=== PATIENT | female | born 1970 | race Two or more races ===

== ENCOUNTER 2019-11-20 12:52 | Outpatient (REF) | payer OTHER, SELFPAY ==
[2019-11-20 14:16] LABS: MANUAL DIFF FLAG NO
[2019-11-20 14:19] LABS: Basophils Percent Auto 0.8 % (0-2); Eosinophils Absolute Auto 0.3 X10*3/uL (0.0-0.4); Eosinophils Percent Auto 5.8 % (0-4); Hematocrit 35.8 % (37-47); Hemoglobin 10.8 g/dl (12.0-16.0); Imm Gran Abs Auto 0.01 X10*3/uL (0.00-0.03); Imm Gran Pct Auto 0.2 % (0.0-0.4); Lymphocytes Absolute Auto 2.1 X10*3/uL (1.2-4.9); Lymphocytes Percent Auto 41.4 % (20-40); Mean Corpuscular HGB Conc 30.2 g/dl (31.0-35.0); Mean Corpuscular Hemoglobin 27.1 pg (27.0-33.0); Mean Corpuscular Volume 89.9 fL (80-98); Mean Platelet Volume 10.9 fL (9.4-12.3); Monocytes Absolute Auto 0.4 X10*3/uL (0.1-1.2); Monocytes Percent Auto 8.3 % (2-11); Neutrophils Absolute Auto 2.3 X10*3/uL (2.0-8.3); Neutrophils Percent Auto 43.5 % (45-73); Platelet Count 311 X10*3/uL (160-400); Red Blood Count 3.98 X10*6/uL (4.20-5.50); White Blood Count 5.2 X10*3/uL (4.8-10.8)
== END 2019-11-20 12:53 | disposition home or self-care (01) ==
LOC: HO.LAB 12:52
PROVIDERS: PCP Internal Medicine; Visit Provider Internal Medicine
DX: D64.9 Anemia, unspecified (principal)
CPT/HCPCS: 36415; 85025

== ENCOUNTER 2020-02-12 06:48 | Outpatient (REF) | payer OTHER, SELFPAY ==
[2020-02-12 07:19] LABS: MANUAL DIFF FLAG NO
[2020-02-12 07:22] LABS: Basophils Percent Auto 0.4 % (0-2); Eosinophils Absolute Auto 0.4 X10*3/uL (0.0-0.4); Eosinophils Percent Auto 5.1 % (0-4); Hematocrit 36.1 % (37-47); Imm Gran Abs Auto 0.01 X10*3/uL (0.00-0.03); Imm Gran Pct Auto 0.1 % (0.0-0.4); Lymphocytes Absolute Auto 2.5 X10*3/uL (1.2-4.9); Lymphocytes Percent Auto 31.1 % (20-40); Mean Corpuscular HGB Conc 30.5 g/dl (31.0-35.0); Mean Corpuscular Hemoglobin 27.6 pg (27.0-33.0); Mean Corpuscular Volume 90.5 fL (80-98); Mean Platelet Volume 10.5 fL (9.4-12.3); Monocytes Absolute Auto 0.7 X10*3/uL (0.1-1.2); Monocytes Percent Auto 8.3 % (2-11); Neutrophils Absolute Auto 4.4 X10*3/uL (2.0-8.3); Platelet Count 282 X10*3/uL (160-400); Red Blood Count 3.99 X10*6/uL (4.20-5.50); Red Cell Distribution Width 13.6 % (11.0-16.0)
[2020-02-12 07:57] LABS: Alanine Aminotransferase 23 U/L (0-31); Albumin Level 4.2 g/dL (3.5-5.0); Alkaline Phosphatase 76 U/L (39-117); Anion Gap 11 (12-20); Aspartate Amino Transferase 22 U/L (5-31); Bilirubin Total 0.4 mg/dL (0.0-1.0); Blood Urea Nitrogen 15 mg/dL (9-16); Calcium 9.8 mg/dL (8.4-10.2); Carbon Dioxide 26 mmol/L (22-29); Chloride 110 mmol/L (96-108); Cholesterol 127 mg/dL; Estimated Glomerular Filt Rate > 60; Glucose Random 97 mg/dL (60-115); HDL Cholesterol 38 mg/dL; LDL Cholesterol Calculated 62 mg/dl; Potassium 4.5 mmol/l (3.3-5.1); Sodium 142 mmol/L (135-145); Total Protein 6.7 g/dL (6.5-8.0); Triglycerides 136 mg/dL
[2020-02-12 08:19] LABS: Ferritin 10 ng/mL (10-250)
== END 2020-02-12 06:49 | disposition home or self-care (01) ==
LOC: HO.LAB 06:48
PROVIDERS: PCP Internal Medicine; Visit Provider Internal Medicine
DX: E78.2 Mixed hyperlipidemia (principal)
CPT/HCPCS: 36415; 80053; 80061; 82728; 85025

== ENCOUNTER 2020-02-21 14:15 | Outpatient (REF) | payer OTHER, SELFPAY ==
--- NOTE | 2020-02-21 | US_ITS ---
EXAMINATION: ULTRASOUND OF THE PELVIS CLINICAL INFORMATION: Dysfunctional uterine bleeding.. COMPARISON: None. TECHNIQUE: Transabdominal and transvaginal pelvic ultrasound. Doppler evaluation including arterial as well as venous spectral Doppler waveforms and color Doppler were performed. FINDINGS: The uterus is normal in size and appearance, measuring 9.6 x 5.3 x 6.4 cm longitudinally, anteroposteriorly and transversely. The endometrial stripe is heterogeneous, echogenic and measures 1.2 cm. Small amount of fluid is noted within the endometrial cavity. No focal myometrial mass is seen. The ovaries bilaterally are visualized and appear normal, with the right ovary measuring 4.2 x 2.1 x 2.1 cm, volume 9.7 mL and the left ovary measuring 3.3 x 2.5 x 2.4 cm., volume of 10.4 mL. Specific note is made of a 1.9 x 1.8 x 1.6 cm likely hemorrhagic follicle within the right ovary and 1.9 x 1.4 x 1.8 cm also likely hemorrhagic follicle within the left ovary. No adnexal mass or free fluid collection seen. A transvaginal study was performed in addition to the transabdominal study which did not yield an adequate examination of the uterus and ovaries due to superimposed distended gas-filled loops of bowel. US/US pelvic complete IMPRESSION: 1. The endometrial stripe is heterogeneous, echogenic and measures 1.2 cm. Small amount of fluid is noted within the endometrial cavity. 2. Morphologically normal-appearing ovaries with likely hemorrhagic follicle measuring approximately 2 cm, one on each side, as described above.
== END 2020-02-21 14:16 | disposition home or self-care (01) ==
LOC: HO.US 14:15
PROVIDERS: PCP Internal Medicine; Visit Provider Internal Medicine
DX: N92.1 Excessive and frequent menstruation with irregular cycle (principal); Z01.419 Encounter for gynecological examination (general) (routine) without abnormal findings
CPT/HCPCS: 76830; 76856

== ENCOUNTER 2020-03-04 18:31 | Emergency (ER) | payer OTHER, SELFPAY ==
[2020-03-04 18:42] VITALS: BP 169/55; PULSE 94; RESP 20; TEMP 36.8; O2SAT 100; BMI 29.5
--- NOTE | 2020-03-04 18:44 | ED_ITS ---
HPI - Abdominal Pain General Chief Complaint: Abdominal Pain <SILVER Gaffney - Last Filed: 03/05/20 17:18> Stated Complaint: lower abdominal pain <SILVER Gaffney - Last Filed: 03/05/20 17:18> Time Seen by Provider: 03/04/20 18:43 <SILVER Gaffney - Last Filed: 03/05/20 17:18> Related Data Home Medications: Home Medications Medication Instructions Recorded Confirmed lisinopril 10 mg tablet 10 mg PO DAILY 03/05/20 03/05/20 metoprolol tartrate 50 mg tablet 50 mg PO BID 03/05/20 03/05/20 rosuvastatin 20 mg tablet 20 mg PO BEDTIME 03/05/20 03/05/20 <SILVER Gaffney - Last Filed: 03/05/20 17:18> Allergies/Adverse Reactions: Allergies Allergy/AdvReac Type Severity Reaction Status Date / Time pork derived (porcine) Allergy Severe RASH Verified 03/05/20 09:35 [PORK DERIVED (PORCINE)] <SILVER Gaffney - Last Filed: 03/05/20 17:18> Physical Exam Vital Signs: Vital Signs: Last Vital Signs Temp 98.2 F 03/04/20 18:42 Pulse 78 03/04/20 20:02 Resp 18 03/04/20 20:02 BP 152/76 H 03/04/20 20:02 Pulse Ox 100 03/04/20 20:02 Body Mass Index 29.5 <SILVER Gaffney - Last Filed: 03/05/20 17:18> Vital Signs: Last Vital Signs Temp 98.2 F 03/04/20 18:42 Pulse 78 03/04/20 20:02 Resp 18 03/04/20 20:02 BP 152/76 H 03/04/20 20:02 Pulse Ox 100 03/04/20 20:02 Body Mass Index 29.5 <Glen Miller MD - Last Filed: 03/12/20 08:45> Course Course Course Narrative: This is a 50 yold female who presents to the ED with RLQ pain that began suddenly 45 minutes ago. Patient denies any trauma. patient will have basic labs drawn. History, physical exam, ROS, decision making, and disposition will be done by ED. PRovider. <SILVER Gaffney - Last Filed: 03/05/20 17:18> patient left prior to complete evaluation <Glen Miller MD - Last Filed: 03/12/20 08:45> MDM - Abdominal Pain Lab Data Result diagrams: : 03/04/20 20:11 03/04/20 20:11 <SILVER Gaffney - Last Filed: 03/05/20 17:18> Labs: Lab Results 03/04/20 03/04/20 03/04/20 Range/Units 18:53 20:11 20:11 WBC 7.0 (4.8-10.8) X10*3/uL RBC 3.82 L (4.20-5.50) X10*6/uL Hgb 10.7 L (12.0-16.0) g/dl Hct 34.3 L (37-47) % MCV 89.8 (80-98) fL MCH 28.0 (27.0-33.0) pg MCHC 31.2 (31.0-35.0) g/dl RDW 13.3 (11.0-16.0) % Plt Count 312 (160-400) X10*3/uL MPV 10.1 (9.4-12.3) fL Immature Gran % (Auto) 0.1 (0.0-0.4) % Neut % (Auto) 67.2 (45-73) % Lymph % (Auto) 22.5 (20-40) % [place] % (Auto) 7.1 (2-11) % Eos % (Auto) 2.7 (0-4) % Baso % (Auto) 0.4 (0-2) % Lymph # (Auto) 1.6 (1.2-4.9) X10*3/uL [place] # (Auto) 0.5 (0.1-1.2) X10*3/uL Eos # (Auto) 0.2 (0.0-0.4) X10*3/uL Baso # (Auto) 0.0 (0.0-0.2) X10*3/uL Abs Immat Gran (auto) 0.01 (0.00-0.03) X10*3/uL Absolute Neuts (auto) 4.7 (2.0-8.3) X10*3/uL Absolute Nucleated RBC 0.000 (0.0-0.012) X10*3/uL Nucleated RBC % (auto) 0.0 (0.0-0.2) /100WBC PT 11.5 (10.8-13.0) SEC INR 1.0 (0.9-1.1) APTT 31.8 (24.1-38.0) SEC Sodium (135-145) mmol/L Potassium (3.3-5.1) mmol/l Chloride (96-108) mmol/L Carbon Dioxide (22-29) mmol/L Anion Gap (12-20) BUN (9-16) mg/dL Creatinine (0.5-1.4) mg/dL Estim Creat Clear Calc Estimated GFR Random Glucose (60-115) mg/dL Calcium (8.4-10.2) mg/dL Total Bilirubin (0.0-1.0) mg/dL Direct Bilirubin (0.0-0.5) mg/dL AST (5-31) U/L ALT (0-31) U/L Alkaline Phosphatase (39-117) U/L Total Protein (6.5-8.0) g/dL Albumin (3.5-5.0) g/dL Lipase (8-78) U/L Beta HCG, Quant mIU/mL Urine Color YELLOW Urine Appearance HAZY Urine pH 5.5 (5.0-8.0) Ur Specific [place] >= 1.030 H (1.005-1.025) Urine Protein 1+ H (NEG-TRACE) MG/DL Urine Glucose (UA) NEG (NEG) MG/DL Urine Ketones NEG (NEG) MG/DL Urine Blood 3+ H (NEG) Urine Nitrite NEG (NEG) Ur Leukocyte Esterase NEG (NEG) Urine RBC 30-49 H (0) /HPF Urine WBC 0 (0-4) /HPF Ur Squamous Epith Cells 1+ /LPF Urine Bacteria 2+ /LPF Urine Yeast 1+ /HPF Urine Test NEGATIVE (NEGATIVE) 03/04/20 Range/Units 20:11 WBC (4.8-10.8) X10*3/uL RBC (4.20-5.50) X10*6/uL Hgb (12.0-16.0) g/dl Hct (37-47) % MCV (80-98) fL MCH (27.0-33.0) pg MCHC (31.0-35.0) g/dl RDW (11.0-16.0) % Plt Count (160-400) X10*3/uL MPV (9.4-12.3) fL Immature Gran % (Auto) (0.0-0.4) % Neut % (Auto) (45-73) % Lymph % (Auto) (20-40) % [place] % (Auto) (2-11) % Eos % (Auto) (0-4) % Baso % (Auto) (0-2) % Lymph # (Auto) (1.2-4.9) X10*3/uL [place] # (Auto) (0.1-1.2) X10*3/uL Eos # (Auto) (0.0-0.4) X10*3/uL Baso # (Auto) (0.0-0.2) X10*3/uL Abs Immat Gran (auto) (0.00-0.03) X10*3/uL Absolute Neuts (auto) (2.0-8.3) X10*3/uL Absolute Nucleated RBC (0.0-0.012) X10*3/uL Nucleated RBC % (auto) (0.0-0.2) /100WBC PT (10.8-13.0) SEC INR (0.9-1.1) APTT (24.1-38.0) SEC Sodium 139 (135-145) mmol/L Potassium 4.5 (3.3-5.1) mmol/l Chloride 105 (96-108) mmol/L Carbon Dioxide 28 (22-29) mmol/L Anion Gap 11 L (12-20) BUN 16 (9-16) mg/dL Creatinine 0.92 (0.5-1.4) mg/dL Estim Creat Clear Calc 72.3 Estimated GFR > 60 Random Glucose 132 H D (60-115) mg/dL Calcium 10.0 (8.4-10.2) mg/dL Total Bilirubin 0.2 (0.0-1.0) mg/dL Direct Bilirubin < 0.2 (0.0-0.5) mg/dL AST 29 (5-31) U/L ALT 30 (0-31) U/L Alkaline Phosphatase 89 (39-117) U/L Total Protein 7.3 (6.5-8.0) g/dL Albumin 4.5 (3.5-5.0) g/dL Lipase 48 (8-78) U/L Beta HCG, Quant < 2 mIU/mL Urine Color Urine Appearance Urine pH (5.0-8.0) Ur Specific [place] (1.005-1.025) Urine Protein (NEG-TRACE) MG/DL Urine Glucose (UA) (NEG) MG/DL Urine Ketones (NEG) MG/DL Urine Blood (NEG) Urine Nitrite (NEG) Ur Leukocyte Esterase (NEG) Urine RBC (0) /HPF Urine WBC (0-4) /HPF Ur Squamous Epith Cells /LPF Urine Bacteria /LPF Urine Yeast /HPF Urine Test (NEGATIVE) <SILVER Gaffney - Last Filed: 03/05/20 17:18> Lab Results 03/04/20 03/04/20 03/04/20 Range/Units 18:53 20:11 20:11 WBC 7.0 (4.8-10.8) X10*3/uL RBC 3.82 L (4.20-5.50) X10*6/uL Hgb 10.7 L (12.0-16.0) g/dl Hct 34.3 L (37-47) % MCV 89.8 (80-98) fL MCH 28.0 (27.0-33.0) pg MCHC 31.2 (31.0-35.0) g/dl RDW 13.3 (11.0-16.0) % Plt Count 312 (160-400) X10*3/uL MPV 10.1 (9.4-12.3) fL Immature Gran % (Auto) 0.1 (0.0-0.4) % Neut % (Auto) 67.2 (45-73) % Lymph % (Auto) 22.5 (20-40) % [place] % (Auto) 7.1 (2-11) % Eos % (Auto) 2.7 (0-4) % Baso % (Auto) 0.4 (0-2) % Lymph # (Auto) 1.6 (1.2-4.9) X10*3/uL [place] # (Auto) 0.5 (0.1-1.2) X10*3/uL Eos # (Auto) 0.2 (0.0-0.4) X10*3/uL Baso # (Auto) 0.0 (0.0-0.2) X10*3/uL Abs Immat Gran (auto) 0.01 (0.00-0.03) X10*3/uL Absolute Neuts (auto) 4.7 (2.0-8.3) X10*3/uL Absolute Nucleated RBC 0.000 (0.0-0.012) X10*3/uL Nucleated RBC % (auto) 0.0 (0.0-0.2) /100WBC PT 11.5 (10.8-13.0) SEC INR 1.0 (0.9-1.1) APTT 31.8 (24.1-38.0) SEC Sodium (135-145) mmol/L Potassium (3.3-5.1) mmol/l Chloride (96-108) mmol/L Carbon Dioxide (22-29) mmol/L Anion Gap (12-20) BUN (9-16) mg/dL Creatinine (0.5-1.4) mg/dL Estim Creat Clear Calc Estimated GFR Random Glucose (60-115) mg/dL Calcium (8.4-10.2) mg/dL Total Bilirubin (0.0-1.0) mg/dL Direct Bilirubin (0.0-0.5) mg/dL AST (5-31) U/L ALT (0-31) U/L Alkaline Phosphatase (39-117) U/L Total Protein (6.5-8.0) g/dL Albumin (3.5-5.0) g/dL Lipase (8-78) U/L Beta HCG, Quant mIU/mL Urine Color YELLOW Urine Appearance HAZY Urine pH 5.5 (5.0-8.0) Ur Specific [place] >= 1.030 H (1.005-1.025) Urine Protein 1+ H (NEG-TRACE) MG/DL Urine Glucose (UA) NEG (NEG) MG/DL Urine Ketones NEG (NEG) MG/DL Urine Blood 3+ H (NEG) Urine Nitrite NEG (NEG) Ur Leukocyte Esterase NEG (NEG) Urine RBC 30-49 H (0) /HPF Urine WBC 0 (0-4) /HPF Ur Squamous Epith Cells 1+ /LPF Urine Bacteria 2+ /LPF Urine Yeast 1+ /HPF Urine Test NEGATIVE (NEGATIVE) 03/04/20 Range/Units 20:11 WBC (4.8-10.8) X10*3/uL RBC (4.20-5.50) X10*6/uL Hgb (12.0-16.0) g/dl Hct (37-47) % MCV (80-98) fL MCH (27.0-33.0) pg MCHC (31.0-35.0) g/dl RDW (11.0-16.0) % Plt Count (160-400) X10*3/uL MPV (9.4-12.3) fL Immature Gran % (Auto) (0.0-0.4) % Neut % (Auto) (45-73) % Lymph % (Auto) (20-40) % [place] % (Auto) (2-11) % Eos % (Auto) (0-4) % Baso % (Auto) (0-2) % Lymph # (Auto) (1.2-4.9) X10*3/uL [place] # (Auto) (0.1-1.2) X10*3/uL Eos # (Auto) (0.0-0.4) X10*3/uL Baso # (Auto) (0.0-0.2) X10*3/uL Abs Immat Gran (auto) (0.00-0.03) X10*3/uL Absolute Neuts (auto) (2.0-8.3) X10*3/uL Absolute Nucleated RBC (0.0-0.012) X10*3/uL Nucleated RBC % (auto) (0.0-0.2) /100WBC PT (10.8-13.0) SEC INR (0.9-1.1) APTT (24.1-38.0) SEC Sodium 139 (135-145) mmol/L Potassium 4.5 (3.3-5.1) mmol/l Chloride 105 (96-108) mmol/L Carbon Dioxide 28 (22-29) mmol/L Anion Gap 11 L (12-20) BUN 16 (9-16) mg/dL Creatinine 0.92 (0.5-1.4) mg/dL Estim Creat Clear Calc 72.3 Estimated GFR > 60 Random Glucose 132 H D (60-115) mg/dL Calcium 10.0 (8.4-10.2) mg/dL Total Bilirubin 0.2 (0.0-1.0) mg/dL Direct Bilirubin < 0.2 (0.0-0.5) mg/dL AST 29 (5-31) U/L ALT 30 (0-31) U/L Alkaline Phosphatase 89 (39-117) U/L Total Protein 7.3 (6.5-8.0) g/dL Albumin 4.5 (3.5-5.0) g/dL Lipase 48 (8-78) U/L Beta HCG, Quant < 2 mIU/mL Urine Color Urine Appearance Urine pH (5.0-8.0) Ur Specific [place] (1.005-1.025) Urine Protein (NEG-TRACE) MG/DL Urine Glucose (UA) (NEG) MG/DL Urine Ketones (NEG) MG/DL Urine Blood (NEG) Urine Nitrite (NEG) Ur Leukocyte Esterase (NEG) Urine RBC (0) /HPF Urine WBC (0-4) /HPF Ur Squamous Epith Cells /LPF Urine Bacteria /LPF Urine Yeast /HPF Urine Test (NEGATIVE) <Glen Miller MD - Last Filed: 03/12/20 08:45> Discharge Plan Discharge Patient Disposition: Elopement <SILVER Gaffney - Last Filed: 03/05/20 17:18> Prescriptions: No Action lisinopril 10 mg tablet 10 mg PO DAILY RF: 0 metoprolol tartrate 50 mg tablet 50 mg PO BID RF: 0 rosuvastatin 20 mg tablet 20 mg PO BEDTIME RF: 0 <SILVER Gaffney - Last Filed: 03/05/20 17:18> Interventions: LWBS Worksheet Last Done: 03/05/20 01:32 <SILVER Gaffney - Last Filed: 03/05/20 17:18> Discharge Date/Time: 03/05/20 01:34 <SILVER Gaffney - Last Filed: 03/05/20 17:18> [facility] Past Medical History Medical History: Medical History Anemia Hypercholesterolemia Hypertension Migraine headache <SILVER Gaffney - Last Filed: 03/05/20 17:18> Surgical History: Surgical History H/O breast biopsy Tubal ligation status <SILVER Gaffney - Last Filed: 03/05/20 17:18> Family History Family History: Family History Sister Breast CA <SILVER Gaffney - Last Filed: 03/05/20 17:18> Social History Social History: Social History Smoking Status: Never smoker <SILVER Gaffney - Last Filed: 03/05/20 17:18>
[2020-03-04 19:00] LABS: Glucose Urine UA NEG (NEG); Leukocyte Esterase Urine NEG (NEG); Nitrite Urine NEG (NEG); PH 5.5 (5.0-8.0); Specific Gravity - Urine >= 1.030 (1.005-1.025); Urine Blood 3+ (NEG); Urine Ketones NEG (NEG); Urine Protein 1+ MG/DL (NEG-TRACE)
[2020-03-04 19:01] LABS: Appearance Urine HAZY; Color Urine YELLOW
[2020-03-04 19:03] LABS: UPreg QC Valid YES; Urine Pregnancy NEGATIVE (NEGATIVE)
[2020-03-04 19:13] LABS: Bacteria Urine 2+ /LPF; RBC Urine 30-49 /HPF (0); Squamous Epithelial Cell Urine 1+ /LPF; WBC Urine 0 /HPF (0-4)
[2020-03-04 20:02] VITALS: BP 152/76; PULSE 78; RESP 18; O2SAT 100
[2020-03-04 20:16] LABS: MANUAL DIFF FLAG NO
[2020-03-04 20:18] LABS: Basophils Percent Auto 0.4 % (0-2); Eosinophils Absolute Auto 0.2 X10*3/uL (0.0-0.4); Eosinophils Percent Auto 2.7 % (0-4); Hematocrit 34.3 % (37-47); Hemoglobin 10.7 g/dl (12.0-16.0); Imm Gran Abs Auto 0.01 X10*3/uL (0.00-0.03); Imm Gran Pct Auto 0.1 % (0.0-0.4); Lymphocytes Absolute Auto 1.6 X10*3/uL (1.2-4.9); Lymphocytes Percent Auto 22.5 % (20-40); Mean Corpuscular HGB Conc 31.2 g/dl (31.0-35.0); Mean Corpuscular Volume 89.8 fL (80-98); Mean Platelet Volume 10.1 fL (9.4-12.3); Monocytes Absolute Auto 0.5 X10*3/uL (0.1-1.2); Monocytes Percent Auto 7.1 % (2-11); Neutrophils Absolute Auto 4.7 X10*3/uL (2.0-8.3); Neutrophils Percent Auto 67.2 % (45-73); Platelet Count 312 X10*3/uL (160-400); Red Blood Count 3.82 X10*6/uL (4.20-5.50); Red Cell Distribution Width 13.3 % (11.0-16.0)
[2020-03-04 20:24] LABS: Prothrombin Time 11.5 SEC (10.8-13.0)
[2020-03-04 20:26] LABS: Partial Thromboplastin Time 31.8 SEC (24.1-38.0)
[2020-03-04 20:42] LABS: Alanine Aminotransferase 30 U/L (0-31); Albumin Level 4.5 g/dL (3.5-5.0); Alkaline Phosphatase 89 U/L (39-117); Anion Gap 11 (12-20); Aspartate Amino Transferase 29 U/L (5-31); Bilirubin Direct < 0.2 mg/dL (0.0-0.5); Bilirubin Total 0.2 mg/dL (0.0-1.0); Blood Urea Nitrogen 16 mg/dL (9-16); Carbon Dioxide 28 mmol/L (22-29); Chloride 105 mmol/L (96-108); Creatinine Clr Calc Pharmacy 72.3; Estimated Glomerular Filt Rate > 60; Glucose Random 132 mg/dL (60-115); Lipase 48 U/L (8-78); Potassium 4.5 mmol/l (3.3-5.1); Sodium 139 mmol/L (135-145); Total Protein 7.3 g/dL (6.5-8.0)
[2020-03-04 20:47] LABS: HCG Quantitative < 2 mIU/mL
== END 2020-03-05 01:34 | disposition left against medical advice (07) ==
PROVIDERS: Physician Assistant; Emergency Provider Student in an Organized Health Care Education/Training Program
DX: R10.30 Lower abdominal pain, unspecified (principal); Z79.899 Other long term (current) drug therapy
CPT/HCPCS: 36415; 80053; 80076; 81001; 81003; 81025; 82248; 83690; 84702; 85025; 85610; 85730; 99283

== ENCOUNTER 2020-03-05 11:05 | Outpatient (REF) | payer OTHER, SELFPAY ==
[2020-03-07 01:12] LABS: C. trachomatis RNA TMA NOT DETECTED (NOT DETECTED); N. gonorrhoeae RNA TMA NOT DETECTED (NOT DETECTED)
[2020-03-12 13:58] LABS: HPV mRNA E6/E7 Not Detected (Not Detected)
== END 2020-03-05 11:06 | disposition home or self-care (01) ==
LOC: HO.LAB 11:05
PROVIDERS: Visit Provider Obstetrics & Gynecology
DX: Z01.419 Encounter for gynecological examination (general) (routine) without abnormal findings (principal); N92.1 Excessive and frequent menstruation with irregular cycle
CPT/HCPCS: 36415; 87491; 87591; 87624; 87625; 88141; 88142

== ENCOUNTER 2020-03-06 11:06 | Outpatient (REF) | payer OTHER, SELFPAY | END 2020-03-06 11:07 | disposition home or self-care (01) | LOC: HO.LAB 11:06 | PROVIDERS: Visit Provider Obstetrics & Gynecology | DX: Z13.89 Encounter for screening for other disorder (principal) ==

== ENCOUNTER 2020-03-19 09:20 | Outpatient (REF) | payer OTHER, SELFPAY | END 2020-03-19 09:21 | disposition home or self-care (01) | LOC: HO.LAB 09:20 | PROVIDERS: PCP Internal Medicine; Visit Provider Obstetrics & Gynecology | DX: N92.1 Excessive and frequent menstruation with irregular cycle (principal) | CPT/HCPCS: 58100; 88305 ==

== ENCOUNTER 2020-04-02 12:16 | Outpatient (REF) | payer OTHER, SELFPAY ==
[2020-04-02 14:25] LABS: Hematocrit 34.8 % (37-47); Mean Corpuscular HGB Conc 31.6 g/dl (31.0-35.0); Mean Corpuscular Hemoglobin 28.2 pg (27.0-33.0); Mean Corpuscular Volume 89.2 fL (80-98); Platelet Count 305 X10*3/uL (160-400); White Blood Count 6.9 X10*3/uL (4.8-10.8)
[2020-04-02 15:02] LABS: HCG Quantitative < 2 mIU/mL; Thyroid Stimulating Hormone 1.25 uIU/mL (0.32-4.0)
[2020-04-03 06:32] LABS: Follicle Stimulating Hormone 5.4 mIU/mL; Lutenizing Hormone 6.3 mIU/mL
[2020-04-03 21:12] LABS: C. trachomatis RNA TMA NOT DETECTED (NOT DETECTED); N. gonorrhoeae RNA TMA NOT DETECTED (NOT DETECTED)
== END 2020-04-02 12:17 | disposition home or self-care (01) ==
LOC: HO.LAB 12:16
PROVIDERS: PCP Internal Medicine; Visit Provider Obstetrics & Gynecology
DX: N83.201 Unspecified ovarian cyst, right side (principal); N83.202 Unspecified ovarian cyst, left side; N92.1 Excessive and frequent menstruation with irregular cycle
CPT/HCPCS: 36415; 83001; 83002; 84443; 84702; 85027; 87491; 87591

== ENCOUNTER 2020-06-30 10:39 | Outpatient (REF) | payer OTHER, SELFPAY ==
--- NOTE | ~2020-06-30 | US_ITS ---
EXAMINATION: US PELVIS COMPLETE CLINICAL INFORMATION: Right ovarian cyst. COMPARISON: None TECHNIQUE: Transabdominal and transvaginal imaging of the pelvis is performed. FINDINGS: The uterus is anteverted and anteflexed measuring 11.0 cm in length, 4.5 cm in AP and 6.5 cm in transverse dimension. Heterogenous endometrium with cystic areas. Thickness measures 0.82 cm. There are small nabothian cysts in the cervix with minimal fluid in the cervical canal. The right ovary measures 3.3 x 2.4 x 2.1 cm and volume 8.9 mL. There is an anechoic cyst measuring 1.7 x 1.2 x 1.4 cm. The left ovary measures 3.9 x 2.5 x 3.5 cm and volume 17.7 mL. There are several anechoic cysts measuring 2.1 x 1.7 x 1.8 cm and 2.1 x 1.5 x 2.1 cm. There is no free fluid in the cul-de-sac. US/US transvaginal IMPRESSION: Unremarkable uterus. Several nabothian cysts with small amount of fluid in the cervical canal. Complex cyst right ovary. Two simple cysts left ovary.
--- NOTE | ~2020-06-30 | US_ITS ---
EXAMINATION: US PELVIS COMPLETE CLINICAL INFORMATION: Right ovarian cyst. COMPARISON: None TECHNIQUE: Transabdominal and transvaginal imaging of the pelvis is performed. FINDINGS: The uterus is anteverted and anteflexed measuring 11.0 cm in length, 4.5 cm in AP and 6.5 cm in transverse dimension. Heterogenous endometrium with cystic areas. Thickness measures 0.82 cm. There are small nabothian cysts in the cervix with minimal fluid in the cervical canal. The right ovary measures 3.3 x 2.4 x 2.1 cm and volume 8.9 mL. There is an anechoic cyst measuring 1.7 x 1.2 x 1.4 cm. The left ovary measures 3.9 x 2.5 x 3.5 cm and volume 17.7 mL. There are several anechoic cysts measuring 2.1 x 1.7 x 1.8 cm and 2.1 x 1.5 x 2.1 cm. There is no free fluid in the cul-de-sac. US/US pelvic complete IMPRESSION: Unremarkable uterus. Several nabothian cysts with small amount of fluid in the cervical canal. Complex cyst right ovary. Two simple cysts left ovary.
== END 2020-06-30 10:40 | disposition home or self-care (01) ==
LOC: HO.US 10:39
PROVIDERS: Visit Provider Obstetrics & Gynecology
DX: N83.201 Unspecified ovarian cyst, right side (principal); N83.202 Unspecified ovarian cyst, left side
CPT/HCPCS: 76830; 76856

== ENCOUNTER 2020-07-07 14:17 | Outpatient (REF) | payer OTHER, SELFPAY ==
--- NOTE | ~2020-07-07 | MM_ITS ---
EXAMINATION: MM SCREENING DIGITAL BREAST TOMOSYNTHESIS, BILATERAL CLINICAL INFORMATION: Screening. Asymptomatic. The lifetime risk of breast cancer based on the Tyrer-Cuzick Model is 14.1%. COMPARISON: Mammography: April 22, 2021 November 25, 2011 TECHNIQUE: Digital breast tomosynthesis is performed in both the craniocaudal and mediolateral oblique views along with computer-aided detection (CAD). Synthesized 2D images are generated from the tomosynthesis. FINDINGS: The breasts are heterogeneously dense, which may obscure small masses (ACR BI-RADS breast composition Category c). There are no significant masses, abnormal calcifications, or other abnormalities. MM/MM tomosynthesis screening BI IMPRESSION: There are no significant changes from prior study. ASSESSMENT: BI-RADS 1: Negative RECOMMENDATION: Routine annual mammography screening. This patient's information was entered into a reminder system with a target due date for their next mammogram.
== END 2020-07-07 14:18 | disposition home or self-care (01) ==
LOC: HO.MAMMO 14:17
PROVIDERS: PCP Internal Medicine; Visit Provider Obstetrics & Gynecology
DX: Z12.31 Encounter for screening mammogram for malignant neoplasm of breast (principal)
CPT/HCPCS: 77063; 77067

== ENCOUNTER → 2020-07-09 16:30 | Outpatient (BNVA) | payer OTHER, SELFPAY | PROVIDERS: PCP Internal Medicine; Visit Provider Obstetrics & Gynecology ==

== ENCOUNTER 2020-07-18 07:29 | Outpatient (REF) | payer OTHER, SELFPAY ==
[2020-07-18 11:31] LABS: CT PCR NOT DETECTED (Not Detect.); NG PCR NOT DETECTED (Not Detect.)
[2020-07-19 07:02] LABS: CA-125 13 U/mL (<35)
== END 2020-07-18 07:30 | disposition home or self-care (01) ==
LOC: HO.LAB 07:29
PROVIDERS: PCP Internal Medicine; Visit Provider Obstetrics & Gynecology
DX: Z11.3 Encounter for screening for infections with a predominantly sexual mode of transmission (principal); N92.1 Excessive and frequent menstruation with irregular cycle; N83.299 Other ovarian cyst, unspecified side
CPT/HCPCS: 86304; 87491; 87591

== ENCOUNTER 2020-08-11 17:47 | Outpatient (REF) | payer OTHER, SELFPAY ==
--- NOTE | ~2020-08-11 | MR_ITS ---
EXAMINATION: MR BREAST WITHOUT AND WITH CONTRAST, BILATERAL CLINICAL INFORMATION: High-risk screening, family history of breast cancer. COMPARISON: Bilateral breast MRI 10/30/2019, bilateral mammogram 07/07/2020 TECHNIQUE: Imaging was performed with a dedicated breast coil. Prior to the administration of contrast, bilateral axial T1 and bilateral axial T2 weighted sequences were obtained. After the uneventful administration of?7.5 mL of Gadavist, dynamic contrast-enhanced VIBRANT series through the breasts in the axial plane were performed. Subtracted images were performed and reviewed. A delayed sagittal sequence through both breasts was acquired. Additionally, CAD post-processing, including maximum intensity projections, 3-D reconstructions and kinetic analysis, were performed an independent workstation and reviewed by the interpreting radiologist is a portion of this exam. FINDINGS: The patient's fibroglandular tissue demonstrates mild background enhancement. LEFT BREAST: No suspicious masslike or non-masslike enhancement. No abnormal skin thickening or nipple retraction. No abnormal architectural distortion. Review of the T2 weighted images demonstrates no fibrocystic changes or dilated ducts. Review of kinetic images reveals no additional findings. There are numerous punctate scattered enhancing foci which are stable in appearance, size and distribution as compared to previous MRIs (2019, 2018 and 2017). There is an area of susceptibility artifact in the 12:00 position, 6 cm from the nipple. RIGHT BREAST: No suspicious masslike or non-masslike enhancement. No abnormal skin thickening or nipple retraction. No abnormal architectural distortion. Review of the T2 weighted images demonstrates no fibrocystic changes or dilated ducts. Review of kinetic images reveals no additional findings. There is no suspicious internal mammary chain or axillary adenopathy. Limited views of the chest and abdomen are unremarkable. MR/MR breast BI wo/w con IMPRESSION: No MR specific evidence of malignancy. ASSESSMENT: LEFT BREAST: BI-RADS 2, benign RIGHT BREAST: BI-RADS 1-Negative RECOMMENDATIONS: Bilateral mammogram in June 2021 and repeat MRI as clinically indicated.
== END 2020-08-11 17:48 | disposition home or self-care (01) ==
LOC: HO.MRI 17:47
PROVIDERS: PCP Nurse Practitioner Family; Visit Provider Obstetrics & Gynecology
DX: Z01.419 Encounter for gynecological examination (general) (routine) without abnormal findings (principal); Z80.3 Family history of malignant neoplasm of breast
CPT/HCPCS: 77049; A9585

== ENCOUNTER → 2020-09-23 14:04 | Outpatient (BNVA) | payer OTHER, SELFPAY | PROVIDERS: PCP Nurse Practitioner Family; Visit Provider Internal Medicine Cardiovascular Disease | DX: I20.1 Angina pectoris with documented spasm (principal); R07.89 Other chest pain | CPT/HCPCS: 93005 ==

== ENCOUNTER 2020-09-29 09:40 | Outpatient (REF) | payer OTHER, SELFPAY ==
--- NOTE | ~2020-09-29 | US_ITS ---
EXAMINATION: US PELVIS AND TRANSVAGINAL CLINICAL INFORMATION: Ovarian cyst. LMP 09/11/2020. COMPARISON: Most recent pelvic ultrasound dated 06/30/2020. TECHNIQUE: Ultrasound of the pelvis is performed using both transabdominal and transvaginal transducers along with Doppler. Transvaginal imaging is performed due to inadequate visualization transabdominally. FINDINGS: Uterus: The uterus is anteverted and measures 10.5 x 5.1 x 6.8 cm. Nabothian cysts within the cervix. The double wall endometrial thickness is 1.4 mm. Possible arcuate appearance of the endometrium. The uterus is smooth in contour and has slightly heterogeneous myometrial echogenicity. No visible fibroid. Adnexa: Both ovaries are visualized. There is normal color flow to the adnexa. There is no ovarian torsion. There is no pelvic ascites or fluid collection. Thick-walled cyst within the right ovary measuring 2.1 x 2 x 1.6 cm, likely representing a corpus luteum. This is in the region of the previously seen slightly complex right ovarian cyst. Previously seen left ovarian cysts versus follicles are no longer identified. Right ovary measures 3.8 x 2.4 x 2.7 cm, for a volume of 12.9 mL. Left ovary measures 3.3 x 2.3 x 2.6 cm, for a volume of 10.3 mL. US/US pelvic and transvaginal IMPRESSION: 1. Probable right ovarian corpus luteum in the region of the seen slightly complex cyst. Resolution of previously seen left ovarian dominant follicles versus cysts. 2. Slightly heterogeneous myometrial parenchyma without discrete lesion. Possible arcuate appearance of the endometrium. No endometrial thickening.
[2020-09-29 10:12] LABS: MANUAL DIFF FLAG NO
[2020-09-29 10:16] LABS: Basophils Percent Auto 0.6 % (0-2); Eosinophils Absolute Auto 0.2 X10*3/uL (0.0-0.4); Eosinophils Percent Auto 4.6 % (0-4); Hematocrit 35.2 % (37-47); Hemoglobin 11.1 g/dl (12.0-16.0); Imm Gran Abs Auto 0.01 X10*3/uL (0.00-0.03); Imm Gran Pct Auto 0.2 % (0.0-0.4); Lymphocytes Absolute Auto 1.8 X10*3/uL (1.2-4.9); Lymphocytes Percent Auto 37.7 % (20-40); Mean Corpuscular HGB Conc 31.5 g/dl (31.0-35.0); Mean Corpuscular Hemoglobin 27.7 pg (27.0-33.0); Mean Corpuscular Volume 87.8 fL (80-98); Monocytes Absolute Auto 0.5 X10*3/uL (0.1-1.2); Monocytes Percent Auto 9.8 % (2-11); Neutrophils Absolute Auto 2.3 X10*3/uL (2.0-8.3); Neutrophils Percent Auto 47.1 % (45-73); Platelet Count 252 X10*3/uL (160-400); Red Blood Count 4.01 X10*6/uL (4.20-5.50); Red Cell Distribution Width 13.9 % (11.0-16.0); White Blood Count 4.8 X10*3/uL (4.8-10.8)
[2020-09-29 10:43] LABS: Alanine Aminotransferase 52 U/L (0-31); Albumin Level 4.3 g/dL (3.5-5.0); Alkaline Phosphatase 81 U/L (39-117); Anion Gap 12 (12-20); Aspartate Amino Transferase 47 U/L (5-31); Bilirubin Total 0.5 mg/dL (0.0-1.0); Blood Urea Nitrogen 14 mg/dL (9-16); Calcium 10.3 mg/dL (8.4-10.2); Carbon Dioxide 23 mmol/L (22-29); Chloride 110 mmol/L (96-108); Cholesterol 141 mg/dL; Estimated Glomerular Filt Rate > 60; Glucose Random 97 mg/dL (60-115); HDL Cholesterol 41 mg/dL; LDL Cholesterol Calculated 69 mg/dl; Potassium 4.8 mmol/L (3.3-5.1); Sodium 140 mmol/L (135-145); Total Protein 7.1 g/dL (6.5-8.0); Triglycerides 155 mg/dL
== END 2020-09-29 09:41 | disposition home or self-care (01) ==
LOC: HO.US 09:40
PROVIDERS: Absent Provider Internal Medicine; PCP Internal Medicine; Visit Provider Obstetrics & Gynecology
DX: N83.299 Other ovarian cyst, unspecified side (principal); E78.00 Pure hypercholesterolemia, unspecified; I10 Essential (primary) hypertension; N95.1 Menopausal and female climacteric states
CPT/HCPCS: 36415; 76830; 76856; 80053; 80061; 85025

== ENCOUNTER → 2020-10-08 07:59 | Outpatient (REF) | payer OTHER, SELFPAY ==
--- NOTE | 2020-10-08 08:02 | CA_ITS ---
Acquisition Time: 2020-10-08 08:05:04 Total Exercise Time: 00:08:59 Test Indications: CP Medications: SEE CHART Protocol: JANETH Max HR: 146 BPM 86% of Pred: 168 BPM Max BP: 162/052 mmHG Max Work Load: 10.1 METS Exercise stress test with exercise 8 min 59 sec of Janeth protocol, with 2/10 anterior chest pressure at baseline which became a brief sharp pain in chest early in exercise, then stayed at a 2/10 through remainder of exercise and improved to 1/10 in recovery, without arrythmia, with normotensvie response to exercise, with EKG changes meeting criteria for ischemia inferiorly and V4-V6 with slow gradual improvement in recovery back to baseline. Test reviewed with Dr Marley. Will order a stress echo for further evaluation. Referred By: Gunner Marley Overread By: JESUS ZALDIVAR
== END ==
LOC: HO.CARD 07:59
PROVIDERS: Visit Provider Internal Medicine Cardiovascular Disease
DX: R07.89 Other chest pain (principal); N83.299 Other ovarian cyst, unspecified side
CPT/HCPCS: 93017

== ENCOUNTER → 2020-10-21 10:58 | Outpatient (REF) | payer OTHER, SELFPAY ==
--- NOTE | 2020-10-21 11:06 | CA_ITS ---
Acquisition Time: 2020-10-21 11:15:48 Total Exercise Time: 00:04:41 Test Indications: cp Medications: see chart Protocol: JANETH Max HR: 142 BPM 84% of Pred: 168 BPM Max BP: 160/100 mmHG Max Work Load: 6.6 METS Exercise stress test with exercise 4 min 41 sec of Janeth protocol breifly achieving 84% MPHR, pulse 142, with 1-2/ 10 left chest pressure at baseline which increased to 3/10 with exercise, with dizziness and request to stop, without arrythmia, with normotensive response to exercise, with upsloping ST depressions inferiorly at peak exercise. In recovery EKG show more horizontal ST depression inferiorly and downsloping ST abnormality V4 V6 with gradual improvement back to baseline. Her chest discomfort completed resolved in recovery and her dizziness nearly resolved. She describes having issues with calcium in her ears which makes her dizzy and with syncope at times. Echo images obtained by tech at rest and immediately post exercise. Definity contrast used. Test reviewed with Dr Jaramillo. Referred By: Peri Lyles Overread By: PERI LYLES
== END ==
LOC: HO.CARD 10:58
PROVIDERS: PCP Internal Medicine; Visit Provider Internal Medicine Cardiovascular Disease
DX: I20.1 Angina pectoris with documented spasm (principal); E78.00 Pure hypercholesterolemia, unspecified; R94.39 Abnormal result of other cardiovascular function study
CPT/HCPCS: 93350; Q9957

== ENCOUNTER 2020-10-29 09:48 | Outpatient (REF) | payer OTHER, SELFPAY ==
[2020-10-29 14:53] LABS: Hematocrit 35.4 % (37-47); Mean Corpuscular HGB Conc 31.1 g/dl (31.0-35.0); Mean Corpuscular Hemoglobin 27.4 pg (27.0-33.0); Mean Corpuscular Volume 88.3 fL (80-98); Mean Platelet Volume 11.4 fL (9.4-12.3); Platelet Count 237 X10*3/uL (160-400); Red Blood Count 4.01 X10*6/uL (4.20-5.50); Red Cell Distribution Width 13.7 % (11.0-16.0); White Blood Count 4.7 X10*3/uL (4.8-10.8)
[2020-10-29 15:11] LABS: Anion Gap 10 (12-20); Blood Urea Nitrogen 12 mg/dL (9-16); Calcium 10.4 mg/dL (8.4-10.2); Carbon Dioxide 26 mmol/L (22-29); Chloride 108 mmol/L (96-108); Estimated Glomerular Filt Rate > 60; Glucose Random 85 mg/dL (60-115); Potassium 4.7 mmol/L (3.3-5.1); Sodium 139 mmol/L (135-145)
[2020-10-29 15:13] LABS: Prothrombin Time 10.9 SEC (9.9-13.0)
== END 2020-10-29 09:49 | disposition home or self-care (01) ==
LOC: HO.LAB 09:48
PROVIDERS: PCP Internal Medicine; Visit Provider Internal Medicine Cardiovascular Disease
DX: I10 Essential (primary) hypertension (principal); R94.39 Abnormal result of other cardiovascular function study; I20.8 Other forms of angina pectoris
CPT/HCPCS: 36415; 80048; 85027; 85610

== ENCOUNTER → 2020-11-19 14:32 | Outpatient (BNVA) | payer OTHER, SELFPAY | PROVIDERS: PCP Internal Medicine; Visit Provider Nurse Practitioner Family ==

== ENCOUNTER → 2021-03-10 14:30 | Outpatient (BNVA) | payer OTHER, SELFPAY | PROVIDERS: PCP Internal Medicine; Visit Provider Nurse Practitioner Family ==

== ENCOUNTER 2021-04-29 07:42 | Outpatient (REF) | payer OTHER, SELFPAY ==
[2021-04-29 07:55] LABS: MANUAL DIFF FLAG NO
[2021-04-29 08:19] LABS: Basophils Percent Auto 0.5 % (0-2); Eosinophils Absolute Auto 0.2 X10*3/uL (0.0-0.4); Eosinophils Percent Auto 3.5 % (0-4); Hematocrit 34.9 % (37.0-47.0); Hemoglobin 10.4 g/dl (12.0-16.0); Imm Gran Abs Auto 0.01 X10*3/uL (0.00-0.03); Imm Gran Pct Auto 0.2 % (0.0-0.4); Lymphocytes Absolute Auto 1.8 X10*3/uL (1.2-4.9); Lymphocytes Percent Auto 27.6 % (20-40); Mean Corpuscular HGB Conc 29.8 g/dl (31.0-35.0); Mean Corpuscular Hemoglobin 26.2 pg (27.0-33.0); Mean Corpuscular Volume 87.9 fL (80.0-98.0); Monocytes Absolute Auto 0.7 X10*3/uL (0.1-1.2); Monocytes Percent Auto 10.5 % (2-11); Neutrophils Absolute Auto 3.9 x10*3/uL (2.0-8.3); Neutrophils Percent Auto 57.7 % (45-73); Platelet Count 252 X10*3/uL (160-400); Red Blood Count 3.97 X10*6/uL (4.20-5.50); Red Cell Distribution Width 14.2 % (11.0-16.0); White Blood Count 6.7 X10*3/uL (4.8-10.8)
[2021-04-29 09:33] LABS: Alanine Aminotransferase 23 U/L (0-31); Albumin Level 4.3 g/dL (3.5-5.0); Alkaline Phosphatase 74 U/L (39-117); Anion Gap 13 (12-20); Aspartate Amino Transferase 25 U/L (5-31); Bilirubin Total 0.5 mg/dL (0.0-1.0); Blood Urea Nitrogen 15 mg/dL (9-16); Calcium 10.3 mg/dL (8.4-10.2); Carbon Dioxide 22 mmol/L (22-29); Chloride 109 mmol/L (96-108); Estimated Glomerular Filt Rate > 60; Glucose Random 88 mg/dL (60-115); Potassium 4.6 mmol/L (3.3-5.1); Sodium 139 mmol/L (135-145); Total Protein 7.2 g/dL (6.5-8.0)
[2021-04-29 11:14] LABS: Syphilis Screen Nonreactive (Nonreactive)
[2021-04-29 11:18] LABS: ~HepC Num1 0.05 S/CO (0.00-0.79); ~Hepatitis C Antibody Nonreactive (Nonreactive)
[2021-04-29 12:13] LABS: HBsAGNum1 0.13 S/CO (0.00-0.99); HIV AB/AG Nonreactive (Nonreactive); HIV Num 1 0.05 S/CO (0.00-0.99); Hepatitis B Surface Antigen Negative (Negative)
[2021-04-29 15:58] LABS: CT PCR NOT DETECTED (Not Detect.); NG PCR NOT DETECTED (Not Detect.)
[2021-04-30 15:43] LABS: BV Int Neg Control Negative (Negative); BV Int Pos Control Positive (Positive)
== END 2021-04-29 07:43 | disposition home or self-care (01) ==
LOC: HO.LAB 07:42
PROVIDERS: Obstetrics & Gynecology; PCP Internal Medicine; Visit Provider Internal Medicine
DX: Z00.00 Encounter for general adult medical examination without abnormal findings (principal); Z12.4 Encounter for screening for malignant neoplasm of cervix; Z11.4 Encounter for screening for human immunodeficiency virus [HIV]; N76.0 Acute vaginitis; N83.299 Other ovarian cyst, unspecified side; E78.00 Pure hypercholesterolemia, unspecified; I10 Essential (primary) hypertension; Z86.010 Personal history of colon polyps; Z80.3 Family history of malignant neoplasm of breast; Z87.891 Personal history of nicotine dependence
CPT/HCPCS: 36415; 80053; 85025; 86780; 86803; 87340; 87389; 87480; 87491; 87510; 87591; 87660

== ENCOUNTER 2021-05-17 12:03 | Emergency (ER) | payer OTHER, SELFPAY ==
--- NOTE | 2021-05-17 | ECG_ITS ---
Test Reason : chest pain Blood Pressure : / mmHG Vent. Rate : 079 BPM Atrial Rate : 079 BPM P-R Int : 138 ms QRS Dur : 084 ms QT Int : 372 ms P-R-T Axes : 064 030 050 degrees QTc Int : 426 ms Normal sinus rhythm Normal ECG When compared with ECG of 18-JUN-2009 12:45, No significant change was found Referred By: Generic ED Physician Electronically Signed By:PEARL AVERY MD
--- NOTE | ~2021-05-17 | CT_ITS ---
EXAMINATION: CT ANGIOGRAM OF THE CHEST WITH AND WITHOUT CONTRAST (CT PULMONARY ANGIOGRAM FOR PE) CLINICAL INFORMATION: Reason for Exam elevated dimer, SOB, CP COMPARISON: None TECHNIQUE: Prior to contrast administration, noncontrast localization images were obtained. Subsequently, multidetector volumetric imaging was performed from the thoracic inlet to below the diaphragms following the administration of 80 mL Omnipaque 350 intravenous contrast. No contrast reaction reported Sagittal, coronal, and MIP oblique sagittal reformatted images were obtained on the CT workstation, uploaded to PACS, and reviewed. This CT examination was performed using dose optimization techniques as appropriate, variously including the following: *Automated exposure control *Adjustment of mA and/or kV according to patient size (this includes techniques or standardized protocols for targeted exams where dose is matched to indication/reason for exam; i.e. extremities or head) *Use of iterative reconstruction technique Total exam dose-length product 242 mGy-cm FINDINGS: QUALITY OF STUDY/CONTRAST BOLUS: Suboptimal. Due to poor bolus timing as well as motion degradation PULMONARY ARTERIES: No central pulmonary emboli THORACIC AORTA: No aneurysm or dissection. LUNG: No focal consolidation, nodules or masses. Limited due to motion degradation. PLEURA: No pleural effusion or pneumothorax. MEDIASTINUM: Normal heart size. No pericardial effusion. No hilar or mediastinal lymphadenopathy. No evidence of septal bowing or right heart strain. CHEST WALL/AXILLA: No axillary or internal mammary lymphadenopathy. OSSEOUS STRUCTURES: No acute or suspicious osseous abnormality. UPPER ABDOMEN: Unremarkable. No reflux of contrast into the hepatic veins to suggest elevated right heart pressures. CT/CT angio chest PE protocol IMPRESSION: Very limited exam. No central pulmonary embolism. VTE: negative
--- NOTE | ~2021-05-17 | CT_ITS ---
EXAMINATION: CT HEAD WITHOUT CONTRAST CLINICAL INFORMATION: Headache COMPARISON: None TECHNIQUE: Contiguous axial imaging was performed from the skull base to vertex without intravenous administration of contrast. This CT examination was performed using dose optimization techniques as appropriate, variously including the following: *Automated exposure control *Adjustment of mA and/or kV according to patient size (this includes techniques or standardized protocols for targeted exams where dose is matched to indication/reason for exam; i.e. extremities or head) *Use of iterative reconstruction technique DLP: 679 mGy-cm FINDINGS: There is no evidence of acute intracranial hemorrhage or territorial infarction. No abnormal mass effect or midline shift is seen. [place] to white matter differentiation is well preserved. No extra-axial fluid collections are identified. The ventricles are normal in size. There is no abnormal attenuation within the brain parenchyma. The osseous structures and soft tissues are normal. The mastoid air cells and visualized portions of the paranasal sinuses are well aerated. CT/CT head/brain wo con IMPRESSION: No acute intracranial pathology.
--- NOTE | ~2021-05-17 | XR_ITS ---
EXAMINATION: XR CHEST CLINICAL INFORMATION: Chest wall pain COMPARISON: None TECHNIQUE: Frontal view of the chest was obtained. FINDINGS: No significant abnormality is noted involving the heart, lungs, mediastinum, bony thorax or soft tissues. Calcific tendinitis changes right shoulder noted. XR/XR chest 1V IMPRESSION: As above.
[2021-05-17 12:05] VITALS: BP 168/88; PULSE 122; RESP 20; TEMP 36.2; O2SAT 100; BMI 28.3
--- NOTE | 2021-05-17 17:57 | ED.GENADULT ---
HPI - General Adult General Chief complaint: Dyspnea Stated complaint: Chest pain/SOB Time Seen by Provider: 05/17/21 17:37 Source: patient Mode of arrival: ambulatory Limitations: no limitations History of Present Illness HPI narrative: This is a 51-year-old female past medical history significant for coronary vasospasms, migraine headache, hypertension, hypercholesterolemia presenting to the emergency department with multiple complaints. Patient tells me that she has been experiencing shortness of breath, chest pain is severe headache since yesterday. Patient tells me that her chest pain is substernal in nature, described as a painful tightness, severe and nonradiating. She also reports shortness of breath that is worse with exertion. She tells me that she has experienced chest pain before however she has not experienced shortness of breath like she is experiencing currently. She also reports an occipital headache with blurred vision not like her typical headache. She tells me that the headache is severe, constant in nature this been going on since yesterday. Patient reports that yesterday she was drinking Tequila, and wine as well as plain drinking gains. She also reports smoking marijuana using a vape. Patient tells me that she is trying to cut down on smoking her vape however she smoked a lot yesterday. She denies fevers, chills, nausea, vomiting, abdominal pain, vision changes, disequilibrium, Numbness, tingling, weakness. Onset (ago): day(s) (2) Location: head and chest Radiation: non-radiation Severity: severe Quality: other ( Tightness) Pain Consistency: constant Relieving factors: none Exacerbating factors: none Associated symptoms: denies other symptoms Treatments prior to arrival: none Related Data Home Medications Medication Instructions Recorded Confirmed lisinopril 10 mg tablet 10 mg PO DAILY 03/05/20 03/10/21 metoprolol tartrate 50 mg tablet 50 mg PO BID 03/05/20 03/10/21 rosuvastatin 20 mg tablet 20 mg PO BEDTIME 03/05/20 03/10/21 naproxen 250 mg tablet 250 mg PO BID PRN 04/02/20 03/10/21 meclizine 12.5 mg tablet 12.5 mg PO TID PRN 09/23/20 03/10/21 Previous Rx's Medication Instructions Recorded aspirin 81 mg tablet,delayed 81 mg PO DAILY 90 Days #90 tab 10/23/20 release (Adult Aspirin Regimen) amlodipine 2.5 mg tablet 2.5 mg PO DAILY 90 Days #90 tab 03/10/21 metronidazole 500 mg tablet 500 mg PO BID 7 Days #14 tab 04/29/21 terconazole 0.8 % vaginal cream 1 appful VAGINAL BEDTIME 3 Days 04/29/21 #20 g cyclobenzaprine 10 mg tablet 10 mg PO BEDTIME PRN #7 tab 05/17/21 Allergies Allergy/AdvReac Type Severity Reaction Status Date / Time pork derived (porcine) Allergy Severe RASH Verified 05/17/21 12:09 [PORK DERIVED (PORCINE)] Review of Systems Review of Systems: Constitutional : No Weight loss, No Fever, No Chills, No Fatigue, No Malaise ENT/Mouth : No sore throat, No Rhinorrhea Eyes: No Eye Pain, No Swelling, No Redness Cardiovascular : No Chest Pain, No SOB, No Dyspnea on Exertion, No Orthopnea, No Edema, No Palpitations Respiratory : No Cough, No Sputum, No Wheezing Gastrointestinal : No Nausea, No Vomiting, No Diarrhea, No Constipation, No abdominal Pain, No Hematochezia, No Melena Genitourinary : No Dysuria, No Urinary Frequency, No Hematuria, Musculoskeletal : No joint pain, No Myalgias, No Joint Swelling Skin : No Skin Lesions, No rash Neuro : No Weakness, No Numbness, No Dizziness, No Headache Psych : No Anxiety/Panic, No Depression All other systems reviewed and are negative Yes all other systems are reviewed and are negative [facility] Past Medical History Attestation statement: The following information was validated with the patient. Source: old records reviewed and nursing notes reviewed Medical History Anemia Hypercholesterolemia Hypertension Migraine headache Surgical History H/O breast biopsy Status post cardiac catheterization Tubal ligation status Family History Family History Sister Breast CA Social History Social History Alcohol intake: current Alcohol intake frequency: a few times a month Patient Tobacco Use Status: Former Tobacco user Quit Date: 1990 Years Smoked: 3 +/- Advance Directives: No Patient : No Physical Exam ED Vital Signs: Vital Signs - 24 hr 05/17/21 12:05 05/17/21 18:45 05/17/21 21:23 Temperature 97.2 F 98.2 F 97.8 F Pulse Rate 122 H 68 99 Respiratory Rate 20 18 16 Blood Pressure 168/88 H 138/72 154/86 H Pulse Oximetry 100 100 100 BMI result Body Mass Index 28.3 VSS Appearance: Alert.? Oriented X3.? No acute distress.? Head: Normocephalic, atraumatic, no step-offs or deformities Eyes: Pupils equal, round and reactive to light.? Extraocular movements intact. ENT: Pharynx normal.? Neck: Normal inspection.? Neck supple.? CVS: Normal heart rate and rhythm.? Pulses normal.? Respiratory: No respiratory distress.? Breath sounds normal.? Abdomen: Soft and nontender.? Skin: Skin warm and dry.? Normal skin color.? Normal skin turgor.? Extremities: No lower extremity edema.? No calf ttp. negative Fabricio bilaterally. 5/5 strength to bilateral upper and lower extremities Back: No midline tenderness, no C-spine tenderness, full range of motion, no CVA tenderness bilaterally Neuro: Oriented X 3.? No motor deficit.? No sensory deficit. CN 2-12 intact . Normal [id number], iwxb-ex-[id number]. Normal tandem gait. Course Reevaluation(s) Reevaluation #1: CBC appears to be at patient's baseline she does have a leukopenia which was also noted on 10/29/2020. A normocytic anemia is noted. Chemistry with no acute electrolyte abnormalities. Transaminases elevated however they have been elevated in the past. Troponin initially 10.4 repeat troponin 10.0 EKG nonischemic unlikely that this is ACS. BNP 10 unlikely CHF. D-dimer was initially elevated at 1559 a CTA of the chest was done which showed no acute pulmonary embolism. Patient had a negative Fabricio bilaterally unlikely DVT. Chest x-ray was normal. head CT with no acute intracranial pathologies. Patient at this time reports that chest pain has subsided. And she also reports that her headache is improving however not completely gone. She tells me it feels like her typical headache at this point. At this time patient will be discharged home with Cardiology and PCP follow-up. Advised her to return with new or worsening symptoms outline is on her discharge comfortable discharge home. Time: 23:35 Medical Decision Making MDM Narrative Medical decision making narrative: 1800 51 yo f pmhx hld, htn, coronary vasospasm presents to the ed w/ complaints of severe chest pain, sob, and gonzalez w/ dizziness X2 days PE benign Plan- labs, trop, ekg, chest cta, ua Will rule out PE,ACS, PNA,CHF Medical Records Medical records reviewed: Yes I reviewed the patient's medical records. Lab Data Lab results reviewed: Yes I reviewed the patient's lab results. Result diagrams: 05/17/21 18:12 05/17/21 18:12 Labs: Lab Results 05/17/21 05/17/21 05/17/21 Range/Units 18:12 18:12 18:12 WBC 4.5 L (4.8-10.8) X10*3/uL RBC 3.99 L (4.20-5.50) X10*6/uL Hgb 10.3 L (12.0-16.0) g/dl Hct 33.7 L (37.0-47.0) % MCV 84.5 (80.0-98.0) fL MCH 25.8 L (27.0-33.0) pg MCHC 30.6 L (31.0-35.0) g/dl RDW 14.9 (11.0-16.0) % Plt Count 239 (160-400) X10*3/uL MPV 10.8 (9.4-12.3) fL Immature Gran % (Auto) 0.2 (0.0-0.4) % Neut % (Auto) 63.1 (45-73) % Lymph % (Auto) 21.5 (20-40) % [place] % (Auto) 14.3 H (2-11) % Eos % (Auto) 0.2 (0-4) % Baso % (Auto) 0.7 (0-2) % Lymph # (Auto) 1.0 L (1.2-4.9) X10*3/uL [place] # (Auto) 0.6 (0.1-1.2) X10*3/uL Eos # (Auto) 0.0 (0.0-0.4) X10*3/uL Baso # (Auto) 0.0 (0.0-0.2) X10*3/uL Abs Immat Gran (auto) 0.01 (0.00-0.03) X10*3/uL Absolute Neuts (auto) 2.8 (2.0-8.3) x10*3/uL Absolute Nucleated RBC 0.000 (0.0-0.012) X10*3/uL Nucleated RBC % (auto) 0.0 (0.0-0.2) /100WBC D-Dimer High Sensitivty 1559 NG/ML Sodium 140 (135-145) mmol/L Potassium 4.2 (3.3-5.1) mmol/L Chloride 108 (96-108) mmol/L Carbon Dioxide 24 (22-29) mmol/L Anion Gap 12 (12-20) BUN 10 (9-16) mg/dL Creatinine 0.82 (0.5-1.4) mg/dL Estim Creat Clear Calc 78.6 Estimated GFR > 60 Random Glucose 91 (60-115) mg/dL Calcium 10.5 H (8.4-10.2) mg/dL Magnesium 2.2 (1.6-2.6) mg/dL Total Bilirubin 0.6 (0.0-1.0) mg/dL AST 43 H D (5-31) U/L ALT 40 H (0-31) U/L Alkaline Phosphatase 70 (39-117) U/L Troponin I High Sens (<3.5-17.0) ng/L B-Natriuretic Peptide (<100) pg/mL Total Protein 7.5 (6.5-8.0) g/dL Albumin 4.4 (3.5-5.0) g/dL 05/17/21 05/17/21 Range/Units 18:12 21:37 WBC (4.8-10.8) X10*3/uL RBC (4.20-5.50) X10*6/uL Hgb (12.0-16.0) g/dl Hct (37.0-47.0) % MCV (80.0-98.0) fL MCH (27.0-33.0) pg MCHC (31.0-35.0) g/dl RDW (11.0-16.0) % Plt Count (160-400) X10*3/uL MPV (9.4-12.3) fL Immature Gran % (Auto) (0.0-0.4) % Neut % (Auto) (45-73) % Lymph % (Auto) (20-40) % [place] % (Auto) (2-11) % Eos % (Auto) (0-4) % Baso % (Auto) (0-2) % Lymph # (Auto) (1.2-4.9) X10*3/uL [place] # (Auto) (0.1-1.2) X10*3/uL Eos # (Auto) (0.0-0.4) X10*3/uL Baso # (Auto) (0.0-0.2) X10*3/uL Abs Immat Gran (auto) (0.00-0.03) X10*3/uL Absolute Neuts (auto) (2.0-8.3) x10*3/uL Absolute Nucleated RBC (0.0-0.012) X10*3/uL Nucleated RBC % (auto) (0.0-0.2) /100WBC D-Dimer High Sensitivty NG/ML Sodium (135-145) mmol/L Potassium (3.3-5.1) mmol/L Chloride (96-108) mmol/L Carbon Dioxide (22-29) mmol/L Anion Gap (12-20) BUN (9-16) mg/dL Creatinine (0.5-1.4) mg/dL Estim Creat Clear Calc Estimated GFR Random Glucose (60-115) mg/dL Calcium (8.4-10.2) mg/dL Magnesium (1.6-2.6) mg/dL Total Bilirubin (0.0-1.0) mg/dL AST (5-31) U/L ALT (0-31) U/L Alkaline Phosphatase (39-117) U/L Troponin I High Sens 10.4 10.0 (<3.5-17.0) ng/L B-Natriuretic Peptide 10 (<100) pg/mL Total Protein (6.5-8.0) g/dL Albumin (3.5-5.0) g/dL ECG Data Attestation: I personally reviewed and interpreted this ECG as follows: Prior ECG tracings: available for review Interpretation: Ventricular rate of 79 LA normal, QRS normal, QT / QTC normal. EKG shows normal sinus rhythm no ST elevations or inversions concerning for ischemia. Compared to previous EKG June 2009 there is no significant changes. Critical Care Time Critical Care Time Critical Care Time: No Discharge Plan Discharge Clinical Impression: Chest pain not due to acute coronary syndrome, Shortness of breath, Headache Patient Disposition: Home, Self-Care Instructions: Acute Headache (ED), Chest Wall Pain (ED), Shortness of Breath (ED) Additional Instructions: Take your medications as prescribed. If you were prescribed antibiotics today, it is important that you take your medication to their entirety, do not skip any doses, do not finish them early. Follow-up with your primary care provider this week. Return to the emergency department with new or worsening symptoms. Such as fevers, chills, chest pain, shortness of breath, nausea, vomiting, dizziness, headache, vision changes, lethargy In case of emergency call 911 Your chest x-ray, head CT and CT angiogram showed no acute findings. No signs of pulmonary embolism. Her labs were reassuring. Chest pain could be musculoskeletal. Please follow-up with Cardiology in your PCP. You can alternate ibuprofen every 6 hours, Tylenol every 4 as needed for pain. Return with new or worsening symptoms a muscle relaxer was sent to her pharmacy, please use this with caution as this can make you drowsy. Please do not operate while on this medication or operate any machinery. If this is musculoskeletal pain this medication will likely work. Prescriptions: New cyclobenzaprine 10 mg tablet 10 mg PO BEDTIME PRN (Reason: muscle spasm) Qty: 7 0RF No Action aspirin [Adult Aspirin Regimen] 81 mg tablet,delayed release (DR/EC) 81 mg PO DAILY 90 Days Qty: 90 0RF metronidazole 500 mg tablet 500 mg PO BID 7 Days Qty: 14 0RF terconazole 0.8 % cream 1 appful vaginal BEDTIME 3 Days Qty: 20 0RF lisinopril 10 mg tablet 10 mg PO DAILY 0RF metoprolol tartrate 50 mg tablet 50 mg PO BID 0RF rosuvastatin 20 mg tablet 20 mg PO BEDTIME 0RF naproxen 250 mg tablet 250 mg PO BID PRN0RF meclizine 12.5 mg tablet 12.5 mg PO TID PRN0RF amlodipine 2.5 mg tablet 2.5 mg PO DAILY 90 Days Qty: 90 3RF Referrals: Gem Gillespie MD [Primary Care Provider] - 2 days Stand Alone Forms: Work/School Release
[2021-05-17] MEDS: Ketorolac Tromethamine 15 MG/ML VIAL 30 MG IVPUSH (18:16)
[2021-05-17 18:21] LABS: MANUAL DIFF FLAG NO
[2021-05-17 18:22] LABS: Basophils Percent Auto 0.7 % (0-2); Eosinophils Percent Auto 0.2 % (0-4); Hematocrit 33.7 % (37.0-47.0); Hemoglobin 10.3 g/dl (12.0-16.0); Imm Gran Abs Auto 0.01 X10*3/uL (0.00-0.03); Imm Gran Pct Auto 0.2 % (0.0-0.4); Lymphocytes Percent Auto 21.5 % (20-40); Mean Corpuscular HGB Conc 30.6 g/dl (31.0-35.0); Mean Corpuscular Hemoglobin 25.8 pg (27.0-33.0); Mean Corpuscular Volume 84.5 fL (80.0-98.0); Mean Platelet Volume 10.8 fL (9.4-12.3); Monocytes Absolute Auto 0.6 X10*3/uL (0.1-1.2); Monocytes Percent Auto 14.3 % (2-11); Neutrophils Absolute Auto 2.8 x10*3/uL (2.0-8.3); Neutrophils Percent Auto 63.1 % (45-73); Platelet Count 239 X10*3/uL (160-400); Red Blood Count 3.99 X10*6/uL (4.20-5.50); Red Cell Distribution Width 14.9 % (11.0-16.0); White Blood Count 4.5 X10*3/uL (4.8-10.8)
[2021-05-17 18:30] LABS: D Dimer High Sensitivity 1559 NG/ML
[2021-05-17 18:40] LABS: Alanine Aminotransferase 40 U/L (0-31); Albumin Level 4.4 g/dL (3.5-5.0); Alkaline Phosphatase 70 U/L (39-117); Anion Gap 12 (12-20); Aspartate Amino Transferase 43 U/L (5-31); Bilirubin Total 0.6 mg/dL (0.0-1.0); Blood Urea Nitrogen 10 mg/dL (9-16); Calcium 10.5 mg/dL (8.4-10.2); Carbon Dioxide 24 mmol/L (22-29); Chloride 108 mmol/L (96-108); Creatinine Clr Calc Pharmacy 78.6; Estimated Glomerular Filt Rate > 60; Glucose Random 91 mg/dL (60-115); Magnesium 2.2 mg/dL (1.6-2.6); Potassium 4.2 mmol/L (3.3-5.1); Sodium 140 mmol/L (135-145); Total Protein 7.5 g/dL (6.5-8.0)
[2021-05-17 18:45] VITALS: BP 138/72; PULSE 68; RESP 18; TEMP 36.8; O2SAT 100
[2021-05-17 18:46] LABS: Troponin-I High Sensitivity 10.4 ng/L (<3.5-17.0)
[2021-05-17] MEDS: iohexoL 350 MG/ML 100 ML INFUS..BTL IV (19:21)
[2021-05-17 19:44] LABS: B Type Natriuretic Peptide 10 pg/mL (<100)
[2021-05-17] MEDS: Morphine Sulfate 4 MG/ML CARTRIDGE IVPUSH (21:21)
[2021-05-17 21:23] VITALS: BP 154/86; PULSE 99; RESP 16; TEMP 36.6; O2SAT 100
== END 2021-05-17 23:55 | disposition home or self-care (01) ==
PROVIDERS: Physician Assistant; Emergency Provider Emergency Medicine Emergency Medical Services; PCP Internal Medicine
DX: R06.02 Shortness of breath (principal); R07.9 Chest pain, unspecified; R51.9 Headache, unspecified; Z87.891 Personal history of nicotine dependence
CPT/HCPCS: 36415; 70450; 71045; 71275; 80053; 83735; 83880; 84484; 85025; 85379; 93005; 96374; 96375; 99284; J1885; J2270; Q9967

== ENCOUNTER 2021-05-20 15:30 | Outpatient (REF) | payer OTHER, SELFPAY ==
--- NOTE | ~2021-05-20 | US_ITS ---
EXAMINATION: US PELVIS CLINICAL INFORMATION: Follow-up ovarian cyst COMPARISON: Previous pelvic ultrasound most recent September 2020 TECHNIQUE: Ultrasound of the pelvis is performed using both transabdominal and transvaginal transducers along with Doppler. Transvaginal imaging is performed due to inadequate visualization transabdominally. FINDINGS: The uterus is anteverted and measures 9.4 x 6.7 x 6.6 cm in dimension. Uterine echotexture is slightly heterogeneous. No focal uterine lesion is seen. Endometrial thickness measures 1.2 cm. There are nabothian cysts in the cervix. The right ovary is normal-appearing and measures 2.6 x 1.5 x 2.4 cm. The previously identified 2.1 x 2 x 1.6 cm complex right ovarian cyst is no longer seen. The left ovary measures 3.2 x 2.5 x 2.3 cm. There is a new 2.5 x 1.6 x 2.4 cm simple left ovarian cyst. There is no fluid in the pelvis. US/US pelvic and transvaginal IMPRESSION: Resolved complex right ovarian cyst from September 2020 exam.
== END 2021-05-20 15:31 | disposition home or self-care (01) ==
LOC: HO.US 15:30
PROVIDERS: Visit Provider Obstetrics & Gynecology
DX: N76.0 Acute vaginitis (principal); N83.299 Other ovarian cyst, unspecified side
CPT/HCPCS: 76830; 76856

== ENCOUNTER 2021-05-24 11:35 | Inpatient (IN) | payer OTHER, SELFPAY ==
[2021-05-24] VITALS (11 sets, daily range): BP systolic 96–163; BP diastolic 48–81; PULSE 92–124; RESP 18–32; TEMP 37.1–37.8; O2SAT 98–100; BMI 28.3
--- NOTE | ~2021-05-24 | CT_ITS ---
EXAMINATION: CT abdomen pelvis w con CLINICAL INFORMATION: Reason for Exam RLQ ABD pain COMPARISON: No prior CT available for comparison. TECHNIQUE: Multidetector volumetric imaging was performed from the superior aspect of the liver through the pubic symphysis 85 mL Omnipaque 350 injected Sagittal and coronal reformatted images were obtained on the technologist's workstation. This CT examination was performed using dose optimization techniques as appropriate, variously including the following: *Automated exposure control *Adjustment of mA and/or kV according to patient size (this includes techniques or standardized protocols for targeted exams where dose is matched to indication/reason for exam; i.e. extremities or head) *Use of iterative reconstruction technique DLP: 513 mGy-cm FINDINGS: LOWER THORAX: Included lung bases are clear. HEPATOBILIARY: No focal hepatic lesions. No biliary ductal dilatation. GALLBLADDER: Gallbladder unremarkable. SPLEEN: Spleen is normal in size. PANCREAS: No focal mass or ductal dilatation. STOMACH AND GASTROINTESTINAL TRACT: Stomach is grossly unremarkable. There is no bowel distention or thickening. No CT evidence of appendicitis. ADRENALS: No adrenal nodules. KIDNEYS/URETERS: Large simple cyst protruding from the anterior cortex of the left kidney measure up to 6.9 cm, this is a simple Bosniak class I cyst no solid complement, there are no kidney stones or hydronephrosis. URINARY BLADDER: Partially decompressed. PELVIC VISCERA: No free air or fluid. Uterus and ovaries are bulky normal for patient's young age, there is a probably a cyst in the left ovary 3 cm in this patient age group likely dominant follicle. PERITONEUM: There is mild fat stranding surrounding the retroperitoneal structures along the right side anterior to the IVC which extends from the pelvis right adnexa, anterior to the IVC to the level of the pancreas, nonspecific etiology, differential diagnoses would include inflammatory process such as retroperitoneal fibrosis, endometriosis, unusual pattern of pancreatitis among others. Refer image 49 series of 3. LYMPH NODES: No lymphadenopathy. VASCULAR:Abdominal aorta normal in size, no aneurysm found. BONES, ABDOMINAL WALL AND SOFT TISSUES: Age-appropriate changes of the spine and skeletal system, no destructive osteolytic or osteosclerotic bone lesion found CT/CT abdomen pelvis w con IMPRESSION: *No CT evidence of appendicitis, normal appendix identified. 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 Please correlate clinically. Rios image. There is no localized fluid collection abscess. *There is a cystic structure in the left ovary likely a dominant follicle 3 cm.
[2021-05-24 12:46] LABS: MANUAL DIFF FLAG NO
[2021-05-24] MEDS: 0.9 % Sodium Chloride 1,000 ML 999 ML IV (12:46)
[2021-05-24 12:48] LABS: Appearance Urine HAZY; Color Urine STRAW; Glucose Urine UA NEG (NEG); Leukocyte Esterase Urine 3+ (NEG); Nitrite Urine NEG (NEG); Specific Gravity - Urine <= 1.005 (1.005-1.025); UACC Culture Trigger YES; Urine Blood 1+ (NEG); Urine Ketones NEG (NEG); Urine Protein NEG (NEG-TRACE)
[2021-05-24 12:49] LABS: Basophils Percent Auto 0.1 % (0-2); Hematocrit 35.6 % (37.0-47.0); Hemoglobin 11.1 g/dl (12.0-16.0); Imm Gran Abs Auto 0.17 X10*3/uL (0.00-0.03); Imm Gran Pct Auto 1.1 % (0.0-0.4); Lymphocytes Absolute Auto 0.7 X10*3/uL (1.2-4.9); Lymphocytes Percent Auto 4.5 % (20-40); Mean Corpuscular HGB Conc 31.2 g/dl (31.0-35.0); Mean Corpuscular Hemoglobin 25.8 pg (27.0-33.0); Mean Corpuscular Volume 82.6 fL (80.0-98.0); Mean Platelet Volume 10.5 fL (9.4-12.3); Monocytes Absolute Auto 1.1 X10*3/uL (0.1-1.2); Monocytes Percent Auto 7.2 % (2-11); Neutrophils Absolute Auto 13.1 x10*3/uL (2.0-8.3); Neutrophils Percent Auto 87.1 % (45-73); Platelet Count 267 X10*3/uL (160-400); Red Blood Count 4.31 X10*6/uL (4.20-5.50); Red Cell Distribution Width 14.6 % (11.0-16.0)
[2021-05-24] MEDS: Ketorolac Tromethamine 30 MG/ML VIAL IVPUSH (12:51)
[2021-05-24 13:03] LABS: Alanine Aminotransferase 45 U/L (0-31); Albumin Level 4.5 g/dL (3.5-5.0); Alkaline Phosphatase 82 U/L (39-117); Anion Gap 15 (12-20); Aspartate Amino Transferase 34 U/L (5-31); Blood Urea Nitrogen 10 mg/dL (9-16); Calcium 10.7 mg/dL (8.4-10.2); Carbon Dioxide 20 mmol/L (22-29); Chloride 106 mmol/L (96-108); Creatinine Clr Calc Pharmacy 75.8; Estimated Glomerular Filt Rate > 60; Glucose Random 94 mg/dL (60-115); Lipase 28 U/L (8-78); Magnesium 1.7 mg/dL (1.6-2.6); Potassium 3.8 mmol/L (3.3-5.1); Sodium 137 mmol/L (135-145); Total Protein 7.6 g/dL (6.5-8.0)
--- NOTE | 2021-05-24 13:03 | ED_ITS ---
HPI - Abdominal Pain General Chief Complaint: Abdominal Pain Stated Complaint: Lower abd cramping/Back pain Time Seen by Provider: 05/24/21 12:01 Source: patient Mode of arrival: ambulatory Limitations: no limitations History of Present Illness HPI narrative: Patient complains of right lower quadrant abdominal pain with sudden onset at 0200 this morning awaking her from her sleep. She reports that it feels similar to her ovarian cyst pain she has experienced in the past. She took Tylenol and had some relief for 2 hours but it has since returned. Pain radiates to the suprapubic region and towards the right lateral abdomen. It is described as cramping and aching. In addition she has increased urinary urgency but feels he is voiding minimally. She was recently seen by her OBGYN provider and was treated for a yeast infection, symptoms had completely resolved. Related Data Home Medications Medication Instructions Recorded Confirmed lisinopril 10 mg tablet 10 mg PO DAILY 03/05/20 05/24/21 rosuvastatin 20 mg tablet 20 mg PO BEDTIME 03/05/20 05/24/21 naproxen 250 mg tablet 250 mg PO BID PRN 04/02/20 03/10/21 meclizine 12.5 mg tablet 12.5 mg PO TID PRN 09/23/20 03/10/21 ferrous sulfate 325 mg (65 mg 1 tab PO DAILY 05/24/21 05/24/21 iron) tablet (FeroSul) metoprolol succinate 50 mg 1 tab PO DAILY 05/24/21 05/24/21 tablet,extended release 24 hr Previous Rx's Medication Instructions Recorded aspirin 81 mg tablet,delayed 81 mg PO DAILY 90 Days #90 tab 10/23/20 release (Adult Aspirin Regimen) amlodipine 2.5 mg tablet 2.5 mg PO DAILY 90 Days #90 tab 03/10/21 cyclobenzaprine 10 mg tablet 10 mg PO BEDTIME PRN #7 tab 05/17/21 Allergies Allergy/AdvReac Type Severity Reaction Status Date / Time pork derived (porcine) Allergy Severe RASH Verified 05/17/21 12:09 [PORK DERIVED (PORCINE)] Review of Systems Review of Systems Constitutional : No Weight loss, No Fever, No Chills ENT/Mouth :? No sore throat, No Rhinorrhea Eyes: No Swelling, No Redness Cardiovascular : No Chest Pain, No SOB, No Edema Respiratory : No Cough, No Sputum, No Wheezing Gastrointestinal : No Nausea, no Vomiting, no Diarrhea, positive abdominal pain, No Hematochezia, No Melena Genitourinary : No Dysuria, No Urinary Frequency, No Hematuria, positive U rgency. No vaginal discharge. No vaginal bleeding. Musculoskeletal : No joint pain, No Myalgias, No Joint Swelling Skin : No Skin Lesions, No rash Neuro : No Weakness, No Numbness, No Dizziness, No Headache Psych : No Anxiety/Panic, No Depression Heme/Lymph: No Bruising, No Lymphadenopathy Endocrine : No Polyuria, No Polydipsia Yes all other systems are reviewed and are negative PENDING SALE TO [facility] Past Medical History Attestation statement: The following information was validated with the patient. Source: old records reviewed Medical History Anemia Hypercholesterolemia Hypertension Migraine headache Ovarian cyst Surgical History H/O breast biopsy Status post cardiac catheterization Tubal ligation status Family History Family History Sister Breast CA Social History Social History Alcohol intake: current Alcohol intake frequency: a few times a month Patient Tobacco Use Status: Former Tobacco user Quit Date: 1989 Smoked: 3 +/- Use of substances other than those prescribed or required for medical reasons: No Advance Directives: No Advance Directives Information Provided: No Patient : No Physical Exam ED Vital Signs: Vital Signs - 24 hr 05/24/21 11:51 05/24/21 12:10 05/24/21 14:04 Temperature 99.9 F 99.8 F Pulse Rate 124 H 119 H 105 H Respiratory Rate 19 21 H 32 H Blood Pressure 104/69 163/69 H 132/72 Pulse Oximetry 98 100 100 05/24/21 14:21 05/24/21 16:02 05/24/21 17:07 Temperature 98.8 F Pulse Rate 93 109 H Respiratory Rate 18 24 H Blood Pressure 124/61 123/74 Pulse Oximetry 100 99 05/24/21 17:11 05/24/21 18:29 Temperature 100.0 F Pulse Rate 106 H Respiratory Rate 24 H 30 H Blood Pressure 109/81 Pulse Oximetry 100 BMI result Body Mass Index 28.3 Vital signs have been reviewed and appeared to be correct. Blood pressure normal.? Tachycardia with heart rate 115-125 Respiration rate normal. Temperature normal.? Oxygen saturation normal. Appearance: Alert.?Oriented to person, place and time. No acute distress.?Normal affect. Appears uncomfortable Eyes: Pupils equal, round and reactive to light.? ENT: Pharynx normal.?? Neck: Normal inspection.? Neck supple.?? CVS: Heart sounds normal. Normal heart rate and rhythm.? Pulses normal.?? Respiratory: No respiratory distress.? Lung sounds clear to auscultation bilaterally?? Abdomen: Soft with diffuse abdominal tenderness, exquisite tenderness of RLQ. Normoactive bowel sounds. No pulsatile mass.??No CVAT. Genitourinary: Declined pelvic examination due to ABD pain Skin: Skin warm and dry.? Normal skin color.? Normal skin turgor.?? Extremities: No lower extremity edema.? Neuro: Moves all extremities spontaneously. Sensation intact bilaterally. CN II- XII intact. No focal neuro deficits. Ambulates with normal steady gait. Course Course Course Narrative: Patient is a 51-year-old female with a past medical history of ovarian cysts, vulvovaginitis, coronary vasospasm, migraine headache, hypercholesterolemia, hypertension. She presents emergency department today for evaluation of right lower quadrant pain that she is concerned it is related to an ovarian cyst. Trung maldonado was recently evaluated by her OBGYN Dr. Murray on 04/29/2021, was treated for bacterial vaginosis and vaginal candidiasis, GC and chlamydia were negative. Had pelvic ultrasound 4 days ago on 05/20/2021 which revealed resolved complex right ovarian cyst previously seen in 2020, with no new ovarian cysts on the right, there is a simple left ovarian cyst. She is diffusely tender throughout her abdomen but more so over right lower quadrant, no rebound tenderness, negative psoas sign, negative obturator's sign. Declined pelvic examination due to level of pain. Will obtain CBC, CMP, urinalysis, and CT abdomen. Medicate with IV fluids and Toradol. History and physical exam not consistent with GI perforation, GI bleed, AAA, aortic dissection, ectopic , DKA. Not consistent with strangulated hernia, bowel obstruction, pulmonary embolism, mesenteric ischemia, myocardial infarction. Disposition pending results. Reevaluation(s) Reevaluation #1: Patient continues to be tachycardic, heart rate 105, tachypnea with respiratory rate 26. Reporting palpitations at this time and shortness of breath. Denies feeling anxious. Will add on troponin, and obtain EKG. Patient was evaluated in the emergency department 1 week ago for chest pain, palpitations, and shortness of breath, workup was unremarkable, normal troponin, normal BNP, elevated D-dimer but CTA of chest negative for pulmonary embolism, normal chest x-ray, was advised to follow up with Cardiology outpatient. Chest pain thought to be musculoskeletal in nature, and was advised to trial Tylenol and ibuprofen. Today CBC reveals leukocytosis WBC of 15.0 with left shift, mild normocytic anemia hemoglobin 11.1 and hematocrit 35.6. Transaminases are elevated consistent with prior labs obtained, bilirubin is normal, lipase is normal. Urinalysis with 3+ leuk esterase, 10-14 WBC, negative nitrate, 4+, epithelial cells and 2+ bacteria, possibly urogenital contamination, at this time concern for bacterial infection, given she meets SIRS criteria, currently no sign of end-organ dysfunction, suspect bacterial infection of the urinary tract infecti on will add on blood cultures and lactic acid in addition to ceftriaxone 1g IV, awaiting CT ABD at this time. Time: 13:19 Reevaluation #2: Lactic acid 2.1, has received 1L NS IVF. CT of the abdomen without evidence for appendicitis, normal appendix identified, retroperitoneal fat stranding anterior to the IVC extending from the pelvis right adnexa up to the level of the pancreas, uncertain etiology. Will reach out to general surgery mass communications professor Dr. Oneill for further consultation. Pain continues to be 9/10, had some relief from Toradol. Will medicate with morphine. Time: 15:21 Reevaluation #3: Spoke with general surgery mass communications professor Dr. Oneill, recommends hospital admissions for IV antibiotics and pain management. Spoke with medicine service Dr. Marmolejo, requesting DIRECTOR [employer] consult first. Spoke with Dr. Murray, patient is now agreeable to having pelvic exam performed as she is very concerned about her pain. Dr. Murray will be coming in to perform exam. She does additionally report at this time that her pain is radiating up the right side of her abdomen and ?electric shocks?. She further reports that she has been feeling pelvic discomfort since her pelvic ultrasound 05/20/21. Time: 16:45 Additional Reevaluation(s): 1829: Lactic acid has improved to 1.2. PAtient continues to have severe pain /, unrelieved by previous dose of morphine, will administer 2nd dose of morphine 2 mg IV. Tachycardia at 01:06, tachypnea of 30, with low-grade fever at 100.0, will order Tylenol [address] Murray evaluated patient; recommend treatment for PID to cover for the possibility of pelvic inflammatory disease with ceftriaxone 1 g Q 24, doxycycline 100 mg IV q.12, metronidazole 500 mg IV q.12, urine culture (which is pending), GC and Chlamydia, BV panel with Tric homonas (collected during pelvic exam), hepatitis-B surface antigen, hepatitis-C surface antibody, HIV, RPR, and after/if the patient's pain/clinical situation improves for at least 48 hours, the patient can be discharged on p.o. antibiotics doxycycline 100 mg p.o. b.i.d. and Flagyl 500 mg p.o. b.i.d. for a total of 14 days. In addition to pain management. However, I spoke discussed with Dr. Murray and based on concern for abnormal CT findings, sirs criteria concerning for sepsis, he feels the patient would better be admitted to medicine service for further evaluation of infectious urinary process and/or other non gynecological causes for pain. 1854: Again spoke with medicine service Dr. Marmolejo for admission, patient accepted, patient is agreeable with plan at this time. MDM - Abdominal Pain Medical Records Attestation: I reviewed the patient's medical records. Lab Data Attestation: I reviewed the patient's lab results. Result diagrams: 05/24/21 12:42 05/24/21 12:42 Labs: Lab Results 05/24/21 05/24/21 05/24/21 Range/Units 12:42 12:42 12:42 WBC 15.0 H (4.8-10.8) X10*3/uL RBC 4.31 (4.20-5.50) X10*6/uL Hgb 11.1 L (12.0-16.0) g/dl Hct 35.6 L (37.0-47.0) % MCV 82.6 (80.0-98.0) fL MCH 25.8 L (27.0-33.0) pg MCHC 31.2 (31.0-35.0) g/dl RDW 14.6 (11.0-16.0) % Plt Count 267 (160-400) X10*3/uL MPV 10.5 (9.4-12.3) fL Immature Gran % (Auto) 1.1 H (0.0-0.4) % Neut % (Auto) 87.1 H (45-73) % Lymph % (Auto) 4.5 L (20-40) % [place] % (Auto) 7.2 (2-11) % Eos % (Auto) 0.0 (0-4) % Baso % (Auto) 0.1 (0-2) % Lymph # (Auto) 0.7 L (1.2-4.9) X10*3/uL [place] # (Auto) 1.1 (0.1-1.2) X10*3/uL Eos # (Auto) 0.0 (0.0-0.4) X10*3/uL Baso # (Auto) 0.0 (0.0-0.2) X10*3/uL Abs Immat Gran (auto) 0.17 H (0.00-0.03) X10*3/uL Absolute Neuts (auto) 13.1 H (2.0-8.3) x10*3/uL Absolute Nucleated RBC 0.000 (0.0-0.012) X10*3/uL Nucleated RBC % (auto) 0.0 (0.0-0.2) /100WBC Sodium 137 (135-145) mmol/L Potassium 3.8 (3.3-5.1) mmol/L Chloride 106 (96-108) mmol/L Carbon Dioxide 20 L (22-29) mmol/L Anion Gap 15 (12-20) BUN 10 (9-16) mg/dL Creatinine 0.85 (0.5-1.4) mg/dL Estim Creat Clear Calc 75.8 Estimated GFR > 60 Random Glucose 94 (60-115) mg/dL Lactic Acid (0.5-2.0) mmol/L Lactic Acid F/U @ 2Hr (0.5-2.0) mmol/L Calcium 10.7 H (8.4-10.2) mg/dL Magnesium 1.7 (1.6-2.6) mg/dL Total Bilirubin 1.0 (0.0-1.0) mg/dL AST 34 H (5-31) U/L ALT 45 H (0-31) U/L Alkaline Phosphatase 82 (39-117) U/L Troponin I High Sens (<3.5-17.0) ng/L Total Protein 7.6 (6.5-8.0) g/dL Albumin 4.5 (3.5-5.0) g/dL Lipase 28 (8-78) U/L Beta HCG, Quant < 2 mIU/mL Urine Color STRAW Urine Appearance HAZY Urine pH 8.0 (5.0-8.0) Ur Specific [place] <= 1.005 (1.005-1.025) Urine Protein NEG (NEG-TRACE) MG/DL Urine Glucose (UA) NEG (NEG) MG/DL Urine Ketones NEG (NEG) MG/DL Urine Blood 1+ H (NEG) Urine Nitrite NEG (NEG) Ur Leukocyte Esterase 3+ H (NEG) Urine RBC 1-4 (0) /HPF Urine WBC 10-14 H (0-4) /HPF Ur Squamous Epith Cells 4+ /LPF Urine Bacteria 2+ /LPF 05/24/21 05/24/21 05/24/21 Range/Units 12:42 13:40 17:57 WBC (4.8-10.8) X10*3/uL RBC (4.20-5.50) X10*6/uL Hgb (12.0-16.0) g/dl Hct (37.0-47.0) % MCV (80.0-98.0) fL MCH (27.0-33.0) pg MCHC (31.0-35.0) g/dl RDW (11.0-16.0) % Plt Count (160-400) X10*3/uL MPV (9.4-12.3) fL Immature Gran % (Auto) (0.0-0.4) % Neut % (Auto) (45-73) % Lymph % (Auto) (20-40) % [place] % (Auto) (2-11) % Eos % (Auto) (0-4) % Baso % (Auto) (0-2) % Lymph # (Auto) (1.2-4.9) X10*3/uL [place] # (Auto) (0.1-1.2) X10*3/uL Eos # (Auto) (0.0-0.4) X10*3/uL Baso # (Auto) (0.0-0.2) X10*3/uL Abs Immat Gran (auto) (0.00-0.03) X10*3/uL Absolute Neuts (auto) (2.0-8.3) x10*3/uL Absolute Nucleated RBC (0.0-0.012) X10*3/uL Nucleated RBC % (auto) (0.0-0.2) /100WBC Sodium (135-145) mmol/L Potassium (3.3-5.1) mmol/L Chloride (96-108) mmol/L Carbon Dioxide (22-29) mmol/L Anion Gap (12-20) BUN (9-16) mg/dL Creatinine (0.5-1.4) mg/dL Estim Creat Clear Calc Estimated GFR Random Glucose (60-115) mg/dL Lactic Acid 2.1 H* (0.5-2.0) mmol/L Lactic Acid F/U @ 2Hr 1.2 (0.5-2.0) mmol/L Calcium (8.4-10.2) mg/dL Magnesium (1.6-2.6) mg/dL Total Bilirubin (0.0-1.0) mg/dL AST (5-31) U/L ALT (0-31) U/L Alkaline Phosphatase (39-117) U/L Troponin I High Sens 7.0 (<3.5-17.0) ng/L Total Protein (6.5-8.0) g/dL Albumin (3.5-5.0) g/dL Lipase (8-78) U/L Beta HCG, Quant mIU/mL Urine Color Urine Appearance Urine pH (5.0-8.0) Ur Specific [place] (1.005-1.025) Urine Protein (NEG-TRACE) MG/DL Urine Glucose (UA) (NEG) MG/DL Urine Ketones (NEG) MG/DL Urine Blood (NEG) Urine Nitrite (NEG) Ur Leukocyte Esterase (NEG) Urine RBC (0) /HPF Urine WBC (0-4) /HPF Ur Squamous Epith Cells /LPF Urine Bacteria /LPF Imaging Data CT scan - abdomen: Radiologist's impression: CT/CT abdomen pelvis w con IMPRESSION: *No CT evidence of appendicitis, normal appendix identified. ? 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 Please correlate clinically. Rios image. There is no localized fluid collection abscess. ? *There is a cystic structure in the left ovary likely a dominant follicle 3 cm. ECG Data Attestation: I personally reviewed and interpreted this ECG as follows: ECG interpretation date: 05/24/21 ECG interpretation time: 14:00 Interpretation: Rate: 109 Rhythm:? Sinus tachycardia with PVC Rotan:? Normal Normal P waves.? Normal SHEA.?? Normal QRS complex.?? ST T wave :??No ST elevation, no ST depression, no T-wave inversion qTC: 455 The study has been interpreted contemporaneously by me. Discharge Plan Discharge Clinical Impression: Abdominal pain Prescriptions: No Action aspirin [Adult Aspirin Regimen] 81 mg tablet,delayed release (DR/EC) 81 mg PO DAILY 90 Days Qty: 90 0RF cyclobenzaprine 10 mg tablet 10 mg PO BEDTIME PRN (Reason: muscle spasm) Qty: 7 0RF metoprolol succinate 50 mg tablet extended release 24 hr 1 tab PO DAILY 0RF ferrous sulfate [FeroSul] 325 mg (65 mg iron) tablet 1 tab PO DAILY 0RF lisinopril 10 mg tablet 10 mg PO DAILY 0RF rosuvastatin 20 mg tablet 20 mg PO BEDTIME 0RF naproxen 250 mg tablet 250 mg PO BID PRN (Reason: Pain (Scale Score 1-3)) 0RF meclizine 12.5 mg tablet 12.5 mg PO TID PRN (Reason: Dizziness) 0RF amlodipine 2.5 mg tablet 2.5 mg PO DAILY 90 Days Qty: 90 3RF
[2021-05-24 13:16] LABS: Bacteria Urine 2+ /LPF; Squamous Epithelial Cell Urine 4+ /LPF
--- NOTE | 2021-05-24 13:20 | ECG_ITS ---
Test Reason : ABD PAIN Blood Pressure : / mmHG Vent. Rate : 109 BPM Atrial Rate : 109 BPM P-R Int : 146 ms QRS Dur : 082 ms QT Int : 338 ms P-R-T Axes : 051 034 040 degrees QTc Int : 455 ms Sinus tachycardia with occasional Premature ventricular complexes Otherwise normal ECG When compared with ECG of 17-MAY-2021 12:22, Premature ventricular complexes are now Present Referred By: Hanane Byers Electronically Signed By:Obey Rivera
[2021-05-24] MEDS: cefTRIAXone sodium 1 GM in 0.9 % Sodium Chloride 50 ML IV (14:02)
[2021-05-24 14:07] LABS: Lactic Acid 2.1 mmol/L (0.5-2.0)
[2021-05-24] MEDS: iohexoL 350 MG/ML 100 ML INFUS..BTL IV (14:24)
[2021-05-24 15:47] LABS: Reflex Lactate? Lactic Acid Added
[2021-05-24] MEDS: Morphine Sulfate 2 MG/ML CARTRIDGE IVPUSH ×2 (17:11→18:44)
[2021-05-24 17:48] LABS: HCG Quantitative < 2 mIU/mL
--- NOTE | 2021-05-24 18:09 | P.CONOB_ITS ---
DIRECTOR OF LOGISTICS - CN: HPI Data of Consult Consult date: 05/24/21 Primary Care Provider: Gem Gillespie MD Consult Narrative Narrative: I was consulted on Yaneth Sheets who is a 51 year old female who presented emergency room with right lower quadrant pain of few days and exacerbated over the last few hours hours prior to presentation. The patient started having right pelvic pain few days ago and started exacerbating over the last few days, it is associated with dysuria and urinary frequency, 100.3 temperature at home according to patient, vaginal discharge, no nausea or vomiting no vaginal bleeding, no other associated symptoms. The patient had a history of right complex ovarian cyst, a follow-up ultrasound done on 05/20/21 showed resolution of the right complex cyst. The patient was recently treated for bacterial vaginosis associated with candidal vulvovaginitis , GC and chlamydia and STD screen were negative on 04/29/21. The following workup was done emergency room : White count 15 K, H and H 11.1/35.6, chemistry negative, LDH 2.1, hCG less than 2, urine positive leukocyte esterase , +1 microscopic blood, in 10-[address] scan showed the following: *No CT evidence of appendicitis, normal appendix identified. 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 Please correlate clinically. Rios image. There is no localized fluid collection abscess. *There is a cystic structure in the left ovary likely a dominant follicle 3 cm. cc:: CC: [employer] - Review of Systems Review of Systems ROS Unobtainable: All systems reviewed & are unremarkable except as noted in HPI and below Cardiovascular: Denies Palpatations, Loss of consciousness or Chest pain Respiratory: Denies Cough, Wheezing or Shortness of breath Musculoskeletal: Denies Low back pain Gastrointestinal: Denies Heartburn, Constipation, Diarrhea, Nausea or Vomiting Genitourinary: Denies Pain with urination, Burning with urination or Urinary frequency Neurological: Denies Migranes Psychological: Denies Depression OB [facility] Past Medical History Medical History Anemia Hypercholesterolemia Hypertension Migraine headache Ovarian cyst Family History Family History Sister Breast CA Surgical History Surgical History H/O breast biopsy Status post cardiac catheterization Tubal ligation status Social History Social History Alcohol intake: current Alcohol intake frequency: a few times a month Patient Tobacco Use Status: Former Tobacco user Quit Date: 1989 Smoked: 3 +/- Use of substances other than those prescribed or required for medical reasons: No Advance Directives: No Advance Directives Information Provided: No Patient : No Meds Allergies Allergy/AdvReac Type Severity Reaction Status Date / Time pork derived (porcine) Allergy Severe RASH Verified 05/17/21 12:09 [PORK DERIVED (PORCINE)] Home Medications Medication Instructions Recorded Confirmed Last Taken Type lisinopril 10 mg tablet 10 mg PO DAILY 03/05/20 03/10/21 Unknown History metoprolol tartrate 50 mg tablet 50 mg PO BID 03/05/20 03/10/21 Unknown History rosuvastatin 20 mg tablet 20 mg PO BEDTIME 03/05/20 03/10/21 Unknown History naproxen 250 mg tablet 250 mg PO BID PRN 04/02/20 03/10/21 Unknown History meclizine 12.5 mg tablet 12.5 mg PO TID PRN 09/23/20 03/10/21 Unknown History DIRECTOR OF LOGISTICS Physical Exam Vitals Vital signs: Temp Pulse Resp BP Pulse Ox 98.8 F 109 H 24 H 123/74 99 05/24/21 14:21 05/24/21 17:07 05/24/21 17:11 05/24/21 17:07 05/24/21 17:07 BMI result Body Mass Index 28.3 Constitutional General Appearance: Healthy appearing, Well-nourished and Well-developed Psychiatric Mood and Affect: active and alert, normal mood and normal affect Skin Appearance: No rashes and No lesions Lungs Respiratory Effort: No intercostal retractions Auscultation: Clear to auscultation Cardiovascular Auscultation: RRR Abdomen Auscultation/Inspection/Palpation: Normal bowel sounds, Non-distended, Tenderness (Right lower quadrant more than the left) and Rebound tenderness Female Genitalia (Pelvic) Cervix: Cervical motion tenderness Uterus: Tender Adnexa/Parametria: Adnexal Tenderness: Bilateral and Parametrial Tenderness: Bilateral DIRECTOR [employer]IST[employer] - Results Labs CBC & Chem 7: 05/24/21 12:42 05/24/21 12:42 Labs: Short CBC 05/24/21 Range/Units 12:42 WBC 15.0 H (4.8-10.8) X10*3/uL Hgb 11.1 L (12.0-16.0) g/dl Hct 35.6 L (37.0-47.0) % Plt Count 267 (160-400) X10*3/uL BMP 05/24/21 12:42 Sodium 137 Potassium 3.8 Chloride 106 Carbon Dioxide 20 L BUN 10 Creatinine 0.85 Calcium 10.7 H Liver Function 05/24/21 Range/Units 12:42 Total Bilirubin 1.0 (0.0-1.0) mg/dL AST 34 H (5-31) U/L ALT 45 H (0-31) U/L Alkaline Phosphatase 82 (39-117) U/L Albumin 4.5 (3.5-5.0) g/dL Urine 05/24/21 Range/Units 12:42 Urine Color STRAW Urine Appearance HAZY Urine pH 8.0 (5.0-8.0) Ur Specific [place] <= 1.005 (1.005-1.025) Urine Protein NEG (NEG-TRACE) MG/DL Urine Glucose (UA) NEG (NEG) MG/DL Imaging CT scan - pelvis: Radiologist's impression: ITS Impressions Abdomen/Pelvis CT 05/24/21 14:23 IMPRESSION: *No CT evidence of appendicitis, normal appendix identified. 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 Please correlate clinically. Rios image. There is no localized fluid collection abscess. *There is a cystic structure in the left ovary likely a dominant follicle 3 cm. Assessment and Plan (1) Pelvic pain: Status: Acute Plan Since there is evidence of leukocytosis, elevated LDH, tachycardia and high respiratory rate, this is all pointing towers an infectious process ( hCG is less than 2, CT scan did not show any evidence of structural abnormality on the right adnexa except for left simple 3 cm cyst which is a benign finding), therefore the differential diagnosis includes but not limited to, infectious urinary process and/or pelvic inflammatory disease, other non gynecological causes for pelvic pain cannot be ruled out. I recommend treatment for PID to cover for the possibility of pelvic inflammatory disease with ceftriaxone 1 g Q 24, doxycycline 100 mg IV q.12, metronidazole 500 mg IV q.12, urine culture, GC and Chlamydia, BV panel with Trichomonas (collected during pelvic exam merrick esponding orders placed), hepatitis-B surface antigen, hepatitis-C surface antibody, HIV, RPR, and after/if the patient's pain/clinical situation improves for at least 48 hours, the patient can be discharged on p.o. antibiotics doxycycline 100 mg p.o. b.i.d. and Flagyl 500 mg p.o. b.i.d. for a total of 14 days. In addition to pain management. Since there is evidence of leukocytosis with elevated LDH , tachycardia and elevated respiratory rate, I will to the hospitalist service to manage the pos sible sepsis, and other possible differential diagnosis of the presenting symptoms. Discussed plan of care with LIZZIE Kendrick and Dr. Marmolejo hospitalist who will be admitting the patient to the hospitalist service. I spent 25 minutes evaluated the patient, reviewing the chart and documenting in the medical record
[2021-05-24 18:10] LABS: ~Lactic Acid-LAB USE ONLY 1.2 mmol/L (0.5-2.0)
[2021-05-24] MEDS: Acetaminophen 325 MG TABLET 650 MG PO (18:44)
[2021-05-24] MEDS: metroNIDAZOLE/NS 500 MG/100 ML PIGGYBACK 100 MG IV (18:59)
[2021-05-24] MEDS: Doxycycline Hyclate 100 MG in 0.9 % Sodium Chloride 250 ML 166.67 MG IV (20:01)
--- NOTE | 2021-05-24 20:01 | PHA.MEDREC ---
Pharmacy Consult ? Medication Reconciliation Pharmacy has completed the medication reconciliation. Spoke with patient in ED who knew all medications. She recently filled metoprlol ER 50 mg daily but is finishing up her metoprolol tartrate 50 mg bid and wont be starting the new dose/directions until next week. The dose conversion did not make sense but patient states she is sure that she takes 50 mg bid.
[2021-05-24 20:02] LABS: COVID-19 Test Negative (Negative); IDNOW Serial# 16C4AD1C
[2021-05-24] MEDS: Enoxaparin Sodium 40 MG/0.4 ML SYRINGE SUBCUT (20:33)
[2021-05-24] MEDS: Morphine Sulfate 4 MG/ML CARTRIDGE IVPUSH (22:09)
--- NOTE | 2021-05-24 22:30 | PM.IMHP ---
History of Present Illness Date of Service: 05/24/21 Chief Complaint: abd pain this is a 51-year-old female with past medical history of hypertension, hyperlipidemia, migraine headaches, ovary insists, who presents to the hospital with complaints of acute onset abdominal pain. Patient reports that she had a transvaginal ultrasound on Tuesday for her history of ovarian cysts, the time she felt some pain but ignored it, she then started developing urinary symptoms including urgency frequency and dysuria a day following that, patient reports that her symptoms were persistent but she did not have any further abdominal pain up until yesterday night when she suddenly woke up at 02:00 with severe right-sided lower abdominal pain radiating to the left abdomen, patient reports clear discharge from the vagina, reports no fever but has had chills. She reports no nausea or vomiting, no diarrhea walter she has no headache, no change in vision, no shortness of breath,. And no lower extremity edema. On arrival patient's vitals were significant for temp of 99.9 degrees, heart rate of 124, otherwise stable Labs are significant for WBC count of 15, lactic acid of 2.1, UA that is positive for leukocyte Estrace and WBC Abdominal pelvic CT shows no CT evidence of appendicitis, retroperitoneal fat stranding anterior to the IVC which extends from the pelvis right adnexa all the way up to the level pancreas, uncertain etiology. Lipase negative. patient was evaluated by farm management professor, differential diagnosis include b.i.d., patient started on IV antibiotics and will be admitted for further management Review of Systems Review of Systems: Yes all other systems are reviewed and are negative [facility] Medical History Anemia Hypercholesterolemia Hypertension Migraine headache Ovarian cyst Family History Sister Breast CA Surgical History H/O breast biopsy Status post cardiac catheterization Tubal ligation status Social History Alcohol intake: current Alcohol intake frequency: a few times a month Patient Tobacco Use Status: Former Tobacco user Quit Date: 1989 Smoked: 3 +/- Use of substances other than those prescribed or required for medical reasons: No Advance Directives: No Advance Directives Information Provided: No Patient : No Meds Allergies Allergy/AdvReac Type Severity Reaction Status Date / Time pork derived (porcine) Allergy Severe RASH Verified 05/17/21 12:09 [PORK DERIVED (PORCINE)] Active Medications: Current Medications Acetaminophen (Acetaminophen 325 Mg Tablet) 650 mg PO Q6H PRN PRN Reason: Pain, Mild (Pain Scale 1-3) Docusate Sodium (Docusate Sodium 100 Mg Capsule) 100 mg PO DAILY PRN PRN Reason: Constipation Enoxaparin Sodium (Enoxaparin Sodium 40 Mg/0.4 Ml Syringe) 40 mg SUBCUT Q24H [facility] Last Admin: 05/24/21 20:33 Dose: 40 mg Documented by: Ceftriaxone Sodium 1 gm/ (Sodium Chloride) 50 mls @ 100 mls/hr IV Q24H BRAULIO Doxycycline Hyclate 100 mg/ (Sodium Chloride) 250 mls @ 166.67 mls/hr IV Q12H [facility] Last Admin: 05/24/21 20:27 Dose: Not Given Documented by: Metronidazole (Flagyl) 500 mg in 100 mls @ 100 mls/hr IV Q8H B[facility] Morphine Sulfate (Morphine Sulfate 4 Mg/Ml Cartridge) 4 mg IVPUSH Q4H PRN; Protocol PRN Reason: Pain, Severe (Pain Scale 7-10) Last Admin: 05/24/21 22:09 Dose: 4 mg Documented by: Ondansetron HCl (Ondansetron Hcl 4 Mg/2 Ml Vial) 4 mg IVPUSH Q8H PRN PRN Reason: Nausea and Vomiting Pharmacy Consult (Consult Rx Perform Med Rec) 1 each MISCELLANE ONCE PRN PRN Reason: Consult order Sodium Chloride (0.9 % Sodium Chloride Flush 3 Ml Syringe) 3 ml IVFLUSH QSHIFT [facility] Home Medications Medication Instructions Recorded Confirmed Last Taken Type lisinopril 10 mg tablet 10 mg PO DAILY 03/05/20 05/24/21 05/24/21 History rosuvastatin 20 mg tablet 20 mg PO BEDTIME 03/05/20 05/24/21 Unknown History naproxen 250 mg tablet 250 mg PO BID PRN 04/02/20 05/24/21 Unknown History amlodipine 2.5 mg tablet 2.5 mg PO BEDTIME 05/24/21 05/24/21 05/23/21 History aspirin 81 mg tablet,delayed 81 mg PO DAILY PRN 05/24/21 05/24/21 Unknown History release (Adult Aspirin Regimen) ferrous sulfate 325 mg (65 mg 1 tab PO DAILY 05/24/21 05/24/21 Unknown History iron) tablet (FeroSul) metoprolol tartrate 50 mg tablet 1 tab PO BID 05/24/21 05/24/21 05/24/21 History multivitamin 1 tab PO DAILY 05/24/21 05/24/21 Unknown History multivitamin with minerals 1 tab PO DAILY 05/24/21 05/24/21 Unknown History (Hair,Skin and Nails) Physical Exam Vital Signs and Narrative: Vital Signs: Last Vital Signs Temp 98.8 F 05/24/21 22:07 Pulse 96 05/24/21 22:12 Resp 24 H 05/24/21 22:12 BP 104/62 05/24/21 22:12 Pulse Ox 98 05/24/21 22:12 BMI result Body Mass Index 28.3 Const: General: cooperative and no acute distress Orientation/consciousness: patient oriented x3 Eyes: General: appearance normal, both eyes and all related structures Pupils: Equal, round and reactive pupils present Resp: Effort & Inspection: normal respiratory effort Auscultation: clear to auscultation bilaterally Cardio: Rate: regular rate Rhythm: regular rhythm GI: Other: severe tenderness in the right lower quadrant Palpation (GI): Soft to palpation Auscultation: normal bowel sounds Skin: General skin exam: no rashes or lesions noted Neuro: General: patient oriented x3 Cranial nerves: Yes Equal, round and reactive pupils present Cognition (Neuro): normal cognition Extrem: General: Yes normal to inspection and Yes no pedal edema Results Labs CBC and Chem 7: 05/24/21 12:42 05/24/21 12:42 Labs: Laboratory Results - last 24 hr 05/24/21 05/24/21 05/24/21 12:42 12:42 12:42 MCV 82.6 MCH 25.8 L MCHC 31.2 RDW 14.6 Plt Count 267 MPV 10.5 Immature Gran % (Auto) 1.1 H Neut % (Auto) 87.1 H Lymph % (Auto) 4.5 L [place] % (Auto) 7.2 Eos % (Auto) 0.0 Baso % (Auto) 0.1 Lymph # (Auto) 0.7 L [place] # (Auto) 1.1 Eos # (Auto) 0.0 Baso # (Auto) 0.0 Abs Immat Gran (auto) 0.17 H Absolute Neuts (auto) 13.1 H Absolute Nucleated RBC 0.000 Nucleated RBC % (auto) 0.0 Anion Gap 15 Estim Creat Clear Calc 75.8 Estimated GFR > 60 Random Glucose 94 Lactic Acid Lactic Acid F/U @ 2Hr Calcium 10.7 H Magnesium 1.7 Total Bilirubin 1.0 AST 34 H ALT 45 H Alkaline Phosphatase 82 Troponin I High Sens Total Protein 7.6 Albumin 4.5 Lipase 28 Beta HCG, Quant < 2 Urine Color STRAW Urine Appearance HAZY Urine pH 8.0 Ur Specific [place] <= 1.005 Urine Protein NEG Urine Glucose (UA) NEG Urine Ketones NEG Urine Blood 1+ H Urine Nitrite NEG Ur Leukocyte Esterase 3+ H Urine RBC 1-4 Urine WBC 10-14 H Ur Squamous Epith Cells 4+ Urine Bacteria 2+ COVID-19 (RENA) COVID-19 Ziliko 05/24/21 05/24/21 05/24/21 12:42 13:40 17:57 MCV MCH MCHC RDW Plt Count MPV Immature Gran % (Auto) Neut % (Auto) Lymph % (Auto) [place] % (Auto) Eos % (Auto) Baso % (Auto) Lymph # (Auto) [place] # (Auto) Eos # (Auto) Baso # (Auto) Abs Immat Gran (auto) Absolute Neuts (auto) Absolute Nucleated RBC Nucleated RBC % (auto) Anion Gap Estim Creat Clear Calc Estimated GFR Random Glucose Lactic Acid 2.1 H* Lactic Acid F/U @ 2Hr 1.2 Calcium Magnesium Total Bilirubin AST ALT Alkaline Phosphatase Troponin I High Sens 7.0 Total Protein Albumin Lipase Beta HCG, Quant Urine Color Urine Appearance Urine pH Ur Specific [place] Urine Protein Urine Glucose (UA) Urine Ketones Urine Blood Urine Nitrite Ur Leukocyte Esterase Urine RBC Urine WBC Ur Squamous Epith Cells Urine Bacteria COVID-19 (RENA) COVID-19 Ziliko 05/24/21 19:42 MCV MCH MCHC RDW Plt Count MPV Immature Gran % (Auto) Neut % (Auto) Lymph % (Auto) [place] % (Auto) Eos % (Auto) Baso % (Auto) Lymph # (Auto) [place] # (Auto) Eos # (Auto) Baso # (Auto) Abs Immat Gran (auto) Absolute Neuts (auto) Absolute Nucleated RBC Nucleated RBC % (auto) Anion Gap Estim Creat Clear Calc Estimated GFR Random Glucose Lactic Acid Lactic Acid F/U @ 2Hr Calcium Magnesium Total Bilirubin AST ALT Alkaline Phosphatase Troponin I High Sens Total Protein Albumin Lipase Beta HCG, Quant Urine Color Urine Appearance Urine pH Ur Specific [place] Urine Protein Urine Glucose (UA) Urine Ketones Urine Blood Urine Nitrite Ur Leukocyte Esterase Urine RBC Urine WBC Ur Squamous Epith Cells Urine Bacteria COVID-19 (RENA) Negative COVID-19 Clin Com See Note Imaging Radiologist's Impressions: Impressions Abdomen/Pelvis CT 05/24/21 14:23 IMPRESSION: *No CT evidence of appendicitis, normal appendix identified. 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 Please correlate clinically. Rios image. There is no localized fluid collection abscess. *There is a cystic structure in the left ovary likely a dominant follicle 3 cm. Assessment and Plan (1) Abdominal pain: Status: Acute (2) Sepsis: Status: Acute Plan 51-year-old female with history of ovarian cyst who presents to the hospital with complaints of severe abdominal pain found to have abnormal abdominal CT findings patient will be admitted for further management # sepsis - likely source intra-abdominal versus genitourinary - patient treated with IV antibiotics - follow cultures # abdominal pain - unclear definite etiology at this time - PID versus other intra-abdominal abnormality - see CT findings as above - at this time will treat with ceftriaxone, doxycycline, and metronidazole - follow blood cultures - general surgery as well as farm management professor are following patiet # lactic acidosis - secondary to above - IV fluid # hypertension - blood pressure is soft - will hold antihypertensives DVT prophylaxis: Lovenox given sepsis patient will require a 2 night hospital inpatient admission for further management and evaluation Quality Stroke Does the patient have a stroke diagnosis?: No VTE Prior VTE?: No VTE Risk Level:: Medical - moderate - high VTE Device Contraindication: Treatment Not Indicated VTE Drug Contraindication: N/A - Med Ordered
[2021-05-25] VITALS (9 sets, daily range): BP systolic 100–138; BP diastolic 52–78; PULSE 64–81; RESP 15–20; TEMP 36.1–37; O2SAT 94–100
[2021-05-25] MEDS: metroNIDAZOLE/NS 500 MG/100 ML PIGGYBACK 100 MG IV ×2 (00:31→09:20)
[2021-05-25] MEDS: Acetaminophen 325 MG TABLET 650 MG PO ×3 (00:31→13:14)
[2021-05-25 05:13] LABS: CT PCR NOT DETECTED (Not Detect.); NG PCR NOT DETECTED (Not Detect.)
[2021-05-25] MEDS: ondansetron HCL 4 MG/2 ML VIAL IVPUSH ×2 (06:07→13:14)
[2021-05-25 07:25] LABS: MANUAL DIFF FLAG NO
[2021-05-25 07:26] LABS: Basophils Percent Auto 0.2 % (0-2); Eosinophils Absolute Auto 0.1 X10*3/uL (0.0-0.4); Eosinophils Percent Auto 0.4 % (0-4); Hematocrit 29.6 % (37.0-47.0); Hemoglobin 9.1 g/dl (12.0-16.0); Imm Gran Abs Auto 0.08 X10*3/uL (0.00-0.03); Imm Gran Pct Auto 0.5 % (0.0-0.4); Lymphocytes Absolute Auto 1.8 X10*3/uL (1.2-4.9); Lymphocytes Percent Auto 11.3 % (20-40); Mean Corpuscular HGB Conc 30.7 g/dl (31.0-35.0); Mean Corpuscular Hemoglobin 26.1 pg (27.0-33.0); Mean Corpuscular Volume 85.1 fL (80.0-98.0); Mean Platelet Volume 10.3 fL (9.4-12.3); Monocytes Absolute Auto 1.4 X10*3/uL (0.1-1.2); Monocytes Percent Auto 8.9 % (2-11); Neutrophils Absolute Auto 12.6 x10*3/uL (2.0-8.3); Neutrophils Percent Auto 78.7 % (45-73); Platelet Count 247 X10*3/uL (160-400); Red Blood Count 3.48 X10*6/uL (4.20-5.50); Red Cell Distribution Width 15.6 % (11.0-16.0); White Blood Count 16.1 X10*3/uL (4.8-10.8)
[2021-05-25] MEDS: Ferrous Sulfate 324 MG TABLET.DR PO (07:45)
[2021-05-25] MEDS: Multivitamin TABLET 1 TAB PO (07:45)
[2021-05-25] MEDS: Metoprolol Tartrate 50 MG TABLET PO ×2 (07:45→21:02)
[2021-05-25] MEDS: Doxycycline Hyclate 100 MG in 0.9 % Sodium Chloride 250 ML 166.67 MG IV ×2 (07:46→20:53)
[2021-05-25 07:55] LABS: Anion Gap 9 (12-20); Blood Urea Nitrogen 11 mg/dL (9-16); Calcium 9.9 mg/dL (8.4-10.2); Carbon Dioxide 22 mmol/L (22-29); Chloride 111 mmol/L (96-108); Creatinine Clr Calc Pharmacy 78.5; Estimated Glomerular Filt Rate > 60; Glucose Random 96 mg/dL (60-115); Potassium 4.4 mmol/L (3.3-5.1); Sodium 138 mmol/L (135-145)
--- NOTE | 2021-05-25 08:27 | P.PNIM_ITS ---
Subjective Subjective Date of Service: 05/26/21 Interval History: abd pain Review of Systems still has significant abdominal pain says, nausea denies any vomiting or chills or cough , no fevers Physical Exam Vital Signs: Vital Signs: Last Vital Signs Temp 97.6 F 05/25/21 07:46 Pulse 78 05/25/21 07:46 Resp 16 05/25/21 07:46 BP 113/78 05/25/21 07:46 Pulse Ox 100 05/25/21 07:46 BMI result Body Mass Index 28.3 Appearance: Alert.? Oriented X3.? not in distress.? Eyes: Pupils equal, round and reactive to light.? Sclera nonicteric.? ENT: Pharynx normal.? Moist mucous membranes. cvs: rrr, [id number] , no murmur res: clear to auscultation ,no rhonchii or wheezing abd: no rebound or guarding , lower pelvic b/l pain, bs present. ext pulses present , no cyanosis . neuro: axo3 , nonfocal. Objective Data Active Medications Acetaminophen (Acetaminophen 325 Mg Tablet) 650 mg PO Q6H PRN PRN Reason: Pain, Mild (Pain Scale 1-3) Last Admin: 05/25/21 06:31 Dose: 650 mg Documented by: TEODORO Aspirin (Aspirin Enteric Coated 81 Mg Tablet.) 81 mg PO DAILY PRN PRN Reason: Chest Pain Atorvastatin Calcium (Atorvastatin Calcium 80 Mg Tablet) 80 mg PO BEDTIME [facility]IO Cyclobenzaprine HCl (Cyclobenzaprine Hcl 10 Mg Tablet) 10 mg PO BEDTIME PRN PRN Reason: muscle spasm Docusate Sodium (Docusate Sodium 100 Mg Capsule) 100 mg PO DAILY PRN PRN Reason: Constipation Enoxaparin Sodium (Enoxaparin Sodium 40 Mg/0.4 Ml Syringe) 40 mg SUBCUT Q24H [facility] Last Admin: 05/24/21 20:33 Dose: 40 mg Documented by: ASIMOPEKetan Ferrous Sulfate (Ferrous Sulfate 324 Mg Tablet.) 324 mg PO DAILY [facility] Last Admin: 05/25/21 07:45 Dose: 324 mg Documented by: GIDEON Ceftriaxone Sodium 1 gm/ (Sodium Chloride) 50 mls @ 100 mls/hr IV Q24H [facility] Doxycycline Hyclate 100 mg/ (Sodium Chloride) 250 mls @ 166.67 mls/hr IV Q12H [facility] Last Admin: 05/25/21 07:46 Dose: 166.67 mls/hr Documented by: GIDEON Metronidazole (Flagyl) 500 mg in 100 mls @ 100 mls/hr IV Q8H [facility] Last Infusion: 05/25/21 01:56 Dose: 100 mls/hr Documented by: IGGY Metoprolol Tartrate (Metoprolol Tartrate 50 Mg Tablet) 50 mg PO BID [facility]; Protocol Last Admin: 05/25/21 07:45 Dose: 50 mg Documented by: GIDEON Morphine Sulfate (Morphine Sulfate 4 Mg/Ml Cartridge) 4 mg IVPUSH Q4H PRN; Protocol PRN Reason: Pain, Severe (Pain Scale 7-10) Last Admin: 05/24/21 22:09 Dose: 4 mg Documented by: BRITT Multivitamins/Vitamin C (Multivitamin Tablet) 1 tab PO DAILY [facility] Last Admin: 05/25/21 07:45 Dose: 1 tab Documented by: GIDEON Naproxen (Naproxen 250 Mg Tablet) 250 mg PO BID PRN PRN Reason: Pain (Scale Score 1-3) Ondansetron HCl (Ondansetron Hcl 4 Mg/2 Ml Vial) 4 mg IVPUSH Q8H PRN PRN Reason: Nausea and Vomiting Last Admin: 05/25/21 06:07 Dose: 4 mg Documented by: TEODORO Pharmacy Consult (Consult Rx Perform Med Rec) 1 each MISCELLANE ONCE PRN PRN Reason: Consult order Sodium Chloride (0.9 % Sodium Chloride Flush 3 Ml Syringe) 3 ml IVFLUSH QSHIFT [facility] Last Admin: 05/25/21 07:26 Dose: Not Given Documented by: GIDEON Non-Admin Reason: Previously Administered Labs CBC & Chem 7: 05/25/21 07:10 05/25/21 07:10 Labs: Laboratory Results - last 24 hr 05/24/21 05/24/21 05/24/21 12:42 12:42 12:42 MCV 82.6 MCH 25.8 L MCHC 31.2 RDW 14.6 Plt Count 267 MPV 10.5 Immature Gran % (Auto) 1.1 H Neut % (Auto) 87.1 H Lymph % (Auto) 4.5 L [place] % (Auto) 7.2 Eos % (Auto) 0.0 Baso % (Auto) 0.1 Lymph # (Auto) 0.7 L [place] # (Auto) 1.1 Eos # (Auto) 0.0 Baso # (Auto) 0.0 Abs Immat Gran (auto) 0.17 H Absolute Neuts (auto) 13.1 H Absolute Nucleated RBC 0.000 Nucleated RBC % (auto) 0.0 Anion Gap 15 Estim Creat Clear Calc 75.8 Estimated GFR > 60 Random Glucose 94 Lactic Acid Lactic Acid F/U @ 2Hr Calcium 10.7 H Magnesium 1.7 Total Bilirubin 1.0 AST 34 H ALT 45 H Alkaline Phosphatase 82 Troponin I High Sens Total Protein 7.6 Albumin 4.5 Lipase 28 Beta HCG, Quant < 2 Urine Color STRAW Urine Appearance HAZY Urine pH 8.0 Ur Specific [place] <= 1.005 Urine Protein NEG Urine Glucose (UA) NEG Urine Ketones NEG Urine Blood 1+ H Urine Nitrite NEG Ur Leukocyte Esterase 3+ H Urine RBC 1-4 Urine WBC 10-14 H Ur Squamous Epith Cells 4+ Urine Bacteria 2+ Chlam trachomat DNA PCR COVID-19 (RENA) COVID-19 Clin Com N.gonorrhoeae DNA (PCR) 05/24/21 05/24/21 05/24/21 12:42 13:40 17:57 MCV MCH MCHC RDW Plt Count MPV Immature Gran % (Auto) Neut % (Auto) Lymph % (Auto) [place] % (Auto) Eos % (Auto) Baso % (Auto) Lymph # (Auto) [place] # (Auto) Eos # (Auto) Baso # (Auto) Abs Immat Gran (auto) Absolute Neuts (auto) Absolute Nucleated RBC Nucleated RBC % (auto) Anion Gap Estim Creat Clear Calc Estimated GFR Random Glucose Lactic Acid 2.1 H* Lactic Acid F/U @ 2Hr 1.2 Calcium Magnesium Total Bilirubin AST ALT Alkaline Phosphatase Troponin I High Sens 7.0 Total Protein Albumin Lipase Beta HCG, Quant Urine Color Urine Appearance Urine pH Ur Specific [place] Urine Protein Urine Glucose (UA) Urine Ketones Urine Blood Urine Nitrite Ur Leukocyte Esterase Urine RBC Urine WBC Ur Squamous Epith Cells Urine Bacteria Chlam trachomat DNA PCR COVID-19 (RENA) COVID-19 Clin Com N.gonorrhoeae DNA (PCR) 05/24/21 05/24/21 05/25/21 18:31 19:42 07:10 MCV 85.1 MCH 26.1 L MCHC 30.7 L RDW 15.6 Plt Count 247 MPV 10.3 Immature Gran % (Auto) 0.5 H Neut % (Auto) 78.7 H Lymph % (Auto) 11.3 L [place] % (Auto) 8.9 Eos % (Auto) 0.4 Baso % (Auto) 0.2 Lymph # (Auto) 1.8 [place] # (Auto) 1.4 H Eos # (Auto) 0.1 Baso # (Auto) 0.0 Abs Immat Gran (auto) 0.08 H Absolute Neuts (auto) 12.6 H Absolute Nucleated RBC 0.000 Nucleated RBC % (auto) 0.0 Anion Gap Estim Creat Clear Calc Estimated GFR Random Glucose Lactic Acid Lactic Acid F/U @ 2Hr Calcium Magnesium Total Bilirubin AST ALT Alkaline Phosphatase Troponin I High Sens Total Protein Albumin Lipase Beta HCG, Quant Urine Color Urine Appearance Urine pH Ur Specific [place] Urine Protein Urine Glucose (UA) Urine Ketones Urine Blood Urine Nitrite Ur Leukocyte Esterase Urine RBC Urine WBC Ur Squamous Epith Cells Urine Bacteria Chlam trachomat DNA PCR NOT DETECTED COVID-19 (RENA) Negative COVID-19 Clin Com See Note N.gonorrhoeae DNA (PCR) NOT DETECTED 05/25/21 07:10 MCV MCH MCHC RDW Plt Count MPV Immature Gran % (Auto) Neut % (Auto) Lymph % (Auto) [place] % (Auto) Eos % (Auto) Baso % (Auto) Lymph # (Auto) [place] # (Auto) Eos # (Auto) Baso # (Auto) Abs Immat Gran (auto) Absolute Neuts (auto) Absolute Nucleated RBC Nucleated RBC % (auto) Anion Gap 9 L Estim Creat Clear Calc 78.5 Estimated GFR > 60 Random Glucose 96 Lactic Acid Lactic Acid F/U @ 2Hr Calcium 9.9 D Magnesium Total Bilirubin AST ALT Alkaline Phosphatase Troponin I High Sens Total Protein Albumin Lipase Beta HCG, Quant Urine Color Urine Appearance Urine pH Ur Specific [place] Urine Protein Urine Glucose (UA) Urine Ketones Urine Blood Urine Nitrite Ur Leukocyte Esterase Urine RBC Urine WBC Ur Squamous Epith Cells Urine Bacteria Chlam trachomat DNA PCR COVID-19 (RENA) COVID-19 Clin Com N.gonorrhoeae DNA (PCR) Microbiology Microbiology Results: Microbiology 05/24/21 18:31 Trichomonas Preparation - Final Vaginal Assessment and Plan (1) Sepsis: Status: Acute (2) Abdominal pain: Status: Acute Plan 51-year-old female with history of ovarian cyst who presents to the hospital w ith complaints of severe abdominal pain found to have abnormal abdominal CT findings patient will be admitted for further management 1. sepsis-? thought to be likely source intra-abdominal versus genitourinary leucocytosis trending up , no fevers field control inspector: recomeded to start IV antibiotics for possible PID. urine culture strep gruopb, blood culture pending 2.abdominal pain -? unclear definite etiology at this time -? PID versus other intra-abdominal abnormality -? see CT findings as above -? at this time will treat with ceftriaxone, doxycycline, and metronidazole -? follow blood cultures -? general surgery as well as mechanical service representative are following patiet 3. lactic acidosis -? secondary to above -? IV fluid, lactic acidsois resolved. 4.? hypertension -? blood pressure is soft -? will hold antihypertensives ?DVT prophylaxis: Lovenox Quality Stroke Does the patient have a stroke diagnosis?: No VTE Prior VTE?: No VTE Risk Level:: Medical - moderate - high VTE Device Contraindication: Treatment Not Indicated VTE Drug Contraindication: N/A - Med Ordered
[2021-05-25] MEDS: NaPROXEN 250 MG TABLET PO (09:26)
--- NOTE | 2021-05-25 10:09 | P.HPGS_ITS ---
History of Present Illness History of Present Illness Date of Service: 05/25/21 Chief complaint: Sepsis Narrative: Yaneth Sheets is a 51 year old female who was admitted by the ER yesterday because of lower abdominal pain. She describes is mostly on the pelvic area. She had an ultrasound showing what appeared to be a complex cyst in the adnexa. She describes some clear vaginal discharge. She denies any dysuria She denies any GI complaints although says she had vomited yesterday and this morning because of her pain as well as a headache. Review of Systems Constitutional: Constitutional: Denies chills and Denies fever(s) Cardiovascular: Cardiovascular: Denies chest pain, Denies dyspnea and Denies dyspnea on exertion Respiratory: Respiratory: Denies cough, Denies dyspnea and Denies dyspnea on exertion Gastrointestinal: Gastrointestinal: Denies hematochezia and Denies change in bowel habits Genitourinary: Genitourinary: Denies hematuria Musculoskeletal: Musculoskeletal: Denies back pain and Denies limited range of motion Neurologic: Denies focal weakness and Denies convulsions Psychiatric: Psychiatric: Denies depression and Denies mood swings [facility] Past Medical History Medical History Anemia Hypercholesterolemia Hypertension Migraine headache Ovarian cyst Family History Family History Sister Breast CA Surgical History Surgical History H/O breast biopsy Status post cardiac catheterization Tubal ligation status Social History Social History Alcohol intake: current Alcohol intake frequency: a few times a month Patient Tobacco Use Status: Former Tobacco user Quit Date: 1989 Smoked: 3 +/- Use of substances other than those prescribed or required for medical reasons: No Advance Directives: No Advance Directives Information Provided: No Patient : No Meds Allergies Allergy/AdvReac Type Severity Reaction Status Date / Time pork derived (porcine) Allergy Severe RASH Verified 05/17/21 12:09 [PORK DERIVED (PORCINE)] Active Medications: Current Medications Acetaminophen (Acetaminophen 325 Mg Tablet) 650 mg PO Q6H PRN PRN Reason: Pain, Mild (Pain Scale 1-3) Last Admin: 05/25/21 06:31 Dose: 650 mg Documented by: Aspirin (Aspirin Enteric Coated 81 Mg Tablet.) 81 mg PO DAILY PRN PRN Reason: Chest Pain Atorvastatin Calcium (Atorvastatin Calcium 80 Mg Tablet) 80 mg PO BEDTIME COUNTS INCLUDE 234 BEDS AT THE [facility] Cyclobenzaprine HCl (Cyclobenzaprine Hcl 10 Mg Tablet) 10 mg PO BEDTIME PRN PRN Reason: muscle spasm Docusate Sodium (Docusate Sodium 100 Mg Capsule) 100 mg PO DAILY PRN PRN Reason: Constipation Enoxaparin Sodium (Enoxaparin Sodium 40 Mg/0.4 Ml Syringe) 40 mg SUBCUT Q24H COUNTS INCLUDE 234 BEDS AT THE [facility] Last Admin: 05/24/21 20:33 Dose: 40 mg Documented by: Ferrous Sulfate (Ferrous Sulfate 324 Mg Tablet.) 324 mg PO DAILY COUNTS INCLUDE 234 BEDS AT THE [facility] Last Admin: 05/25/21 07:45 Dose: 324 mg Documented by: Ceftriaxone Sodium 1 gm/ (Sodium Chloride) 50 mls @ 100 mls/hr IV Q24H COUNTS INCLUDE 234 BEDS AT THE [facility] Doxycycline Hyclate 100 mg/ (Sodium Chloride) 250 mls @ 166.67 mls/hr IV Q12H COUNTS INCLUDE 234 BEDS AT THE [facility] Last Infusion: 05/25/21 09:20 Dose: Infused Documented by: Metronidazole (Flagyl) 500 mg in 100 mls @ 100 mls/hr IV Q8H COUNTS INCLUDE 234 BEDS AT THE [facility] Last Admin: 05/25/21 09:20 Dose: 100 mls/hr Documented by: Metoprolol Tartrate (Metoprolol Tartrate 50 Mg Tablet) 50 mg PO BID COUNTS INCLUDE 234 BEDS AT THE [facility]; Protocol Last Admin: 05/25/21 07:45 Dose: 50 mg Documented by: Morphine Sulfate (Morphine Sulfate 4 Mg/Ml Cartridge) 4 mg IVPUSH Q4H PRN; Protocol PRN Reason: Pain, Severe (Pain Scale 7-10) Last Admin: 05/24/21 22:09 Dose: 4 mg Documented by: Multivitamins/Vitamin C (Multivitamin Tablet) 1 tab PO DAILY COUNTS INCLUDE 234 BEDS AT THE [facility] Last Admin: 05/25/21 07:45 Dose: 1 tab Documented by: Naproxen (Naproxen 250 Mg Tablet) 250 mg PO BID PRN PRN Reason: Pain (Scale Score 1-3) Last Admin: 05/25/21 09:26 Dose: 250 mg Documented by: Ondansetron HCl (Ondansetron Hcl 4 Mg/2 Ml Vial) 4 mg IVPUSH Q8H PRN PRN Reason: Nausea and Vomiting Last Admin: 05/25/21 06:07 Dose: 4 mg Documented by: Pharmacy Consult (Consult Rx Perform Med Rec) 1 each MISCELLANE ONCE PRN PRN Reason: Consult order Sodium Chloride (0.9 % Sodium Chloride Flush 3 Ml Syringe) 3 ml IVFLUSH QSHIFT COUNTS INCLUDE 234 BEDS AT THE [facility] Last Admin: 05/25/21 07:26 Dose: Not Given Documented by: Home Medications Medication Instructions Recorded Confirmed Last Taken Type lisinopril 10 mg tablet 10 mg PO DAILY 03/05/20 05/24/21 05/24/21 History rosuvastatin 20 mg tablet 20 mg PO BEDTIME 03/05/20 05/24/21 Unknown History naproxen 250 mg tablet 250 mg PO BID PRN 04/02/20 05/24/21 Unknown History amlodipine 2.5 mg tablet 2.5 mg PO BEDTIME 05/24/21 05/24/21 05/23/21 History aspirin 81 mg tablet,delayed 81 mg PO DAILY PRN 05/24/21 05/24/21 Unknown History release (Adult Aspirin Regimen) ferrous sulfate 325 mg (65 mg 1 tab PO DAILY 05/24/21 05/24/21 Unknown History iron) tablet (FeroSul) metoprolol tartrate 50 mg tablet 1 tab PO BID 05/24/21 05/24/21 05/24/21 History multivitamin 1 tab PO DAILY 05/24/21 05/24/21 Unknown History multivitamin with minerals 1 tab PO DAILY 05/24/21 05/24/21 Unknown History (Hair,Skin and Nails) Physical Exam Vital Signs: Vital Signs: Last Vital Signs Temp 97.6 F 05/25/21 07:46 Pulse 78 05/25/21 07:46 Resp 16 05/25/21 07:46 BP 113/78 05/25/21 07:46 Pulse Ox 100 05/25/21 07:46 BMI result Body Mass Index 28.3 Const: General: comfortable and no acute distress Orientation/consciousness: patient oriented x3 Neck: Neck: Yes no lymphadenopathy Resp: Auscultation: clear to auscultation bilaterally Cardio: Rhythm: regular rhythm GI: Other: Mildly tender on the suprapubic area, no guarding rebound Palpation (GI): Soft to palpation, nontender and no guarding Neuro: General: patient oriented x3 Results Results Labs: Short CBC 05/24/21 05/25/21 Range/Units 12:42 07:10 WBC 15.0 H 16.1 H (4.8-10.8) X10*3/uL Hgb 11.1 L 9.1 L (12.0-16.0) g/dl Hct 35.6 L 29.6 L (37.0-47.0) % Plt Count 267 247 (160-400) X10*3/uL BMP 05/24/21 05/25/21 12:42 07:10 Sodium 137 138 Potassium 3.8 4.4 Chloride 106 111 H Carbon Dioxide 20 L 22 BUN 10 11 Creatinine 0.85 0.82 Calcium 10.7 H 9.9 D Liver Function 05/24/21 Range/Units 12:42 Total Bilirubin 1.0 (0.0-1.0) mg/dL AST 34 H (5-31) U/L ALT 45 H (0-31) U/L Alkaline Phosphatase 82 (39-117) U/L Albumin 4.5 (3.5-5.0) g/dL Urine 05/24/21 Range/Units 12:42 Urine Color STRAW Urine Appearance HAZY Urine pH 8.0 (5.0-8.0) Ur Specific [place] <= 1.005 (1.005-1.025) Urine Protein NEG (NEG-TRACE) MG/DL Urine Glucose (UA) NEG (NEG) MG/DL Additional studies: Laboratory Results WBC 16.1 X10*3/uL (4.8-10.8) H 05/25/21 07:10 RBC 3.48 X10*6/uL (4.20-5.50) L 05/25/21 07:10 Hgb 9.1 g/dl (12.0-16.0) L 05/25/21 07:10 Hct 29.6 % (37.0-47.0) L 05/25/21 07:10 MCV 85.1 fL (80.0-98.0) 05/25/21 07:10 MCH 26.1 pg (27.0-33.0) L 05/25/21 07:10 MCHC 30.7 g/dl (31.0-35.0) L 05/25/21 07:10 RDW 15.6 % (11.0-16.0) 05/25/21 07:10 Plt Count 247 X10*3/uL (160-400) 05/25/21 07:10 MPV 10.3 fL (9.4-12.3) 05/25/21 07:10 Immature Gran % (Auto) 0.5 % (0.0-0.4) H 05/25/21 07:10 Neut % (Auto) 78.7 % (45-73) H 05/25/21 07:10 Lymph % (Auto) 11.3 % (20-40) L 05/25/21 07:10 [place] % (Auto) 8.9 % (2-11) 05/25/21 07:10 Eos % (Auto) 0.4 % (0-4) 05/25/21 07:10 Baso % (Auto) 0.2 % (0-2) 05/25/21 07:10 Lymph # (Auto) 1.8 X10*3/uL (1.2-4.9) 05/25/21 07:10 [place] # (Auto) 1.4 X10*3/uL (0.1-1.2) H 05/25/21 07:10 Eos # (Auto) 0.1 X10*3/uL (0.0-0.4) 05/25/21 07:10 Baso # (Auto) 0.0 X10*3/uL (0.0-0.2) 05/25/21 07:10 Abs Immat Gran (auto) 0.08 X10*3/uL (0.00-0.03) H 05/25/21 07:10 Absolute Neuts (auto) 12.6 x10*3/uL (2.0-8.3) H 05/25/21 07:10 Absolute Nucleated RBC 0.000 X10*3/uL (0.0-0.012) 05/25/21 07:10 Nucleated RBC % (auto) 0.0 /100WBC (0.0-0.2) 05/25/21 07:10 Sodium 138 mmol/L (135-145) 05/25/21 07:10 Potassium 4.4 mmol/L (3.3-5.1) 05/25/21 07:10 Chloride 111 mmol/L (96-108) H 05/25/21 07:10 Carbon Dioxide 22 mmol/L (22-29) 05/25/21 07:10 Anion Gap 9 (12-20) L 05/25/21 07:10 BUN 11 mg/dL (9-16) 05/25/21 07:10 Creatinine 0.82 mg/dL (0.5-1.4) 05/25/21 07:10 Estim Creat Clear Calc 78.5 05/25/21 07:10 Estimated GFR > 60 05/25/21 07:10 Random Glucose 96 mg/dL (60-115) 05/25/21 07:10 Lactic Acid 2.1 mmol/L (0.5-2.0) H* 05/24/21 13:40 Lactic Acid F/U @ 2Hr 1.2 mmol/L (0.5-2.0) 05/24/21 17:57 Calcium 9.9 mg/dL (8.4-10.2) D 05/25/21 07:10 Magnesium 1.7 mg/dL (1.6-2.6) 05/24/21 12:42 Total Bilirubin 1.0 mg/dL (0.0-1.0) 05/24/21 12:42 AST 34 U/L (5-31) H 05/24/21 12:42 ALT 45 U/L (0-31) H 05/24/21 12:42 Alkaline Phosphatase 82 U/L (39-117) 05/24/21 12:42 Troponin I High Sens 7.0 ng/L (<3.5-17.0) 05/24/21 12:42 Total Protein 7.6 g/dL (6.5-8.0) 05/24/21 12:42 Albumin 4.5 g/dL (3.5-5.0) 05/24/21 12:42 Lipase 28 U/L (8-78) 05/24/21 12:42 Beta HCG, Quant < 2 mIU/mL 05/24/21 12:42 Urine Color STRAW 05/24/21 12:42 Urine Appearance HAZY 05/24/21 12:42 Urine pH 8.0 (5.0-8.0) 05/24/21 12:42 Ur Specific Pharr <= 1.005 (1.005-1.025) 05/24/21 12:42 Urine Protein NEG MG/DL (NEG-TRACE) 05/24/21 12:42 Urine Glucose (UA) NEG MG/DL (NEG) 05/24/21 12:42 Urine Ketones NEG MG/DL (NEG) 05/24/21 12:42 Urine Blood 1+ (NEG) H 05/24/21 12:42 Urine Nitrite NEG (NEG) 05/24/21 12:42 Ur Leukocyte Esterase 3+ (NEG) H 05/24/21 12:42 Urine RBC 1-4 /HPF (0) 05/24/21 12:42 Urine WBC 10-14 /HPF (0-4) H 05/24/21 12:42 Ur Squamous Epith Cells 4+ /LPF 05/24/21 12:42 Urine Bacteria 2+ /LPF 05/24/21 12:42 Chlam trachomat DNA PCR NOT DETECTED (Not Detect.) 05/24/21 18:31 COVID-19 (RENA) Negative (Negative) 05/24/21 19:42 COVID-19 Clin Com See Note 05/24/21 19:42 N.gonorrhoeae DNA (PCR) NOT DETECTED (Not Detect.) 05/24/21 18:31 Impressions Abdomen/Pelvis CT 05/24/21 14:23 IMPRESSION: *No CT evidence of appendicitis, normal appendix identified. 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 Please correlate clinically. Rios image. There is no localized fluid collection abscess. *There is a cystic structure in the left ovary likely a dominant follicle 3 cm. Assessment and Plan (1) Pelvic pain: Status: Acute Plan I have reviewed her CAT scan and ultrasound. Her CAT scan shows fat stranding from the right adnexa extending to the area anterior to the IVC up to just below the pancreas. Her ultrasound shows resolved complex cyst on the right side. She does feel much better this morning with regards to her pain and tenderness. I am uncertain as to the etiology but her imaging studies suggest more of a gynecologic process Her abdominal exam is currently benign. She still has some leukocytosis so this has to be followed I will follow along while she is in the hospital. We will plan to do serial abdominal exams as well. Quality Stroke Does the patient have a stroke diagnosis?: No VTE Prior VTE?: No VTE Risk Level:: Medical - moderate - high VTE Device Contraindication: Treatment Not Indicated VTE Drug Contraindication: N/A - Med Ordered
[2021-05-25 12:02] LABS: BV Int Neg Control Negative (Negative); BV Int Pos Control Positive (Positive)
[2021-05-25] MEDS: cefTRIAXone sodium 1 GM in 0.9 % Sodium Chloride 50 ML IV (13:14)
--- NOTE | 2021-05-25 14:28 | MHC.CM.PN ---
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
--- NOTE | 2021-05-25 16:03 | PM.CNGS ---
History of Present Illness Consult details Consult date: 05/25/21 Narrative: Yaneth Sheets is a 51 year old female who was admitted by the ER yesterday because of lower abdominal pain.? She describes is mostly on the pelvic area.? She had an ultrasound showing what appeared to be a complex cyst in the adnexa.? She describes some clear vaginal discharge.? She denies any dysuria She denies any GI complaints although says she had vomited yesterday and this morning because of her pain as well as a headache. Review of Systems Constitutional: Constitutional: Denies chills and Denies fever(s) Cardiovascular: Cardiovascular: Denies chest pain, Denies dyspnea and Denies dyspnea on exertion Respiratory: Respiratory: Denies cough, Denies dyspnea and Denies dyspnea on exertion Gastrointestinal: Gastrointestinal: Denies hematochezia and Denies change in bowel habits Genitourinary: Genitourinary: Denies hematuria Musculoskeletal: Musculoskeletal: Denies back pain and Denies limited range of motion Neurologic: Denies focal weakness and Denies convulsions Psychiatric: Psychiatric: Denies depression and Denies mood swings [facility] Past Medical History Medical History Anemia Hypercholesterolemia Hypertension Migraine headache Ovarian cyst Family History Family History Sister Breast CA Surgical History Surgical History H/O breast biopsy Status post cardiac catheterization Tubal ligation status Social History Social History Household Members: Spouse and Children Household Members Other:: 4 Housing: House Do you presently have visiting nurse or other home services: No Alcohol intake: current Alcohol intake frequency: a few times a month Patient Tobacco Use Status: Former Tobacco user Quit Date: 1989 Years Smoked: 3 +/- Substance Use Type: Caffiene service: No Current occupational status: employed Meds Allergies Allergy/AdvReac Type Severity Reaction Status Date / Time pork derived (porcine) Allergy Severe RASH Verified 05/17/21 12:09 [PORK DERIVED (PORCINE)] Active Medications: Current Medications Acetaminophen (Acetaminophen 325 Mg Tablet) 650 mg PO Q6H PRN PRN Reason: Pain, Mild (Pain Scale 1-3) Last Admin: 05/25/21 13:14 Dose: 650 mg Documented by: Aspirin (Aspirin Enteric Coated 81 Mg Tablet.) 81 mg PO DAILY PRN PRN Reason: Chest Pain Atorvastatin Calcium (Atorvastatin Calcium 80 Mg Tablet) 80 mg PO BEDTIME [facility] Cyclobenzaprine HCl (Cyclobenzaprine Hcl 10 Mg Tablet) 10 mg PO BEDTIME PRN PRN Reason: muscle spasm Docusate Sodium (Docusate Sodium 100 Mg Capsule) 100 mg PO DAILY PRN PRN Reason: Constipation Enoxaparin Sodium (Enoxaparin Sodium 40 Mg/0.4 Ml Syringe) 40 mg SUBCUT Q24H [facility] Last Admin: 05/24/21 20:33 Dose: 40 mg Documented by: Ferrous Sulfate (Ferrous Sulfate 324 Mg Tablet.) 324 mg PO DAILY [facility] Last Admin: 05/25/21 07:45 Dose: 324 mg Documented by: Ceftriaxone Sodium 1 gm/ (Sodium Chloride) 50 mls @ 100 mls/hr IV Q24H [facility] Last Infusion: 05/25/21 13:52 Dose: Infused Documented by: Doxycycline Hyclate 100 mg/ (Sodium Chloride) 250 mls @ 166.67 mls/hr IV Q12H [facility] Last Infusion: 05/25/21 09:20 Dose: Infused Documented by: Metoprolol Tartrate (Metoprolol Tartrate 50 Mg Tablet) 50 mg PO BID [facility]; Protocol Last Admin: 05/25/21 07:45 Dose: 50 mg Documented by: Metronidazole (Metronidazole 500 Mg Tablet) 500 mg PO Q8H [facility] Morphine Sulfate (Morphine Sulfate 4 Mg/Ml Cartridge) 4 mg IVPUSH Q4H PRN; Protocol PRN Reason: Pain, Severe (Pain Scale 7-10) Last Admin: 05/24/21 22:09 Dose: 4 mg Documented by: Multivitamins/Vitamin C (Multivitamin Tablet) 1 tab PO DAILY [facility] Last Admin: 05/25/21 07:45 Dose: 1 tab Documented by: Naproxen (Naproxen 250 Mg Tablet) 250 mg PO BID PRN PRN Reason: Pain (Scale Score 1-3) Last Admin: 05/25/21 09:26 Dose: 250 mg Documented by: Ondansetron HCl (Ondansetron Hcl 4 Mg/2 Ml Vial) 4 mg IVPUSH Q8H PRN PRN Reason: Nausea and Vomiting Last Admin: 05/25/21 13:14 Dose: 4 mg Documented by: Pharmacy Consult (Consult Rx Perform Med Rec) 1 each MISCELLANE ONCE PRN PRN Reason: Consult order Sodium Chloride (0.9 % Sodium Chloride Flush 3 Ml Syringe) 3 ml IVFLUSH QSHIFT [facility] Last Admin: 05/25/21 07:26 Dose: Not Given Documented by: Home Medications Medication Instructions Recorded Confirmed Last Taken Type lisinopril 10 mg tablet 10 mg PO DAILY 03/05/20 05/24/21 05/24/21 History rosuvastatin 20 mg tablet 20 mg PO BEDTIME 03/05/20 05/24/21 Unknown History naproxen 250 mg tablet 250 mg PO BID PRN 04/02/20 05/24/21 Unknown History amlodipine 2.5 mg tablet 2.5 mg PO BEDTIME 05/24/21 05/24/21 05/23/21 History aspirin 81 mg tablet,delayed 81 mg PO DAILY PRN 05/24/21 05/24/21 Unknown History release (Adult Aspirin Regimen) ferrous sulfate 325 mg (65 mg 1 tab PO DAILY 05/24/21 05/24/21 Unknown History iron) tablet (FeroSul) metoprolol tartrate 50 mg tablet 1 tab PO BID 05/24/21 05/24/21 05/24/21 History multivitamin 1 tab PO DAILY 05/24/21 05/24/21 Unknown History multivitamin with minerals 1 tab PO DAILY 05/24/21 05/24/21 Unknown History (Hair,Skin and Nails) Physical Exam Vital Signs: Vital Signs: Last Vital Signs Temp 97.8 F 05/25/21 12:50 Pulse 66 05/25/21 12:50 Resp 15 05/25/21 12:50 BP 117/62 05/25/21 12:50 Pulse Ox 99 05/25/21 12:50 BMI result Body Mass Index 28.3 Const: General: comfortable and no acute distress Orientation/consciousness: patient oriented x3 Neck: Neck: Yes no lymphadenopathy Resp: Auscultation: clear to auscultation bilaterally Cardio: Rhythm: regular rhythm GI: Other: Mild tenderness on the lower abdominal area, mostly suprapubic, no rebound or guarding Palpation (GI): Soft to palpation, nontender and no guarding Neuro: General: patient oriented x3 Results Labs Result diagrams: 05/27/21 04:55 04/13/22 04:55 Labs: Abnormal lab results 05/25/21 05/25/21 Range/Units 07:10 07:10 WBC 16.1 H (4.8-10.8) X10*3/uL RBC 3.48 L (4.20-5.50) X10*6/uL Hgb 9.1 L (12.0-16.0) g/dl Hct 29.6 L (37.0-47.0) % MCH 26.1 L (27.0-33.0) pg MCHC 30.7 L (31.0-35.0) g/dl Immature Gran % (Auto) 0.5 H (0.0-0.4) % Neut % (Auto) 78.7 H (45-73) % Lymph % (Auto) 11.3 L (20-40) % [place] # (Auto) 1.4 H (0.1-1.2) X10*3/uL Abs Immat Gran (auto) 0.08 H (0.00-0.03) X10*3/uL Absolute Neuts (auto) 12.6 H (2.0-8.3) x10*3/uL Chloride 111 H (96-108) mmol/L Anion Gap 9 L (12-20) Short CBC 05/25/21 Range/Units 07:10 WBC 16.1 H (4.8-10.8) X10*3/uL Hgb 9.1 L (12.0-16.0) g/dl Hct 29.6 L (37.0-47.0) % Plt Count 247 (160-400) X10*3/uL BMP 05/25/21 07:10 Sodium 138 Potassium 4.4 Chloride 111 H Carbon Dioxide 22 BUN 11 Creatinine 0.82 Calcium 9.9 D Urine 05/24/21 Range/Units 12:42 Urine Color STRAW Urine Appearance HAZY Urine pH 8.0 (5.0-8.0) Ur Specific [place] <= 1.005 (1.005-1.025) Urine Protein NEG (NEG-TRACE) MG/DL Urine Glucose (UA) NEG (NEG) MG/DL All other labs normal. Imaging Additional studies: Laboratory Results WBC 16.1 X10*3/uL (4.8-10.8) H 05/25/21 07:10 RBC 3.48 X10*6/uL (4.20-5.50) L 05/25/21 07:10 Hgb 9.1 g/dl (12.0-16.0) L 05/25/21 07:10 Hct 29.6 % (37.0-47.0) L 05/25/21 07:10 MCV 85.1 fL (80.0-98.0) 05/25/21 07:10 MCH 26.1 pg (27.0-33.0) L 05/25/21 07:10 MCHC 30.7 g/dl (31.0-35.0) L 05/25/21 07:10 RDW 15.6 % (11.0-16.0) 05/25/21 07:10 Plt Count 247 X10*3/uL (160-400) 05/25/21 07:10 MPV 10.3 fL (9.4-12.3) 05/25/21 07:10 Immature Gran % (Auto) 0.5 % (0.0-0.4) H 05/25/21 07:10 Neut % (Auto) 78.7 % (45-73) H 05/25/21 07:10 Lymph % (Auto) 11.3 % (20-40) L 05/25/21 07:10 [place] % (Auto) 8.9 % (2-11) 05/25/21 07:10 Eos % (Auto) 0.4 % (0-4) 05/25/21 07:10 Baso % (Auto) 0.2 % (0-2) 05/25/21 07:10 Lymph # (Auto) 1.8 X10*3/uL (1.2-4.9) 05/25/21 07:10 [place] # (Auto) 1.4 X10*3/uL (0.1-1.2) H 05/25/21 07:10 Eos # (Auto) 0.1 X10*3/uL (0.0-0.4) 05/25/21 07:10 Baso # (Auto) 0.0 X10*3/uL (0.0-0.2) 05/25/21 07:10 Abs Immat Gran (auto) 0.08 X10*3/uL (0.00-0.03) H 05/25/21 07:10 Absolute Neuts (auto) 12.6 x10*3/uL (2.0-8.3) H 05/25/21 07:10 Absolute Nucleated RBC 0.000 X10*3/uL (0.0-0.012) 05/25/21 07:10 Nucleated RBC % (auto) 0.0 /100WBC (0.0-0.2) 05/25/21 07:10 Sodium 138 mmol/L (135-145) 05/25/21 07:10 Potassium 4.4 mmol/L (3.3-5.1) 05/25/21 07:10 Chloride 111 mmol/L (96-108) H 05/25/21 07:10 Carbon Dioxide 22 mmol/L (22-29) 05/25/21 07:10 Anion Gap 9 (12-20) L 05/25/21 07:10 BUN 11 mg/dL (9-16) 05/25/21 07:10 Creatinine 0.82 mg/dL (0.5-1.4) 05/25/21 07:10 Estim Creat Clear Calc 78.5 05/25/21 07:10 Estimated GFR > 60 05/25/21 07:10 Random Glucose 96 mg/dL (60-115) 05/25/21 07:10 Lactic Acid 2.1 mmol/L (0.5-2.0) H* 05/24/21 13:40 Lactic Acid F/U @ 2Hr 1.2 mmol/L (0.5-2.0) 05/24/21 17:57 Calcium 9.9 mg/dL (8.4-10.2) D 05/25/21 07:10 Magnesium 1.7 mg/dL (1.6-2.6) 05/24/21 12:42 Total Bilirubin 1.0 mg/dL (0.0-1.0) 05/24/21 12:42 AST 34 U/L (5-31) H 05/24/21 12:42 ALT 45 U/L (0-31) H 05/24/21 12:42 Alkaline Phosphatase 82 U/L (39-117) 05/24/21 12:42 Troponin I High Sens 7.0 ng/L (<3.5-17.0) 05/24/21 12:42 Total Protein 7.6 g/dL (6.5-8.0) 05/24/21 12:42 Albumin 4.5 g/dL (3.5-5.0) 05/24/21 12:42 Lipase 28 U/L (8-78) 05/24/21 12:42 Beta HCG, Quant < 2 mIU/mL 05/24/21 12:42 Urine Color STRAW 05/24/21 12:42 Urine Appearance HAZY 05/24/21 12:42 Urine pH 8.0 (5.0-8.0) 05/24/21 12:42 Ur Specific Robert Lee <= 1.005 (1.005-1.025) 05/24/21 12:42 Urine Protein NEG MG/DL (NEG-TRACE) 05/24/21 12:42 Urine Glucose (UA) NEG MG/DL (NEG) 05/24/21 12:42 Urine Ketones NEG MG/DL (NEG) 05/24/21 12:42 Urine Blood 1+ (NEG) H 05/24/21 12:42 Urine Nitrite NEG (NEG) 05/24/21 12:42 Ur Leukocyte Esterase 3+ (NEG) H 05/24/21 12:42 Urine RBC 1-4 /HPF (0) 05/24/21 12:42 Urine WBC 10-14 /HPF (0-4) H 05/24/21 12:42 Ur Squamous Epith Cells 4+ /LPF 05/24/21 12:42 Urine Bacteria 2+ /LPF 05/24/21 12:42 Lorenza species DNA Negative (Negative) 05/24/21 18:31 Chlam trachomat DNA PCR NOT DETECTED (Not Detect.) 05/24/21 18:31 COVID-19 (RENA) Negative (Negative) 05/24/21 19:42 COVID-19 Clin Com See Note 05/24/21 19:42 Gardnerella DNA Probe Negative (Negative) 05/24/21 18:31 N.gonorrhoeae DNA (PCR) NOT DETECTED (Not Detect.) 05/24/21 18:31 Trichomonas DNA Probe Negative (Negative) 05/24/21 18:31 Impressions Abdomen/Pelvis CT 05/24/21 14:23 IMPRESSION: *No CT evidence of appendicitis, normal appendix identified. 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 Please correlate clinically. Rios image. There is no localized fluid collection abscess. *There is a cystic structure in the left ovary likely a dominant follicle 3 cm. Assessment and Plan (1) Pelvic pain: Status: Acute Plan I have reviewed her CAT scan and ultrasound.? Her CAT scan shows fat stranding from the right adnexa extending to the area anterior to the IVC up to just below the pancreas.? Her ultrasound shows resolved complex cyst on the right side. She does feel much better this morning with regards to her pain and tenderness.? I am uncertain as to the etiology but her imaging studies suggest more of a gynecologic process Her abdominal exam is currently benign.? She still has some leukocytosis so this has to be followed I will follow along while she is in the hospital.? We will plan to do serial abdominal exams as well. Procedures Date of Service Date of Service: 05/25/21
[2021-05-25] MEDS: metroNIDAZOLE 500 MG TABLET PO (17:16)
[2021-05-25] MEDS: 0.9 % Sodium Chloride Flush 3 ML SYRINGE IVFLUSH ×2 (17:19→21:11)
[2021-05-25] MEDS: Atorvastatin Calcium 80 MG TABLET PO (21:02)
[2021-05-25] MEDS: Enoxaparin Sodium 40 MG/0.4 ML SYRINGE SUBCUT (21:02)
[2021-05-26] MEDS: metroNIDAZOLE 500 MG TABLET PO ×4 (01:06→23:54)
[2021-05-26 04:00] VITALS: BP 100/54; PULSE 66; RESP 18; TEMP 36.3; O2SAT 97
[2021-05-26] MEDS: Acetaminophen 325 MG TABLET 650 MG PO ×2 (04:39→16:10)
[2021-05-26 07:47] VITALS: BP 107/59; PULSE 62; RESP 18; TEMP 36.1; O2SAT 100
[2021-05-26] MEDS: Multivitamin TABLET 1 TAB PO (08:28)
[2021-05-26] MEDS: Doxycycline Hyclate 100 MG in 0.9 % Sodium Chloride 250 ML 166.67 MG IV ×2 (08:28→20:07)
[2021-05-26] MEDS: Metoprolol Tartrate 50 MG TABLET PO ×2 (08:29→20:07)
[2021-05-26] MEDS: Ferrous Sulfate 324 MG TABLET.DR PO (08:29)
[2021-05-26] MEDS: 0.9 % Sodium Chloride Flush 3 ML SYRINGE IVFLUSH ×3 (08:30→23:49)
[2021-05-26] MEDS: Docusate Sodium 100 MG CAPSULE PO (08:36)
[2021-05-26 10:57] VITALS: BP 120/65; PULSE 60; RESP 18; TEMP 36.2; O2SAT 100
--- NOTE | 2021-05-26 11:30 | P.PNIM_ITS ---
Subjective Subjective Date of Service: 05/26/21 Interval History: possible PId Review of Systems Still has significant abdominal pain, but slowly improving denies any chest pain or shortness of breath or fever or chills or cough or phlegm. Physical Exam Vital Signs: Vital Signs: Last Vital Signs Temp 97.2 F 05/26/21 10:57 Pulse 60 05/26/21 10:57 Resp 18 05/26/21 10:57 BP 120/65 05/26/21 10:57 Pulse Ox 100 05/26/21 10:57 BMI result Body Mass Index 28.3 Appearance: Alert.? Oriented X3.? not in distress.? Eyes: Pupils equal, round and reactive to light.? Sclera nonicteric.? ENT: Pharynx normal.? Moist mucous membranes. cvs: rrr, [id number] , no murmur res: clear to auscultation ,no rhonchii or wheezing abd: no rebound or guarding , lower pelvic b/l pain, bs present. ext pulses present , no cyanosis . neuro: axo3 , nonfocal. Objective Data Active Medications Acetaminophen (Acetaminophen 325 Mg Tablet) 650 mg PO Q6H PRN PRN Reason: Pain, Mild (Pain Scale 1-3) Last Admin: 05/26/21 04:39 Dose: 650 mg Documented by: IGGY Comments: pt states tylenol is enough for her headache Aspirin (Aspirin Enteric Coated 81 Mg Tablet.) 81 mg PO DAILY PRN PRN Reason: Chest Pain Atorvastatin Calcium (Atorvastatin Calcium 80 Mg Tablet) 80 mg PO BEDTIME [facility] Last Admin: 05/25/21 21:02 Dose: 80 mg Documented by: IGGY Cyclobenzaprine HCl (Cyclobenzaprine Hcl 10 Mg Tablet) 10 mg PO BEDTIME PRN PRN Reason: muscle spasm Docusate Sodium (Docusate Sodium 100 Mg Capsule) 100 mg PO DAILY PRN PRN Reason: Constipation Last Admin: 05/26/21 08:36 Dose: 100 mg Documented by: GORGE Enoxaparin Sodium (Enoxaparin Sodium 40 Mg/0.4 Ml Syringe) 40 mg SUBCUT Q24H [facility] Last Admin: 05/25/21 21:02 Dose: 40 mg Documented by: IGGY Ferrous Sulfate (Ferrous Sulfate 324 Mg Tablet.) 324 mg PO DAILY [facility] Last Admin: 05/26/21 08:29 Dose: 324 mg Documented by: GORGE Ceftriaxone Sodium 1 gm/ (Sodium Chloride) 50 mls @ 100 mls/hr IV Q24H [facility] Last Infusion: 05/25/21 13:52 Dose: 0 mls/hr Documented by: GIDEON Doxycycline Hyclate 100 mg/ (Sodium Chloride) 250 mls @ 166.67 mls/hr IV Q12H [facility] Last Infusion: 05/26/21 10:21 Dose: 0 mls/hr Documented by: GORGE Metoprolol Tartrate (Metoprolol Tartrate 50 Mg Tablet) 50 mg PO BID [facility]; Protocol Last Admin: 05/26/21 08:29 Dose: 50 mg Documented by: GORGE Metronidazole (Metronidazole 500 Mg Tablet) 500 mg PO Q8H [facility] Last Admin: 05/26/21 08:29 Dose: 500 mg Documented by: GORGE Morphine Sulfate (Morphine Sulfate 4 Mg/Ml Cartridge) 4 mg IVPUSH Q4H PRN; Protocol PRN Reason: Pain, Severe (Pain Scale 7-10) Last Admin: 05/24/21 22:09 Dose: 4 mg Documented by: BRITT Multivitamins/Vitamin C (Multivitamin Tablet) 1 tab PO DAILY [facility] Last Admin: 05/26/21 08:28 Dose: 1 tab Documented by: GORGE Naproxen (Naproxen 250 Mg Tablet) 250 mg PO BID PRN PRN Reason: Pain (Scale Score 1-3) Last Admin: 05/25/21 09:26 Dose: 250 mg Documented by: GIDEON Ondansetron HCl (Ondansetron Hcl 4 Mg/2 Ml Vial) 4 mg IVPUSH Q8H PRN PRN Reason: Nausea and Vomiting Last Admin: 05/25/21 13:14 Dose: 4 mg Documented by: GIDEON Pharmacy Consult (Consult Rx Perform Med Rec) 1 each MISCELLANE ONCE PRN PRN Reason: Consult order Sodium Chloride (0.9 % Sodium Chloride Flush 3 Ml Syringe) 3 ml IVFLUSH QSHIFT [facility] Last Admin: 05/26/21 08:30 Dose: 3 ml Documented by: GORGE Labs CBC & Chem 7: 05/25/21 07:10 05/25/21 07:10 Labs: Laboratory Results - last 24 hr 05/24/21 18:31 Lorenza species DNA Negative Gardnerella DNA Probe Negative Trichomonas DNA Probe Negative Microbiology Microbiology Results: Microbiology 05/24/21 13:52 Blood Culture - Preliminary Blood - Venous No growth after 24 hours. 05/24/21 13:40 Blood Culture - Preliminary Blood - Venous No growth after 24 hours. 05/24/21 Unknown Urine Culture - Final Urine clean catch - Urine pablo top Strep agalactiae (Grp B) Assessment and Plan (1) Sepsis: Status: Acute (2) Abdominal pain: Status: Acute Plan 51-year-old female with history of ovarian cyst who presents to the hospital with complaints of severe abdominal pain found to have abnormal abdominal CT findings patient will be admitted for further management 1. sepsis-? 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 urine culture strep gruopb, blood culture pending 2.abdominal pain -? unclear definite etiology at this time -? PID versus other intra-abdominal abnormality -? see CT findings as above -? at this time will treat with ceftriaxone, doxycycline, and metronidazole -? follow blood cultures -? 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 lactic acidosis: lactic acidsois resolved with hydration. 4.? hypertension -? blood pressure is soft -? will hold antihypertensives ?DVT prophylaxis: Lovenox inpatient need: PID , abd pain , blood culture-until 48hr neg Quality Stroke Does the patient have a stroke diagnosis?: No VTE Prior VTE?: No VTE Risk Level:: Medical - moderate - high VTE Device Contraindication: Treatment Not Indicated VTE Drug Contraindication: N/A - Med Ordered
--- NOTE | 2021-05-26 12:38 | P.PNGS_ITS ---
Subjective Subjective Date of Service: 05/26/21 Interval history: feels much better pain nearly resolved tolerating diet has chronic constipation Physical Exam Vital Signs: Vital Signs: Last Vital Signs Temp 97.2 F 05/26/21 10:57 Pulse 60 05/26/21 10:57 Resp 18 05/26/21 10:57 BP 120/65 05/26/21 10:57 Pulse Ox 100 05/26/21 10:57 BMI result Body Mass Index 28.3 Const: General: comfortable and no acute distress Resp: Effort & Inspection: normal respiratory effort GI: Palpation (GI): Soft to palpation, not firm and nontender Objective Data Active Medications Acetaminophen (Acetaminophen 325 Mg Tablet) 650 mg PO Q6H PRN PRN Reason: Pain, Mild (Pain Scale 1-3) Last Admin: 05/26/21 04:39 Dose: 650 mg Documented by: IGGY Comments: pt states tylenol is enough for her headache Aspirin (Aspirin Enteric Coated 81 Mg Tablet.) 81 mg PO DAILY PRN PRN Reason: Chest Pain Atorvastatin Calcium (Atorvastatin Calcium 80 Mg Tablet) 80 mg PO BEDTIME [facility] Last Admin: 05/25/21 21:02 Dose: 80 mg Documented by: IGGY Cyclobenzaprine HCl (Cyclobenzaprine Hcl 10 Mg Tablet) 10 mg PO BEDTIME PRN PRN Reason: muscle spasm Docusate Sodium (Docusate Sodium 100 Mg Capsule) 100 mg PO DAILY PRN PRN Reason: Constipation Last Admin: 05/26/21 08:36 Dose: 100 mg Documented by: GORGE Enoxaparin Sodium (Enoxaparin Sodium 40 Mg/0.4 Ml Syringe) 40 mg SUBCUT Q24H [facility] Last Admin: 05/25/21 21:02 Dose: 40 mg Documented by: IGGY Ferrous Sulfate (Ferrous Sulfate 324 Mg Tablet.) 324 mg PO DAILY [facility] Last Admin: 05/26/21 08:29 Dose: 324 mg Documented by: GORGE Ceftriaxone Sodium 1 gm/ (Sodium Chloride) 50 mls @ 100 mls/hr IV Q24H [facility] Last Infusion: 05/25/21 13:52 Dose: 0 mls/hr Documented by: GIDEON Doxycycline Hyclate 100 mg/ (Sodium Chloride) 250 mls @ 166.67 mls/hr IV Q12H [facility] Last Infusion: 05/26/21 10:21 Dose: 0 mls/hr Documented by: GORGE Metoprolol Tartrate (Metoprolol Tartrate 50 Mg Tablet) 50 mg PO BID [facility]; Protocol Last Admin: 05/26/21 08:29 Dose: 50 mg Documented by: GORGE Metronidazole (Metronidazole 500 Mg Tablet) 500 mg PO Q8H [facility] Last Admin: 05/26/21 08:29 Dose: 500 mg Documented by: GORGE Morphine Sulfate (Morphine Sulfate 4 Mg/Ml Cartridge) 4 mg IVPUSH Q4H PRN; Protocol PRN Reason: Pain, Severe (Pain Scale 7-10) Last Admin: 05/24/21 22:09 Dose: 4 mg Documented by: BRITT Multivitamins/Vitamin C (Multivitamin Tablet) 1 tab PO DAILY [facility] Last Admin: 05/26/21 08:28 Dose: 1 tab Documented by: GORGE Naproxen (Naproxen 250 Mg Tablet) 250 mg PO BID PRN PRN Reason: Pain (Scale Score 1-3) Last Admin: 05/25/21 09:26 Dose: 250 mg Documented by: GIDEON Ondansetron HCl (Ondansetron Hcl 4 Mg/2 Ml Vial) 4 mg IVPUSH Q8H PRN PRN Reason: Nausea and Vomiting Last Admin: 05/25/21 13:14 Dose: 4 mg Documented by: GIDEON Pharmacy Consult (Consult Rx Perform Med Rec) 1 each MISCELLANE ONCE PRN PRN Reason: Consult order Sodium Chloride (0.9 % Sodium Chloride Flush 3 Ml Syringe) 3 ml IVFLUSH QSHIFT [facility] Last Admin: 05/26/21 08:30 Dose: 3 ml Documented by: GORGE Labs CBC & Chem 7: 05/25/21 07:10 05/25/21 07:10 Microbiology Microbiology Results: Microbiology 05/24/21 13:52 Blood Culture - Preliminary Blood - Venous No growth after 24 hours. 05/24/21 13:40 Blood Culture - Preliminary Blood - Venous No growth after 24 hours. 05/24/21 Unknown Urine Culture - Final Urine clean catch - Urine pablo top Strep agalactiae (Grp B) Procedures Date of Service Date of Service: 05/26/21 Progress Note: A&P Assessment and plan (1) Pelvic pain: Status: Acute Assessment and Plan: likely from adnexal etiology looks well exam benign diet as tolerated ffup with Gyne Fall Risk Details Current Medications: Current Medications Acetaminophen (Acetaminophen 325 Mg Tablet) 650 mg PO Q6H PRN PRN Reason: Pain, Mild (Pain Scale 1-3) Last Admin: 05/26/21 04:39 Dose: 650 mg Documented by: Aspirin (Aspirin Enteric Coated 81 Mg Tablet.) 81 mg PO DAILY PRN PRN Reason: Chest Pain Atorvastatin Calcium (Atorvastatin Calcium 80 Mg Tablet) 80 mg PO BEDTIME [facility] Last Admin: 05/25/21 21:02 Dose: 80 mg Documented by: Cyclobenzaprine HCl (Cyclobenzaprine Hcl 10 Mg Tablet) 10 mg PO BEDTIME PRN PRN Reason: muscle spasm Docusate Sodium (Docusate Sodium 100 Mg Capsule) 100 mg PO DAILY PRN PRN Reason: Constipation Last Admin: 05/26/21 08:36 Dose: 100 mg Documented by: Enoxaparin Sodium (Enoxaparin Sodium 40 Mg/0.4 Ml Syringe) 40 mg SUBCUT Q24H [facility] Last Admin: 05/25/21 21:02 Dose: 40 mg Documented by: Ferrous Sulfate (Ferrous Sulfate 324 Mg Tablet.) 324 mg PO DAILY [facility] Last Admin: 05/26/21 08:29 Dose: 324 mg Documented by: Ceftriaxone Sodium 1 gm/ (Sodium Chloride) 50 mls @ 100 mls/hr IV Q24H [facility] Last Infusion: 05/25/21 13:52 Dose: Infused Documented by: Doxycycline Hyclate 100 mg/ (Sodium Chloride) 250 mls @ 166.67 mls/hr IV Q12H [facility] Last Infusion: 05/26/21 10:21 Dose: Infused Documented by: Metoprolol Tartrate (Metoprolol Tartrate 50 Mg Tablet) 50 mg PO BID [facility]; Protocol Last Admin: 05/26/21 08:29 Dose: 50 mg Documented by: Metronidazole (Metronidazole 500 Mg Tablet) 500 mg PO Q8H [facility] Last Admin: 05/26/21 08:29 Dose: 500 mg Documented by: Morphine Sulfate (Morphine Sulfate 4 Mg/Ml Cartridge) 4 mg IVPUSH Q4H PRN; Prot ocol PRN Reason: Pain, Severe (Pain Scale 7-10) Last Admin: 05/24/21 22:09 Dose: 4 mg Documented by: Multivitamins/Vitamin C (Multivitamin Tablet) 1 tab PO DAILY [facility] Last Admin: 05/26/21 08:28 Dose: 1 tab Documented by: Naproxen (Naproxen 250 Mg Tablet) 250 mg PO BID PRN PRN Reason: Pain (Scale Score 1-3) Last Admin: 05/25/21 09:26 Dose: 250 mg Documented by: Ondansetron HCl (Ondansetron Hcl 4 Mg/2 Ml Vial) 4 mg IVPUSH Q8H PRN PRN Reason: Nausea and Vomiting Last Admin: 05/25/21 13:14 Dose: 4 mg Documented by: Pharmacy Consult (Consult Rx Perform Med Rec) 1 each MISCELLANE ONCE PRN PRN Reason: Consult order Sodium Chloride (0.9 % Sodium Chloride Flush 3 Ml Syringe) [facility] Last Admin: 05/26/21 08:30 Dose: 3 ml Documented by: Time Spent With Patient Time: Total time spent is greater than 50% in coordination of care (as documented) at patient's floor/unit and/or counseling patient: Quality Stroke Does the patient have a stroke diagnosis?: No VTE Prior VTE?: No VTE Risk Level:: Medical - moderate - high VTE Device Contraindication: Treatment Not Indicated VTE Drug Contraindication: N/A - Med Ordered
[2021-05-26] MEDS: cefTRIAXone sodium 1 GM in 0.9 % Sodium Chloride 50 ML IV (15:37)
[2021-05-26 16:00] VITALS: BP 142/69; PULSE 70; RESP 15; O2SAT 100
[2021-05-26 19:20] VITALS: BP 141/67; PULSE 65; RESP 18; TEMP 37; O2SAT 100
[2021-05-26] MEDS: Enoxaparin Sodium 40 MG/0.4 ML SYRINGE SUBCUT (20:06)
[2021-05-26] MEDS: Atorvastatin Calcium 80 MG TABLET PO (20:07)
[2021-05-26 23:01] VITALS: BP 126/50; PULSE 55; RESP 18; TEMP 36.8; O2SAT 99
[2021-05-27 04:00] VITALS: BP 124/65; PULSE 69; RESP 18; TEMP 37.2; O2SAT 100
[2021-05-27 05:28] LABS: Hematocrit 29.1 % (37.0-47.0); Hemoglobin 8.8 g/dl (12.0-16.0); Mean Corpuscular HGB Conc 30.2 g/dl (31.0-35.0); Mean Corpuscular Hemoglobin 25.6 pg (27.0-33.0); Mean Corpuscular Volume 84.6 fL (80.0-98.0); Mean Platelet Volume 10.6 fL (9.4-12.3); Platelet Count 253 X10*3/uL (160-400); Red Blood Count 3.44 X10*6/uL (4.20-5.50); Red Cell Distribution Width 15.7 % (11.0-16.0); White Blood Count 6.1 X10*3/uL (4.8-10.8)
[2021-05-27 05:44] LABS: Anion Gap 12 (12-20); Blood Urea Nitrogen 13 mg/dL (9-16); Calcium 10.2 mg/dL (8.4-10.2); Carbon Dioxide 18 mmol/L (22-29); Chloride 112 mmol/L (96-108); Estimated Glomerular Filt Rate > 60; Glucose Random 93 mg/dL (60-115); Potassium 4.2 mmol/L (3.3-5.1); Sodium 138 mmol/L (135-145)
[2021-05-27 06:59] VITALS: BP 132/63; PULSE 56; RESP 18; TEMP 36.2; O2SAT 100
[2021-05-27] MEDS: 0.9 % Sodium Chloride Flush 3 ML SYRINGE IVFLUSH (07:43)
[2021-05-27] MEDS: Doxycycline Hyclate 100 MG in 0.9 % Sodium Chloride 250 ML 166.67 MG IV (07:43)
[2021-05-27] MEDS: metroNIDAZOLE 500 MG TABLET PO (07:44)
[2021-05-27] MEDS: Multivitamin TABLET 1 TAB PO (07:44)
[2021-05-27] MEDS: Ferrous Sulfate 324 MG TABLET.DR PO (07:45)
[2021-05-27 11:14] VITALS: BP 159/72; PULSE 66; RESP 18; TEMP 36.5; O2SAT 100
--- NOTE | 2021-05-27 11:44 | MHC.CM.PN ---
Patient has been medically cleared for dc to home today, self care.
--- NOTE | 2021-05-27 12:46 | P.DS_ITS ---
DS: Providers Provider Date of Service: 05/27/21 Date of admission: 05/24/21 20:13 Primary care physician: Gem Gillespie MD Consults: 05/24/21 20:12 Consult to General Surgery Routine Consulting Provider: Cathie Oneill Reason for consultation: Intraabdominal infection Has provider been notified: No DS: Diagnosis Discharge Diagnosis (1) Pelvic pain: Status: Acute DS: Summary Hospital Course Hospital Course: from initial hpi: Chief Complaint: abd pain ?this is a 51-year-old female with past medical? history of hypertension, hyperlipidemia, migraine headaches, ovary insists, who presents to the hospital with complaints of acute onset abdominal pain.? Patient reports that she had a transvaginal ultrasound on Tuesday for her history of ovarian cysts, the time she felt some pain but ignored it, she then started developing urinary symptoms including urgency frequency and dysuria a day following that, patient reports that her symptoms were persistent but she did not have any further abdominal pain up until yesterday night when she suddenly woke up at 02:00 with severe right-sided? lower abdominal pain radiating to the left abdomen, patient reports clear discharge from the vagina, reports no fever but has had chills.? She reports no nausea or vomiting, no diarrhea walter she has no headache, no change in vision, no shortness of breath,.? And no lower extremity edema. ? On arrival patient's vitals were significant for temp of 99.9 degrees, heart rate of 124, otherwise stable Labs are significant for? WBC count of 15, lactic acid of 2.1, UA that is positive for leukocyte Estrace and WBC Abdominal pelvic CT shows? no CT evidence of appendicitis, retroperitoneal fat stranding anterior to the IVC which extends from the pelvis right adnexa all the way up to the level pancreas, uncertain etiology.? Lipase negative. 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 She was seen by gynecology recommended 2 weeks of doxycycline and Flagyl initially with IV as inpatient due to sepsis. patient's sepsis resolved, her pain resolved. she was transitioned to p.o. doxy and Flagyl for 10 more days. 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 She will continue on her metoprolol and lisinopril and amlodipinefor hypertension. and Crestor for hyperlipidemia. Time Spent with Patient Time attestation: Total time spent providing and/or coordinating discharge services: Discharge coordination time: Greater than 30 minutes Quality: Safe Use of Opioids Does Pt have an Active Cancer Diagnosis on the Problem List?: No Quality: Stroke Does the patient have a stroke diagnosis?: No Physical Exam Vital Signs: Vital Signs: Last Vital Signs Temp 97.7 F 05/27/21 11:14 Pulse 66 05/27/21 11:14 Resp 18 05/27/21 11:14 BP 159/72 H 05/27/21 11:14 Pulse Ox 100 05/27/21 11:14 BMI result Body Mass Index 28.3 General: AO X 3, no acute distress Resp: CTA bilateral, no accessory muscles used CVS: S1,S2,RRR GI: soft, non tender, non distended Neuro: motor grossly intact, alert Psych: appropriate affect, appropriate insight DS: Data Data Completed and Pending Labs on day of discharge: Laboratory Results - last 24 hr 05/27/21 05/27/21 04:55 04:55 WBC 6.1 RBC 3.44 L Hgb 8.8 L Hct 29.1 L MCV 84.6 MCH 25.6 L MCHC 30.2 L RDW 15.7 Plt Count 253 MPV 10.6 Absolute Nucleated RBC 0.000 Nucleated RBC % (auto) 0.0 Sodium 138 Potassium 4.2 Chloride 112 H Carbon Dioxide 18 L Anion Gap 12 BUN 13 Creatinine 0.74 Estim Creat Clear Calc 87.0 Estimated GFR > 60 Random Glucose 93 Calcium 10.2 Preliminary micro results at discharge 05/24/21 13:52 Blood Culture - Preliminary Blood - Venous No growth after 48 hours. 05/24/21 13:40 Blood Culture - Preliminary Blood - Venous No growth after 48 hours. Discharge Plan Discharge Patient Disposition: Home, Self-Care Discharge Diagnosis: PID Referrals: Gem Gillespie MD [Primary Care Provider] - 1 Week Discharge Medications: New metronidazole 500 mg Tablet 500 mg PO Q8H Qty: 20 0RF doxycycline hyclate 100 mg tablet 100 mg PO BID Qty: 20 0RF Continued cyclobenzaprine 10 mg tablet 10 mg PO BEDTIME PRN (Reason: muscle spasm) Qty: 7 0RF ferrous sulfate [FeroSul] 325 mg (65 mg iron) tablet 1 tab PO DAILY 0RF multivitamin Tablet 1 tab PO DAILY 0RF metoprolol tartrate 50 mg tablet 1 tab PO BID 0RF Hair,Skin and Nails Tablet 1 tab PO DAILY 0RF amlodipine 2.5 mg tablet 2.5 mg PO BEDTIME 0RF aspirin [Adult Aspirin Regimen] 81 mg tablet,delayed release (DR/EC) 81 mg PO DAILY PRN (Reason: Chest Pain) 0RF lisinopril 10 mg tablet 10 mg PO DAILY 0RF rosuvastatin 20 mg tablet 20 mg PO BEDTIME 0RF naproxen 250 mg tablet 250 mg PO BID PRN (Reason: Pain (Scale Score 1-3)) 0RF Discharge Orders: Discharge Order (Routine); Ordered 05/27/21 Ordered By: Garrett Elizalde Diet: advance to usual diet Activity on Discharge: As tolerated Stand Alone Forms: Patient Portal Discharge page, Work/School Release Care Plan Goals: [id number] Concerns: pid Plan of Treatment: 10 days abx Assessment: see above Discharge Date/Time: 05/27/21 12:00
== END 2021-05-27 12:00 | disposition home or self-care (01) | DRG 872 ==
LOC: HO.ED 12:05 → HO.EDOVER 20:18 → HO.S3 05-25 16:09
PROVIDERS: Internal Medicine; Nurse Practitioner Family; Obstetrics & Gynecology; Admitting Provider Internal Medicine; Emergency Provider Emergency Medicine; PCP Internal Medicine; Visit Provider Internal Medicine
DX: A41.9 Sepsis, unspecified organism (principal); E87.2 Acidosis; R65.20 Severe sepsis without septic shock; N73.9 Female pelvic inflammatory disease, unspecified; D72.829 Elevated white blood cell count, unspecified; G43.909 Migraine, unspecified, not intractable, without status migrainosus; I10 Essential (primary) hypertension; Z20.822 Contact with and (suspected) exposure to COVID-19; Z98.51 Tubal ligation status; Z87.891 Personal history of nicotine dependence; Z79.82 Long term (current) use of aspirin; Z79.899 Other long term (current) drug therapy
CPT/HCPCS: 36415; 74177; 80048; 80053; 81001; 83605; 83690; 83735; 84484; 84702; 85025; 85027; 87040; 87086; 87147; 87480; 87491; 87510; 87591; 87635; 87660; 93005; 96361; 96365; 96367; 96375; 96376; 99285; J0696; J1650; J1885; J2270; J2405; Q9967

== ENCOUNTER → 2021-06-03 15:30 | Outpatient (BNVA) | payer OTHER, SELFPAY | PROVIDERS: Visit Provider Obstetrics & Gynecology | DX: Z13.89 Encounter for screening for other disorder (principal) ==

== ENCOUNTER → 2021-06-04 14:14 | Outpatient (BNVA) | payer OTHER, SELFPAY | PROVIDERS: PCP Internal Medicine; Referring Provider Internal Medicine; Visit Provider Surgery | DX: Z13.89 Encounter for screening for other disorder (principal) ==

== ENCOUNTER 2021-06-25 15:03 | Outpatient (REF) | payer OTHER, SELFPAY ==
[2021-06-27 13:53] LABS: H Pylori Breath Test Negative (Negative)
[2021-06-28 08:51] LABS: Rast Allergen SEE NOTES
== END 2021-06-25 15:04 | disposition home or self-care (01) ==
LOC: HO.LAB 15:03
PROVIDERS: PCP Internal Medicine; Referring Provider Internal Medicine; Visit Provider Nurse Practitioner
DX: K58.9 Irritable bowel syndrome, unspecified (principal); D12.6 Benign neoplasm of colon, unspecified; I10 Essential (primary) hypertension; E78.00 Pure hypercholesterolemia, unspecified; F15.929 Other stimulant use, unspecified with intoxication, unspecified; Z87.891 Personal history of nicotine dependence; Z98.890 Other specified postprocedural states; Z91.014 Allergy to mammalian meats
CPT/HCPCS: 36415; 83013; 86003

== ENCOUNTER 2021-07-03 15:01 | Outpatient (REF) | payer OTHER, SELFPAY ==
--- NOTE | ~2021-07-03 | MR_ITS ---
EXAMINATION: MR BREAST WITHOUT AND WITH CONTRAST, BILATERAL CLINICAL INFORMATION: High-risk screening. Family history of breast cancer. Dense breasts. COMPARISON: Breast MRI 08/11/2020, 10/30/2019, 07/20/2018, and priors. Most recent available mammography 07/07/2020. Priors. TECHNIQUE: Imaging was performed with a dedicated breast coil. Prior to the administration of contrast, bilateral axial T1 and bilateral axial T2 weighted sequences were obtained. After the uneventful administration of?7.5 mL of Gadavist, dynamic contrast-enhanced VIBRANT series through the breasts in the axial plane were performed. Subtracted images were performed and reviewed. A delayed sagittal sequence through both breasts was acquired. Additionally, CAD post-processing, including maximum intensity projections, 3-D reconstructions and kinetic analysis, were performed an independent workstation and reviewed by the interpreting radiologist is a portion of this exam. FINDINGS: The patient's breasts are comprised of heterogeneous, dense fibroglandular parenchyma. The tissue undergoes mild background enhancement. LEFT BREAST: No suspicious mass, dominant nonmass enhancement or architectural distortion. Biopsy clip artifact in the 12:00 central left breast without associated enhancement. Nonmass enhancement noted in this region on 2019 exam has resolved. RIGHT BREAST: No suspicious mass, dominant nonmass enhancement or architectural distortion. There is no suspicious internal mammary chain or axillary adenopathy. Limited views of the chest and abdomen are unremarkable. MR/MR breast BI wo/w con IMPRESSION: No MR specific evidence of malignancy. ASSESSMENT: LEFT BREAST: BI-RADS 2, benign findings RIGHT BREAST: BI-RADS 1, negative exam RECOMMENDATIONS: Yearly screening MRI per published guidelines in high-risk patients. The patient is due for screening mammography at this time.
== END 2021-07-03 15:02 | disposition home or self-care (01) ==
LOC: HO.MRI 15:01
PROVIDERS: Visit Provider Surgery
DX: Z91.89 Other specified personal risk factors, not elsewhere classified (principal); Z80.3 Family history of malignant neoplasm of breast
CPT/HCPCS: 77049; A9585

== ENCOUNTER 2021-07-09 14:57 | Outpatient (REF) | payer OTHER, SELFPAY ==
--- NOTE | ~2021-07-09 | MM_ITS ---
EXAMINATION: MM SCREENING DIGITAL BREAST TOMOSYNTHESIS, BILATERAL CLINICAL INFORMATION: Screening. Asymptomatic. The lifetime risk of breast cancer based on the Tyrer-Cuzick Model is 13%. COMPARISON: Mammography: July 03, 2021 MRI and mammography dating back to January 31, 2013 TECHNIQUE: Digital breast tomosynthesis is performed in both the craniocaudal and mediolateral oblique views along with computer-aided detection (CAD). Synthesized 2D images are generated from the tomosynthesis. FINDINGS: The breasts are heterogeneously dense, which may obscure small masses (ACR BI-RADS breast composition Category c). There are no significant masses, abnormal calcifications, or other abnormalities. MM/MM tomosynthesis screening BI IMPRESSION: There are no significant changes from prior study. ASSESSMENT: BI-RADS 1: Negative RECOMMENDATION: Routine annual mammography screening. This patient's information was entered into a reminder system with a target due date for their next mammogram.
== END 2021-07-09 14:58 | disposition home or self-care (01) ==
LOC: HO.MAMMO 14:57
PROVIDERS: PCP Internal Medicine; Visit Provider Obstetrics & Gynecology
DX: Z12.31 Encounter for screening mammogram for malignant neoplasm of breast (principal)
CPT/HCPCS: 77063; 77067

== ENCOUNTER 2021-08-13 06:23 | Outpatient (REF) | payer OTHER, SELFPAY ==
[2021-08-13 06:28] LABS: MANUAL DIFF FLAG NO
[2021-08-13 08:50] LABS: Basophils Percent Auto 0.6 % (0-2); Eosinophils Absolute Auto 0.2 X10*3/uL (0.0-0.4); Eosinophils Percent Auto 3.8 % (0-4); Hematocrit 41.9 % (37.0-47.0); Hemoglobin 13.3 g/dl (12.0-16.0); Imm Gran Abs Auto 0.01 X10*3/uL (0.00-0.03); Imm Gran Pct Auto 0.2 % (0.0-0.4); Lymphocytes Absolute Auto 2.1 X10*3/uL (1.2-4.9); Lymphocytes Percent Auto 40.2 % (20-40); Mean Corpuscular HGB Conc 31.7 g/dl (31.0-35.0); Mean Corpuscular Hemoglobin 28.7 pg (27.0-33.0); Mean Corpuscular Volume 90.3 fL (80.0-98.0); Mean Platelet Volume 10.9 fL (9.4-12.3); Monocytes Absolute Auto 0.5 X10*3/uL (0.1-1.2); Monocytes Percent Auto 9.2 % (2-11); Neutrophils Absolute Auto 2.5 x10*3/uL (2.0-8.3); Platelet Count 284 X10*3/uL (160-400); Red Blood Count 4.64 X10*6/uL (4.20-5.50); Red Cell Distribution Width 14.7 % (11.0-16.0); White Blood Count 5.3 X10*3/uL (4.8-10.8)
[2021-08-13 09:47] LABS: Ferritin 30 ng/mL (10-250); Thyroid Stimulating Hormone 2.14 uIU/mL (0.32-4.0)
== END 2021-08-13 06:24 | disposition home or self-care (01) ==
LOC: HO.LAB 06:23
PROVIDERS: PCP Internal Medicine; Visit Provider Internal Medicine
DX: D50.8 Other iron deficiency anemias (principal); F41.8 Other specified anxiety disorders; I10 Essential (primary) hypertension; R00.2 Palpitations
CPT/HCPCS: 36415; 82728; 84443; 85025

== ENCOUNTER 2021-09-09 08:01 | Outpatient (REF) | payer OTHER, SELFPAY ==
--- NOTE | ~2021-09-09 | US_ITS ---
EXAMINATION: US ABDOMEN COMPLETE CLINICAL INFORMATION: Benign neoplasm of colon. IBS. COMPARISON: CT abdomen and pelvis with contrast dated 05/25/2019. Ultrasound abdomen complete dated 10/20/2010. TECHNIQUE: Real-time imaging of the abdominal viscera. FINDINGS: PANCREAS: Normal. ABDOMINAL AORTA: The proximal, mid, and distal segments are normal in caliber. INFERIOR VENA CAVA: Visualized portions are normal. LIVER: Normal. The liver is normal in size. The liver contour is normal. Parenchymal echogenicity is normal. No focal hepatic lesion. There is no intrahepatic biliary duct dilatation seen. GALLBLADDER: Normal. The gallbladder is physiologically distended without evidence of stones, sludge, polyps, wall thickening or pericholecystic fluid. COMMON BILE DUCT: Normal in caliber measuring 0.5 cm in diameter. RIGHT KIDNEY: Normal. No hydronephrosis. No renal calculi or focal parenchymal lesions. The kidney measures 10.1 cm in maximum dimension. LEFT KIDNEY: There is an anechoic cyst in the midpole measuring 6.9 x 6.2 x 5.9 cm. No additional cyst, solid mass or hydronephrosis seen No hydronephrosis or renal calculi. The kidney measures 10.8 cm in maximum dimension. SPLEEN: Normal. The spleen measures 8.4 cm in maximum dimension. FREE FLUID: None. US/US abdomen complete IMPRESSION: Mid pole anechoic cyst of the left kidney. No echogenic renal calculi or hydronephrosis.
== END 2021-09-09 08:02 | disposition home or self-care (01) ==
LOC: HO.US 08:01
PROVIDERS: PCP Internal Medicine; Visit Provider Nurse Practitioner
DX: D12.6 Benign neoplasm of colon, unspecified (principal); K58.9 Irritable bowel syndrome, unspecified
CPT/HCPCS: 76700

== ENCOUNTER 2021-11-06 07:15 | Outpatient (REF) | payer OTHER, SELFPAY ==
[2021-11-06 07:24] LABS: MANUAL DIFF FLAG NO
[2021-11-06 08:04] LABS: Basophils Percent Auto 0.8 % (0-2); Eosinophils Absolute Auto 0.2 X10*3/uL (0.0-0.4); Eosinophils Percent Auto 4.5 % (0-4); Hematocrit 41.7 % (37.0-47.0); Hemoglobin 13.4 g/dl (12.0-16.0); Imm Gran Abs Auto 0.01 X10*3/uL (0.00-0.03); Imm Gran Pct Auto 0.2 % (0.0-0.4); Lymphocytes Absolute Auto 2.2 X10*3/uL (1.2-4.9); Lymphocytes Percent Auto 42.4 % (20-40); Mean Corpuscular HGB Conc 32.1 g/dl (31.0-35.0); Mean Corpuscular Hemoglobin 29.3 pg (27.0-33.0); Mean Platelet Volume 10.7 fL (9.4-12.3); Monocytes Absolute Auto 0.5 X10*3/uL (0.1-1.2); Monocytes Percent Auto 9.2 % (2-11); Neutrophils Absolute Auto 2.2 x10*3/uL (2.0-8.3); Neutrophils Percent Auto 42.9 % (45-73); Platelet Count 250 X10*3/uL (160-400); Red Blood Count 4.58 X10*6/uL (4.20-5.50); White Blood Count 5.1 X10*3/uL (4.8-10.8)
[2021-11-06 08:31] LABS: Alanine Aminotransferase 56 U/L (0-31); Albumin Level 4.6 g/dL (3.5-5.0); Alkaline Phosphatase 86 U/L (39-117); Anion Gap 14 (12-20); Aspartate Amino Transferase 52 U/L (5-31); Bilirubin Total 0.7 mg/dL (0.0-1.0); Blood Urea Nitrogen 14 mg/dL (9-16); Carbon Dioxide 25 mmol/L (22-29); Chloride 107 mmol/L (96-108); Cholesterol 182 mg/dL; Estimated Glomerular Filt Rate > 60; Glucose Random 91 mg/dL (60-115); HDL Cholesterol 45 mg/dL; LDL Cholesterol Calculated 99 mg/dl; Potassium 4.5 mmol/L (3.3-5.1); Sodium 141 mmol/L (135-145); Total Protein 7.5 g/dL (6.5-8.0); Triglycerides 190 mg/dL
== END 2021-11-06 07:16 | disposition home or self-care (01) ==
LOC: HO.LAB 07:15
PROVIDERS: PCP Internal Medicine; Visit Provider Internal Medicine
DX: D50.8 Other iron deficiency anemias (principal); E78.00 Pure hypercholesterolemia, unspecified; I10 Essential (primary) hypertension
CPT/HCPCS: 36415; 80053; 80061; 85025

== ENCOUNTER 2021-11-11 17:00 | Outpatient (RCR) | payer OTHER, SELFPAY ==
--- NOTE | 2021-10-08 09:58 | MHC.PT.EP ---
[facility] [place] Office [place] Office [place] Office [address] [phone] F: [phone] F: [phone] F: [phone] F: [phone] Physical Therapy Plan of Care Date of Evaluation: Date of Surgery: N/A Diagnosis: tendinitis R shoulder Assessment: pt is a 51yo female presenting to PT with dx of right shoulder tendinitis . Pt presents to PT with current impairments in pain, decreased shoulder ROM, decreased strength, soft tissue restrictions, and impaired posture. She is limited functionally by lifting, reaching dressing, overhead ADLs, driving, work related tasks, cooking. Pt is a good candidate for physical therapy in order to address current impairments to facilitate return to PLOF. She will be seen 2x/week for 4 weeks and will be reassessed at that time. Frequency and Duration: The patient will be seen 2x/week for 4 weeks Short Term Goals: Pt will be I with HEP to promote self management of symptoms Pt will improve R shoulder flexion by at least 10 degrees Pt will demonstrate improvements in postural awareness throughout the day Correction Goals: Pt will demonstrate full ROM and strength throughout R shoulder Pt will perform overhead ADLs with minimal to no compensation Pt will demonstrate improvements in function as evidenced by statistically significant improvement in SPADI outcome measure Treatment Plan: Modalities to reduce pain, spasms and effusion. Manual therapy to restore motion and function. Therapeutic exercise to improve strength and flexibility. Neuromuscular re-education for posture and balance. Therapeutic activities to return to functional activities of daily living. Electronically signed by: Sahara Lyle, PT, DPT Please sign and return to therapist. Thank you for your referral.
--- NOTE | 2021-11-11 17:53 | MHC.PT.DC ---
[facility] [place] Office [place] Office [place] Office [address] Yas Barrios [address] [phone] F: [phone] F: [phone] F: [phone] F: [phone] Physical Therapy Discharge Report Diagnosis: tendinitis R shoulder Date of Surgery: N/A Date of Evaluation: 10/07/21 Date of Discharge: 11/11/21 Treatments to Date: 8 Cancellations to Date: No Shows to Date: Discharge Status: Achieved Goals Improved Function Independent with HEP Discharge Summary: Pt has made excellent progress since SOC. She has met her STGs and has made great progress toward her LTGs. She has improved ROM and strength all planes throughout R shoulder. She has improved her score on SPADI outcome measure from 100/130 on initial PT evaluation to 5/130 today. Pt is I with HEP. Pt is being D/C from skilled PT at this time. Provided pt with printed, updated HEP and RTB and pt verbalized understanding. Pt reports no further questions or concerns for PT at this time. Electronically signed by: Sahara Lyle, PT, DPT Please sign and return to therapist. Thank you for your referral.
== END 2021-11-11 17:54 | disposition home or self-care (01) ==
LOC: HO.PT 17:00
PROVIDERS: PCP Internal Medicine; Visit Provider Internal Medicine
DX: M75.21 Bicipital tendinitis, right shoulder (principal)
CPT/HCPCS: 97110; 97140; 97162; 97530

== ENCOUNTER 2021-11-20 16:42 | Outpatient (REF) | payer OTHER, SELFPAY ==
[2021-11-20 17:23] LABS: Phosphorus 3.4 mg/dL (2.7-4.5)
[2021-11-20 17:45] LABS: Vitamin D 25-OH Total 30.3 ng/mL (>30)
[2021-11-22 13:41] LABS: Calcium (PTHI) 10.7 mg/dL (8.6-10.4); PTHI 116 pg/mL (16-77)
== END 2021-11-20 16:43 | disposition home or self-care (01) ==
LOC: HO.LAB 16:42
PROVIDERS: PCP Internal Medicine; Visit Provider Internal Medicine
DX: Z00.00 Encounter for general adult medical examination without abnormal findings (principal); E78.00 Pure hypercholesterolemia, unspecified; E83.52 Hypercalcemia; R74.01 Elevation of levels of liver transaminase levels
CPT/HCPCS: 36415; 82306; 83970; 84100

== ENCOUNTER 2022-02-25 16:39 | Outpatient (REF) | payer OTHER, SELFPAY ==
--- NOTE | ~2022-02-25 | XR_ITS ---
EXAMINATION: XR FOOT, LEFT CLINICAL INFORMATION: Concern for fracture of the fourth toe. COMPARISON: None TECHNIQUE: 3 views. of the left foot. FINDINGS: No fracture. No dislocation. No significant degenerative change. Joint spaces are normal. No focal bone lesion or abnormal periosteal reaction. No soft tissue abnormality. XR/XR foot LT min 3V IMPRESSION: Normal left foot.
[2022-02-25 18:00] LABS: Alanine Aminotransferase 35 U/L (0-31); Albumin Level 4.8 g/dL (3.5-5.0); Alkaline Phosphatase 101 U/L (39-117); Anion Gap 10 (12-20); Aspartate Amino Transferase 32 U/L (5-31); Bilirubin Total 0.3 mg/dL (0.0-1.0); Blood Urea Nitrogen 15 mg/dL (9-16); Calcium 10.8 mg/dL (8.4-10.2); Carbon Dioxide 29 mmol/L (22-29); Chloride 103 mmol/L (96-108); Estimated Glomerular Filt Rate > 60; Glucose Random 90 mg/dL (60-115); Potassium 4.4 mmol/L (3.3-5.1); Sodium 138 mmol/L (135-145); Total Protein 7.6 g/dL (6.5-8.0)
[2022-02-25 18:15] LABS: Vitamin D 25-OH Total 30.4 ng/mL (>30)
[2022-02-26 16:44] LABS: Calcium (PTHI) 10.8 mg/dL (8.6-10.4); PTHI 147 pg/mL (16-77)
== END 2022-02-25 16:40 | disposition home or self-care (01) ==
LOC: HO.LAB 16:39
PROVIDERS: PCP Internal Medicine; Visit Provider Internal Medicine
DX: M25.572 Pain in left ankle and joints of left foot (principal); E21.0 Primary hyperparathyroidism; E83.52 Hypercalcemia; R74.01 Elevation of levels of liver transaminase levels
CPT/HCPCS: 36415; 73630; 80053; 82306; 83970; 84100

== ENCOUNTER → 2022-03-11 12:52 | Outpatient (BNVA) | payer OTHER, SELFPAY | PROVIDERS: PCP Internal Medicine; Referring Provider Internal Medicine; Visit Provider Nurse Practitioner Family | DX: R07.89 Other chest pain (principal); Z98.890 Other specified postprocedural states | CPT/HCPCS: 93005 ==

== ENCOUNTER 2022-03-18 07:26 | Day surgery (SDC) | payer OTHER, SELFPAY ==
[2022-03-12 13:54] VITALS: BMI 30.7
[2022-03-18 07:49] VITALS: BP 125/67; PULSE 59; RESP 16; TEMP 36.4; O2SAT 100
[2022-03-18] MEDS: Lactated Ringers 1,000 ML 100 ML IVCONT (08:09)
--- NOTE | 2022-03-18 08:32 | MHC.SHP ---
Pre-Procedural Eval Section A Date of Service: 03/18/22 Section B Chief Complaint: Irritable bowel syndrome with diarrhea Relevant Family History (Specify if Yes): No Relevant Social History: None Present Medications: see Short Stay Collaborative assessment Medical History: Significant History (Anemia Hypercholesterolemia Hypertension Migraine headache Ovarian cyst) History of Previous Operations: Relevant previous surgery/procedure and date(s) (H/O breast biopsy Hx of colonoscopy Status post cardiac catheterization Tubal ligation status) Allergies: Allergies Allergy/AdvReac Type Severity Reaction Status Date / Time pork derived (porcine) Allergy Severe RASH Verified 03/11/22 12:59 [PORK DERIVED (PORCINE)] Review of Systems Sugical H&P ROS: Negative: Constitution, Cardiovascular, Respiratory, Neurological, Psychiatric, Hem-Onc, Allergic/Immunologic, Gastrointestinal, Genitourinary, Musculoskeletal, Integumentary, Endocrine and Eyes/Ears/Nose/Throat Exam Surgical H&P Exam: Normal: HEENT, Normal: Heart, Normal: Lungs, Normal: Extremities, Normal: Abdomen, Normal: Skin and Normal: Neurological Plan Diagnosis/Plan: Unchanged I have reviewed the history and physical and performed a pertinent physical examination on my patient. No changes have occurred unless specified. Time Spent With Patient Time: Total time managing care of this patient today ____ minutes.
--- NOTE | 2022-03-18 08:36 | P.CONAN_ITS ---
HPI - Anesthesia Eval Consult details Narrative: 52 F for surveillance colonoscopy [facility] Active Problems Active Problems: All Active Problems (Updated 07/23/21 @ 15:34 by SAMAN Mathis) Irritable bowel syndrome with diarrhea (Acute) Tubular adenoma of colon (Acute) At high risk for breast cancer (Acute) PID (acute pelvic inflammatory disease) (Acute) Sepsis (Acute) Abdominal pain (Acute) Pelvic pain (Acute) Well woman exam (Acute) Menometrorrhagia (Acute) Family history of breast cancer (Acute) Bilateral ovarian cysts (Acute) Complex ovarian cyst (Acute) Coronary vasospasm (Acute) Abnormal stress ECG (Acute) Chest discomfort (Acute) Vulvovaginitis (Acute) Status post cardiac catheterization (Acute) Migraine headache (Acute) Hypercholesterolemia (Acute) Hypertension (Acute) Past Medical History Medical History Anemia Hypercholesterolemia Hypertension Migraine headache Ovarian cyst Family History Family History Sister Breast CA, Onset Age: 37 Family/Other Breast CA Family history of problems with anesthesia: No Surgical History Surgical History H/O breast biopsy Hx of colonoscopy Status post cardiac catheterization Tubal ligation status History of Problems with Anesthesia: No Social History Social History Household Members: Spouse and Children Household Members Other:: 4 Housing: House Do you presently have visiting nurse or other home services: No Alcohol intake: current Alcohol intake frequency: a few times a month Patient Tobacco Use Status: Former Tobacco user Quit Date: 1989 Smoked: 3 +/- Use of substances other than those prescribed or required for medical reasons: No Substance Use Type: Caffiene Have you been hit, kicked, punched, or otherwise hurt by someone within the past year? If so, by whom?: No Are you DNR?: No Advance Directives: No Advance Directives Information Provided: Yes service: No Current occupational status: employed Meds Allergies Allergy/AdvReac Type Severity Reaction Status Date / Time pork derived (porcine) Allergy Severe RASH Verified 03/11/22 12:59 [PORK DERIVED (PORCINE)] Active Medications: Current Medications Lactated Ringer's (Lr) 1,000 mls @ 100 mls/hr IVCONT .Q10H BRAULIO Last Admin: 03/18/22 08:09 Dose: 100 mls/hr Home Medications Medication Instructions Recorded Confirmed Last Taken Type rosuvastatin 20 mg tablet 20 mg PO BEDTIME 03/05/20 03/12/22 Unknown History aspirin 81 mg tablet,delayed 81 mg PO DAILY PRN Chest Pain 05/24/21 03/12/22 Unknown History release (Adult Aspirin Regimen) multivitamin 1 tab PO DAILY 05/24/21 03/12/22 Unknown History metoprolol succinate 50 mg 50 mg PO DAILY 06/25/21 03/18/22 03/18/22 06:45 History tablet,extended release 24 hr lisinopril 10 mg tablet 10 mg PO DAILY 12/10/21 03/12/22 Unknown History naproxen 500 mg tablet 500 mg PO BID PRN Pain 03/11/22 03/12/22 Unknown History Exam Exam Date and Time: March 18, 2022 0836 Height,Weight and Vital Signs: Height 5 ft 4 in Weight 179 lb Last Vital Signs Temp 97.5 F 03/18/22 07:49 Pulse 59 03/18/22 07:49 Resp 16 03/18/22 07:49 BP 125/67 03/18/22 07:49 Pulse Ox 100 03/18/22 07:49 O2 Del Method 03/18/22 07:49 Airway Mallampati Class: I TM Dist: >3cm Neck ROM: Full Loose/Missing/Broken Teeth: No Assessment and Plan Assessment Anesthesia Assessment: Anesthesia Plan Discussed and Chart Reviewed Final Anesthetic Review Family History of Problems with Anesthesia: No History of Problems with Anesthesia: No NPO: Yes ASA Class: II Final Preanesthetic Review: No Changes in Pt Med Stat, Meds/Allgs Chart Reviewed, Consent Obtained/Reviewed and Anes Risks/Benef Reviewed Patient Risk: Low Procedure Risk: Low Anesthetic Plan Anesthetic Plan: MAC: Disposition: Standard PACU
--- NOTE | 2022-03-18 08:41 | P.OP_ITS ---
Operative Note Operative Note Date of Service: 03/18/22 Narrative: Operative Information Procedure Description: Colonoscopy Indication: hx of colon polyps Anesthesia: MAC COLONOSCOPY Instrument: Olympus variable stiffness pediatric scope 190L Colonoscopy Monitoring: Vital signs and clinical assessment, continuous EKG monitoring, Pulse oximetry, Carbon Dioxide monitoring and blood pressure monitoring were done throughout the procedure. Colon withdrawal time was 10 minutes. Procedure: The patient was placed in the left lateral decubitis position and pre-procedure medications were administered. After a digital rectal examination of the ano-rectum, the video colonoscope was inserted into the rectum and advanced through the colon to the cecum/TI. The colonoscope was slowly withdrawn in a retrograde panoramic fashion and the colon mucosa was carefully examined including a retroflexed view of the rectum. Findings and interventions are described below. Procedure Difficulty: easy Findings: Terminal Ileum-normal Cecum:normal Ascending Colon: normal Transverse Colon -normal Descending Colon: 8-10 mm sessile polyp removed with cold snare Sigmoid Colon: normal Rectum: Retroflexion with small internal hemorrhoids, grade I Anorectum - normal Colon preparation: [place] Bowel Preparation Scale Right colon; 2 Transverse colon: 2 Left colon; 1-2 (0 = Unprepared colon segment with mucosa not seen due to solid stool that cannot be cleared. 1 = Portion of mucosa of the colon segment seen, but other areas of the colon segment not well seen due to staining, residual stool and/or opaque liquid. 2 = Minor amount of residual staining, small fragments of stool and/or opaque liquid, but mucosa of colon segment seen well. 3 = Entire mucosa of colon segment seen well with no residual staining, small fragments of stool or opaque liquid) Impression and Post Procedure Diagnosis: polyp internal hemorrhoids Plan: High fiber diet leaflet Avoid straining at stool, epsom salts and sitz bath, anusol supps or cream Repeat Colonoscopy in 5 years due to fair left sided prep and polyp or earlier if clinically indicated Above findings were reviewed with the patient and relevant handouts were provided if indicated.
[2022-03-18 09:13] VITALS: BP 96/52; PULSE 57; RESP 20; TEMP 36.6; O2SAT 100
[2022-03-18 09:28] VITALS: BP 129/64; PULSE 51; RESP 20; TEMP 36.3; O2SAT 100
== END 2022-03-18 10:04 | disposition home or self-care (01) ==
PROVIDERS: PCP Internal Medicine; Visit Provider Internal Medicine Gastroenterology
PROC: 0DJD8ZZ Inspection of Lower Intestinal Tract, Via Natural or Artificial Opening Endoscopic (ICD-10-PCS; CPT 45378; principal; 2022-03-18 08:30)
DX: K63.5 Polyp of colon (principal); K64.8 Other hemorrhoids; K58.9 Irritable bowel syndrome, unspecified
CPT/HCPCS: 45385; 88305

== ENCOUNTER → 2022-04-15 07:34 | Outpatient (REF) | payer OTHER, SELFPAY ==
--- NOTE | ~2022-04-15 | NM_ITS ---
EXAMINATION: NM PARATHYROID SCAN CLINICAL INFORMATION: Increasing parathyroid hormone. COMPARISON: None TECHNIQUE: A double radionuclide study of the thyroid bed region and upper chest in multiple projections was performed 4 hours after the oral administration of 0.96 microcuries I-123 sodium iodide and immediately following the intravenous administration of 30 mCi Tc-99m sestamibi. Repeat imaging was performed 2 hours later. The iodide images were electronically subtracted from the sestamibi images using different weighting factors. FINDINGS: There is homogeneous uptake of radioiodine throughout both lobes. The thyroid gland appears to be normal in size and shape. There are no focal areas of increased or diminished uptake. Technetium-99m sestamibi images demonstrate homogeneous thyroid activity. There are no focal areas of increased or decreased Technetium-99m sestamibi activity. Computer-generated digital subtraction images could not be obtained due to technical glitch. NM/NM parathyroid IMPRESSION: No evidence of excess sestamibi activity suggestive of parathyroid adenoma or hyperplasia. There is homogeneous uptake of radioiodine in the thyroid gland which is also normal in size and shape.
== END ==
LOC: HO.NUCMED 07:34
PROVIDERS: PCP Internal Medicine; Visit Provider Internal Medicine
DX: E21.5 Disorder of parathyroid gland, unspecified (principal)
CPT/HCPCS: 78070; A9500; A9516

== ENCOUNTER 2022-05-04 08:06 | Outpatient (REF) | payer OTHER, SELFPAY ==
[2022-05-04 15:12] LABS: CT PCR NOT DETECTED (Not Detect.); NG PCR NOT DETECTED (Not Detect.)
[2022-05-05 12:18] LABS: BV Int Neg Control Negative (Negative); BV Int Pos Control Positive (Positive)
== END 2022-05-04 08:07 | disposition home or self-care (01) ==
LOC: HO.LNP 08:06
PROVIDERS: PCP Internal Medicine; Visit Provider Obstetrics & Gynecology
DX: Z01.419 Encounter for gynecological examination (general) (routine) without abnormal findings (principal); N76.0 Acute vaginitis
CPT/HCPCS: 0353U; 87480; 87510; 87660

== ENCOUNTER → 2022-05-11 15:41 | Outpatient (BNVA) | payer OTHER, SELFPAY | PROVIDERS: PCP Internal Medicine; Visit Provider Nurse Practitioner | DX: Z13.89 Encounter for screening for other disorder (principal) ==

== ENCOUNTER → 2022-06-08 15:40 | Outpatient (BNVA) | payer OTHER, SELFPAY | PROVIDERS: PCP Internal Medicine; Visit Provider Nurse Practitioner | DX: Z13.89 Encounter for screening for other disorder (principal) ==

== ENCOUNTER → 2022-07-01 14:58 | Outpatient (BNVA) | payer OTHER, SELFPAY | PROVIDERS: PCP Internal Medicine; Visit Provider Surgery ==

== ENCOUNTER 2022-07-13 15:15 | Outpatient (REF) | payer OTHER, SELFPAY ==
--- NOTE | ~2022-07-13 | MM_ITS ---
EXAMINATION: MM SCREENING DIGITAL BREAST TOMOSYNTHESIS, BILATERAL CLINICAL INFORMATION: Screening. Asymptomatic. Family history premenopausal breast cancer, sister age 38. The lifetime risk of breast cancer based on the Tyrer-Cuzick Model is 14%. COMPARISON: Mammography: 07/09/2021, 07/07/2020, 04/23/2019; breast MRI without and with contrast 07/03/2021. TECHNIQUE: Digital breast tomosynthesis is performed in both the craniocaudal and mediolateral oblique views along with computer-aided detection (CAD). Synthesized 2D images are generated from the tomosynthesis. FINDINGS: The breasts are heterogeneously dense, which may obscure small masses (ACR BI-RADS breast composition Category c). Breast tissue composition borders on average fibroglandular. Minor parenchymal asymmetries are stable. There is no developing density or architectural abnormality. There are no significant masses, abnormal calcifications, or other abnormalities. Biopsy clip marker again seen central upper left breast. The axilla and skin contours are unremarkable. MM/MM tomosynthesis screening BI IMPRESSION: No mammographic evidence of malignancy. ASSESSMENT: BI-RADS 2: Benign RECOMMENDATION: Routine annual mammography screening. This patient's information was entered into a reminder system with a target due date for their next mammogram.
== END 2022-07-13 15:16 | disposition home or self-care (01) ==
LOC: HO.MAMMO 15:15
PROVIDERS: PCP Internal Medicine; Visit Provider Obstetrics & Gynecology
DX: Z12.31 Encounter for screening mammogram for malignant neoplasm of breast (principal)
CPT/HCPCS: 77063; 77067

== ENCOUNTER 2022-08-26 15:54 | Outpatient (AMB) | payer BC, SELFPAY ==
--- NOTE | 2022-08-26 15:56 | MHC.OFFVIS ---
Intake Vital Signs 08/26/22 15:57 Height 5 ft 4 in Weight 177 lb 0.499 oz BMI 30.4 BP 116/76 Blood Pressure Location Rt brachial Position Sitting Pulse 74 Pulse Source Pulse Oximeter Intake Visit Reasons: Hyperparathyroidism Intake Note: New patient present for Hyperparathyroidism. Gis Database Administrator Required: No Accompanied by: Self / Same As Patient Allergies pork derived (porcine) [PORK DERIVED (PORCINE)] Allergy (Severe, Verified 08/26/22 16:00) RASH Medication List - Last Reconciled 08/26/22 by Carlos Gore MD amlodipine 2.5 mg PO DAILY aspirin (Adult Aspirin Regimen) 81 mg PO DAILY PRN cyclobenzaprine 5 mg PO BEDTIME PRN metoprolol succinate ER 50 mg PO DAILY multivitamin 1 tab PO DAILY naproxen 500 mg PO BID PRN rosuvastatin 20 mg PO BEDTIME HPI HPI Comments History of Present Illness Details 52 YO F with who is seen in consultation at the request of PCP for Hypercalcemia. First noted to have high calcium couple of mos ago . not Currently using Calcium supplement . Not Takes IU of Vitamin D daily. Currently Not using HCTZ. Kidney stones: No Osteoporosis: No History of Hydro use: No Biotin use: Yes - taking for yrs 500 mg BID Family history of high calcium or kidney stones: No Renal imaging: Yes DXA: Labs: [facility] Medical History (Updated 08/26/22 @ 16:11 by Carlos Gore MD) Anemia Hypercholesterolemia Hyperparathyroidism Hypertension Migraine headache Ovarian cyst Surgical History H/O breast biopsy Hx of colonoscopy Status post cardiac catheterization Tubal ligation status Family History Sister Breast CA, Onset Age: 37 Family/Other Breast CA Mother HTN (hypertension) Hyperlipidemia Father Suicide Maternal Aunt Colon cancer Social History Household Members: Spouse and Children Household Members Other:: 4 Housing: House Do you presently have visiting nurse or other home services: No Alcohol intake: current Alcohol intake frequency: a few times a month Patient Tobacco Use Status: Former Tobacco user Quit Date: 1989 Years Smoked: 3 +/- Substance Use Type: Caffiene service: No Current occupational status: employed 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 Neck exam shows nl thyroid about 15 gms. Lungs CTA. Heart S1 S2 Reg R/R -MRG. Abdomina exam benign . Muscle strength 5/5 proximally. Skin exam without lesion Assessment & Plan Assessment & Plan (1) Hyperparathyroidism: Code(s): E21.3 - Hyperparathyroidism, unspecified Plan: This is a 52-year-old female with a history of hypercalcemia PTH dependent most likely secondary to hyperparathyroidism. Rule out FHH. Is also possible that biotin may be interfering with measurement of PTH and calcium Plan is to recheck a calcium and PTH 1 week off biotin. If calcium PTH remain abnormal, then we will get 24 hour urine for calcium and creatinine as well as a serum calcium and creatinine. Will also get a DEXA bone density of the hip spine forearm. Depending upon the above if consistent with primary hyperparathyroidism could consider observation vs surgical exploration Orders: Orders PTHI 10 Days E21.3 - Hyperparathyroidism, unspecified Coding Level of Care Code New Pt Level 4 (61681) Diagnoses Hyperparathyroidism E21.3
[2022-08-26 15:57] VITALS: BP 116/76; PULSE 74; BMI 30.4
== END 2022-08-26 16:25 | disposition home or self-care (01) ==
PROVIDERS: PCP Internal Medicine Cardiovascular Disease; Visit Provider Internal Medicine Endocrinology, Diabetes & Metabolism
DX: E21.3 Hyperparathyroidism, unspecified (principal)
CPT/HCPCS: 99204

== ENCOUNTER → 2022-08-26 15:54 | Outpatient (BNVA) | payer BC, SELFPAY | PROVIDERS: Visit Provider Internal Medicine Endocrinology, Diabetes & Metabolism ==

== ENCOUNTER 2022-09-07 06:59 | Outpatient (REF) | payer BC, SELFPAY ==
[2022-09-09 19:09] LABS: Calcium (PTHI) 10.3 mg/dL (8.6-10.4); PTHI 157 pg/mL (16-77)
== END 2022-09-07 07:00 | disposition home or self-care (01) ==
LOC: HO.LAB 06:59
PROVIDERS: PCP Internal Medicine; Visit Provider Internal Medicine Endocrinology, Diabetes & Metabolism
DX: E21.3 Hyperparathyroidism, unspecified (principal)
CPT/HCPCS: 36415; 83970

== ENCOUNTER 2022-09-17 14:38 | Outpatient (REF) | payer BC, SELFPAY ==
[2022-09-17 16:53] LABS: Albumin Level 4.8 g/dL (3.5-5.0); Calcium 11.1 mg/dL (8.4-10.2); Estimated Glomerular Filt Rate > 60
== END 2022-09-17 14:39 | disposition home or self-care (01) ==
LOC: HO.LAB 14:38
PROVIDERS: Visit Provider Internal Medicine Endocrinology, Diabetes & Metabolism
DX: E21.3 Hyperparathyroidism, unspecified (principal)
CPT/HCPCS: 36415; 82040; 82310; 82565

== ENCOUNTER 2022-09-27 09:38 | Outpatient (REF) | payer BC, SELFPAY ==
[2022-09-27 11:45] LABS: Creatinine, mg/dL 195.41
[2022-09-27 18:35] LABS: Creatinine, 24Hr Urine 1.6 G/Day (1.0-2.0); Total Volume 24 Hour Urine 800 mL
[2022-09-28 22:52] LABS: Calcium, 24 Hr Urine 206 mg/24 h; Calcium/Creatinine Ratio 148 mg/g creat (30-275); Creatinine 24Hr Urine 1.39 g/24 h (0.50-2.15)
== END 2022-09-27 09:39 | disposition home or self-care (01) ==
LOC: HO.LNP 09:38
PROVIDERS: Visit Provider Internal Medicine Endocrinology, Diabetes & Metabolism
DX: E21.3 Hyperparathyroidism, unspecified (principal)
CPT/HCPCS: 82340; 82570

== ENCOUNTER 2022-10-08 14:34 | Outpatient (REF) | payer BC, SELFPAY ==
--- NOTE | ~2022-10-08 | MM_ITS ---
EXAMINATION: BONE DENSITOMETRY CLINICAL INDICATION: Hyperparathyroidism, unspecified. COMPARISON: This is the patient's baseline examination. TECHNIQUE: Using a [employer] DXA System (software version: 13.1) manufactured by [employer], dual-energy x-ray absorptiometry was performed of the lumbar spine and left hip and left forearm radius 33%. The images are of good technical quality. Summary results are attached. FINDINGS: LEFT FEMUR, NECK: BMD 0.863 g/cm2, Z-score -0.6, T-score -1.3, osteopenia. LEFT FEMUR, TOTAL: BMD 0.977 g/cm2, Z-score 0.0, T-score -0.2, normal. AP SPINE L1-L4: BMD 1.104 g/cm2, Z-score -0.4, T-score -0.6, normal. LEFT FOREARM RADIUS 33%: BMD 0.967 g/cm2, Z-score 1.5, T-score 1.0, normal. IDENTIFIED RISK FACTORS: Hyperparathyroid, menopause, recurrent falls, rheumatoid arthritis. HISTORY OF FRACTURE: None listed. MEDICATIONS: None listed. MM/XR DEXA appendicular skeleton IMPRESSION: 1. DIAGNOSIS: Osteopenia based on the lowest T-score value of -1.3 in the femoral neck applying World Health Organization criteria. 2. 10-YEAR FRACTURE RISK PREDICTION, FRAX: Major osteoporotic fracture (clinical spine, forearm, hip or shoulder) 4.2%. Hip fracture 0.3%. 3. Treatment Recommendations: NOF guidelines recommend consideration for treatment in postmenopausal women and men age 50 and older presenting with the following: -A hip or vertebral (clinical or morphometric) fracture. -T-score less than or equal to -2.5 at the femoral neck or spine after appropriate evaluation to exclude secondary causes. -Low bone mass at the hip or spine and a 10-year fracture probability by FRAX of greater than or equal to 3% for hip fracture or greater than or equal to 20% for major osteoporotic fracture based on the [place] adapted WHO algorithm. 4. Other Recommendations: All treatment decisions require clinical judgment and consideration of individual patient factors, including patient preferences, comorbidities, previous drug use, risk factors not captured in the FRAX model (e.g. frailty, falls, vitamin D deficiency, increased bone turnover, interval significant decline in bone density) and possible under or overestimation of fracture risk by FRAX. Additional medical evaluation for secondary cause of low bone mineral density may be appropriate. FUTURE SCAN RECOMMENDATION: People with diagnosed cases of osteoporosis or at high risk for fracture should have regular bone mineral density tests. For patients eligible for Medicare, routine testing is allowed once every 2 years. The testing frequency can be increased to one year for patients who have rapidly progressing disease, those who are receiving or discontinuing medical therapy to restore bone mass, or have additional risk factors.
== END 2022-10-08 14:35 | disposition home or self-care (01) ==
LOC: HO.MAMMO 14:34
PROVIDERS: PCP Internal Medicine; Visit Provider Internal Medicine Endocrinology, Diabetes & Metabolism
DX: Z13.820 Encounter for screening for osteoporosis (principal); E21.3 Hyperparathyroidism, unspecified; Z78.0 Asymptomatic menopausal state
CPT/HCPCS: 77081

== ENCOUNTER → 2022-10-08 15:00 | Outpatient (BNV) | payer BC, SELFPAY | PROVIDERS: PCP Internal Medicine; Visit Provider Radiology Diagnostic Radiology | DX: M85.821 Other specified disorders of bone density and structure, right upper arm (principal) | CPT/HCPCS: 77080; 77081 ==

== ENCOUNTER 2022-11-25 14:48 | Outpatient (AMB) | payer BC, SELFPAY ==
[2022-11-25 14:57] VITALS: BP 134/82; PULSE 76; BMI 30.6
--- NOTE | 2022-11-25 14:57 | A.OFFVIS_ITS ---
Intake Vital Signs 11/25/22 14:57 Height 5 ft 4 in Weight 178 lb 5.663 oz BMI 30.6 BP 134/82 Blood Pressure Location Lt brachial Position Sitting Pulse 76 Pulse Source Pulse Oximeter Intake Visit Reasons: 3M follow up Hyperparathyroidism Intake Note: Patient present for Hyperparathyroidism follow up visit. Material Control Manager Required: No Accompanied by: Self / Same As Patient Allergies pork derived (porcine) [PORK DERIVED (PORCINE)] Allergy (Severe, Verified 11/25/22 15:05) RASH HPI HPI Comments History of Present Illness Details 52 YO F with who is seen in consultation at the request of PCP for Hypercalcemia. First noted to have high calcium couple of mos ago . not Currently using Calcium supplement . Not Takes IU of Vitamin D daily. Currently Not using HCTZ. Kidney stones: No Osteoporosis: No History of [place] use: No Biotin use: Yes - taking for yrs 500 mg BID Family history of high calcium or kidney stones: No Renal imaging: Yes DXA: Labs: Consistent with primary hyperparathyroidism without the presence of kidney stones or osteoporosis PFSH Medical History (Updated 08/26/22 @ 16:11 by Carlos Gore MD) Hyperparathyroidism Ovarian cyst Migraine headache Anemia Hypercholesterolemia Hypertension Surgical History Hx of colonoscopy Status post cardiac catheterization Tubal ligation status H/O breast biopsy Family History Sister Breast CA, Onset Age: 37 Family/Other Breast CA Mother HTN (hypertension) Hyperlipidemia Father Suicide Maternal Aunt Colon cancer Social History Household Members: Spouse and Children Household Members Other:: 4 Housing: House Do you presently have visiting nurse or other home services: No Alcohol intake: current Alcohol intake frequency: a few times a month Patient Tobacco Use Status: Former Tobacco user Quit Date: 1989 Smoked: 3 +/- Substance Use Type: Caffiene service: No Current occupational status: employed 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 Calcium was increased in to range that might warrant parathyroid exploration Plan is to talk to patient about possible parathyroid exploration. She is agreeing and will be referred to Dr. Stephens Orders: Referrals General Surgery Referral E21.3 - Hyperparathyroidism, unspecified Coding Level of Care Code Est Pt Level 3 (67547) Diagnoses Hyperparathyroidism E21.3
== END 2022-11-25 15:38 | disposition home or self-care (01) ==
PROVIDERS: PCP Internal Medicine; Visit Provider Internal Medicine Endocrinology, Diabetes & Metabolism
DX: E21.3 Hyperparathyroidism, unspecified (principal)
CPT/HCPCS: 99213

== ENCOUNTER → 2022-11-25 14:48 | Outpatient (BNVA) | payer BC, SELFPAY | PROVIDERS: PCP Internal Medicine; Visit Provider Internal Medicine Endocrinology, Diabetes & Metabolism ==

== ENCOUNTER 2022-11-26 07:13 | Outpatient (REF) | payer BC, SELFPAY ==
[2022-11-26 08:20] LABS: Alanine Aminotransferase 44 U/L (0-31); Albumin Level 4.5 g/dL (3.5-5.0); Alkaline Phosphatase 104 U/L (39-117); Anion Gap 13 (12-20); Aspartate Amino Transferase 44 U/L (5-31); Bilirubin Total 0.7 mg/dL (0.0-1.0); Blood Urea Nitrogen 13 mg/dL (9-16); Calcium 11.4 mg/dL (8.4-10.2); Carbon Dioxide 24 mmol/L (22-29); Chloride 110 mmol/L (96-108); Cholesterol 162 mg/dL (<200); Estimated Glomerular Filt Rate > 60; Glucose Random 95 mg/dL (60-115); HDL Cholesterol 42 mg/dL (>40); LDL Cholesterol Calculated 79 mg/dL (<100); Potassium 4.5 mmol/L (3.3-5.1); Sodium 142 mmol/L (135-145); Total Protein 7.6 g/dL (6.5-8.0); Triglycerides 208 mg/dL (<150)
[2022-11-29 13:29] LABS: Calcium (PTHI) 11.2 mg/dL (8.6-10.4); PTHI 97 pg/mL (16-77)
== END 2022-11-26 07:14 | disposition home or self-care (01) ==
LOC: HO.LAB 07:13
PROVIDERS: PCP Internal Medicine Cardiovascular Disease; Visit Provider Internal Medicine
DX: E21.0 Primary hyperparathyroidism (principal); E83.52 Hypercalcemia; I10 Essential (primary) hypertension
CPT/HCPCS: 36415; 80053; 80061; 83970

== ENCOUNTER 2022-12-20 08:01 | Outpatient (REF) | payer BC, SELFPAY ==
--- NOTE | ~2022-12-20 | US_ITS ---
EXAMINATION: US ABDOMEN LIMITED WITH LIVER ELASTOGRAPHY CLINICAL INFORMATION: Elevated liver function tests. COMPARISON: Abdominal ultrasound dated 09/09/2021; CT abdomen and pelvis dated 05/24/2021. TECHNIQUE: Real-time imaging of the abdominal viscera. Noninvasive ultrasound liver fibrosis assessment is performed using [employer] Elast[employer] point quantification shear wave elastography (2D-SWE) with a C5-2 MHz transducer. Multiple elastography samples are obtained. FINDINGS: PANCREAS: Normal. The visualized pancreatic head and body are normal in appearance. The remainder of the pancreas is obscured from visualization by the overlying bowel gas. LIVER: Normal. The liver demonstrates normal size, contour and echogenicity. No focal lesion or intrahepatic biliary duct dilatation. The right lobe measures 12.3 cm in length. The left lobe measures 11.5 cm in length. Portal flow is towards the liver (hepatopetal). Shear wave liver elastography median stiffness is 1.35 m/s (reference: normal median stiffness is 1.3 m/s or less). IQR/median stiffness to assess sampling precision is 0.12 (reference: good quality data set is IQR/median stiffness of 0.15 or less). GALLBLADDER: Normal. The gallbladder is physiologically distended without evidence of stones, sludge, polyps, wall thickening or pericholecystic fluid. COMMON BILE DUCT: Normal in caliber measuring 0.4 cm in diameter. RIGHT KIDNEY: Normal. No hydronephrosis. No renal calculi or focal parenchymal lesions. The kidney measures 11.1 cm in maximum dimension. FREE FLUID: None. US/US abdomen coats w elastography IMPRESSION: Liver elastography: In the absence of other known clinical signs, measurements rule out compensated advanced chronic liver disease. If there are known clinical signs, further testing may be needed for confirmation. REFERENCE: Society of Radiologists in Ultrasound Liver Stiffness Thresholds (2020): LIVER STIFFNESS THRESHOLDS: *Liver Stiffness equal or less than 1.3 m/s: High probability of being normal. *Liver Stiffness less than 1.7 m/s: In the absence of other known clinical signs, rules out compensated advanced chronic liver disease. *Liver Stiffness 1.7-2.1 m/s: Suggestive of compensated advanced chronic liver disease but need further test for confirmation. *Liver Stiffness over 2.1 m/s: Rules in compensated advanced chronic liver disease. *Liver Stiffness over 2.4 m/s: Suggestive of clinically significant portal hypertension. QUALITY OF DATA SET: *IQR/Median value equal or less than 0.15 implies a quality data set. *IQR/Median value over 0.15 implies a poor quality data set. SIGNIFICANT CHANGE FROM PRIOR EXAM: Significant change if liver stiffness measurement is 10% or greater from prior exam. OTHER CONSIDERATIONS: The stage of liver fibrosis may be overestimated in the setting of acute hepatitis, liver inflammation, elevated liver function tests, hepatic vascular congestion, obstructive cholestasis, non-fasting state, and infiltrative diseases such as amyloidosis and lymphoma. In some patients with NAFLD, the liver stiffness thresholds for compensated advanced chronic liver disease may be lower. In causes other than viral hepatitis and NAFLD, liver stiffness thresholds are not well established.
== END 2022-12-20 08:02 | disposition home or self-care (01) ==
LOC: HO.HMGCX 08:01
PROVIDERS: PCP Internal Medicine Cardiovascular Disease; Visit Provider Internal Medicine
DX: R74.01 Elevation of levels of liver transaminase levels (principal)
CPT/HCPCS: 76705; 76981

== ENCOUNTER 2023-01-25 16:27 | Outpatient (REF) | payer BC, SELFPAY ==
--- NOTE | ~2023-01-25 | MR_ITS ---
EXAMINATION: MR BREAST WITHOUT AND WITH CONTRAST, BILATERAL CLINICAL INFORMATION: High risk screening for breast cancer. Family history of breast cancer (sister, cousins). COMPARISON: Portions of previous MRI 07/03/2021. Mammography (nondiagnostic monitor review): 07/13/2022. TECHNIQUE: A 1.5 T system and a dedicated breast coil. T1-weighted sequences without fat-saturation were obtained prior to the administration of contrast. Fat-saturated T1 and T2-weighted sequences were also acquired. The patient received 7.5 mL of IV gadolinium-based contrast, Gadavist. Multiple sequential dynamic T1-weighted sequences were obtained through both breasts with fat-saturation. Subtracted images were reviewed. CAD postprocessing with 3-D reconstructions, maximum intensity projections and kinetic analysis was performed by the interpreting radiologist at an independent workstation and reviewed as a portion of this exam. FINDINGS: Amount of Remaining Fibroglandular Signal: There is heterogeneous fibroglandular tissue, which may obscure small masses(ACR BI-RADS breast composition category C).* Background Parenchymal Enhancement: Mild Symmetry of Background Enhancement: Symmetric RIGHT BREAST: There are no suspicious findings. Masses: There are no suspicious enhancing masses. Non-mass Enhancement: There are scattered areas of low level persistent nonmass background enhancement. Focus: There are some scattered nonspecific enhancing foci. Non-enhancing Findings: Associated findings: There are a few small cysts. Kinetic Curve Assessment: Initial Phase: There are no suspicious areas of color signal. Delayed Phase: There are no areas of washout kinetics. LEFT BREAST: There are no suspicious findings. Masses: There are no suspicious enhancing masses. There is a circumscribed 0.4 cm T2 intense persistently enhancing focus in the 6 o'clock position 4 cm from the left nipple with benign features. Non-mass Enhancement: There are scattered areas of low level persistent nonmass background enhancement. Focus: There are a few scattered nonspecific enhancing foci. Non-enhancing Findings: Associated Findings: Susceptibility artifact from previous tissue marker placement. Kinetic Curve Assessment: Initial Phase: There are no areas of suspicious color signal. Delayed Phase: There are no areas of washout kinetics. The axillary lymph nodes are morphologically normal. No suspicious internal mammary lymph nodes are seen. No suspicious abnormality in the visualized portions of chest or abdomen. MR/MR breast BI wo/w con IMPRESSION: No suspicious mass or enhancement. Recommend bilateral high risk screening MRI in one year. ASSESSMENT: Right Breast: ACR BI-RADS 2: Benign finding. Left Breast: ACR BI-RADS 2: Benign finding. RECOMMENDATIONS: Bilateral high risk screening MRI in one year.
[2023-01-25] MEDS: gadobutroL 7.5 ML VIAL IVPUSH (17:43)
== END 2023-01-25 16:28 | disposition home or self-care (01) ==
LOC: HO.MRI 16:27
PROVIDERS: PCP Internal Medicine Cardiovascular Disease; Visit Provider Surgery
DX: Z91.89 Other specified personal risk factors, not elsewhere classified (principal); Z80.3 Family history of malignant neoplasm of breast
CPT/HCPCS: 77049; A9585

== ENCOUNTER 2023-03-24 06:42 | Outpatient (REF) | payer BC, SELFPAY ==
[2023-03-24 08:12] LABS: Alanine Aminotransferase 48 U/L (0-31); Albumin Level 4.5 g/dL (3.5-5.0); Alkaline Phosphatase 128 U/L (39-117); Anion Gap 12 (12-20); Aspartate Amino Transferase 36 U/L (5-31); Bilirubin Total 0.5 mg/dL (0.0-1.0); Blood Urea Nitrogen 13 mg/dL (9-16); Calcium 10.5 mg/dL (8.4-10.2); Carbon Dioxide 26 mmol/L (22-29); Chloride 109 mmol/L (96-108); Estimated Glomerular Filt Rate > 60; Glucose Random 89 mg/dL (60-115); Potassium 4.1 mmol/L (3.3-5.1); Sodium 143 mmol/L (135-145); Total Protein 7.4 g/dL (6.5-8.0)
== END 2023-03-24 06:43 | disposition home or self-care (01) ==
LOC: HO.LAB 06:42
PROVIDERS: PCP Internal Medicine; Visit Provider Internal Medicine
DX: Z00.00 Encounter for general adult medical examination without abnormal findings (principal); R74.01 Elevation of levels of liver transaminase levels; F32.9 Major depressive disorder, single episode, unspecified; E78.00 Pure hypercholesterolemia, unspecified; E83.52 Hypercalcemia
CPT/HCPCS: 36415; 80053

== ENCOUNTER 2023-05-12 07:55 | Outpatient (AMB) | payer BC, SELFPAY ==
--- NOTE | 2023-05-12 08:13 | MHC.OFFVIS ---
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 No complaints. Last Pap/HPV was negative in 03/06 Last Mammogram was BI-RADS 2 in 07/06 Last Colonoscopy was in 04/08, the recommendation was to repeat in 5 years [facility] Medical History Hyperparathyroidism Ovarian cyst Migraine headache Anemia Hypercholesterolemia Hypertension Surgical History Hx of colonoscopy Status post cardiac catheterization Tubal ligation status H/O breast biopsy Family History Sister Breast CA, Onset Age: 37 Family/Other Breast CA Mother HTN (hypertension) Hyperlipidemia Father Suicide Maternal Aunt Colon cancer Social History Household Members: Spouse and Children Household Members Other:: 4 Housing: House Do you presently have visiting nurse or other home services: No Alcohol intake: current Alcohol intake frequency: a few times a month Patient Tobacco Use Status: Former Tobacco user Quit Date: 1989 Smoked: 3 +/- Substance Use Type: Caffiene service: No Current occupational status: employed 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 Sexual orientation: Straight/Heterosexual Gender identity: Female Female Reproductive History Menstrual Age of Menarche: 13 control method: permanent sterilization Menopause type: natural Total pregnancies: 5 Full term: 5 Number of Living Children: 5 Date of last pap smear: 03/07/20 Date of Mammogram: 07/13/22 History of abnormal mammogram: Yes Review of Systems Const All systems reviewed & are unremarkable except as noted in HPI and below Card Reports as per HPI Resp Reports as per HPI GI Reports as per HPI and Reports no additional complaints Reports as per HPI Physical Exam Vital Signs: Last Vital Signs BP 122/74 05/12/23 08:18 BMI result Body Mass Index 30.0 Const General: cooperative, healthy appearing and comfortable Chest Chest palpation & inspection: normal inspection of the chest and normal palpation of entire chest wall Breast/axilla inspection: normal inspection of the breasts and normal inspection of the axillae Breast/axilla palpation: normal palpation of the breasts, normal palpation of the axillae and no axillary lymphadenopathy Resp Effort & Inspection: normal respiratory effort Auscultation: clear to auscultation bilaterally Percussion: percussion normal Cardio Palpation: normal PMI Rate: regular rate Rhythm: regular rhythm Heart sounds: no murmurs and no rubs Peripheral pulses: Peripheral pulses 2+ throughout GI Inspection: Yes normal to inspection Palpation (GI): Soft to palpation, nontender, no guarding, not rigid and No hepatosplenomegaly present Percussion: Yes normal to percussion Auscultation: normal bowel sounds Rectal Exam - Female: deferred General: Yes bladder normal to palpation External Female Exam: No lesion Speculum Exam - Vagina: normal appearance of the vagina, normal palpation, normal vaginal discharge and not erythematous Speculum Exam - Cervix: normal appearance of the cervix and normal palpation Bimanual exam- vagina & uterus: normal bimanual exam, normal palpation, uterine size normal, bladder normal to palpation, consistency normal and normal palpation Bimanual Exam- Adnexa, other: normal adnexae, no masses and no tenderness Assessment & Plan Assessment & Plan (1) Well woman exam: Code(s): Z01.419 - Encounter for gynecological examination (general) (routine) without abnormal findings Plan: Co testing not indicated this year. Counseled the patient about the recommended dietary allowance of 1200 mg of Calcium & 600 IU of vitamin D. Instructions given the patient to schedule next screening Mammogram in 07/07. The patient was instructed to perform monthly self-breast exams and schedule annual exam in a year. All questions answered and the patient verbalized understanding. Coding Level of Care Code Est Pt Prev Care 40-64y(34511) Diagnoses Well woman exam Z01.419
[2023-05-12 08:18] VITALS: BP 122/74
== END 2023-05-12 08:40 | disposition home or self-care (01) ==
PROVIDERS: PCP Internal Medicine; Visit Provider Obstetrics & Gynecology
DX: Z01.419 Encounter for gynecological examination (general) (routine) without abnormal findings (principal)
CPT/HCPCS: 99396

== ENCOUNTER → 2023-05-12 07:55 | Outpatient (BNVA) | payer BC, SELFPAY | PROVIDERS: Visit Provider Obstetrics & Gynecology ==

== ENCOUNTER 2023-07-15 14:48 | Outpatient (REF) | payer BC, SELFPAY ==
--- NOTE | ~2023-07-15 | MM_ITS ---
EXAMINATION: MM SCREENING DIGITAL BREAST TOMOSYNTHESIS, BILATERAL CLINICAL INFORMATION: Screening. Asymptomatic. COMPARISON: Mammography: This study is compared with prior exams dating back to 2019. TECHNIQUE: Digital breast tomosynthesis is performed in both the craniocaudal and mediolateral oblique views along with computer-aided detection (CAD). Synthesized 2D images are generated from the tomosynthesis. FINDINGS: There are scattered areas of fibroglandular density (ACR BI-RADS breast composition Category b). There are no significant masses, abnormal calcifications, or other abnormalities. There is a biopsy tissue marker in the left breast. MM/MM tomosynthesis screening BI IMPRESSION: No mammographic evidence of malignancy. ASSESSMENT: BI-RADS BI-RADS 2 - Benign Findings RECOMMENDATION: Routine annual mammography screening. 1 year F/U This examination should not preclude the clinical evaluation of a suspicious palpable abnormality. This patient's information was entered into a reminder system with a target due date for their next mammogram.
== END 2023-07-15 14:49 | disposition home or self-care (01) ==
LOC: HO.MAMMO 14:48
PROVIDERS: PCP Internal Medicine; Visit Provider Internal Medicine
DX: Z12.31 Encounter for screening mammogram for malignant neoplasm of breast (principal)
CPT/HCPCS: 77063; 77067

== ENCOUNTER → 2023-07-15 15:00 | Outpatient (BNV) | payer BC, SELFPAY | PROVIDERS: PCP Internal Medicine; Visit Provider Radiology Diagnostic Radiology | DX: Z12.31 Encounter for screening mammogram for malignant neoplasm of breast (principal) | CPT/HCPCS: 77063; 77067 ==

== ENCOUNTER 2023-09-07 10:35 | Outpatient (REF) | payer BC, SELFPAY ==
[2023-09-07 13:27] LABS: Alanine Aminotransferase 40 U/L (0-31); Albumin Level 4.6 g/dL (3.5-5.0); Alkaline Phosphatase 116 U/L (39-117); Anion Gap 11 (12-20); Aspartate Amino Transferase 34 U/L (5-31); Bilirubin Total 0.6 mg/dL (0.0-1.0); Blood Urea Nitrogen 13 mg/dL (9-16); Calcium 11.1 mg/dL (8.4-10.2); Carbon Dioxide 25 mmol/L (22-29); Chloride 110 mmol/L (96-108); Cholesterol 143 mg/dL (<200); Estimated Glomerular Filt Rate > 60; Glucose Random 91 mg/dL (60-115); HDL Cholesterol 44 mg/dL (>40); LDL Cholesterol Calculated 74 mg/dL (<100); Parathyroid Hormone Intact 190.7 pg/mL (8.7-77.1); Phosphorus 2.7 mg/dL (2.7-4.5); Potassium 4.4 mmol/L (3.3-5.1); Sodium 142 mmol/L (135-145); Total Protein 7.3 g/dL (6.5-8.0); Triglycerides 126 mg/dL (<150)
== END 2023-09-07 10:36 | disposition home or self-care (01) ==
LOC: HO.LAB 10:35
PROVIDERS: PCP Internal Medicine; Visit Provider Internal Medicine
DX: E78.00 Pure hypercholesterolemia, unspecified (principal); E21.0 Primary hyperparathyroidism; R55 Syncope and collapse; R74.01 Elevation of levels of liver transaminase levels; Z68.29 Body mass index [BMI] 29.0-29.9, adult
CPT/HCPCS: 36415; 80053; 80061; 83970; 84100

== ENCOUNTER 2024-01-03 06:30 | Outpatient (REF) | payer BC, SELFPAY ==
[2024-01-03 07:49] LABS: Alanine Aminotransferase 50 U/L (0-31); Albumin Level 4.1 g/dL (3.5-5.0); Alkaline Phosphatase 122 U/L (39-117); Anion Gap 8 (12-20); Aspartate Amino Transferase 32 U/L (5-31); Bilirubin Total 0.5 mg/dL (0.0-1.0); Blood Urea Nitrogen 14 mg/dL (9-16); Calcium 10.9 mg/dL (8.4-10.2); Carbon Dioxide 27 mmol/L (22-29); Chloride 110 mmol/L (96-108); Cholesterol 287 mg/dL (<200); Estimated Glomerular Filt Rate > 60; Glucose Random 96 mg/dL (60-115); HDL Cholesterol 43 mg/dL (>40); LDL Cholesterol Calculated 198 mg/dL (<100); Potassium 4.3 mmol/L (3.3-5.1); Sodium 141 mmol/L (135-145); Total Protein 6.8 g/dL (6.5-8.0); Triglycerides 234 mg/dL (<150)
== END 2024-01-03 06:31 | disposition home or self-care (01) ==
LOC: HO.LAB 06:30
PROVIDERS: PCP Internal Medicine; Visit Provider Internal Medicine
DX: I10 Essential (primary) hypertension (principal); E78.00 Pure hypercholesterolemia, unspecified
CPT/HCPCS: 36415; 80053; 80061

== ENCOUNTER 2024-01-20 09:18 | Outpatient (AMB) | payer BC, SELFPAY ==
--- NOTE | 2024-01-20 09:19 | MHC.OFFVIS ---
Vital Signs 01/20/24 09:27 Height 5 ft 4 in Weight 159 lb 4 oz BMI 27.3 BP 124/58 L Blood Pressure Location Lt brachial Position Sitting Pulse 65 Intake Visit Reasons: yearly breast (high risk, MRI due 01/26/24) Intake Note: Patient is seen in office for 6 month follow up visit, breast exam. 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 Her family history is significant for breast cancer in her sister at the age of 38 with subsequent recurrence requiring mastectomy, paternal aunt with breast cancer at the age of 47, paternal cousin with breast cancer at the age of 38, and maternal with colon cancer at the age of 58. She underwent previous BRCA testing which was negative. She was previously evaluated by Dr. Kirby and a Tyrer-zick lifetime risk of breast cancer calculated at 20% placing her at a high risk for breast cancer. She is being followed with yearly mammograms alternated every 6 months with breast MRIs. Her last MRI was 01/25/2023 revealed no MR specific evidence of malignancy (BI-RADS 2 bilateral). Her last mammogram of 07/15/2023 revealed no mammographic evidence of malignancy (BI-RADS 2). She denies any new symptoms in either breast but does report a recent parathyroidectomy 1 week ago. She also underwent a flu and shingles vaccine yesterday. Her menarche was at 13; she is , 1st at the age of 16, she did breast feed her children. [facility] Medical History Hyperparathyroidism Ovarian cyst Migraine headache Anemia Hypercholesterolemia Hypertension Surgical History Hx of colonoscopy Status post cardiac catheterization Tubal ligation status H/O breast biopsy Family History Sister Breast CA, Onset Age: 37 Family/Other Breast CA Mother HTN (hypertension) Hyperlipidemia Father Suicide Maternal Aunt Colon cancer Social History Household Members: Spouse and Children Household Members Other:: 4 Housing: House Do you presently have visiting nurse or other home services: No Alcohol intake: current Alcohol intake frequency: a few times a month Patient Tobacco Use Status: Former Tobacco user Years Smoked: 3 +/- Substance Use Type: Caffiene service: No Current occupational status: employed 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 Sexual orientation: Straight/Heterosexual Gender identity: Female Female Reproductive History Menstrual Age of Menarche: 13 Review of Systems Const All systems reviewed & are unremarkable except as noted in HPI and below Denies chills, Denies fever(s), Denies headache(s) and Denies poor appetite ENT Denies dizziness and Denies headache(s) Card Denies chest pain, Denies rapid heart rate, Denies palpitations and Denies slow heart rate Resp Denies chest congestion, Denies cough, Denies pain on inspiration and Denies wheezing GI Denies abdominal pain, Denies bloating, Denies change in stool character, Denies constipation, Denies diarrhea, Denies nausea, Denies vomiting and Denies hematemesis Denies nipple discharge Musc Denies back pain, Denies arthralgias, Denies joint swelling and Denies numbness Skin/Breast Denies breast swelling, Denies breast skin changes, Denies breast pain, Denies breast mass, Denies change in breast shape, Denies change in pigmentation, Denies nipple discharge, Denies erythema and Denies rash Neuro Denies dizziness, Denies headache(s) and Denies numbness Psych Denies anxiety and Denies depression Endo Denies palpitations [place]/Lymph Denies easy bleeding, Denies easy bruising and Denies lymphadenopathy Aller/Immun Denies wheezing Physical Exam Const General: cooperative, comfortable and well developed Nutritional Appearance: well nourished Orientation/consciousness: patient oriented x3 HEENT Head: Yes normocephalic and Yes atraumatic Ears: hearing grossly normal bilaterally Eyes Sclerae: sclerae normal EOM: EOMs intact bilaterally Neck Neck: Yes normal visual inspection Chest Other: Left breast:? No skin change, no nipple retraction, no nipple discharge, no palpable mass, no enlarged lymph nodes. Fibrocystic changes noted especially in the upper outer quadrant. Right breast:? No skin change, no nipple retraction, no nipple discharge, no palpable mass, no enlarged lymph nodes, mild fibrocystic changes noted but no discrete mass appreciated. Resp Effort & Inspection: normal respiratory effort, no cough, no respiratory distress and no stridor Cardio Jugular venous distension: no JVD GI Inspection: Yes normal to inspection Palpation (GI): Soft to palpation, nontender, no guarding and not rigid Skin General skin exam: dry skin Rashes: no rashes Neuro General: patient oriented x3 and no focal motor deficits Extrem General: Yes full ROM and Yes no clubbing, cyanosis or edema Psych Appearance: grossly normal Assessment & Plan Assessment & Plan (1) At high risk for breast cancer: Code(s): Z91.89 - Other specified personal risk factors, not elsewhere classified Category: Medical (2) Family history of breast cancer: Code(s): Z80.3 - Family history of malignant neoplasm of breast Category: Medical Plan 54-year-old female patient with a strong family history of breast cancer and a calculated Tyrer-Cuzick risk of breast cancer previously calculated at 20%. Examination today revealed bilateral fibrocystic changes but no discrete mass on either side. She is now due for a breast MRI and this will be requested today. She requested follow-up for breast examination with Dr. Murray and I recommended she call as needed for problems. I will call her with the results of the MRI once available. Orders: Orders MR breast BI wo/w con 01/27/24 Z80.3 - Family history of malignant neoplasm of breast, Z91.89 - Other specified personal risk factors, not elsewhere classified Coding Level of Care Code Est Pt Level 3 (20991) Diagnoses At high risk for breast cancer Z91.89 Family history of breast cancer Z80.3
[2024-01-20 09:27] VITALS: BP 124/58; PULSE 65; BMI 27.3
== END 2024-01-20 09:34 | disposition home or self-care (01) ==
PROVIDERS: PCP Internal Medicine; Visit Provider Surgery
DX: Z91.89 Other specified personal risk factors, not elsewhere classified (principal); Z80.3 Family history of malignant neoplasm of breast
CPT/HCPCS: 99213

== ENCOUNTER → 2024-02-24 15:41 | Outpatient (BNV) | payer BC, SELFPAY | PROVIDERS: PCP Internal Medicine; Visit Provider Internal Medicine | DX: N64.89 Other specified disorders of breast (principal) | CPT/HCPCS: 77049 ==

== ENCOUNTER 2024-02-24 15:43 | Outpatient (REF) | payer BC, SELFPAY ==
--- NOTE | ~2024-02-24 | MR_ITS ---
EXAMINATION: MR BREAST WITHOUT AND WITH CONTRAST, BILATERAL CLINICAL INFORMATION: Strong family history of breast cancer including grandmother in her 30s as well as sisters and cousins. COMPARISON: Mammogram June 2023, breast MRI January. TECHNIQUE: MR imaging of the breast was performed using T1, T2 and fat saturated techniques. Dynamic multiphase imaging was also performed after administration of intravenous gadolinium contrast agent. Computer generated rate 3-D reconstruction was generated. FINDINGS: There is heterogeneous fibroglandular breast tissue with marked background enhancement. LEFT BREAST: In the central outer left breast 6 cm behind the nipple there is a 5 x 3 mm enhancing foci series 1035 image 70/126. No suspicious enhancing other masses or areas of nonmass enhancement. No architectural distortion. No internal mammary or axillary adenopathy. RIGHT BREAST: In the upper inner quadrant anterior depth approximately 3 cm behind the nipple is a 4 x 3 mm enhancing foci series 1035 image 62/126. No suspicious other enhancing masses or areas of nonmass enhancement. No architectural distortion. No internal mammary or axillary adenopathy. Limited views of the chest and abdomen are unremarkable. MR/MR breast BI wo/w con IMPRESSION: Bilateral enhancing foci, these are are probably benign and likely represent background enhancement however slightly changed from prior's. Recommend 6 month follow-up MRI for further evaluation of stability. ASSESSMENT: LEFT BREAST: BI-RADS 3 probably benign. RIGHT BREAST: BI-RADS 3 probably benign. RECOMMENDATIONS: Recommend 6 month follow-up MRI for further evaluation of stability. Electronically signed by: Rosana Santiago DO 02/27/2024 12:25 PM EST
[2024-02-24] MEDS: gadobutroL 7.5 ML VIAL IVPUSH (16:45)
== END 2024-02-24 15:44 | disposition home or self-care (01) ==
LOC: HO.MRI 15:43
PROVIDERS: PCP Internal Medicine; Visit Provider Surgery
DX: Z12.39 Encounter for other screening for malignant neoplasm of breast (principal); Z80.3 Family history of malignant neoplasm of breast; Z91.89 Other specified personal risk factors, not elsewhere classified
CPT/HCPCS: 77049; A9585

== ENCOUNTER 2024-04-17 14:48 | Outpatient (AMB) | payer BC, SELFPAY ==
--- NOTE | 2024-04-17 14:54 | MHC.OFFVIS ---
Intake Visit Reasons: Ingrown hair (Per Sailaja) Intake Note: Per patient she shaved last Tuesday, noticed growth on , got even bigger on Tuesday and continuing to grow. Painful to touch and red. Putting warm compress and Tylenol eases the pain but once wears off feels a sharp pain. No draining. 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 Operator Present (Maria Esther) Accompanied by: Self / Same As Patient Allergies pork derived (porcine) [PORK DERIVED (PORCINE)] Allergy (Severe, Verified 04/17/24 14:59) RASH HPI Comments Details: Presenting complaining of left upper labia majora swelling and redness started few days ago after shave PFSH Medical History Hyperparathyroidism Ovarian cyst Migraine headache Anemia Hypercholesterolemia Hypertension Surgical History Hx of colonoscopy Status post cardiac catheterization Tubal ligation status H/O breast biopsy Family History Sister Breast CA, Onset Age: 37 Family/Other Breast CA Mother HTN (hypertension) Hyperlipidemia Father Suicide Maternal Aunt Colon cancer Social History Household Members: Spouse and Children Household Members Other:: 4 Housing: House Do you presently have visiting nurse or other home services: No Alcohol intake: current Alcohol intake frequency: a few times a month Patient Tobacco Use Status: Former Tobacco user Years Smoked: 3 +/- Substance Use Type: Caffiene service: No Current occupational status: employed 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 Sexual orientation: Straight/Heterosexual Gender identity: Female Female Reproductive History Menstrual Age of Menarche: 13 Review of Systems Const All systems reviewed & are unremarkable except as noted in HPI and below Physical Exam General: Yes no CVA tenderness External Female Exam: No normal external appearance (Left labia majora 2 cm abscess with external redness cellulitis) and normal appearance of the urethra Speculum Exam - Vagina: normal appearance of the vagina, normal palpation, no lesions and no masses Speculum Exam - Cervix: normal appearance of the cervix, normal palpation, no lesions, no masses and nontender Bimanual exam- vagina & uterus: normal bimanual exam, normal palpation, uterine size normal, normal palpation, uterine shape normal, No Cervical tenderness present and non-tender Bimanual Exam- Adnexa, other: normal adnexae Back/Spine/Pelvis Back: no CVA tenderness Office Procedures Incision/Drainage MANAGER BUSINESS SYSTEMS Incision/Drainage MANAGER BUSINESS SYSTEMS Details: Before the procedure was started d/w patient the procedure, alternatives (do nothing, medical rx), & all the risks associated with the procedure ( bleeding , infection, vulvar scarring, painful intercourse, injury to vessels, possible need for transfusion with all its risks) then patient signed the consent. Preoperative diagnosis: Left upper labia Abscess. Operation: Left upper labia I & D Post-operative diagnosis: Same Anesthesia: Lidocaine 1% 3cc used Procedure: The skin was prepped with Betadine, palpation was used for guidance, 11-blade was used to incise the skin contiguous with the abscess cavity. This yielded 3 cc of purulent fluid &substantially decompressed the swelling, a clean dressing was used at the end. The patient tolerated the procedure well. The patient was sent home in stable condition. Discharge Instructions: The patient was instructed to call if temp>100.4, abdominal pain, nausea/vomiting. This note was generated with a voice recognition program. Some errors may have been overlooked during the review of this note. Sometimes these errors may affect the content or meaning of a given sentence. [id number]&D of vulva/perineum All charges added?: Procedure code (CPT) selection complete Assessment & Plan Assessment & Plan (1) Abscess of labia majora: Comment: With mild cellulitis Code(s): N76.4 - Abscess of vulva Category: Medical Plan: Discussed with the patient the finding on pelvic exam showing left upper labia majora abscess with mild cellulitis will treat with I&D, procedure done see procedure note. Culture collected. Augmentin 875 mg p.o. b.i.d. for 7 days. Instructions given to patient to call or go to the emergency if symptoms do not improve within 48 hours, increase in the redness, change in the skin color, increase in the pain or fever above 100.4. All questions answered, the patient verbalized understanding Orders: Orders Incision & Drainage MANAGER BUSINESS SYSTEMS Today N76.4 - Abscess of vulva Medications: New amoxicillin-pot clavulanate 875-125 mg 1 tab PO BID 7 days 14 tabs 0RF Coding Level of Care Code Est Pt Level 3 (89176) Procedure Only Diagnoses Abscess of labia majora N76.4 CPT Codes Incision/Drainage MANAGER BUSINESS SYSTEMS - IDGYN 1: [id number]-Z&D of vulva/perineum ([id number])
--- OUTSIDE RECORDS SUMMARY | 2024-04-17 18:44 | XMS_ITS | Clinical Summary ---
Author Organization [facility] Address [address] [place] [address] Care Team Providers Care Chip Unloader Name Role Phone Unavailable Primary Care Provider Unavailabl e Source Comments PLEASE NOTE, if this patient is a minor, it may be UNLAWFUL to discuss sensitive information that is contained in these records (such as FAMILY PLANNING, MENTAL HEALTH or SUBSTANCE ABUSE) with the minor patient's parent or other person without the patient's specific authorization.[facility] Immunizations Name Administration Dates Next Due Moderna COVID-19 Vaccine, re d cap blue label, 12+ Primary Series 02/20/2021,05/26/2020,04/28/2020 Social History Tobacco Use Types Packs/Day Years Used Date Smoking Tobacco: Never Assessed Social Connections Answer Date Recorded Social Connections and Isolation 0 04/28/2020 Financial Resource Strain Answer Date R ecorded Financial Resource Strain 0 2020 Stress Answer Date Recorded Stress 0 04/28/2020 Physical Activity Answer Date Recorded Physical Activity 0 04/28/2020 Food Insecurity Answer Date Recorded Food 0 04/28/2020 Transportation Needs Answer Date Record ed Transportation 0 04/28/2020 Housing Stability Answer Date Recorded Housing 0 04/28/2020 Safety and Environment Answer Date Mor rded Safety 0 04/28/2020 Utilities Answer Date Recorded Utilities 0 04/28/2020 Employment Answer Date Recorded Employment 0 04/28/2020 Comments Unknown Sex and Gender Information Value Date Recorded Sex Assigned at Not on file Legal Sex Female 11:38 AM PST Gender Identity Not on file Sexual Orientation Not on file Plan of Treatment Health Maintenance Due Date Last Done Comments Diabetes Screening 1968 HPV Screening 1968 Hepatitis C Screening 1968 Lipid Screening 1968 Pap + HPV 1968 Tobacco Screening 1968 HIV Screening 01/06/1983 Hypertension Screening (#1) 01/06/1986 Imm-Hepatitis B (1 of 3 - 19 + 3-dose series) 01/06/1987 12/29/2006, 08/23/2006, 07/20/2006 Cervical Cancer Screening 01/06/1989 Pap Smear 01/06/1989 Breast Cancer Screening (Mammogram) 2008 CT Colonography 01/06/2013 Colonoscopy 01/06/2013 Colorectal Cancer Screening 01/06/2013 FIT/gFOBT 01/06/2013 Fecal DNA 01/06/2013 Flexible Sigmoidoscopy 01/06/2013 Imm-Zoster, Recombinant (1 of 2) 01/06/2018 [id number] ( season) 2023 02/20/2021, 07/07/2020, 05/26/2020, Additional history exists Imm-Influenza (#1) 2023 01/01/2021, 0 11/06/2017, 11/18/2016, Additional history exists Alcohol and Drug Screen 02/15/2024 Depression Annual Screen 02/15/2024 Imm-DTaP/Tdap/Td (2 - Td or Tdap) 11/07/2027 11/06/2017, 01/02/2001, 09/03/1996 Cervical Ablation/Cold-Knife Conization Discontinued Cervical Cryotherapy Discontinued Colposcopy Discontinued Endometrial Biopsy Discontinued Excision/Leep Discontinued HPV Genotyping Discontinued Vaginal Pap Discontinued Vulvoscopy Discontinued Insurance [facility] Member Subscriber Plan / Payer (Ef fective 2019-Present) Name:Yaneth Becker Relation to Subscriber:Self Name:Yaneth Becker Payer ID:[id number] Group ID:Not on file Type:Indemnity Address: [facility] [id number] [place] [id number]
--- OUTSIDE RECORDS SUMMARY | 2024-04-17 18:44 | XMS_ITS | Clinical Summary ---
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 3 Active amLODIPine (Norvasc) 2.5 MG tablet Take 2.5 mg by mouth in the morning. 2 Active amLODIPine (Norvasc) 2.5 MG tablet Take 2.5 mg by mouth. 1 Active aspirin 81 MG EC tablet Take 81 mg by mouth. 8 Active atorvastatin (Lipitor) 20 MG tablet Take 20 mg by mouth. 8 Active cyclobenzaprine (Flexeril) 10 MG tablet TAKE 1 TABLET BY MOUTH AT BEDTIME NEEDED FOR MUSCLE SPASM 2 Active meclizine (Antivert) 25 MG tablet Take 1 tablet by mouth in the morning and 1 tablet at noon and 1 tablet in the evening. 9 Active metoprolol succinate XL (Toprol-XL) 50 MG 24 hr tablet Take 50 mg by mouth in the morning. 2 Active metoprolol tartrate (Lopressor) 50 MG tablet Take 50 mg by mouth. 8 Active naproxen (Naprosyn) 500 MG tablet Take 1 tablet by mouth if needed in the morning and at bedtime. 9 Active PEG 1557-XSg-BaTis-Na Cl-NaSulf (PEG-3350/Electro lytes) 236 g reconstituted solution 2 Active rosuvastatin (Crestor) 10 MG tablet Take 1 tablet by mouth at bed time. 9 Active rosuvastatin (Crestor) 20 MG tablet Take 20 mg by mouth in the morning. 2 Active sodium chloride (Long) 0.65 % nasal spray use 2 sprays in each nostril every 4 hours as needed 3 Active Active Problems Problem Noted Date Diagnosed Date Dental plaque 11/03/2023 Dental calculus 11/03/2023 Normal oral exam 11/03/2023 Immunizations Name Administration Dates Next Due Hep B, Adolescent or Pediatric 12/29/2006,2006,07/20/2006 Influenza Injectable Quadriv alant Preservative Free IIV4 MDCK 01/01/2021 Influenza injectable quadriv alent preservative free 11/06/2017 Influenza, IIV3, injectable 12/11/2013, 1,10/14/2009 Influenza, Split (incl. uriel fied surface antigen) 01/31/2013 Influenza, seasonal, injecta ble, preservative free 11/18/2016,12/03/2015,12/28/2014 Moderna Covid-19 Vaccine 1207/07/2020 TD (adult), 2 Lf tetanus tox oid, preservative free, adsorbed 01/02/2001,09/03/1996 Tdap 11/06/2017 Social History Tobacco Use Types Packs/Day Years Used Date Smoking Tobacco: Never Passive Smoke Exposure: Never Smokeless Tobacco: Never Tobacco Cessation:Counseling Given: Not Answered Alcohol Use Standard Drinks/Week Comments Never 0 (1 standard drink = 0.6 oz pur e alcohol) Comments Unknown Sex and Gender Information Value Date Recorded Sex Assigned at Female 12/14/2021 10:14 AM EDT Legal Sex Female 10:14 AM EDT Gender Identity Female 12/14/2021 10:14 AM EDT Sexual Orientation Straight 12/14/2021 10 :14 AM EDT Last Filed Vital Signs Vital Sign Reading Time Taken Comments Blood Pressure 124/76 11/03/2023 1:07 PM EDT Pulse 60 11/03/2023 1:07 PM EDT Temperature - - Respiratory Rate - - Oxygen Saturation - - Inhaled Oxygen Concentration - - Weight - - Height - - Body Mass Index - - Plan of Treatment Upcoming Encounters Date Type Department Care Team (Late st Contact Info) Description 05/04/2024 3:00 PM EDT Office Visit [facility] [address] [place] [address] Susana Valdez [address] [place] [address] Health Maintenance Due Date Last Done Comments CT Colonography 1968 Colonoscopy 1968 Colorectal Cancer Screening 1968 Depression Screening 1968 FIT DNA/Cologuard 1968 FIT 1968 FOBT 1968 HIV Screening 1968 Lipid Panel 1968 SDOH Screening 1968 Sigmoidoscopy 1968 Alcohol/Substance Use Screening 1980 Hepatitis C Screening 01/06/1986 Hepatitis B Vaccines (1 of 3 - 19+ 3-dose series) 01/06/1987 12/29/2006, 08/23/2006, 07/20/2006 Pap Smear 01/06/1989 Pneumococcal Vaccine: 50+ Years (1 of 1 - PCV) 01/06/2018 Zoster Vaccines (1 of 2) 01/06/2018 Mammogram 04/18/2020 04/18/2018, 01/14/2017 Cervical Cancer Screening 01/11/2022 HPV/Cotest 01/11/2022 01/11/2017 Dental X-Ray: Full Mouth 09/06/2023 09/04/2020 COVID-19 Vaccine ( season) 2023 01/13/2023, 02/20/2021, 07/07/2020, Additional history exists Influenza Vaccine (#1) 2023 , 01/01/2021, 11/06/2017, Additional history exists Dental Oral Exam 05/03/2024 11/03/2023, , 02/04/2022 Dental Prophylaxis 05/03/2024 11/03/2023, 0 03/14/2023, 08/25/2022, Additional history exists Tobacco Screening 11/02/2024 11/03/2023 Dental X-Ray: Bitewings 11/03/2024 11/03/2023, 02/04 DTaP/Tdap/Td Vaccines (2 - Td or Tdap) 11/07/2027 11/06/2017, 01/02/2001, 09/03/1996 RSV Patients and Patients Aged 60 years or older (1 - 1-dose 75+ series) 01/06/2043 HIB Vaccines Aged Out No longer eligi ble based on patient's age to complete this topic HPV Vaccines Aged Out No longer eligi ble based on patient's age to complete this topic Hepatitis A Vaccines Aged Out No long er eligible based on patient's age to complete this topic IPV Vaccines Aged Out No longer eligi ble based on patient's age to complete this topic Meningococcal Vaccine Aged Out No sandra simran eligible based on patient's age to complete this topic RSV under 20 months Aged Out No longe r eligible based on patient's age to complete this topic Rotavirus Vaccines Aged Out No longer eligible based on patient's age to complete this topic Procedures Procedure Name Priority Date/Time Associated Diagnosis Comments PROPHYLAXIS - ADULT Routine 11/03/2023 1 :00 PM EDT Dental calculus BITEWINGS - 4 RADIOGRAPHIC IMAGES Routine 11/03/2023 1:00 PM EDT Dental calculus PERIODIC ORAL EVALUATION - ESTABLISHED PATIENT Routine 11/03/2023 1:00 PM EDT BI MAMMOGRAM SCREENING BILATERAL Routine 04/18/2018 10:08 AM EST [facility] HISTORICAL HPV MRNA E6/E7 Routine 01/11/2017 1:49 PM EST from Last 3 Months or Most Recently Relevant to Health Maintenance Results * 3D DIGITAL DORIAN SCR MAMMO 1 (04/18/2018 10:08 AM EST) Anatomical Region Laterality Modality Breast Bilateral Mammography 04/18/2018 10:0 8 AM EST Narrative 04/18/2018 10:10 AM EST Refer to the Notes tab for result details [facility] Procedure: 3D DIGITAL DORIAN SCR MAMMO 1 Procedure Note Provider, Sivakumar, - 05/08/2022 Refer to the Notes tab for result details [facility] Procedure: 3D DIGITAL DORIAN SCR MAMMO 1 Tahira Hairston MD IMG BI PROCEDURES Final Result * HPV mRNA E6/E7 (01/11/2017 1:49 PM EST) HPV mRNA E6/E7 Not Detected NOT DETECTED [facility] Comment: This test was performed using the APTIMA(R) HPV Assay ([employer] This assay detects E6/E7 viral messenger RNA (mRNA) from 14 high-risk HPV types (16,18,31,33,35,39,45,51, 52,56,58,59,66,68). For additional information please refer to: http://Shipping Easy.VastPark/faq/[email or web address] (This link is being provided for informational/ educational purposes only.) Test Performed by [employer], [employer] [facility], [address] [place] [id number] Shakir Zuñiga M.D., Ph.D., Director of Laboratories , [facility] [id number] Please note: ??Effective 10/27/2015, HPV testing will be performed using [employer]'s APTIMA test which targets mRNA. Detecting mRNA instead of DNA, as in older methods, offers significant improvements in specificity. 01/11/2017 1:49 PM EST us Kayce Fernandes CNM HISTORICAL/NON ORDERABLE LABS Final Result [facility] [address] from Last 3 Months or Most Recently Relevant to Health Maintenance Insurance [facility]AL-[facility] MEDICAID STAND ADULT [place], [place] [facility] - [employer] DENTAL * Guarantor: Yaneth Becker Account Type Relation to Patient Date of Phone Billing Address Personal/Family Self [place], [place]
--- OUTSIDE RECORDS SUMMARY | 2024-04-17 18:44 | XMS_ITS | Continuity of Care Document ---
Author Organization [facility] Address [address] [place] [address] Phone Care Team Providers Care Vault Keeper Name Role Phone Abhinav HALL, Joann Unavailable Unavailable Allergies, Adverse Reactions, Alerts Substance Reaction Status Criticality No Known Allergies Active No Inform ation Medications Medication Instructions Dosage Effective Dates (start - stop) Status Comments ibuprofen 600 mg tablet take 1 (600MG) by oral route 3 times every day as needed for pain 600 MG - Active Procedures Procedure Date Office/Outpatient visit, new patient Apr Advance Directives Directive Yes / No Effective Date File Name No Information Encounters Encounter Description Practice Location Reason(s) For Visit Diagnoses Date Provider Providers Copied on Encounter Office/Outpat ient visit, new patient [facility], [address], [place], [id number], tel:[phone] [facility] Carpal tunnel syndrome, left upper limbRadial styloid tenosynovitis [de Quervain] 1 Abhinav David. [address], [place], [id number], [place]. tel:[phone] Referring Provider: Josiah Cummings, [facility] [facility] [place], [address]. tel:[phone] Family History Family Member Type Diagnosis Age At Onset Mother Problem (finding) Hypertension Payers Payer name Insurance type Covered alliance party ID Authoriza tion(s) [employer] [facility] [phone] Social History Type Description Quantity Date Captured Comments Alcohol Use Details No Caffeine Use Details Unknown Tobacco Use Status Smoking Status Unknown if ever smoked Non-Smoking Tobacco Use Details : No Details Available : No Details Available Sex Female Vital Signs Date / Time: Height Weight BMI Pulse Rate Blood Pressure Temperature Respiratory Rate Body Surface Area Head Circumference Head Circ. Percentile Wt./Ghulam. Percentile BMI percentile Pulse Ox Inhaled Ox 6:11 PM 60.00 in 57.153 kg (126.00 lbs) 24.6 1 kg/m eter (2) 67 /min 122/79 mm[Hg] 97.50 F Chief Complaint And Reason For Visit No Information Reason For Referral Reason For Referral No Information History Of Present Illness Encounter Date Complaint History Of Prese nt Illness No Information Functional Status Date Functional Assessmen t No Information Instructions Date Instruction Additional Infor kelley The patient and I re viewed multiple pictures and diagrams in the office today regarding the anatomy and reasons why one develops de Quervain's tenosynovitis which is an injury to the first dorsal compartment of the wrist extensor tendons. I explained to the patient that even though we tend to call it tendinitis or tenosynovitis, in reality it is neither. I explained that the support structure of the extensor retinaculum specific to the first dorsal compartment is injured at its attachment to the radial styloid. Every time the wrist is flexed or extended and the thumb placed into a forced position of opposition or abduction, the tendons pull on the extensor retinacular attachment at the first dorsal compartment. That produces pain. The process usually happens many times a day since we tend to use our hands and wrists for many things without being aware of the precise position of the hand and wrist. Over time this can develop into a very profound burning type phenomenon, and enlargement of the affected first dorsal compartment of the wrist. We discussed treatment options including the fact that the most aggressive yet nonsurgical treatment option is a steroid injection to the first dorsal compartment. We reviewed pictures in the office demonstrating how the body has a fluid-like sac around the tendon to help lubricate the tendon as it passes around a corner or changes directions adjacent to bone. A steroid injection will be placed into that saclike tissue. The risks associated with the steroids include the potential for developing a whitish discoloration on the skin should some of the steroid leak out from the injection site and pool in the subcutaneous tissue under the skin. This is unlikely but it is possible. When that does occur, the whitish discoloration tends to go away after a period of several months.I explained that the steroid can cause atrophy and therefore it is not desirous to place a steroid into the same anatomic area more than about 2 times per year. The patient and I discussed the fact that the duration of the steroid is about 6 weeks. A follow up appointment will be made in 8 weeks. We discussed the fact that post injection one would get the best benefit from wearing a rigid thumb spica splint over the next 7-10 days. Thereafter one could wear a soft, neoprene thumb spica splint for an additional 30 days.We discussed briefly the possibility that a surgical release of the first dorsal compartment may be required in the future. I did explain that about half of the patients are able to resolve the problem with 1 or 2 steroid injections while the other half usually requires surgical release. I also reviewed the surgical release, utilizing the same pictures and diagrams in my office. Thumb Spica and Wrist Splints for Acute and Subacute Thumb Extensor Compartment Tenosynovitis Recommended: Thumb spica splints for treatment of acute and subacute thumb extensor compartment tendinoses, and non-spica wrist splints for treatment of other extensor compartment tendinoses(42) are recommended.Strength of Evidence ??? Recommended, Insufficient Evidence (I)Level of Confidence ??? LowIndications: Patients with extensor compartment tendinoses.Frequency/Duration: Generally recommended to be worn while awake.Indications for Discontinuation: Failure to respond or resolution.Rationale: There is one moderate-quality RCT evaluating wrist splints for extensor compartment tenosynovitis with full-time compared with PRN use and found no differences.(1119) Wrist splints are not invasive, have few adverse effects, and are not costly; thus, they are recommended.Evidence: There are 3 moderate-quality RCT incorporated into this analysis.(5895-7259) (Braxton 14; Izzy 10)A comprehensive literature search was conducted using PubMed, Scopus, CINAHL, Wolf Library, and Google Scholar without date limits using the following terms: Splinting, thumb spica, Extensor Compartment Tenosynovitis (Including De Quervain's Stenosing Tenosynovitis and Intersection Syndrome); controlled clinical trial, controlled trials, randomized controlled trial, randomized controlled trials, random allocation, random*, randomized, randomization, randomly; systematic, systematic review, retrospective, and prospective studies. We found and reviewed 7 articles in PubMed, 3 in Scopus, 3 in CINAHL, 295 from Google Scholar, and 51 in [place] [facility]. We considered for inclusion 3 from PubMed, 0 from Scopus, 0 from CINAHL, 0 from Wolf Library and 2 from other sources. Of the 359 articles considered for inclusion, 3 randomized trials and 6 systematic studies met the inclusion criteria.Glucocorticosteroid Injections for Acute, Subacute, or Chronic de Quervain's or Other Wrist Compartment Tendinosis Recommended. Glucocorticosteroid injections are recommended for treatment of acute, subacute, or chronic de Quervain's or other wrist compartment tendinosis.Strength of Evidence ??? Recommended, Evidence (C)Level of Confidence ??? HighIndications: Wrist compartment symptoms of pain over a compartment. Generally at least 1 week of non-invasive treatment to determine if condition will resolve without invasive treatment. It is reasonable to treat cases with an initial injection although there is no quality evidence to support that approach. Failure or suboptimal results with an initial injection result in a need for additional injection(s) in a minority of patients that is (are) usually successful.(1103, 1105, 1106) Frequency/Dose/Duration: Optimal dose is unknown. Studies have utilized methylprednisolone acetate 40mg,(1064, 1105, 1109) and triamcinolone acetonide 10mg.(1103, 1106) An adjuvant injectable anesthetic is typically used.(1093, 1105, 1106) Some providers splint the wrist afterwards, however, there is no quality evidence this improves efficacy or duration of benefits. Two low-quality studies suggest no greater efficacy with splinting; however, greater costs and lost time were incurred.(1099, 1111) It is recommended that a single injection be scheduled and the results evaluated to document improvement.(1103) Failure of a response within 1 or 2 weeks should result in reanalysis of the diagnosis and consideration of repeat injection.(1103) Recurrence of symptoms months later should result in consideration of re-injection.(1101, 1105) There is no maximum number of injections to treat an episode or over a lifetime demonstrated in quality studies. Therapeutic injection failures are reportedly strongly associated with the presence of a separate compartment for the extensor pollicis brevis tendon in 73% of cases.(1109) Indications for Discontinuation: If a partial response, consideration should be given to repeating the injection, typically at a modestly higher dose. Rationale: There is 1 moderate-quality study comparing glucocorticosteroid injections with placebo for treatment of de Quervain's stenosing tenosynovitis.(1103) The trial showed considerable benefits from active treatment that persisted for 12 months and allows for an evidence-based recommendation. One trial found steroid injection superior to acupuncture.(1112) Ultrasound-guidance has been suggested to be moderately superior.(1113) Two trials have found inconclusive evidence regarding whether splint use is required in addition to steroid injection(1114, 1115) A high-quality trial found the steroid flare was unrelated to pH;(1064) however, there was no placebo control group. Another high-quality trial found no additive benefit of NSAID in addition to injection to prevent recurrence but did not assess reductions in pain immediately after injection thus appears to have no bearing on use of NSAIDs for those purposes.(1093) A low-quality trial found glucocorticosteroid injection superior to splinting in and lactating femalies.(1098) These injections are minimally invasive, have low adverse effects, and are moderately costly; thus, they are recommended to treat de Quervain's or other wrist compartment tendinosis. Evidence: There are 2 high-(1064, 1093) and 5 moderate-quality(1103, 4810-0878) RCTs incorporated in this analysis. There are 3 low-quality RCTs and 1 longitudinal study(1098, 1099, 1109, 1116) in Appendix 2. A comprehensive literature search was conducted using PubMed, Scopus, CINAHL, [place] [facility], and Google Scholar without date limits using the following terms: Glucocorticosteroid injection, corticosteroid injection, glucocorticoid injection, glucocorticoids, extensor compartment tenosynovitis, de Quervain's stenosing tenosynovitis, and intersection syndrome, de Quervain disease; controlled clinical trial, controlled trials, randomized controlled trial, randomized controlled trials, random allocation, random*, randomized, randomization, randomly; systematic, systematic review, retrospective, and prospective studies. We found and reviewed 10 articles in PubMed, 43 in Scopus, 0 in CINAHL, 0 in [place] [facility], 19 in Google Scholar, and 2 from other sources. We considered for inclusion 75 from PubMed, 0 from Scopus, 0 from CINAHL, 0 from [place] [facility], 0 Google Scholar, and 2 from other sources. Of the 75 articles considered for inclusion, 7 randomized trials and 0 systematic studies met the inclusion criteria. Related to Radial styloid tenosynovitis [de Quervain] The patient has not yet worn a wrist immobilizing splint nocturnally for the treatment of median neuropathy at the carpal tunnel. That is the most effective nonsurgical treatment for carpal tunnel syndrome. I would like the splint to be used nocturnally for a period of at least 6-8 weeks before making any further determination regarding additional treatmentToday the patient and I reviewed the charts and [...] or may even stop. We discussed the fact that based on the examination today the patient does not demonstrate evidence of any axonotmetic injury or in other words any evidence of irreversible nerve damage. For that reason it is appropriate to have a period of aggressive, yet conservative treatment utilizing the wrist immobilization splint nocturnally.Nocturnal Wrist Splinting for Acute, Subacute, or Chronic CTSModerately Recommended. Nocturnal wrist splinting is moderately recommended for treatment of acute, subacute, or chronic CTS.(772)Strength of Evidence ??? Moderately Recommended, Evidence (B)Level of Confidence ??? HighIndications: Symptoms consistent with carpal tunnel syndrome.Frequency/Dose/Duration: Wrist splints are recommended to be worn while sleeping.(387, 763-766) There is no recommendation for or against the use of splints during the daytime; however, splints theoretically increase force requirements needed to perform some jobs and have demonstrated alterations in other upper extremity postures;(773) thus, they may have a relative contraindication to daytime use. However, one study testing nocturnal versus full-time use suggested modestly better results in electrodiagnostic parameters, but not symptoms, with full-time use.(765) There are numerous models and trials using different types of splints with all trials showing benefits and [id number] trials, suggest there is, as yet, no identified optimal type of splint.(622, 774, 775)Indications for Discontinuation: Splints should be re-adjusted if no response within 2 weeks of starting treatment, particularly to assure that the patient is wearing them properly as well as to assess fit. If there is only partial improvement and symptoms are sufficient for additional treatment, consideration of glucocorticosteroid injection and/or electrodiagnostic testing is indicated. If there is no improvement, splints should be discontinued and the accuracy of the diagnosis re-evaluated.Rationale: Wrist splints have been shown to be effective compared to not splinting(764, 766) or to ergonomic education.(387) Splinting is also comparable to and in some measures superior to oral steroids.(647) One trial found splinting combined with NSAIDs comparable to glucocorticosteroid injection.(631) Both trials evaluating exercises and splinting used splinting for all subjects, precluding a comparison between those interventions. One trial suggested no superiority of a combination of tendon-gliding exercises combined with splinting combined with splinting alone.(610) Another trial suggested modest superiority of surgery over 18 months of follow-up; however, there may have been a slight bias in favor of surgery due to a baseline trend towards longer duration of symptoms in the splint group,(763) particularly in light of a subsequent report that those with shorter duration of symptoms had superior results with splinting.(776) Another trial compared splinting versus injection versus surgery and found few differences except for a modest trend favoring surgery over the mcfp.(777) A trial conducted in the [place] comparing splinting with surgery found little clinical difference, but concluded surgery was more cost-effective.(778) A recent report suggests splinting is more likely to be effective in those with milder symptoms of less than 1-year duration.(776) Wrist splints are not invasive, have no significant adverse effects, and are not costly. They are moderately recommended for treatment of CTS.Evidence: There is 1 high-(763) and 18 moderate-quality(387, 611, 622, 628, 631, 647, 764-766, 774, 775, 777-783) RCTs incorporated into this analysis. There are 9 low-quality RCTs and 1 prospective randomized blinded trial(614, 626, 767, 768, 784-789) in Appendix 2.A comprehensive literature search was conducted using PubMed, Scopus, CINAHL and Wolf Library without date limits using the following terms: wrist joint, wrist, wrists, splints, splint, splinting, nocturnal splint; carpal tunnel syndrome, median neuropathy, CTS, carpal tunnel, median nerve, compression, entrapment, neuropathy, nerve disease, syndrome, burning, tingling, itching, numbness, hand, palm, finger, pain; controlled clinical trial, controlled trials, randomized controlled trial, randomized controlled trials, random allocation, random*, randomized, randomization, randomly; systematic, and systematic review. We found and reviewed 71 articles in PubMed, 499 in Scopus, five in CINAHL, and 77 in [place] [facility]. We considered for inclusion 27 from PubMed, eight from Scopus, zero from CINAHL, zero from [place] [facility] and four from other sources. Of the 39 articles considered for inclusion, 23 randomized trials and five systematic studies met the inclusion criteria.Carpal Tunnel Injections for Treatment of Subacute or Chronic CTSStrongly Recommended. Carpal tunnel injections are strongly recommended for the treatment of subacute or chronic CTS.Strength of Evidence ??? Strongly Recommended, Evidence (A)Level of Confidence ??? HighIndications: CTS unresponsive to nocturnal wrist splinting, generally with symptoms lasting at least 3 weeks. It is not believed to be necessary to perform EDX prior to injections. Frequency/Dose/Duration: One high-quality study found lower 1-year surgery rates with methylprednisolone 80mg vs. 40 mg of 73% vs. 81%, which were also superior to placebo.(860) Generally, at least 40mg of methylprednisolone or equivalent is recommended as the minimum initial dose. Although optimum dose remains unclear, evidence in total includes evaluations with methylprednisolone acetate (12, 15, 20, 40, 60, 80 mg), betamethasone (6.0, 6.4 mg), triamcinolone hexacetonide (20, 40, 80 mg), and hydrocortisone (25, 100 mg) in quality studies. Some physicians increase the dose in proportion to perceived symptom severity. However, there is no quality evidence to support this practice. The type of steroid to inject and whether to use a depot preparation, are also unclear as there are no quality studies comparing the various preparations commonly utilized. Most physicians include at least 1mL of an injectable anesthetic (e.g., 1% lidocaine). Lidocaine allows for rapid assessment immediately after the injection. The limitation of using an anesthetic as an adjuvant is that the numbness that ensues afterwards may limit a patient's activities. Thus, a shorter-duration anesthetic such as lidocaine is recommended.A single injection and the results carefully evaluated to document improvement, even if short-term as it is believed to have considerable prognostic significance. There is no evidence that a series of injections is efficacious, although it has been argued that two injections are ideal.(861) There is no evidence that there is a limit to the number of injections to treat an episode or in a lifetime. Failure to respond, particularly if the median nerve was successfully anesthetized by the injection, should result in a careful re-assessment of the accuracy of the diagnosis of CTS. A second injection, typically utilizing a moderately higher dose, may be indicated if there has been insufficient but partial relief, or if the first injection was thought to have not entered the carpal canal.Indications for Discontinuation: No partial response to carpal tunnel injection(s), then no recommendation for additional injection(s). Patients who fail to even partially respond to injections are a priori suspected to not have CTS and a thorough search for an alternate diagnosis should ensue. Patients who respond to carpal tunnel injections, but redevelop symptoms are believed to be ideal candidates for surgical release. 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] impression Left median neuropat hy localized the carpal tunnel, chronic, moderate, extending toward moderate severe, confirmed an electrodiagnostic study on 08/27/2019 demonstrating not only a prolongation of the left median distal motor latency at the carpal tunnel but also a concurrent absolute reduction in the amplitude of the compound motor action potential, with a concurrent abnormal prolongation of the left median peak sensory latency, which along with abnormal two-point discrimination of 7-8 mm, 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
--- OUTSIDE RECORDS SUMMARY | 2024-04-17 18:44 | XMS_ITS | Encounter Summary ---
Author Organization [facility] Address [address] [place] [address] Care Team Providers Care Well Point Pumping Supervisor Name Role Phone Unavailable Primary Care Provider Unavailabl e Encounter Details Date Type Department Care Team (Latest Contact Info) Description 09/12/2020 Abstract [facility] CONVERSIONS Dental, Provider, DDS Social History Tobacco Use Types Packs/Day Years Used Date Smoking Tobacco: Never Assessed Comments Unknown Sex and Gender Information Value Date Recorded Sex Assigned at Female 12/14/2021 10:14 AM EDT Legal Sex Female 10:14 AM EDT Gender Identity Female 12/14/2021 10:14 AM EDT Sexual Orientation Straight 12/14/2021 10 :14 AM EDT documented as of this encounter Plan of Treatment Upcoming Encounters Date Type Department Care Team (Late st Contact Info) Description 05/04/2024 3:00 PM EDT Office Visit [facility] [address] [place] [address] Susana Valdez [address] [place] [address] documented as of this encounter Visit Diagnoses Not on filedocumented in this encounter
--- OUTSIDE RECORDS SUMMARY | 2024-04-17 18:44 | XMS_ITS | Encounter Summary ---
Author Organization [facility] Address [address] [place] [address] Care Team Providers Care Pattern Puncher Name Role Phone Unavailable Primary Care Provider Unavailabl e Encounter Details Date Type Department Care Team (Latest Contact Info) Description 07/17/2021 Abstract [facility] CONVERSION[facility] Dental, Provider, DDS Social History [...] Description 05/04/2024 3:00 PM EDT Office Visit [facility] [address] [place] [address] Susana Valdez [address] [place] [address] documented as of this encounter Visit Diagnoses Not on filedocumented in this encounter
--- OUTSIDE RECORDS SUMMARY | 2024-04-17 18:44 | XMS_ITS | Continuity of Care Document ---
Author Organization [facility] Address [address] [place] [address] Phone Care Team Providers Care Dietary Server Name Role Phone Joann La MD Unavailable [...] Provider Providers Copied on Encounter [facility], [address] [place], [place], [id number], tel:[phone] [facility] No Information 1 Abhinav David. [address] [place], [place], [id number], [place]. tel:[phone] Referring Provider: Adan Hayes, [address] [place] [address], [address]. tel:[phone] Office/Outpat ient visit, established patient [facility], [address] [place], [place], [id number], [place] tel:[phone] [facility] No Information 1 Abhinav Joann. [address] [place], [place], [id number], [place]. tel:[phone] Referring Provider: Adan Hayes, [address] [place] [address], [address]. tel:[phone] Office/Outpat ient visit, established patient [facility], [address] [place], [place], [id number], [place] tel:[phone] [facility] No Information 0 Abhinav Joann. [address] [place], [place], [id number], [place]. tel:[phone] Referring Provider: Adan Hayes, [address] [place] [address], [address]. tel:[phone] Office/Outpat ient visit, established patient [facility], [address] [place], [place], [id number], [place] tel:[phone] [facility] No Information 0 Abhinav Joann. [address] [place], [place], [id number], [place]. tel:[phone] Referring Provider: Adan Hayes, [address] [place] [address], [address]. tel:[phone] [facility], [address] [place], [place], [id number], [place] tel:[phone] [facility] Trigger finger, right little finger 0 [place] Kalia. [address] [place], [place], [id number], [place]. tel:[phone] Referring Provider: Adan Hayes, [address] [place], [address]. tel:[phone] [facility], [address] [place], [place], [id number], [place] tel:[phone] [facility] Carpal tunnel syndrome, right upper limb 0 [place] Kalia. [address] [place], [place], [id number], [place]. tel:[phone] Referring Provider: Adan Hayes, [facility] [place], [address]. tel:[phone] [facility], [address] [place], [place], [id number], [place] tel:[phone] [facility] No Information 0 Abhinav Joann. [address] [place], [place], [id number], [place]. tel:[phone] Referring Provider: Adan Hayes, [address] [place], [address]. tel:[phone] [facility], [address] [place], [place], [id number], [place] tel:[phone] [facility] Carpal tunnel syndrome, right upper limb 0 [place] Kalia. [address] [place], [place], [id number], [place]. tel:[phone] Referring Provider: Adan Hayes, [address] [place], [address]. tel:[phone] [facility], [address] [place], [place], [id number], [place] tel:[phone] [facility] No Information 0 Abhinav Joann. [address] [place], [place], [id number], . tel:[phone] Referring Provider: Adan Hayes, [facility] [place], [address]. tel:[phone] Office/Outpat ient visit, new patient [facility], [address] [place], [place], [id number], tel:[phone] [facility] Carpal tunnel syndrome, right upper limbLesion of ulnar nerve, right upper limb 0 Abhinav Joann. [address] [place], [place], [id number], [place]. tel:[phone] Referring Provider: Adan Hayes, [address] [place], [address]. tel:[phone] Family History Family Member Type Diagnosis Age At Onset Father Problem (finding) Cancer - stomach Mother Problem (finding) Hypertension Payers Payer name Insurance type Covered alliance party ID Authoriza tion(s) No Information Social History [...] from a carpal tunnel release is decrease patient access associate strength. The patient will have about half of normal patient access associate strength for 1 or 2 months. By about 3 months postoperatively there will be about two-thirds of normal patient access associate strength. At anywhere from 4 to 6 months after surgery, one will have somewhere between 75-95% of normal patient access associate strength. The risks associated with the surgery [...]
== END 2024-04-17 15:36 | disposition home or self-care (01) ==
PROVIDERS: PCP Internal Medicine; Visit Provider Obstetrics & Gynecology
DX: N76.4 Abscess of vulva (principal)
CPT/HCPCS: 56405; 99213

== ENCOUNTER 2024-04-17 14:48 | Outpatient (REF) | payer BC, SELFPAY ==
--- OUTSIDE RECORDS SUMMARY | 2024-04-17 19:29 | XMS_ITS | Continuity of Care Document ---
Author Organization [facility] Address [address] [place] [address] Phone Care Team Providers Care Scudding Inspector Name Role Phone Abhinav HALL, Joann Unavailable [...] on Encounter Office/Outpat ient visit, new patient [facility], [address] [place], [place], [id number], tel:[phone] [facility] Carpal tunnel syndrome, left upper limbRadial styloid tenosynovitis [de Quervain] 1 Abhinav David. [address] [place], [place], [id number], [place]. tel:[phone] Referring Provider: Josiah Cummings, [facility] [place], [address]. tel:[phone] Family History Family Member Type Diagnosis Age At Onset Mother Problem (finding) Hypertension Payers Payer name Insurance type Covered green party ID Authoriza tion(s) [employer] [facility] [id number] Social History Type Description Quantity Date Captured [...] are 3 moderate-quality RCT incorporated into this analysis.(6827-1965) (Braxton 14; Izzy 10)A comprehensive literature search [...] 295 from Google Scholar, and 51 in [place] Library. We considered for inclusion 3 from [...] are 2 high-(1064, 1093) and 5 moderate-quality(1103, 4362-8112) RCTs incorporated in this analysis. There are 3 low-quality RCTs and 1 longitudinal study(1098, 1099, 1109, 1116) in Appendix 2. A comprehensive literature search was conducted using PubMed, Scopus, CINAHL, [place] Library, and Google Scholar without date limits [...] in Scopus, 0 in CINAHL, 0 in [place] Library, 19 in Google Scholar, and 2 from other sources. We considered for inclusion 75 from PubMed, 0 from Scopus, 0 from CINAHL, 0 from [place] Library, 0 Google Scholar, and 2 from [...] splints with all trials showing benefits and beyv-vb-mbzq trials, suggest there is, as yet, no [...] a modest trend favoring surgery over the custodial.(777) A trial conducted in the [place] comparing [...] Scopus, five in CINAHL, and 77 in [place]i Library. We considered for inclusion 27 from PubMed, eight from Scopus, zero from CINAHL, zero from [place]i Library and four from other sources. Of [...]
--- OUTSIDE RECORDS SUMMARY | 2024-04-17 19:29 | XMS_ITS | Clinical Summary ---
Author Organization [employer] Address [address] [facility] 7t [place] [address] Care Team Providers Care Ship Runner Name Role Phone Unavailable Primary Care Provider [...] morning and at bedtime. 9 Active PEG 8950-SPm-WfTuj-Na Cl-NaSulf (PEG-3350/Electro lytes) 236 g reconstituted solution 2 Active rosuvastatin (Crestor) 10 MG tablet Take 1 tablet by mouth at bed time. 9 Active rosuvastatin (Crestor) 20 MG tablet Take 20 mg by mouth in the morning. 2 Active sodium chloride ([place]) 0.65 % nasal spray use 2 sprays [...] Description 05/04/2024 3:00 PM EDT Office Visit [facility] [address] [place] [address] Susana Valdez [address] [place] [address] Health Maintenance Due Date Last Done Comments [...] HPV mRNA E6/E7 Not Detected NOT DETECTED [facility] Comment: This test was performed using the APTIMA(R) HPV Assay ([employer] This assay detects E6/E7 viral messenger RNA (mRNA) from 14 high-risk HPV types (16,18,31,33,35,39,45,51, 52,56,58,59,66,68). For additional information please refer to: http://Xcerion.Global Roaming/faq/ZTC584m1 (This link is being provided for informational/ educational purposes only.) Test Performed by [employer], [employer] [facility], [address] [place] [id number] Shakir Zuñiga M.D., Ph.D., Director of Laboratories , [facility] [id number] Please note: ??Effective 10/27/2015, HPV testing will be performed using [employer]'s APTIMA test which targets mRNA. Detecting mRNA instead of DNA, as in older methods, offers significant improvements in specificity. 01/11/2017 1:49 PM EST us Kayce Fernandes CNM HISTORICAL/NON ORDERABLE LABS Final Result [facility] [address] from Last 3 Months or Most Recently Relevant to Health Maintenance Insurance DENTAL-[facility] MEDICAID STAND ADULT [place], [place] [facility] - BCBS DENTAL * Guarantor: Yaneth Becker Account Type Relation to Patient Date of Phone Billing Address Personal/Family Self [place], [place]
--- OUTSIDE RECORDS SUMMARY | 2024-04-17 19:29 | XMS_ITS | Continuity of Care Document ---
Author Organization [facility] Address [address] [place] [address] Phone Care Team Providers Care Medical Terminologist Name Role Phone Joann La MD Unavailable [...] Diagnoses Date Provider Providers Copied on Encounter [facility], [address] [place], [place], [id number], tel:[phone] [facility] No Information 1 Abhinav David. [address] [place], [place], [id number], [place]. tel:[phone] Referring Provider: Adan Hayes, [address] [place] [address], [address]. tel:[phone] Office/Outpat ient visit, established patient [facility], [address] [place], [place], [id number], [place] tel:[phone] [facility] No Information 1 Abhinav Joann. [address] [place], [place], [id number], [place]. tel:[phone] Referring Provider: Adan Hayes, [address] [place] [address], [address]. tel:[phone] Office/Outpat ient visit, established patient [facility], [address] [place], [place], [id number], [place] tel:[phone] [facility] No Information 0 Abhinav Joann. [address], [place], [id number], [place]. tel:[phone] Referring Provider: Adan Hayes, [address] [place] [address], [address]. tel:[phone] Office/Outpat ient visit, established patient [facility], [address], [place], [id number], [place] tel:[phone] [facility] No Information 0 Abhinav Joann. [address], [place], [id number], [place]. tel:[phone] Referring Provider: Adan Hayes, [address] [place] [address], [address]. tel:[phone] [facility], [address] [place], [place], [id number], [place] tel:[phone] [facility] Trigger finger, right little finger 0 [place] Kalia. [address], [place], [id number], [place]. tel:[phone] Referring Provider: Adan Hayes, [address] [place], [address]. tel:[phone] [facility], [address] [place], [place], [id number], [place] tel:[phone] [facility] Carpal tunnel syndrome, right upper limb 0 [place] Kalia. [address], [place], [id number], [place]. tel:[phone] Referring Provider: Adan Hayes, [facility] [place], [address]. tel:[phone] [facility], [address], [place], [id number], [place] tel:[phone] [facility] No Information 0 Abhinav Joann. [address], [place], [id number], [place]. tel:[phone] Referring Provider: Adan Hayes, [address] [place], [address]. tel:[phone] [facility], [address], [place], [id number], [place] tel:[phone] [facility] Carpal tunnel syndrome, right upper limb 0 [place] Kalia. [address], [place], [id number], [place]. tel:[phone] Referring Provider: Adan Hayes, [address] [place], [address]. tel:[phone] [facility], [address], [place], [id number], [place] tel:[phone] [facility] No Information 0 Abhinav Joann. [address], [place], [id number], . tel:[phone] Referring Provider: Adan Hayes, [facility] [place], [address]. tel:[phone] Office/Outpat ient visit, new patient [facility], [address], [place], [id number], tel:[phone] [facility] Carpal tunnel syndrome, right upper limbLesion of ulnar nerve, right upper limb 0 Abhinav Joann. [address], [place], [id number], [place]. tel:[phone] Referring Provider: Adan Hayes, [address] [place], [address]. tel:[phone] Family History Family Member Type Diagnosis Age [...] from a carpal tunnel release is decrease conservation agent strength. The patient will have about half of normal conservation agent strength for 1 or 2 months. By about 3 months postoperatively there will be about two-thirds of normal conservation agent strength. At anywhere from 4 to 6 months after surgery, one will have somewhere between 75-95% of normal conservation agent strength. The risks associated with the surgery [...]
--- OUTSIDE RECORDS SUMMARY | 2024-04-17 19:29 | XMS_ITS | Encounter Summary ---
Author Organization [facility] [place] [facility] Address [address] [facility] 7t [place] [address] Care Team Providers Care Lanolin Plant Operator Name Role Phone Unavailable Primary Care Provider Unavailabl e Encounter Details Date Type Department Care Team (Latest Contact Info) Description 09/12/2020 Abstract [facility] CONVERSIONS Dental, Provider, DDS Social History [...] Description 05/04/2024 3:00 PM EDT Office Visit [facility] ADULT [facility] [address] [place] [address] Susana Valdez [address] [place] [address] documented as of this encounter Visit Diagnoses Not on filedocumented in this encounter
--- OUTSIDE RECORDS SUMMARY | 2024-04-17 19:29 | XMS_ITS | Encounter Summary ---
Author Organization [facility] Address [address] [facility] 7t [place] [address] Care Team Providers Care Lpn Cma Name Role Phone Unavailable Primary Care Provider Unavailabl e Encounter Details Date Type Department Care Team (Latest Contact Info) Description 07/17/2021 Abstract [facility] CONVERSIONS Dental, Provider, DDS Social History [...] Description 05/04/2024 3:00 PM EDT Office Visit [facility] ADULT DENTAL [address] [place] [address] Susana Valdez [address] [place] [address] documented as of this encounter Visit Diagnoses Not on filedocumented in this encounter
--- OUTSIDE RECORDS SUMMARY | 2024-04-17 19:29 | XMS_ITS | Clinical Summary ---
Author Organization [facility] Address [address] [place] [address] Care Team Providers Care Cylinder Block Hole Reliner Name Role Phone Unavailable Primary Care Provider [...] 01/06/2013 Imm-Zoster, Recombinant (1 of 2) 01/06/2018 End-UZBBD-07 ( season) 2023 02/20/2021, 07/07/2020, 05/26/2020, Additional history exists Imm-Influenza (#1) 2023 01/01/2021, 0 11/06/2017, 11/18/2016, Additional history exists Alcohol and Drug Screen 02/15/2024 Depression Annual Screen 02/15/2024 Imm-DTaP/Tdap/Td (2 - Td or Tdap) 11/07/2027 11/06/2017, 01/02/2001, 09/03/1996 Cervical Ablation/Cold-Knife Conization Discontinued Cervical Cryotherapy Discontinued Colposcopy Discontinued Endometrial Biopsy Discontinued Excision/Leep Discontinued HPV Genotyping Discontinued Vaginal Pap Discontinued Vulvoscopy Discontinued Insurance [facility] Member Subscriber Plan / Payer (Ef fective 2019-Present) Name:Yaneth Becker Relation to Subscriber:Self Name:Yaneth Becker Payer ID:[id number] Group ID:Not on file Type:Indemnity Address: [facility] [id number] [id number]
== END 2024-04-17 14:49 | disposition home or self-care (01) ==
LOC: HO.LNP 14:48
PROVIDERS: PCP Internal Medicine; Visit Provider Obstetrics & Gynecology
DX: N76.4 Abscess of vulva (principal)
CPT/HCPCS: 56405; 87070; 87077; 87186; 87205

== ENCOUNTER 2024-05-01 08:52 | Outpatient (AMB) | payer BC, SELFPAY ==
--- NOTE | 2024-05-01 09:17 | A.OFFVIS_ITS ---
Intake Visit Reasons: Follow up MRSA Residential Green Building Designer: Residential Green Building Designer Present (Maria Esther) Accompanied by: Self / Same As Patient Allergies pork derived (porcine) [PORK DERIVED (PORCINE)] Allergy (Severe, Verified 05/01/24 09:18) RASH HPI Comments Details: Presenting 2 weeks post IUD for left vulvar abscess with cellulitis, culture grew MRSA, initially the patient was prescribed Augmentin, culture was resistant to ampicillin, sensitive to Bactrim, the patient was switched to Bactrim DS 1 tablet p.o. b.i.d. for 7 days. The cellulitis has improved markedly, the patient is complaining of left mons pubis swelling, no fever or chills PFSH Medical History Hyperparathyroidism Ovarian cyst Migraine headache Anemia Hypercholesterolemia Hypertension Surgical History Hx of colonoscopy Status post cardiac catheterization Tubal ligation status H/O breast biopsy Family History Sister Breast CA, Onset Age: 37 Family/Other Breast CA Mother HTN (hypertension) Hyperlipidemia Father Suicide Maternal Aunt Colon cancer Social History Household Members: Spouse and Children Household Members Other:: 4 Housing: House Do you presently have visiting nurse or other home services: No Alcohol intake: current Alcohol intake frequency: a few times a month Patient Tobacco Use Status: Former Tobacco user Years Smoked: 3 +/- Substance Use Type: Caffiene service: No Current occupational status: employed 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 Sexual orientation: Straight/Heterosexual Gender identity: Female Female Reproductive History Menstrual Age of Menarche: 13 Review of Systems Const All systems reviewed & are unremarkable except as noted in HPI and below Physical Exam General: Yes no CVA tenderness External Female Exam: No normal external appearance (Left mons pubis 3 x 3 cm subq collection, no erythema) and normal appearance of the urethra Speculum Exam - Vagina: normal appearance of the vagina, normal palpation, no lesions and no masses Speculum Exam - Cervix: normal appearance of the cervix, normal palpation, no lesions, no masses and nontender Bimanual exam- vagina & uterus: normal bimanual exam, normal palpation, uterine size normal, normal palpation, uterine shape normal, No Cervical tenderness present and non-tender Bimanual Exam- Adnexa, other: normal adnexae Back/Spine/Pelvis Back: no CVA tenderness Assessment & Plan Assessment & Plan (1) Swelling of vulva: Comment: Left mons pubis Status post I&D with MRSA Code(s): N90.89 - Other specified noninflammatory disorders of vulva and perineum Category: Medical Plan: Discussed with the patient possible causes of the left mons pubis swelling, including remaining subcuticular abscess, will order ultrasound of the left mons pubis area and treat accordingly. All questions answered, the patient verbalized understanding Orders: Orders US pelvic limited Today N90.89 - Other specified noninflammatory disorders of vulva and perineum Coding Level of Care Code Est Pt Level 3 (22889) Diagnoses Swelling of vulva N90.89
--- OUTSIDE RECORDS SUMMARY | 2024-05-01 09:20 | XMS_ITS | Encounter Summary ---
Author Organization [facility] Address [address] [facility] 7t [place] [address] Care Team Providers Care Garage Door Technician Name Role Phone Unavailable Primary Care Provider Unavailabl e Encounter Details Date Type Department Care Team (Latest Contact Info) Description 07/17/2021 Abstract [facility] CONVERSIONS Dental, Provider, DDS Social History [...] Description 05/04/2024 3:00 PM EDT Office Visit [facility] ADULT DENTAL [address] [place] [address] Susana Valdez [address] [place] [address] documented as of this encounter Visit Diagnoses Not on filedocumented in this encounter
--- OUTSIDE RECORDS SUMMARY | 2024-05-01 09:20 | XMS_ITS | Encounter Summary ---
Author Organization [facility] Address [address] [facility] 7t [place] [address] Care Team Providers Care Fulling Mill Operator Name Role Phone Unavailable Primary Care Provider Unavailabl e Encounter Details Date Type Department Care Team (Latest Contact Info) Description 09/12/2020 Abstract [facility] CONVERSIONS Dental, Provider, DDS Social History [...] Description 05/04/2024 3:00 PM EDT Office Visit [facility] ADULT DENTAL [address] [place] [address] Susana Valdez [address] [place] [address] documented as of this encounter Visit Diagnoses Not on filedocumented in this encounter
--- OUTSIDE RECORDS SUMMARY | 2024-05-01 09:20 | XMS_ITS | Continuity of Care Document ---
Author Organization [facility] Address [address] [place] [address] Phone Care Team Providers Care Lotus Notes Developer Name Role Phone Abhinav HALL, Joann Unavailable [...] on Encounter Office/Outpat ient visit, new patient [facility], [address] [place], [place], [id number], tel:[phone] [facility] Carpal tunnel syndrome, left upper limbRadial styloid tenosynovitis [de Quervain] 1 Abhinav David. [address] [place], [place], [id number], [place]. tel:[phone] Referring Provider: Josiah Cummings, [facility] [place], [address]. tel:[phone] Family History Family Member Type Diagnosis Age At Onset Mother Problem (finding) Hypertension Payers Payer name Insurance type Covered democrat ID Authoriza tion(s) [employer] [facility] [id number] Social History Type Description Quantity Date Captured [...] are 3 moderate-quality RCT incorporated into this analysis.(2700-2439) (Braxton 14; Izzy 10)A comprehensive literature search [...] 295 from Google Scholar, and 51 in [place] Library. We considered for inclusion 3 from [...] are 2 high-(1064, 1093) and 5 moderate-quality(1103, 7276-3141) RCTs incorporated in this analysis. There are [...] in Scopus, 0 in CINAHL, 0 in [place] Library, 19 in Google Scholar, and 2 from other sources. We considered for inclusion 75 from PubMed, 0 from Scopus, 0 from CINAHL, 0 from [place]rock Library, 0 Google Scholar, and 2 from [...] splints with all trials showing benefits and qrsu-qu-ijbh trials, suggest there is, as yet, no [...] a modest trend favoring surgery over the terminal gauger supervisor.(777) A trial conducted in the [place] comparing [...] was conducted using PubMed, Scopus, CINAHL and [place] Library without date limits using the following [...] Scopus, five in CINAHL, and 77 in [place] Library. We considered for inclusion 27 from PubMed, eight from Scopus, zero from CINAHL, zero from [place] Library and four from other sources. Of [...]
--- OUTSIDE RECORDS SUMMARY | 2024-05-01 09:20 | XMS_ITS | Clinical Summary ---
Author Organization [employer] Address [address] [facility] [address] [place] [address] Care Team Providers Care Gas Fitter Name Role Phone Unavailable Primary Care Provider [...] morning and at bedtime. 9 Active PEG 6643-UTr-PgCxc-Na Cl-NaSulf (PEG-3350/Electro lytes) 236 g reconstituted solution 2 Active rosuvastatin (Crestor) 10 MG tablet Take 1 tablet by mouth at bed time. 9 Active rosuvastatin (Crestor) 20 MG tablet Take 20 mg by mouth in the morning. 2 Active sodium chloride ([place]) 0.65 % nasal spray use 2 sprays [...] Description 05/04/2024 3:00 PM EDT Office Visit [facility] ADULT D[facility]AL [address] [place] [address] Susana Valdez [address] [place] [address] Health Maintenance Due Date Last Done Comments [...] HPV mRNA E6/E7 Not Detected NOT DETECTED [facility] Comment: This test was performed using the APTIMA(R) HPV Assay ([employer] This assay detects E6/E7 viral messenger RNA (mRNA) from 14 high-risk HPV types (16,18,31,33,35,39,45,51, 52,56,58,59,66,68). For additional information please refer to: http://Amnis.Symwave/faq/TSJ509t2 (This link is being provided for informational/ educational purposes only.) Test Performed by [employer], [facility], [address] [place] [id number] Shakir Zuñiga M.D., Ph.D., Director of Laboratories , [facility] [id number] Please note: ??Effective 10/27/2015, HPV testing will be performed using [employer]'s APTIMA test which targets mRNA. Detecting mRNA instead of DNA, as in older methods, offers significant improvements in specificity. 01/11/2017 1:49 PM EST us Kayce Fernandes CNM HISTORICAL/NON ORDERABLE LABS Final Result [facility] [address] from Last 3 Months or Most Recently Relevant to Health Maintenance Insurance DENTAL-[facility] MEDICAID STAND ADULT [place], [place] [facility] - BCBS DENTAL * Guarantor: Yaneth Becker Account Type Relation to Patient Date of Phone Billing Address Personal/Family Self [place]
--- OUTSIDE RECORDS SUMMARY | 2024-05-01 09:20 | XMS_ITS | Clinical Summary ---
Author Organization [facility] Address [address] [place] [address] Care Team Providers Care Eyeglass Fitter Name Role Phone Unavailable Primary Care [...] 01/06/2013 Imm-Zoster, Recombinant (1 of 2) 01/06/2018 [id number] ( season) 2023 02/20/2021, 07/07/2020, 05/26/2020, Additional history exists Imm-Influenza (#1) 2023 01/01/2021, 0 11/06/2017, 11/18/2016, Additional history exists Alcohol and Drug Screen 02/15/2024 Depression Annual Screen 02/15/2024 Imm-DTaP/Tdap/Td (2 - Td or Tdap) 11/07/2027 11/06/2017, 01/02/2001, 09/03/1996 Cervical Ablation/Cold-Knife Conization Discontinued Cervical Cryotherapy Discontinued Colposcopy Discontinued Endometrial Biopsy Discontinued Excision/Leep Discontinued HPV Genotyping Discontinued Vaginal Pap Discontinued Vulvoscopy Discontinued Insurance [facility] Member Subscriber Plan / Payer (Ef fective 2019-Present) Name:Yaneth Becker Relation to Subscriber:Self Name:Yaneth Becker Payer ID:[id number] Group ID:Not on file Type:Indemnity Address: [facility] [id number] [place] [id number]
--- OUTSIDE RECORDS SUMMARY | 2024-05-01 09:20 | XMS_ITS | Continuity of Care Document ---
Author Organization [facility] Address [address] [place] [address] Phone Care Team Providers Care Financial Representative Name Role Phone Joann La MD Unavailable [...] Diagnoses Date Provider Providers Copied on Encounter [facility], [address], [place], [id number], tel:[phone] [facility] No Information 1 Abhinav David. [address] [place], [place], [id number], [place]. tel:[phone] Referring Provider: Adan Hayes, [address] [place] [address], [address]. tel:[phone] Office/Outpat ient visit, established patient [facility], [address], [place], [id number], [place] tel:[phone] [facility] No Information 1 Abhinav Joann. [address], [place], [id number], [place]. tel:[phone] Referring Provider: Adan Hayes, [address] [place] [address], [address]. tel:[phone] Office/Outpat ient visit, established patient [facility], [address], [place], [id number], [place] tel:[phone] [facility] No Information 0 Abhinav Joann. [address], [place], [id number], [place]. tel:[phone] Referring Provider: Adan Hayes, [address] [place] [address], [address]. tel:[phone] Office/Outpat ient visit, established patient [facility], [address], [place], [id number], [place] tel:[phone] [facility] No Information 0 Abhinav Joann. [address], [place], [id number], [place]. tel:[phone] Referring Provider: Adan Hayes, [address] [place] [address], [address]. tel:[phone] [facility], [address], [place], [id number], [place] tel:[phone] [facility] Trigger finger, right little finger 0 Scott Kalia. [address], [place], [id number], [place]. tel:[phone] Referring Provider: Adan Hayes, [address] [place], [address]. tel:[phone] [facility], [address], [place], [id number], [place] tel:[phone] [facility] Carpal tunnel syndrome, right upper limb 0 Scott Kalia. [address], [place], [id number], [place]. tel:[phone] Referring Provider: Adan Hayes, [facility] [place], [address]. tel:[phone] [facility], [address], [place], [id number], [place] tel:[phone] [facility] No Information 0 Abhinav Joann. [address], [place], [id number], [place]. tel:[phone] Referring Provider: Adan Hayes, [address] [place], [address]. tel:[phone] [facility], [address], [place], [id number], [place] tel:[phone] [facility] Carpal tunnel syndrome, right upper limb 0 Scott Kalia. [address], [place], [id number], [place]. tel:[phone] Referring Provider: Adan Hayes, [address] [place], [address]. tel:[phone] [facility], [address], [place], [id number], [place] tel:[phone] [facility] No Information 0 Abhinav Joann. [address], [place], [id number], . tel:[phone] Referring Provider: Adan Hayes, [facility] [place], [address]. tel:[phone] Office/Outpat ient visit, new patient [facility], [address], [place], [id number], tel:[phone] [facility] Carpal tunnel syndrome, right upper limbLesion of ulnar nerve, right upper limb 0 Abhinav Joann. [address], [place], [id number], [place]. tel:[phone] Referring Provider: Adan Hayes, [address] [place], [address]. tel:[phone] Family History Family Member Type Diagnosis Age At Onset Father Problem (finding) Cancer - stomach Mother Problem (finding) Hypertension Payers Payer name Insurance type Covered democrat ID Authoriza tion(s) No Information Social History [...] from a carpal tunnel release is decrease golf coach strength. The patient will have about half of normal golf coach strength for 1 or 2 months. By about 3 months postoperatively there will be about two-thirds of normal golf coach strength. At anywhere from 4 to 6 months after surgery, one will have somewhere between 75-95% of normal golf coach strength. The risks associated with the surgery [...]
== END 2024-05-01 09:58 | disposition home or self-care (01) ==
LOC: HO.HWS 08:52
PROVIDERS: PCP Internal Medicine; Visit Provider Obstetrics & Gynecology
DX: N90.89 Other specified noninflammatory disorders of vulva and perineum (principal)
CPT/HCPCS: 99213

== ENCOUNTER → 2024-05-01 08:52 | Outpatient (BNVA) | payer BC, SELFPAY | PROVIDERS: PCP Internal Medicine; Visit Provider Obstetrics & Gynecology ==

== ENCOUNTER 2024-05-08 14:06 | Outpatient (REF) | payer BC, MEDICAID, SELFPAY ==
--- NOTE | ~2024-05-08 | US_ITS ---
EXAMINATION: US PELVIS LIMITED HISTORY: N90.89 - noninflammatory disorder of vulva and perineum LEFT EDEMA OF VULVA COMPARISON: Comparison is made with the prior examination dated 05/20/2021. TECHNIQUE: Sonographic examination of the left vulvar area was performed. FINDINGS: There is a vague nonspecific hyperechoic area noted without a defined mass. US/US pelvic limited IMPRESSION: Vague, nonspecific hyperechoic area in the left vulva difficult to characterize. Electronically signed by: Carlos Conley MD 05/09/2024 07:16 AM EDT
--- OUTSIDE RECORDS SUMMARY | 2024-05-08 17:37 | XMS_ITS | Clinical Summary ---
Author Organization [facility] Address [address] [place] [address] Care Team Providers Care Valve Grinder Name Role Phone Unavailable Primary Care Provider Unavailabl e Source Comments PLEASE NOTE, if this patient is a minor, it may be UNLAWFUL to discuss sensitive information that is contained in these records (such as FAMILY PLANNING, MENTAL HEALTH or SUBSTANCE ABUSE) with the minor patient's parent or other person without the patient's specific authorization.[facility] Immunizations Immunization Administration Dates Next Due Moderna COVID-19 Vaccine, [...] 01/06/2013 Imm-Zoster, Recombinant (1 of 2) 01/06/2018 [id number]-[id number]-91 ( season) 2023 02/20/2021, 07/07/2020, 05/26/2020, Additional history exists Imm-Influenza (#1) 2023 01/01/2021, 0 11/06/2017, 11/18/2016, Additional history exists Alcohol and Drug Screen 02/15/2024 Depression Annual Screen 02/15/2024 Imm-DTaP/Tdap/Td (2 - Td or Tdap) 11/07/2027 11/06/2017, 01/02/2001, 09/03/1996 Cervical Ablation/Cold-Knife Conization Discontinued Cervical Cryotherapy Discontinued Colposcopy Discontinued Endometrial Biopsy Discontinued Excision/Leep Discontinued HPV Genotyping Discontinued Vaginal Pap Discontinued Vulvoscopy Discontinued Insurance [facility] Member Subscriber Plan / Payer (Ef fective 2019-Present) Name:Yaneth Becker Relation to Subscriber:Self Name:Yaneth Becker Payer ID:[id number] Group ID:Not on file Type:Indemnity Address: [facility] [id number] [place] [id number]
--- OUTSIDE RECORDS SUMMARY | 2024-05-08 17:37 | XMS_ITS | Continuity of Care Document ---
Author Organization [facility] Address [address] [place] [address] Phone Care Team Providers Care Pourer Metal Name Role Phone Joann La MD Unavailable [...] Diagnoses Date Provider Providers Copied on Encounter [facility], [address], [place], [id number], tel:[phone] [facility] No Information 1 Abhinav David. [address], [place], [id number], [place]. tel:[phone] Referring Provider: Adan Hayes, [address] [place] [address], [address]. tel:[phone] Office/Outpat ient visit, established patient [facility], [address] [place], [place], [id number], [place] tel:[phone] [facility] No Information 1 Abhinav Joann. [address], [place], [id number], [place]. tel:[phone] Referring Provider: Adan Hayes, [address] [place] [address], [address]. tel:[phone] Office/Outpat ient visit, established patient [facility], [address] [place], [place], [id number], [place] tel:[phone] [facility] No Information 0 Abhinav Joann. [address], [place], [id number], [place]. tel:[phone] Referring Provider: Adan Hayes, [address] [place] [address], [address]. tel:[phone] Office/Outpat ient visit, established patient [facility], [address], [place], [id number], [place] tel:[phone] [facility] No Information 0 Abhinav Joann. [address], [place], [id number], [place]. tel:[phone] Referring Provider: Adan Hayes, [address] [place] [address], [address]. tel:[phone] [facility], [address] [place], [place], [id number], [place] tel:[phone] [facility] Trigger finger, right little finger 0 Eddy Kalia. [address], [place], [id number], [place]. tel:[phone] Referring Provider: Adan Hayes, [address] [place], [address]. tel:[phone] [facility], [address], [place], [id number], [place] tel:[phone] [facility] Carpal tunnel syndrome, right upper limb 0 Eddy Kalia. [address], [place], [id number], [place]. tel:[phone] Referring Provider: Adan Hayes, [facility] [place], [address]. tel:[phone] [facility], [address], [place], [id number], [place] tel:[phone] [facility] No Information 0 Abhinav Joann. [address], [place], [id number], [place]. tel:[phone] Referring Provider: Adan Hayes, [address] [place], [address]. tel:[phone] [facility], [address], [place], [id number], [place] tel:[phone] [facility] Carpal tunnel syndrome, right upper limb 0 Eddy Kalia. [address], [place], [id number], [place]. tel:[phone] Referring Provider: Adan Hayes, [address] [place], [address]. tel:[phone] [facility], [address], [place], [id number], [place] tel:[phone] [facility] No Information 0 Abhinav Joann. [address], [place], [id number], . tel:[phone] Referring Provider: Adan Hayes, [facility] [place], [address]. tel:[phone] Office/Outpat ient visit, new patient [facility], [address], [place], [id number], tel:[phone] [facility] Carpal tunnel syndrome, right upper limbLesion of ulnar nerve, right upper limb 0 Abhinav Joann. [address], [place], [id number], [place]. tel:[phone] Referring Provider: Adan Hayes, [address] [place], [address]. tel:[phone] Family History Family Member Type Diagnosis Age [...] from a carpal tunnel release is decrease lining feller strength. The patient will have about half of normal lining feller strength for 1 or 2 months. By about 3 months postoperatively there will be about two-thirds of normal lining feller strength. At anywhere from 4 to 6 months after surgery, one will have somewhere between 75-95% of normal lining feller strength. The risks associated with the surgery [...]
--- OUTSIDE RECORDS SUMMARY | 2024-05-08 17:37 | XMS_ITS | Encounter Summary ---
Author Organization [facility] Address [address] [place] [address] 7t [place] [address] Care Team Providers Care Transmission Line Engineer Name Role Phone Unavailable Primary Care Provider Unavailabl e Reason for Visit * Reason Comments Routine Cleaning Dental Exam x-rays Encounter Details Date Type Department Care Team (Late st Contact Info) Description 05/04/2024 3:00 PM EDT Office Visit [facility] ADULT DENTAL [address] [place] [address] Susana Valdez [address] [place] [address] Dental plaque (Primary Dx); Dental caries; Defective dental catholic Social History Tobacco Use Types Packs/Day Years Used Date Smoking Tobacco: Never Passive Smoke Exposure: Never Smokeless Tobacco: Never Alcohol Use Standard Drinks/Week Comments Never 0 (1 standard drink = 0.6 oz pur e alcohol) Comments Unknown Sex and Gender Information Value Date Recorded Sex Assigned at Female 12/14/2021 10:14 AM EDT Legal Sex Female 10:14 AM EDT Gender Identity Female 12/14/2021 10:14 AM EDT Sexual Orientation Straight 12/14/2021 10 :14 AM EDT documented as of this encounter Last Filed Vital Signs Vital Sign Reading Time Taken Comments Blood Pressure 136/66 05/04/2024 2:48 PM EDT Pulse - - Temperature - - Respiratory Rate - - Oxygen Saturation - - Inhaled Oxygen Concentration - - Weight - - Height - - Body Mass Index - - documented in this encounter Progress Notes * Susana Valdez - 05/04/2024 3:00 PM EDT Patient ID: Yaneth Becker is a 54 y.o. female. Time Out: Timeout Date: 05/04/24, Timeout Time: 1449 (Dental Exam/ Prophylaxis) Location: [facility] Tooth: Maxilla and Mandible Procedure: Exam, X-rays, Prophylaxis, and Perio chart Verified the above with patient, placement assistant, and provider. Confirmed via patient's chart, intraorally and by radiographs. Locomotive Operator: not applicable Medical Hx: Vitals: Blood pressure 136/66. Medications, Med Hx reviewed with patient and updated in chart. Treatment Provided Dental procedures in this visit D1110 - PROPHYLAXIS - ADULT (Completed) Service provider: Susana Valdez Billmercedes provider: Jhon Briggs DDS D1330 - ORAL HYGIENE INSTRUCTIONS (Completed) Service provider: Susana Valdez Billing provider: Jhon Briggs DDS D0274 - BITEWINGS - 4 RADIOGRAPHIC IMAGES (Completed) Service provider: Susana Valdez Billmercedes provider: Jhon Briggs DDS D0220 - INTRAORAL - PERIAPICAL FIRST RADIOGRAPHIC IMAGE 8,9 (Completed) Service provider: Susana Valdez Billing provider: Jhon Briggs DDS D0230 - INTRAORAL - PERIAPICAL EACH ADDITIONAL RADIOGRAPHIC IMAGE 24,25 (Completed) Service provider: Susana Valdez Billmercedes provider: Jhon Briggs DDS Pt's C/C: sensitivity to cold #7 . Instruments Used: Ultrasonic Scalers and Prophy angle Fluoride: N/A Oral Cancer Screening: No lesions Head/Neck Exam: No Lesions Calculus: None Plaque: Light Stain: trace Bleeding: Light on lower anteriors Gingiva: pink OH: Fair Perio Chart: not due yet Oral hygiene instructions provided to patient including brushing technique and flossing. Recommendations: Manning two times daily, modified macedo technique, Floss daily, Electric toothbrush, Soft bristle toothbrush, Manning Tongue, Anti-sensitivity toothpaste Recall Frequency: 6 mo NV: prophy in 6 months Hygienist: Susana Valdez RDH * Jhon Briggs DDS - 05/04/2024 3:00 PM EDT Dental procedures in this visit D1110 - PROPHYLAXIS - ADULT (Completed) Service provider: Susana Valdez Billmercedes provider: Jhon Briggs DDS D1330 - ORAL HYGIENE INSTRUCTIONS (Completed) Service provider: Susana Valdez Billmercedes provider: Jhon Briggs DDS D0274 - BITEWINGS - 4 RADIOGRAPHIC IMAGES (Completed) Service provider: Susana Valdez Billing provider: Jhon Briggs DDS D0220 - INTRAORAL - PERIAPICAL FIRST RADIOGRAPHIC IMAGE 8,9 (Completed) Service provider: Susana Valdez Billing provider: Jhon Briggs DDS D0230 - INTRAORAL - PERIAPICAL EACH ADDITIONAL RADIOGRAPHIC IMAGE 24,25 (Completed) Service provider: Susana Valdez Billmercedes provider: Jhon Briggs DDS D0120 - PERIODIC ORAL EVALUATION - ESTABLISHED PATIENT (Completed) Service provider: Jhon Briggs DDS Billing provider: Jhon Briggs DDS Patient ID: Yaneth Becker is a 54 y.o. female. Time Out: Timeout Date: 05/04/24, Timeout Time: 1449 (Dental Exam/ Prophylaxis) Location: [facility] Tooth: Maxilla and Mandible Procedure: Exam, X-rays, and Prophylaxis Verified the above with patient, placement assistant, and provider. Confirmed via patient's chart, intraorally and by radiographs. Locomotive Operator: not applicable Chief Complaint Patient presents with Routine Cleaning Dental Exam x-rays Medical Hx: Vitals: Blood pressure 136/66. Past Medical History: Diagnosis Date Anemia High blood pressure High cholesterol Parathyroid adenoma discovered 2023, Pt is pending surgery to remove lower right parathyroid. Medications: Outpatient Encounter Medications as of 05/04/2024 Medication Sig Dispense Refill metoprolol succinate XL (Toprol-XL) 50 MG 24 hr tablet Take 50 mg by mouth in the morning. rosuvastatin (Crestor) 20 MG tablet Take 20 mg by mouth in the morning. amLODIPine (Norvasc) 2.5 MG tablet Take 2.5 mg by mouth in the morning. (Patient not taking: Reported on 05/04/2024) amLODIPine (Norvasc) 2.5 MG tablet Take 2.5 mg by mouth. (Patient not taking: Reported on 05/04/2024) aspirin 81 MG EC tablet Take 81 mg by mouth. (Patient not taking: Reported on 05/04/2024) atorvastatin (Lipitor) 20 MG tablet Take 20 mg by mouth. (Patient not taking: Reported on 05/04/2024) cyclobenzaprine (Flexeril) 10 MG tablet TAKE 1 TABLET BY MOUTH AT BEDTIME NEEDED FOR MUSCLE SPASM (Patient not taking: Reported on 05/04/2024) fluticasone (Flonase) 50 MCG/ACT nasal spray Administer 2 sprays into affected nostril(s). (Patientnot taking: Reported on 05/04/2024) meclizine (Antivert) 25 MG tablet Take 1 tablet by mouth in the morning and 1 tablet at noon and 1 tablet in the evening. (Patient not taking: Reported on 05/04/2024) metoprolol tartrate (Lopressor) 50 MG tablet Take 50 mg by mouth. (Patient not taking: Reported on 05/04/2024) naproxen (Naprosyn) 500 MG tablet Take 1 tablet by mouth if needed in the morning and at bedtime. (Patient not taking: Reported on 05/04/2024) PEG 0342-CQy-XgEum-NaCl-NaSulf (PEG-3350/Electrolytes) 236 g reconstituted solution (Patient not taking: Reported on 05/04/2024) rosuvastatin (Crestor) 10 MG tablet Take 1 tablet by mouth at bed time. (Patient not taking: Reported on 05/04/2024) sodium chloride ([place]) 0.65 % nasal spray use 2 sprays in each nostril every 4 hours as needed (Patient not taking: Reported on 05/04/2024) No facility-administered encounter medications on file as of 05/04/2024. Objective HPI Mild sensitivity on right anterior maxillae Head and Neck Exam: Lymph Nodes, Lips, Palate, Buccal Mucosa, Floor of Mouth, Tongue, Tonsils, Alveolar Ridges, Oropharynx, Salivary Ducts, and Vestibules normal appearance . Details: Skin WNL OCS: negative Dental Exam As charted Plaque Caries Multiple teeth restored T # 5 existing amalgam fractured on mesial T # 7 potential Reference tooth chart for additional findings. Oral Cancer Risk: Moderate Risk family cancer HX Oral Hygiene Instructions: Manning two times daily, modified macedo technique, Floss daily, Electric toothbrush, Soft bristle toothbrush, Manning Tongue, Anti- sensitivity toothpaste Caries Risk Assessment: Medium- one risk factor Assessment/Plan Patient tolerated procedure well, all questions answered and expressed understanding. Dismissed in good condition. NV: Chucky Armament Mechanic: Susana Valdez RDH Dentist: Jhon Briggs DDS documented in this encounter Plan of Treatment Upcoming Encounters Date Type Department Care Team (Late st Contact Info) Description 06/19/2024 10:00 AM EDT Office Visit [facility] ADULT DENTAL [address] [place] [address] Jhon Briggs DDS [address] [place] [address] 11/06/2024 3:00 PM EDT Office Visit [facility] ADULT DENTAL [address] [place] [address] Susana Valdez [address] [place] [address] Scheduled Orders Name Type Priority Associated Diagnoses Orde r Schedule ORAL HYGIENE INSTRUCTIONS Dental Routine 1 Occurrences starting 05/04/2024 documented as of this encounter Procedures Procedure Name Priority Date/Time Associated Diagnosis Comments PROPHYLAXIS - ADULT Routine 05/04/2024 3 :00 PM EDT Dental plaque PERIODIC ORAL EVALUATION - ESTABLISHED PATIENT Routine 05/04/2024 3:00 PM EDT ORAL HYGIENE INSTRUCTIONS Routine 2024 3:00 PM EDT Dental plaque 8,9 INTRAORAL - PERIAPICAL FIRST RADIOGRAPHIC IMAGE Routine 05/04/2024 3:00 PM EDT Dental plaque 24,25 INTRAORAL - PERIAPICAL EACH ADDITIONAL RADIOGRAPHIC IMAGE Routine 05/04/2024 3:00 PM EDT Dental plaque BITEWINGS - 4 RADIOGRAPHIC IMAGES Routine 05/04/2024 3:00 PM EDT Dental plaque documented in this encounter Visit Diagnoses Diagnosis Dental plaque- Primary Accretions on teeth Dental caries Unspecified dental caries Defective dental catholic Unspecified unsatisfactory catholic of tooth documented in this encounter
--- OUTSIDE RECORDS SUMMARY | 2024-05-08 17:37 | XMS_ITS | Clinical Summary ---
Author Organization [employer] Address [address] [place] [address] Care Team Providers Care Estate Attorney Name Role Phone Unavailable Primary Care Provider [...] morning and at bedtime. 9 Active PEG 0924-QUb-GbCqb-Na Cl-NaSulf (PEG-3350/Electro lytes) 236 g reconstituted solution 2 Active rosuvastatin (Crestor) 10 MG tablet Take 1 tablet by mouth at bed time. 9 Active rosuvastatin (Crestor) 20 MG tablet Take 20 mg by mouth in the morning. 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 Dental plaque 11/03/2023 Dental calculus 11/03/2023 Normal oral exam 11/03/2023 Migraine 08/03/2011 Anemia 07/14/2011 Depressive disorder 07/14/2011 Hyperlipidemia 07/14/2011 Hypertension 07/14/2011 Encounters Date Type Department Care Team Description 05/04/2024 3:00 PM EDT Office Visit [facility] ADULT DENTAL [address] [place] [address] Susana Valdez Dental plaque (Primary Dx); Dental caries; Defective dental sabianism from Last 3 Months Immunizations Name Administration Dates Next Due Hep B, Adolescent or Pediatric 12/29/2006,2006,07/20/2006 Influenza Injectable Quadriv alant Preservative Free IIV4 MDCK 01/01/2021 Influenza injectable quadriv alent preservative free 11/06/2017 Influenza, IIV3, injectable 12/11/2013, 1,10/14/2009 Influenza, Split (incl. uriel fied surface antigen) 01/31/2013 Influenza, seasonal, injecta ble, preservative free 11/18/2016,12/03/2015,12/28/2014 Moderna Covid-19 Vaccine 12+ 07/07/2020 TD (adult), 2 Lf tetanus tox oid, [...] Pressure 136/66 05/04/2024 2:48 PM EDT Pulse 60 11/03/2023 1:07 PM EDT Temperature - - Respiratory Rate - - Oxygen Saturation - - Inhaled Oxygen Concentration - - Weight - - Height - - Body Mass Index - - Plan of Treatment Upcoming Encounters Date Type Department Care Team (Late st Contact Info) Description 06/19/2024 10:00 AM EDT Office Visit [facility] ADULT DENTAL [address] [place] [address] Jhon Briggs, DDS [address] [place] [address] 11/06/2024 3:00 PM EDT Office Visit [facility] ADULT DENT[facility] [address] [place] [address] Susana Valdez [address] [place] [address] Health Maintenance Due Date Last Done Comments [...] Years (1 of 1 - PCV) 01/06/2018 Mammogram 04/18/2020 04/18/2018, 01/14/2017 Cervical Cancer Screening 01/11/2022 HPV/Cotest 01/11/2022 01/11/2017 COVID-19 Vaccine ( season) 2023 01/13/2023, 02/20/2021, 07/07/2020, Additional history exists Dental Oral Exam 11/05/2024 05/04/2024, , 03/14/2023, Additional history exists Dental Prophylaxis 11/05/2024 05/04/2024, 0 11/03/2023, 03/14/2023, Additional history exists Tobacco Screening 05/04/2025 05/04/2024 Dental X-Ray: Bitewings 05/05/2025 05/05/19 25, 11/03/2023, 02/04/2022 Dental X-Ray: Full Mouth 09/05/2025 09/04/2020 DTaP/Tdap/Td Vaccines (2 - Td or Tdap) 11/07/2027 11/06/2017, 01/02/2001, 09/03/1996 RSV Patients and Patients Aged 60 years or older (1 - 1-dose 75+ series) 01/06/2043 Influenza Vaccine Completed 01/19/2024, , 01/01/2021, Additional history exists Zoster Vaccines Completed 03/27/2024, 01/19/2024 HIB Vaccines Aged Out No longer eligi [...] Procedure Name Priority Date/Time Associated Diagnosis Comments PERIODIC ORAL EVALUATION - ESTABLISHED PATIENT Routine 05/04/2024 3:00 PM EDT 24,25 INTRAORAL - PERIAPICAL EACH ADDITIONAL RADIOGRAPHIC IMAGE Routine 05/04/2024 3:00 PM EDT Dental plaque 8,9 INTRAORAL - PERIAPICAL FIRST RADIOGRAPHIC IMAGE Routine 05/04/2024 3:00 PM EDT Dental plaque BITEWINGS - 4 RADIOGRAPHIC IMAGES Routine 05/04/2024 3:00 PM EDT Dental plaque ORAL HYGIENE INSTRUCTIONS Routine 05/04/2024 3:00 PM EDT Dental plaque PROPHYLAXIS - ADULT Routine 05/04/2024 3 :00 PM EDT Dental plaque BI MAMMOGRAM SCREENING BILATERAL Routine 04/18/2018 10:08 [...] DORIAN SCR MAMMO 1 Procedure Note Provider, MD Sivakumar - 05/08/2022 Refer to the Notes tab for result details Legacy Procedure: 3D DIGITAL DORIAN SCR MAMMO 1 Tahira Hairston MD [facility] BI PROCEDURES Final Result * HPV mRNA E6/E7 (01/11/2017 1:49 PM EST) HPV mRNA E6/E7 Not Detected NOT DETECTED [facility] Comment: This test was performed using the APTIMA(R) HPV Assay ([employer] This assay detects E6/E7 viral messenger RNA (mRNA) from 14 high-risk HPV types (16,18,31,33,35,39,45,51, 52,56,58,59,66,68). For additional information please refer to: http://education.BlikBook.ClearCycle/faq/OEW343z4 (This link is being provided for informational/ educational purposes only.) Test Performed by [employer], [facility], [address] [place] [address] Shakir Zuñiga M.D., Ph.D., Director of Laboratories , [place] [id number] Please note: ??Effective 10/27/2015, HPV testing will be performed using [employer]'s APTIMA test which targets mRNA. Detecting mRNA instead of DNA, as in older methods, offers significant improvements in specificity. 01/11/2017 1:49 PM EST Kayce Fernandes CNM HISTORICAL/NON ORDERABLE LABS Final Result [facility] [address] [place] [address], from Last 3 Months or Most Recently Relevant to Health Maintenance Insurance [place] - BCBS DENTAL
--- OUTSIDE RECORDS SUMMARY | 2024-05-08 17:37 | XMS_ITS | Encounter Summary ---
Author Organization [employer] [facility] Address [address] [place] [address] Care Team Providers Care Qa Intern Name Role Phone Unavailable Primary Care Provider Unavailabl e Encounter Details Date Type Department Care Team (Latest Contact Info) Description 09/12/2020 Abstract [facility] CONVERSIONS Dental, Provider, DDS Social History Tobacco [...] Description 06/19/2024 10:00 AM EDT Office Visit [facility] ADULT DENTAL [address] [place] [address] Jhon Briggs DDS [address] [place] [address] 11/06/2024 3:00 PM EDT Office Visit [facility] ADULT DENTAL [address] [place] [address] Jarret Valdezaris [address] [place] [address] documented as of this encounter Visit Diagnoses Not on filedocumented in this encounter
--- OUTSIDE RECORDS SUMMARY | 2024-05-08 17:37 | XMS_ITS | Encounter Summary ---
Author Organization [employer] [facility] Address [address] [facility] [address] [place] [address] Care Team Providers Care Senior Business Development Manager Name Role Phone Unavailable Primary Care Provider Unavailabl e Encounter Details Date Type Department Care Team (Latest Contact Info) Description 07/17/2021 Abstract [facility] CONVERSIONS Dental, Provider, DDS Social History [...] Description 06/19/2024 10:00 AM EDT Office Visit [facility] ADULT DENTAL [address] [place] [address] Jhon Briggs DDS [address] [place] [address] 11/06/2024 3:00 PM EDT Office Visit [facility] ADULT DENTAL [address] [place] [address] Jarret Valdezaris [address] [place] [address] documented as of this encounter Visit Diagnoses Not on filedocumented in this encounter
--- OUTSIDE RECORDS SUMMARY | 2024-05-08 17:37 | XMS_ITS | Continuity of Care Document ---
Author Organization [facility] Address [address] [place] [address] Phone Care Team Providers Care Pricing Director Name Role Phone Abhinav HALL, Joann Unavailable [...] on Encounter Office/Outpat ient visit, new patient [facility], [address] [place], [place], [id number], tel:[phone] [facility] Carpal tunnel syndrome, left upper limbRadial styloid tenosynovitis [de Quervain] 1 Abhinav David. [address] [place], [place], [id number], [place]. tel:[phone] Referring Provider: Josiah Cummings, [employer] [place], [address]. tel:[phone] Family History Family Member Type Diagnosis Age At Onset Mother Problem (finding) Hypertension Payers Payer name Insurance type Covered libertarian ID Authoriza tion(s) [facility] [id number] Social History Type Description Quantity Date Captured [...] are 3 moderate-quality RCT incorporated into this analysis.([id number]) (Braxton 14; Izzy 10)A comprehensive literature search [...] 295 from Google Scholar, and 51 in [place] Star Library. We considered for inclusion 3 from [...] are 2 high-(1064, 1093) and 5 moderate-quality(1103, 6236-2667) RCTs incorporated in this analysis. There are [...] in Scopus, 0 in CINAHL, 0 in [place] Library, 19 in Google Scholar, and 2 from other sources. We considered for inclusion 75 from PubMed, 0 from Scopus, 0 from CINAHL, 0 from [place] Library, 0 Google Scholar, and 2 from [...] splints with all trials showing benefits and [id number] trials, suggest there is, as yet, no [...] modest trend favoring surgery over the terminal carman.(777) A trial conducted in the [place] comparing [...] was conducted using PubMed, Scopus, CINAHL and [place] Library without date limits using the following [...] Scopus, five in CINAHL, and 77 in [place] Library. We considered for inclusion 27 from PubMed, eight from Scopus, zero from CINAHL, zero from [place] Library and four from other sources. Of [...]
== END 2024-05-08 14:07 | disposition home or self-care (01) ==
LOC: HO.HMGCX 14:06
PROVIDERS: PCP Internal Medicine; Visit Provider Obstetrics & Gynecology
DX: N90.89 Other specified noninflammatory disorders of vulva and perineum (principal)
CPT/HCPCS: 76857

== ENCOUNTER → 2024-05-08 14:13 | Outpatient (BNV) | payer BC, MEDICAID, SELFPAY | PROVIDERS: PCP Internal Medicine; Visit Provider Radiology Diagnostic Radiology | DX: N90.89 Other specified noninflammatory disorders of vulva and perineum (principal) | CPT/HCPCS: 76857 ==

== ENCOUNTER 2024-05-10 14:54 | Outpatient (AMB) | payer BC, MEDICAID, SELFPAY ==
--- NOTE | 2024-05-10 15:20 | MHC.OFFVIS ---
Vital Signs 05/10/24 15:22 Height 5 ft 4 in Weight 159 lb BMI 27.3 Intake Visit Reasons: u/s results Planning Technician Required: No Planning Technician Name: Sailaja VIVEROS Information Interpreted: non-clinical & clinical All Terrain Vehicle Technician: All Terrain Vehicle Technician Present (Sailaja VIVEROS) Accompanied by: Self / Same As Patient Allergies pork derived (porcine) [PORK DERIVED (PORCINE)] Allergy (Severe, Verified 05/10/24 15:23) RASH Post menopausal: Yes HPI Comments Details: Presenting for follow-up after perineal ultrasound showed the following: IMPRESSION: Vague, nonspecific hyperechoic area in the left vulva difficult to characterize. The patient had left vulvar abscess with cellulitis that was I&D and treated with Augmentin for 7 day, culture grew MRSA, the cellulitis in the abscess improved but the patient developed left sided lump. Since then the patient feels that her lump has gotten much smaller. No pain, or swelling, no tenderness or redness PFSH Medical History Hyperparathyroidism Ovarian cyst Migraine headache Anemia Hypercholesterolemia Hypertension Surgical History Hx of colonoscopy Status post cardiac catheterization Tubal ligation status H/O breast biopsy Family History Sister Breast CA, Onset Age: 37 Family/Other Breast CA Mother HTN (hypertension) Hyperlipidemia Father Suicide Maternal Aunt Colon cancer Social History Household Members: Spouse and Children Household Members Other:: 4 Housing: House Do you presently have visiting nurse or other home services: No Alcohol intake: current Alcohol intake frequency: a few times a month Patient Tobacco Use Status: Former Tobacco user Years Smoked: 3 +/- Substance Use Type: Caffiene service: No Current occupational status: employed 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 Sexual orientation: Straight/Heterosexual Gender identity: Female Female Reproductive History Menstrual Age of Menarche: 13 Review of Systems Const All systems reviewed & are unremarkable except as noted in HPI and below Physical Exam Vital Signs: BMI result Body Mass Index 27.3 General: Yes no CVA tenderness External Female Exam: normal external appearance and normal appearance of the urethra Speculum Exam - Vagina: normal appearance of the vagina, normal palpation, no lesions and no masses Speculum Exam - Cervix: normal appearance of the cervix, normal palpation, no lesions, no masses and nontender Bimanual exam- vagina & uterus: normal bimanual exam, normal palpation, uterine size normal, normal palpation, uterine shape normal, No Cervical tenderness present and non-tender Bimanual Exam- Adnexa, other: normal adnexae Back/Spine/Pelvis Back: no CVA tenderness Assessment & Plan Assessment & Plan (1) Swelling of vulva: Comment: Resolved Code(s): N90.89 - Other specified noninflammatory disorders of vulva and perineum Category: Medical Plan: Discussed with the patient the finding on pelvic exam on ultrasound, resolved left mons pubic swelling status post IUD, recommended repeat inspection in few weeks to confirm the findings. Instructions given the patient to call in case of redness, fever swelling or any other concerns Coding Level of Care Code Est Pt Level 3 (76804) Diagnoses Swelling of vulva N90.89
[2024-05-10 15:22] VITALS: BMI 27.3
--- OUTSIDE RECORDS SUMMARY | 2024-05-10 18:34 | XMS_ITS | Clinical Summary ---
Author Organization [employer] Address [address] [facility] [address] [place] [address] Care Team Providers Care Account Processor Name Role Phone Unavailable Primary Care Provider [...] morning and at bedtime. 9 Active PEG 8466-SCc-WnBpi-Na Cl-NaSulf (PEG-3350/Electro lytes) 236 g reconstituted solution 2 Active rosuvastatin (Crestor) 10 MG tablet Take 1 tablet by mouth at bed time. 9 Active rosuvastatin (Crestor) 20 MG tablet Take 20 mg by mouth in the morning. 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 Dental plaque 11/03/2023 Dental calculus 11/03/2023 Normal oral exam 11/03/2023 Migraine 08/03/2011 Anemia 07/14/2011 Depressive disorder 07/14/2011 Hyperlipidemia 07/14/2011 Hypertension 07/14/2011 Encounters Date Type Department Care Team Description 05/04/2024 3:00 PM EDT Office Visit [facility] ADULT DENTAL [address] [place] [address] Susana Valdez Dental plaque (Primary Dx); Dental caries; Defective dental taoist from Last 3 Months Immunizations Name Administration [...] Description 06/19/2024 10:00 AM EDT Office Visit [facility] ADULT DENTAL [address] [place] [address] Jhon Briggs, DDS [address] [place] [address] 11/06/2024 3:00 PM EDT Office Visit [facility] ADULT DENTAL [address] [place] [address] Susana Valdez [address] [place] [address] Health Maintenance Due Date Last Done Comments [...] topic Meningococcal Vaccine Aged Out No sandra smiran eligible based on patient's age to complete [...] DORIAN SCR MAMMO 1 Tahira Hairston MD [facility] BI PROCEDURES Final Result * HPV mRNA E6/E7 (01/11/2017 1:49 PM EST) HPV mRNA E6/E7 Not Detected NOT DETECTED [facility] Comment: This test was performed using the APTIMA(R) HPV Assay ([employer] This assay detects E6/E7 viral messenger RNA (mRNA) from 14 high-risk HPV types (16,18,31,33,35,39,45,51, 52,56,58,59,66,68). For additional information please refer to: http://education.Zeo.Maktoob/faq/FVX670v7 (This link is being provided for informational/ educational purposes only.) Test Performed by [employer], [facility], [address] [place] [address] Shakir Zuñiga M.D., Ph.D., Director of Laboratories , [place] [id number] Please note: ??Effective 10/27/2015, HPV testing will be performed using [employer]'s APTIMA test which targets mRNA. Detecting mRNA instead of DNA, as in older methods, offers significant improvements in specificity. 01/11/2017 1:49 PM EST Kayce Fernandes CNM HISTORICAL/NON ORDERABLE LABS Final Result [facility] [address] [place] [address], from Last 3 Months or Most Recently Relevant to Health Maintenance Insurance [place] DENTAL - BCBS DENTAL
--- OUTSIDE RECORDS SUMMARY | 2024-05-10 18:34 | XMS_ITS | Continuity of Care Document ---
Author Organization [facility] Includes [facility] Address [address] [place] [address] Phone Care Team Providers Care Remediation Technician Name Role Phone Abhinav HALL, Joann Unavailable [...] on Encounter Office/Outpat ient visit, new patient Count Includes [facility], [address] [place], [place], [id number], tel:[phone] Count Includes [facility] Carpal tunnel syndrome, left upper limbRadial styloid tenosynovitis [de Quervain] 1 Abhinav David. [address] [place], [place], [id number], [place]. tel:[phone] Referring Provider: Josiah Cummings, [facility] [place], [address]. tel:[phone] Family History Family Member Type Diagnosis Age At Onset Mother Problem (finding) Hypertension Payers Payer name Insurance type Covered republican ID Authoriza tion(s) [facility] [id number] Social History Type Description Quantity Date Captured [...] are 3 moderate-quality RCT incorporated into this analysis.([id number]) (Braxton 14; Izzy 10)A comprehensive literature search [...] 295 from Google Scholar, and 51 in [place] Library. We considered for inclusion 3 from [...] are 2 high-(1064, 1093) and 5 moderate-quality(1103, 2434-4673) RCTs incorporated in this analysis. There are [...] in Scopus, 0 in CINAHL, 0 in [place] Library, 19 in Google Scholar, and 2 from other sources. We considered for inclusion 75 from PubMed, 0 from Scopus, 0 from CINAHL, 0 from [place] Library, 0 Google Scholar, and 2 from [...] splints with all trials showing benefits and knsc-fw-jate trials, suggest there is, as yet, no [...] a modest trend favoring surgery over the goods layer.(777) A trial conducted in the [place] comparing [...] was conducted using PubMed, Scopus, CINAHL and [place] Library without date limits using the following [...] Scopus, five in CINAHL, and 77 in [place] Library. We considered for inclusion 27 from PubMed, eight from Scopus, zero from CINAHL, zero from [place] Library and four from other sources. Of [...]
--- OUTSIDE RECORDS SUMMARY | 2024-05-10 18:34 | XMS_ITS | Encounter Summary ---
Author Organization [facility] Address [address] [place] [address] [address]t [place] [address] Care Team Providers Care Canopy Inspector Name Role Phone Unavailable Primary Care Provider Unavailabl e Reason for Visit * Reason Comments Routine Cleaning Dental Exam x-rays Encounter Details Date Type Department Care Team (Late st Contact Info) Description 05/04/2024 3:00 PM EDT Office Visit [facility] ADULT DENTAL [address] [place] [address] Susana Valdez [address] [place] [address] Dental plaque (Primary Dx); Dental caries; Defective dental oriental orthodox Social History Tobacco Use Types Packs/Day Years [...] Timeout Time: 1449 (Dental Exam/ Prophylaxis) Location: [facility] Tooth: Maxilla and Mandible Procedure: Exam, X-rays, Prophylaxis, and Perio chart Verified the above with patient, bankruptcy assistant, and provider. Confirmed via patient's chart, intraorally and by radiographs. Geodetic Computator: not applicable Medical Hx: Vitals: Blood pressure [...] patient including brushing technique and flossing. Recommendations: [place] two times daily, modified [place] technique, Floss daily, Electric toothbrush, Soft bristle toothbrush, [place] Tongue, Anti-sensitivity toothpaste Recall Frequency: 6 mo [...] Timeout Time: 1449 (Dental Exam/ Prophylaxis) Location: [facility] Tooth: Maxilla and Mandible Procedure: Exam, X-rays, and Prophylaxis Verified the above with patient, bankruptcy assistant, and provider. Confirmed via patient's chart, intraorally and by radiographs. Geodetic Computator: not applicable Chief Complaint Patient presents with [...] (Patient not taking: Reported on 05/04/2024) PEG 5850-TTp-PaYla-NaCl-NaSulf (PEG-3350/Electrolytes) 236 g reconstituted solution (Patient not taking: Reported on 05/04/2024) rosuvastatin (Crestor) 10 MG tablet Take 1 tablet by mouth at bed time. (Patient not taking: Reported on 05/04/2024) sodium chloride ([place]) 0.65 % nasal spray use 2 sprays [...] Risk family cancer HX Oral Hygiene Instructions: [place] two times daily, modified [place] technique, Floss daily, Electric toothbrush, Soft bristle toothbrush, [place] Tongue, Anti- sensitivity toothpaste Caries Risk Assessment: Medium- one risk factor Assessment/Plan Patient tolerated procedure well, all questions answered and expressed understanding. Dismissed in good condition. NV: Chucky Geospatial Imagery Intelligence Analyst: Susana Valdez RDH Dentist: Jhon Briggs DDS documented in this encounter Plan of Treatment Upcoming Encounters Date Type Department Care Team (Late st Contact Info) Description 06/19/2024 10:00 AM EDT Office Visit [facility] ADULT DENTAL [address] [place] [address] Jhon Briggs DDS [address] [place] [address] 11/06/2024 3:00 PM EDT Office Visit [facility] ADULT DENTAL [address] [place] [address] Susana Valdez [address] [place] [address] Scheduled Orders Name Type Priority Associated Diagnoses [...] Dental caries Unspecified dental caries Defective dental oriental orthodox Unspecified unsatisfactory oriental orthodox of tooth documented in this encounter
--- OUTSIDE RECORDS SUMMARY | 2024-05-10 18:34 | XMS_ITS | Encounter Summary ---
Author Organization [facility] Address [address] [facility] 7t [place] [address] Care Team Providers Care Educational Speech Language Clinician Name Role Phone Unavailable Primary Care Provider Unavailabl e Encounter Details Date Type Department Care Team (Latest Contact Info) Description 09/12/2020 Abstract [facility] CONVERSIONS Dental, Provider, DDS Social [...] Description 06/19/2024 10:00 AM EDT Office Visit [facility] ADULT DENTAL [address] [place] [address] Jhon Briggs DDS [address] [place] [address] 11/06/2024 3:00 PM EDT Office Visit [facility] ADULT DENTAL [address] [place] [address] Jarret Valdezaris [address] [place] [address] documented as of this encounter Visit Diagnoses Not on filedocumented in this encounter
--- OUTSIDE RECORDS SUMMARY | 2024-05-10 18:34 | XMS_ITS | Continuity of Care Document ---
Author Organization [facility] Address [address] [place] [address] Phone Care Team Providers Care Production Lapping Machine Operator Name Role Phone Joann La MD [...] Provider Providers Copied on Encounter [facility], [address], [place], [id number], tel:[phone] [facility] No Information 1 Abhinav David. [address] [place], [place], [id number], [place]. tel:[phone] Referring Provider: Adan Hayes, [address] [place] [address], [address]. tel:[phone] Office/Outpat ient visit, established patient [facility], [address], [place], [id number], [place] tel:[phone] [facility] No Information 1 Abhinav Joann. [address], [place], [id number], [place]. tel:[phone] Referring Provider: Adan Hayes, [address] [place] [address], [address]. tel:[phone] Office/Outpat ient visit, established patient [facility], [address], [place], [id number], [place] tel:[phone] [facility] No Information 0 Abhinav Joann. [address], [place], [id number], [place]. tel:[phone] Referring Provider: Adan Hayes, [address] [place] [address], [address]. tel:[phone] Office/Outpat ient visit, established patient [facility], [address], [place], [id number], [place] tel:[phone] [facility] No Information 0 Abhinav Joann. [address], [place], [id number], [place]. tel:[phone] Referring Provider: Adan Hayes, [address] [place] [address], [address]. tel:[phone] [facility], [address], [place], [id number], [place] tel:[phone] [facility] Trigger finger, right little finger 0 [place] Kalia. [address], [place], [id number], [place]. tel:[phone] Referring Provider: Adan Hayes, [address] [place], [address]. tel:[phone] [facility], [address], [place], [id number], [place] tel:[phone] [facility] Carpal tunnel syndrome, right upper limb 0 [place]. [address], [place], [id number], [place]. tel:[phone] Referring Provider: Adan Hayes, [facility] [place], [address]. tel:[phone] [facility], [address], [place], [id number], [place] tel:[phone] [facility] No Information 0 Abhinav Joann. [address], [place], [id number], [place]. tel:[phone] Referring Provider: Adan Hayes, [address] [place], [address]. tel:[phone] [facility], [address], [place], [id number], [place] tel:[phone] [facility] Carpal tunnel syndrome, right upper limb 0 [place]. [address], [place], [id number], [place]. tel:[phone] Referring Provider: Adan Hayes, [address] [place], [address]. tel:[phone] [facility], [address], [place], [id number], [place] tel:[phone] [facility] No Information 0 Abhinav Joann. [address], [place], [id number], . tel:[phone] Referring Provider: Adan Hayes, [facility] [place], [address]. tel:[phone] Office/Outpat ient visit, new patient [facility], [address], [place], [id number], tel:[phone] [facility] [place] [facility] Carpal tunnel syndrome, right upper limbLesion of ulnar nerve, right upper limb 0 Abhinav Joann. [address], [place], [id number], [place]. tel:[phone] Referring Provider: Adan Hayes, [address] [place], [address]. tel:[phone] Family History Family Member Type Diagnosis Age [...] from a carpal tunnel release is decrease hot die press feeder strength. The patient will have about half of normal hot die press feeder strength for 1 or 2 months. By about 3 months postoperatively there will be about two-thirds of normal hot die press feeder strength. At anywhere from 4 to 6 months after surgery, one will have somewhere between 75-95% of normal hot die press feeder strength. The risks associated with the surgery [...]
--- OUTSIDE RECORDS SUMMARY | 2024-05-10 18:34 | XMS_ITS | Clinical Summary ---
Author Organization [facility] Address [address] [place] [address] Care Team Providers Care Market Basket Maker Name Role Phone Unavailable Primary Care Provider [...] 01/06/2013 Imm-Zoster, Recombinant (1 of 2) 01/06/2018 [id number] ( season) 2023 02/20/2021, 07/07/2020, 05/26/2020, Additional history exists Imm-Influenza (#1) 2023 01/01/2021, 0 11/06/2017, 11/18/2016, Additional history exists Alcohol and Drug Screen 02/15/2024 Depression Annual Screen 02/15/2024 Imm-DTaP/Tdap/Td (2 - Td or Tdap) 11/07/2027 11/06/2017, 01/02/2001, 09/03/1996 Cervical Ablation/Cold-Knife Conization Discontinued Cervical Cryotherapy Discontinued Colposcopy Discontinued Endometrial Biopsy Discontinued Excision/Leep Discontinued HPV Genotyping Discontinued Vaginal Pap Discontinued Vulvoscopy Discontinued Insurance [facility] Member Subscriber Plan / Payer (Ef fective 2019-Present) Name:Yaneth Becker Relation to Subscriber:Self Name:Yaneth Becker Payer ID:[id number] Group ID:Not on file Type:Indemnity Address: [facility] [id number] [place] [id number]
--- OUTSIDE RECORDS SUMMARY | 2024-05-10 18:34 | XMS_ITS | Encounter Summary ---
Author Organization [facility] Address [address] 7[address] [place] [address] Care Team Providers Care Accountant Supervisor Name Role Phone Unavailable Primary Care Provider Unavailabl e Encounter Details Date Type Department Care Team (Latest Contact Info) Description 07/17/2021 Abstract [facility] Dental, Provider, DDS Social History Tobacco [...] 06/19/2024 10:00 AM EDT Office Visit [facility] [address] [place] [address] Jhon Briggs DDS [address] [place] [address] 11/06/2024 3:00 PM EDT Office Visit [facility] [address] [place] [address] Jarret Valdezaris [address] [place] [address] documented as of this encounter Visit Diagnoses Not on filedocumented in this encounter
== END 2024-05-10 15:45 | disposition home or self-care (01) ==
LOC: HO.HWS 14:54
PROVIDERS: PCP Internal Medicine; Visit Provider Obstetrics & Gynecology
DX: N90.89 Other specified noninflammatory disorders of vulva and perineum (principal)
CPT/HCPCS: 99213

== ENCOUNTER 2024-07-05 07:57 | Outpatient (REF) | payer BC, MEDICAID, SELFPAY ==
--- OUTSIDE RECORDS SUMMARY | 2024-07-05 09:06 | XMS_ITS | Encounter Summary ---
Author Organization [facility] Address [address] [facility] [address] 7t [place] [address] Care Team Providers Care Hose Handler Name Role Phone Unavailable Primary Care Provider Unavailabl e Encounter Details Date Type Department Care Team (Latest Contact Info) Description 07/17/2021 Abstract [facility] Dental, Provider, DDS Social History [...] Care Team (Late st Contact Info) Description 11/06/2024 3:00 PM EDT Office Visit [facility] [address] [place] [address] Susana Valdez [address] [place] [address] documented as of this encounter Visit Diagnoses Not on filedocumented in this encounter
--- OUTSIDE RECORDS SUMMARY | 2024-07-05 09:06 | XMS_ITS | Continuity of Care Document ---
Author Organization [facility] Address [address] [place] [address] Phone Care Team Providers Care New Car Inspector Name Role Phone Abhinav HALL, Joann [...] on Encounter Office/Outpat ient visit, new patient [facility], [address], [place], [id number], tel:[phone] [facility] Carpal tunnel syndrome, left upper limbRadial styloid tenosynovitis [de Quervain] 1 Abhinav David. [address] [place], [place], [id number], [place]. tel:[phone] Referring Provider: Josiah Cummings, [facility] [place], [address]. tel:[phone] Family History Family Member Type Diagnosis Age At Onset Mother Problem (finding) Hypertension Payers Payer name Insurance type Covered constitution party ID Authoriza tion(s) Bandwidth [facility] [phone] Social History Type Description Quantity Date Captured [...] are 3 moderate-quality RCT incorporated into this analysis.(1502-9162) (Braxton 14; Izzy 10)A comprehensive literature search was conducted using PubMed, Scopus, CINAHL, [place] [facility], and Google Scholar without date limits [...] 295 from Google Scholar, and 51 in [place] Library. We considered for inclusion 3 from [...] are 2 high-(1064, 1093) and 5 moderate-quality(1103, 0340-6501) RCTs incorporated in this analysis. There are [...] in Scopus, 0 in CINAHL, 0 in [place] Library, 19 in Google Scholar, and 2 from other sources. We considered for inclusion 75 from PubMed, 0 from Scopus, 0 from CINAHL, 0 from [place] [facility], 0 Google Scholar, and 2 from [...] splints with all trials showing benefits and [id number] trials, suggest there is, as yet, no [...] a modest trend favoring surgery over the termite renewal inspector.(777) A trial conducted in the [place] comparing [...] was conducted using PubMed, Scopus, CINAHL and [place] Library without date limits using the following [...] Scopus, five in CINAHL, and 77 in [place] [facility]. We considered for inclusion 27 from PubMed, eight from Scopus, zero from CINAHL, zero from [place] [facility] and four from other sources. Of [...]
--- OUTSIDE RECORDS SUMMARY | 2024-07-05 09:06 | XMS_ITS | Clinical Summary ---
Author Organization [facility] Address [address] [place] [address] Care Team Providers Care Supervisor Glycerin Name Role Phone Unavailable Primary Care Provider [...] Health Maintenance Due Date Last Done Comments Anxiety Screening 1968 Diabetes Screening 1968 HPV Screening 1968 Hepatitis [...] 01/06/2013 Imm-Zoster, Recombinant (1 of 2) 01/06/2018 [id number] ( season) 2023 02/20/2021, 07/07/2020, 05/26/2020, Additional history exists Imm-Influenza (#1) 2023 01/01/2021, 0 11/06/2017, 11/18/2016, Additional history exists Alcohol and Drug Screen 02/15/2024 Depression Annual Screen 02/15/2024 Imm-DTaP/Tdap/Td (2 - Td or Tdap) 11/07/2027 11/06/2017, 01/02/2001, 09/03/1996 Cervical Ablation/Cold-Knife Conization Discontinued Cervical Cryotherapy Discontinued Colposcopy Discontinued Endometrial Biopsy Discontinued Excision/Leep Discontinued HPV Genotyping Discontinued Vaginal Pap Discontinued Vulvoscopy Discontinued Insurance [facility] Member Subscriber Plan / Payer (Ef fective 2019-Present) Name:Yaneth Becker Relation to Subscriber:Self Name:Yaneth Becker Payer ID:[id number] Group ID:Not on file Type:Indemnity Address: [facility] [id number] [place] [address]
--- OUTSIDE RECORDS SUMMARY | 2024-07-05 09:06 | XMS_ITS | Encounter Summary ---
Author Organization [facility] Address [address] [facility] 7t [place] [address] Care Team Providers Care Traffic Incident Management Manager Name Role Phone Unavailable Primary Care Provider Unavailabl e Encounter Details Date Type Department Care Team (Latest Contact Info) Description 09/12/2020 Abstract [facility] Dental, Provider, DDS Social History Tobacco [...] Description 11/06/2024 3:00 PM EDT Office Visit [facility] [address] [place] [address] Susana Valdez [address] [place] [address] documented as of this encounter Visit Diagnoses Not on filedocumented in this encounter
--- OUTSIDE RECORDS SUMMARY | 2024-07-05 09:06 | XMS_ITS | Clinical Summary ---
Author Organization [employer] Address [address] [place] [address] Care Team Providers Care Sort Operations Supervisor Name Role Phone Unavailable Primary Care [...] morning and at bedtime. 9 Active PEG 0513-XJw-PiXgw-Na Cl-NaSulf (PEG-3350/Electro lytes) 236 g reconstituted solution 2 Active rosuvastatin (Crestor) 10 MG tablet Take 1 tablet by mouth at bed time. 9 Active rosuvastatin (Crestor) 20 MG tablet Take 20 mg by mouth in the morning. 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 Dental plaque 11/03/2023 Dental calculus 11/03/2023 Normal oral exam 11/03/2023 Migraine 08/03/2011 Anemia 07/14/2011 Depressive disorder 07/14/2011 Hyperlipidemia 07/14/2011 Hypertension 07/14/2011 Encounters Date Type Department Care Team Description 05/04/2024 3:00 PM EDT Office Visit [facility] [address] [place] [address] Susana Valdez Dental plaque (Primary Dx); Dental caries; Defective dental rastafari from Last 3 Months Immunizations Immunization Administration Dates Next Due Hep B, Adolescent [...] Description 11/06/2024 3:00 PM EDT Office Visit [facility] [address] [place] [address] Courtney, Susana [address] [place] [address] Health Maintenance Due Date Last Done Comments CT Colonography 1968 Colonoscopy 1968 Colorectal Cancer Screening 1968 Depression Screening 1968 FIT DNA/Cologuard 1968 FIT 1968 FOBT 1968 HIV Screening 1968 Lipid Panel 1968 SDOH Screening 1968 Sigmoidoscopy 1968 Disability Screening 1968 Alcohol/Substance Use Screening 1980 Hepatitis C [...] Screening 05/04/2025 05/04/2024 Dental X-Ray: Bitewings 05/05/2025 05/05/19, 11/03/2023, 02/04/2022 Dental X-Ray: Full Mouth 09/05/2025 [...] patient's age to complete this topic Meningococcal B Vaccine Aged Out No l onger eligible based on patient's age to complete [...] SCREENING BILATERAL Routine 04/18/2018 10:08 AM EST [facility] HISTORICAL HPV MRNA E6/E7 Routine 01/11/2017 1:49 [...] Procedure: 3D DIGITAL DORIAN SCR MAMMO 1 us Tahira Hairston MD IMG BI PROCEDURES Final Result * HPV mRNA E6/E7 (01/11/2017 1:49 PM EST) HPV mRNA E6/E7 Not Detected NOT DETECTED [facility] Comment: This test was performed using the APTIMA(R) HPV Assay ([employer] This assay detects E6/E7 viral messenger RNA (mRNA) from 14 high-risk HPV types (16,18,31,33,35,39,45,51, 52,56,58,59,66,68). For additional information please refer to: http://education.Sometrics.[employer]faq/FKM971t5 (This link is being provided for informational/ educational purposes only.) Test Performed by [facility], [address] [place] [address] Shakir Zuñiga M.D., Ph.D., Director of Laboratories , [facility] [id number] Please note: ??Effective 10/27/2015, HPV testing will be performed using [employer]'s APTIMA test which targets mRNA. Detecting mRNA instead of DNA, as in older methods, offers significant improvements in specificity. 01/11/2017 1:49 PM EST us Kayce Fernandes CNM HISTORICAL/NON ORDERABLE LABS Final Result [facility] [address] from Last 3 Months or Most Recently Relevant to Health Maintenance [facility] MEDICAID STAND ADULT DENTAL - [facility]
--- OUTSIDE RECORDS SUMMARY | 2024-07-05 09:06 | XMS_ITS | Continuity of Care Document ---
Author Organization [facility]ly [facility] Address [address] [place] [address] Phone Care Team Providers Care Principal Process Engineer Name Role Phone Joann La MD Unavailable [...] Diagnoses Date Provider Providers Copied on Encounter [facility]ly [facility], [address], [place], [id number], tel:[phone] [facility] No Information 1 Abhinav David. [address] [place], [place], [id number], [place]. tel:[phone] Referring Provider: Adan Hayes, [address] [place] [address], [address]. tel:[phone] Office/Outpat ient visit, established patient [facility], [address] [place], [place], [id number], [place] tel:[phone] [facility] No Information 1 Abhinav Joann. [address], [place], [id number], [place]. tel:[phone] Referring Provider: Adan Hayes, [address] [place] [address], [address]. tel:[phone] Office/Outpat ient visit, established patient [facility], [address], [place], [id number], [place] tel:[phone] [facility] No Information 0 Abhinav Joann. [address], [place], [id number], [place]. tel:[phone] Referring Provider: Adan Hayes, [address] [place] [address], [address]. tel:[phone] Office/Outpat ient visit, established patient [facility], [address], [place], [id number], [place] tel:[phone] [facility] No Information 0 Abhinav Joann. [address], [place], [id number], [place]. tel:[phone] Referring Provider: Adan Hayes, [address] [place] [address], [address]. tel:[phone] [facility], [address], [place], [id number], [place] tel:[phone] [facility] Trigger finger, right little finger 0 [place] Kalia. [address], [place], [id number], [place]. tel:[phone] Referring Provider: Adan Hayes, [address] [place], [address]. tel:[phone] [facility], [address], [place], [id number], [place] tel:[phone] [facility] Carpal tunnel syndrome, right upper limb 0 [place] Kalia. [address], [place], [id number], [place]. tel:[phone] Referring Provider: Adan Hayes, [facility] [place], [address]. tel:[phone] [facility], [address], [place], [id number], [place] tel:[phone] [facility] No Information 0 Abhinav Joann. [address], [place], [id number], [place]. tel:[phone] Referring Provider: Adan Hayes, [address] [place], [address]. tel:[phone] [facility], [address], [place], [id number], [place] tel:[phone] [facility] Carpal tunnel syndrome, right upper limb 0 [place]. [address], [place], [id number], [place]. tel:[phone] Referring Provider: Adan Hayes, [address] [place], [address]. tel:[phone] [facility], [address], [place], [id number], [place] tel:[phone] [facility] No Information 0 Abhinav Joann. [address], [place], [id number], . tel:[phone] Referring Provider: Adan Hayes, [facility] [place], [address]. tel:[phone] Office/Outpat ient visit, new patient [facility], [address], [place], [id number], tel:[phone] [facility] Carpal tunnel syndrome, right upper limbLesion of ulnar nerve, right upper limb 0 Abhinav Joann. [address], [place], [id number], [place]. tel:[phone] Referring Provider: Adan Hayes, [address] [place], [address]. tel:[phone] Family History Family Member Type Diagnosis Age [...] from a carpal tunnel release is decrease board worker strength. The patient will have about half of normal board worker strength for 1 or 2 months. By about 3 months postoperatively there will be about two-thirds of normal board worker strength. At anywhere from 4 to 6 months after surgery, one will have somewhere between 75-95% of normal board worker strength. The risks associated with the surgery [...]
[2024-07-11 14:51] LABS: HPV Genotype 16 Negative (Negative); HPV Genotype 18 Negative (Negative); HPV High Risk Negative (Negative)
== END 2024-07-05 07:58 | disposition home or self-care (01) ==
LOC: HO.LNP 07:57
PROVIDERS: PCP Internal Medicine; Visit Provider Obstetrics & Gynecology
DX: Z01.419 Encounter for gynecological examination (general) (routine) without abnormal findings (principal)
CPT/HCPCS: 87626; 88175

== ENCOUNTER 2024-07-05 07:57 | Outpatient (AMB) | payer BC, MEDICAID, SELFPAY ==
--- NOTE | 2024-07-05 08:09 | A.OFFVIS_ITS ---
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 No complaints. Last Pap/HPV was negative in 03/06 Last Mammogram was BI-RADS 2 in 07/07 The patient is high-risk for breast cancer, last breast MRI was in 03/10 was BI- RADS 3, the recommendation was to repeat in six-months, order placed by Dr. Padgett co to be done 09/07, the patient was seen by Dr. Padgett in 02/06 Last Colonoscopy was in 04/08, the recommendation was to repeat in 5 years The patient developed left vulvar swelling perineal ultrasound done recently showed the following: IMPRESSION: Vague, nonspecific hyperechoic area in the left vulva difficult to characterize The patient is states that her left vulvar swelling has resolved PFSH Medical History Hyperparathyroidism Ovarian cyst Migraine headache Anemia Hypercholesterolemia Hypertension Surgical History Hx of colonoscopy Status post cardiac catheterization Tubal ligation status H/O breast biopsy Family History Sister Breast CA, Onset Age: 37 Family/Other Breast CA Mother HTN (hypertension) Hyperlipidemia Father Suicide Maternal Aunt Colon cancer Social History Household Members: Spouse and Children Household Members Other:: 4 Housing: House Do you presently have visiting nurse or other home services: No Alcohol intake: current Alcohol intake frequency: a few times a month Patient Tobacco Use Status: Former Tobacco user Years Smoked: 3 +/- Substance Use Type: Caffiene service: No Current occupational status: employed 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 Sexual orientation: Straight/Heterosexual Gender identity: Female Female Reproductive History Menstrual Age of Menarche: 13 Date of last pap smear: 03/05/20 Date of Mammogram: 07/15/23 Review of Systems Const All systems reviewed & are unremarkable except as noted in HPI and below Card Reports as per HPI Resp Reports as per HPI GI Reports as per HPI and Reports no additional complaints Reports as per HPI Physical Exam Vital Signs: Last Vital Signs BP 122/59 L 07/05/24 08:11 BMI result Body Mass Index 29.2 Const General: cooperative, healthy appearing and comfortable Chest Chest palpation & inspection: normal inspection of the chest and normal palpation of entire chest wall Breast/axilla inspection: normal inspection of the breasts and normal inspection of the axillae Breast/axilla palpation: normal palpation of the breasts, normal palpation of the axillae and no axillary lymphadenopathy Resp Effort & Inspection: normal respiratory effort Auscultation: clear to auscultation bilaterally Percussion: percussion normal Cardio Palpation: normal PMI Rate: regular rate Rhythm: regular rhythm Heart sounds: no murmurs and no rubs Peripheral pulses: Peripheral pulses 2+ throughout GI Inspection: Yes normal to inspection Palpation (GI): Soft to palpation, nontender, no guarding, not rigid and No hepatosplenomegaly present Percussion: Yes normal to percussion Auscultation: normal bowel sounds Rectal Exam - Female: deferred General: Yes bladder normal to palpation External Female Exam: No lesion Speculum Exam - Vagina: normal appearance of the vagina, normal palpation, normal vaginal discharge and not erythematous Speculum Exam - Cervix: normal appearance of the cervix and normal palpation Bimanual exam- vagina & uterus: normal bimanual exam, normal palpation, uterine size normal, bladder normal to palpation, consistency normal and normal palpation Bimanual Exam- Adnexa, other: normal adnexae, no masses and no tenderness Assessment & Plan Assessment & Plan (1) Well woman exam: Code(s): Z01.419 - Encounter for gynecological examination (general) (routine) without abnormal findings Category: Medical Plan: Co testing done. Counseled the patient about the recommended dietary allowance of 1200 mg of Calcium & 600 IU of vitamin D. Mammogram schedule in 08/08 The patient was instructed to perform monthly self-breast exams and schedule annual exam in a year. All questions answered and the patient verbalized understanding. (2) At high risk for breast cancer: Code(s): Z91.89 - Other specified personal risk factors, not elsewhere classified Category: Medical Plan: Breast MRI ordered to be done in 09/07, instructions given the patient to schedule breast MRI and and mammogram is scheduled in 08/08 (3) Swelling of vulva: Comment: Resolved Code(s): N90.89 - Other specified noninflammatory disorders of vulva and perineum Category: Medical Plan: Discussed with the patient the finding on pelvic exam, resolved left vulvar swelling, the patient was reassured. Instructions given the patient to call in case symptoms recur. Coding Level of Care Code Est Pt Prev Care 40-64y(60939) Diagnoses Well woman exam Z01.419 At high risk for breast cancer Z91.89 Swelling of vulva N90.89
[2024-07-05 08:11] VITALS: BP 122/59; BMI 29.2
== END 2024-07-05 08:39 | disposition home or self-care (01) ==
LOC: HO.HWS 07:57
PROVIDERS: PCP Internal Medicine; Visit Provider Obstetrics & Gynecology
DX: Z01.419 Encounter for gynecological examination (general) (routine) without abnormal findings (principal); Z91.89 Other specified personal risk factors, not elsewhere classified; N90.89 Other specified noninflammatory disorders of vulva and perineum
CPT/HCPCS: 99396; 99459

== ENCOUNTER 2024-07-24 07:11 | Outpatient (REF) | payer BC, MEDICAID, SELFPAY ==
--- OUTSIDE RECORDS SUMMARY | 2024-07-24 07:14 | XMS_ITS | Clinical Summary ---
Author Organization [employer] Address [address] [place] [address] Care Team Providers Care High School Mathematics Teacher Name Role Phone Unavailable Primary Care Provider [...] morning and at bedtime. 9 Active PEG 4693-WZi-BeEqj-Na Cl-NaSulf (PEG-3350/Electro lytes) 236 g reconstituted solution 2 Active rosuvastatin (Crestor) 10 MG tablet Take 1 tablet by mouth at bed time. 9 Active rosuvastatin (Crestor) 20 MG tablet Take 20 mg by mouth in the morning. 2 Active sodium chloride (Leslie) 0.65 % nasal spray use 2 sprays in each nostril every 4 hours as needed 3 Active Active Problems Problem Noted Date Diagnosed Date Dental caries 05/04/2024 Defective dental religion 05/04/2024 Dental plaque 11/03/2023 Dental calculus 11/03/2023 Normal oral exam 11/03/2023 Migraine 08/03/2011 Anemia 07/14/2011 Depressive disorder 07/14/2011 Hyperlipidemia 07/14/2011 Hypertension 07/14/2011 Encounters Date Type Department Care Team Description 05/04/2024 3:00 PM EDT Office Visit [facility] [address] [place] [address] Susana Valdez Dental plaque (Primary Dx); Dental caries; Defective dental religion from Last 3 Months Immunizations Immunization Administration [...] Description 11/06/2024 3:00 PM EDT Office Visit [facility] [address] [place] [address] Courtney, Susana [address] [place] [address] Health Maintenance Due Date Last Done Comments [...] was performed using the APTIMA(R) HPV Assay ([employer] This assay detects E6/E7 viral messenger RNA (mRNA) from 14 high-risk HPV types (16,18,31,33,35,39,45,51, 52,56,58,59,66,68). For additional information please refer to: http://education.Yuqing Electric.Celly/faq/ZRL814y8 (This link is being provided for informational/ educational purposes only.) Test Performed by [facility], [facility], [address] [place] [address] Shakir Zuñiga M.D., Ph.D., Director of Laboratories , [facility] [id number] Please note: ??Effective 10/27/2015, HPV testing will be performed using [employer]'s APTIMA test which targets mRNA. Detecting mRNA instead of DNA, as in older methods, offers significant improvements in specificity. 01/11/2017 1:49 PM EST us Kayce Fernandes CNM HISTORICAL/NON ORDERABLE LABS Final Result [facility] [address] from Last 3 Months or Most Recently Relevant to Health Maintenance Insurance [facility] STAND ADULT DENTAL-[facility] MEDICAID STAND ADULT DENTAL - [facility]
[2024-07-24 08:15] LABS: Alanine Aminotransferase 50 U/L (0-31); Albumin Level 4.6 g/dL (3.5-5.0); Alkaline Phosphatase 86 U/L (39-117); Anion Gap 10 (12-20); Aspartate Amino Transferase 44 U/L (5-31); Bilirubin Total 0.4 mg/dL (0.0-1.0); Blood Urea Nitrogen 20 mg/dL (9-16); Calcium 9.3 mg/dL (8.4-10.2); Carbon Dioxide 28 mmol/L (22-29); Chloride 108 mmol/L (96-108); Estimated Glomerular Filt Rate 57; Glucose Random 73 mg/dL (60-115); Phosphorus 3.4 mg/dL (2.7-4.5); Potassium 4.4 mmol/L (3.3-5.1); Sodium 142 mmol/L (135-145); Total Protein 7.1 g/dL (6.5-8.0)
[2024-07-24 08:20] LABS: Parathyroid Hormone Intact 56.4 pg/mL (8.7-77.1)
== END 2024-07-24 07:12 | disposition home or self-care (01) ==
LOC: HO.LAB 07:11
PROVIDERS: PCP Internal Medicine; Visit Provider Internal Medicine
DX: E21.0 Primary hyperparathyroidism (principal); E78.00 Pure hypercholesterolemia, unspecified; E89.2 Postprocedural hypoparathyroidism; N76.4 Abscess of vulva
CPT/HCPCS: 36415; 80053; 83970; 84100

== ENCOUNTER 2024-08-27 16:10 | Outpatient (REF) | payer BC, MEDICAID, SELFPAY ==
--- OUTSIDE RECORDS SUMMARY | 2020-09-24 20:00 | XMS_ITS | Continuity of Care Document ---
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 Name Role Phone Joann La MD Unavailable Unavailable Allergies, Adverse Reactions, Alerts Substance Reaction Status Criticality No Known Allergies Active No Inform ation Medications Medication Instructions Dosage Effective Dates (start - stop) Status Comments ibuprofen 600 mg tablet take 1 (600MG) by oral route 3 times every day as needed for pain 600 MG - Active TYLENOL (unknown strength) Not Available - Active Procedures Procedure Date Medical Records Copy Fee Medical Records Witness Fee Office/Outpatient visit, established pat ient Office/Outpatient visit, established pat ient Office/Outpatient visit, established pat ient Injection(s); single tendon sheath, or l igament, aponeurosis Betamethasone acet&sod phosp Postoperative follow-up visit 0 Postoperative follow-up visit 0 Postoperative follow-up visit 0 CARPAL TUNNEL SURGERY Office/Outpatient visit, new patient Mar Advance Directives Directive Yes / No Effective Date File Name No Information Encounters Encounter Description Practice Location Reason(s) For Visit Diagnoses Date Provider Providers Copied on Encounter [facility], [address], [place], [id number], tel:[phone] [facility] No Information 1 Abhinav David. [address], [place], [id number], [place]. tel:[phone] Referring Provider: Adan Hayes, [address] [place] [address], [id number]. tel:[phone] Office/Outpat ient visit, established patient [facility], [address], [place], [id number], [place] tel:[phone] [facility] No Information 1 Abhinav Joann. [address], [place], [id number], [place]. tel:[phone] Referring Provider: Adan Hayes, [address] [place] [address], [address]. tel:[phone] Office/Outpat ient visit, established patient [facility], [address], [place], [id number], [place] tel:[phone] [facility] No Information 0 Abhinav Joann. [address], [place], [id number], [place]. tel:[phone] Referring Provider: Adan Hayes, [address] [place] [address], [address]. tel:[phone] Office/Outpat ient visit, established patient [facility], [address], [place], [id number], [place] tel:[phone] [facility] No Information 0 Abhinav Joann. [address], [place], [id number], [place]. tel:[phone] Referring Provider: Adan Hayes, [address] [place] [address], [address]. tel:[phone] [facility], [address], [place], [id number], [place] tel:[phone] [facility] Trigger finger, right little finger 0 [place] Kalia. [address], [place], [id number], [place]. tel:[phone] Referring Provider: Adan Hayes, [address] [place], [address]. tel:[phone] [facility], [address], [place], [id number], [place] tel:[phone] [facility] Carpal tunnel syndrome, right upper limb 0 [place]. [address], [place], [id number], [place]. tel:[phone] Referring Provider: Adan Hayes, [facility] [place], [address]. tel:[phone] [facility], [address], [place], [id number], [place] tel:[phone] [facility] No Information 0 Abhinav Joann. [address], [place], [id number], [place]. tel:[phone] Referring Provider: Adan Hayes, [address] [place], [address]. tel:[phone] [facility], [address], [place], [id number], [place] tel:[phone] [facility] Carpal tunnel syndrome, right upper limb 0 [place]. [address], [place], [id number], [place]. tel:[phone] Referring Provider: Adan Hayes, [address] [place], [address]. tel:[phone] [facility], [address], [place], [id number], [place] tel:[phone] [facility] No Information 0 Abhinav Joann. [address], [place], [id number], . tel:[phone] Referring Provider: Adan Hayes, [facility] [place], [address]. tel:[phone] Office/Outpat ient visit, new patient [facility], [address], [place], [id number], tel:[phone] [facility] Carpal tunnel syndrome, right upper limbLesion of ulnar nerve, right upper limb 0 Abhinav Joann. [address], [place], [id number], [place]. tel:[phone] Referring Provider: Adan Hayes, [address] [place], [address]. tel:[phone] Family History Family Member Type Diagnosis Age At Onset Father Problem (finding) Cancer - stomach Mother Problem (finding) Hypertension Payers Payer name Insurance type Covered libertarian ID Authoriza tion(s) No Information Social History Type Description Quantity Date Captured Comments Sex Female Smoking Status No Information Chief Complaint And Reason For Visit No Information Reason For Referral Reason For Referral No Information Plan Of Treatment Date Type Action Status Referral Ordered: Electrocardiogram, routine ECG with at least 12 leads; with interp and report ordered History Of Present Illness Encounter Date Complaint History Of Prese nt Illness No Information Functional Status Date Functional Assessmen t No Information Instructions Date Instruction Additional Infor kelley At the present time I am not going to focus on the ulnar neuropathy. It would be best to bring about further resolution of the median neuropathy symptoms that I can determine the degree to which the ulnar neuropathy is symptomatic. It is very likely that I will prescribe a pillow splint for her in the future. First she should proceed with a carpal tunnel release. Then, I can prescribe a pillow splint for her in the future if it seems that it would be necessary. That is something that she will wear at night across level the elbow to help decrease the degree of ulnar neuropathy. Given the fact that she has constant numbness, median neuropathy needs to be attended to first. Related to Lesion of ulnar nerve, right upper limb The patient has alre venkat worn wrist immobilizing splints at night while sleeping in the past for several months. Unfortunately, that did not resolve the problem. All forms of conservative treatment have been exhausted. This includes modification of activities of daily living and work. At this point, given the symptoms, physical findings and electrodiagnostic studies then I would proceed with recommending a carpal tunnel release. It is important to understand that she has severe carpal tunnel syndrome. She was demonstrating spontaneous fasciculation of the right abductor pollicis brevis during the examination. Her nerve conduction study shows that she has only a very small portion of nerve tissue that is still functional. This is not the setting for utilizing a steroid injection. She should move directly toward a right carpal tunnel release. The longer she continues to have the severe right carpal tunnel syndrome the greater her permanent impairment will be. The longer it takes to move forward with this, the more money it will cost the insurance company when permanent disability is determined. Hence, it is important to move forward PETE. The patient and I reviewed the charts and posters in my office today that demonstrate the nature of carpal tunnel syndrome. We reviewed the anatomy, which demonstrates the wrist bones to be known as the carpal bones. A tunnel through the wrist bones is a tunnel through the carpal bones , therefore, is called carpal tunnel . It only becomes a syndrome when one starts getting symptoms of paresthesias, which is numbness and tingling. Patients can experience some night pain and some daytime pain and eventually can experience some intrinsic muscle weakness. The patient and I discussed the fact that when the wrist is in a neutral position, the median nerve traveling through the carpal tunnel has its greatest chance of having normal blood flow on a microvascular level. Neither of the 2 large arteries of the hand passes through the carpal tunnel. When one has complete numbness in the hand, the blood flow is still normal to the hand. It is simply the median nerve that is not getting enough blood flow and therefore, starts to develop the onset of symptoms recognized by the brain as numbness and tingling. We discussed the fact that whenever the wrists are fully flexed or fully extended, the pressure within the carpal tunnel is such that the blood flow to the nerve substantially decreases or may even stop. We discussed the surgical treatment, which is the release of the transverse carpal ligament. This is the only soft tissue component of the carpal tunnel through which the median nerve passes. By releasing the transverse carpal ligament, the pressure decreases and blood flow can improve. The patient does not have evidence on electrodiagnostic studies of peripheral neuropathy. It is understood that the carpal tunnel release will not necessarily improve any pain elsewhere in the upper extremity. The patient understands that the purpose of the surgery is to help improve the numbness that is currently being experienced to help prevent further deterioration in their function. Unfortunately, the patient has an abnormal 2 point discrimination, which is a test evaluating innervation density. Patients with abnormal 2 point discrimination particularly greater than 7-8 mm, often never resolve their numbness even after a carpal tunnel release. Once the pressure has been removed by a release of the transverse carpal ligament, the blood flow to the median nerve increases, allowing more oxygen and nutrients to initiate regrowth of the nerve. Unfortunately, not all of the grouped axons are able to regenerate. Those that do regrow, do so at a rate of 1 mm per day, or almost an inch per month. Therefore, we would not expect the 'regrowth' to reach the fingertips for about 6-8 months post-operatively. One then allows some time for increased innervation density. One would expect reaching a permanent and stationary state between 8-12 months after surgery.It is very rare for a patient with very abnormal two point discrimination to not have residual constant numbness that would be permanent. In other words, numbness may be present for the rest of her life. The patient still benefits from a carpal tunnel release because it stops further worsening of the syndrome that can result in complete loss of functional abduction and opposition. In other words, with loss of opposition, (being unable to pinch), one cannot button shirts, zip pants, etc. The patient is aware that some form of numbness may be present indefinitely, which is a form of an axonotmetic injury. The patient has been informed that she should continue to wear a wrist splint at night after surgery to continue to maximize oxygenated blood flow to the injured median nerve.We've discussed that a major impairment from a carpal tunnel release is decrease legal adviser strength. The patient will have about half of normal legal adviser strength for 1 or 2 months. By about 3 months postoperatively there will be about two-thirds of normal legal adviser strength. At anywhere from 4 to 6 months after surgery, one will have somewhere between 75-95% of normal legal adviser strength. The risks associated with the surgery include about a 1-2% chance of infection or abnormal bleeding, a 2-3% chance of any abnormal scarring and less than a 1% chance of any significant peripheral nerve injury. The carpal tunnel release will either be done through an endoscopic approach or through a mini-incision technique. Postoperatively, the patient will have dressing change performed at about 3 to 5 days out from surgery. The patient will then be shown how to perform dressing changes thereafter. The patient will return 10-14 days after surgery to have the sutures taken out by one of our office assistants. At that point a short course of therapy 2 times a week for either 4 or 5 weeks will occur for early tendon and nerve gliding. Patients who have early tendon and gliding protocol do substantially better than those who have no therapy. It makes sense, as any bleeding that is going to take place in the carpal tunnel area post-surgery can organize with the formation of scar tissue. Scar tissue does not have a chance to adhere to tendons and the median nerve if they are being actively moved early after surgery. Related to Carpal tunnel syndrome, right upper limb Assessments Type Assessment Date No Information Patient Care Teams Name Effective Dates (start - stop) Status Members No Information
--- OUTSIDE RECORDS SUMMARY | 2024-08-27 16:59 | XMS_ITS | Clinical Summary ---
Author Organization [employer] Address [address] [place] [address] Care Team Providers Care Dial Printer Name Role Phone Unavailable Primary Care Provider [...] morning and at bedtime. 9 Active PEG 9736-BHf-ZhQkk-Na Cl-NaSulf (PEG-3350/Electro lytes) 236 g reconstituted solution 2 Active rosuvastatin (Crestor) 10 MG tablet Take 1 tablet by mouth at bed time. 9 Active rosuvastatin (Crestor) 20 MG tablet Take 20 mg by mouth in the morning. 2 Active sodium chloride ([place]) 0.65 % nasal spray use 2 sprays in each nostril every 4 hours as needed 3 Active Active Problems Problem Noted Date Diagnosed Date Dental caries 05/04/2024 Defective dental confucianist 05/04/2024 Dental plaque 11/03/2023 Dental calculus 11/03/2023 Normal oral exam 11/03/2023 Migraine 08/03/2011 Anemia 07/14/2011 Depressive disorder 07/14/2011 Hyperlipidemia 07/14/2011 Hypertension 07/14/2011 Immunizations Immunization Administration Dates Next Due Hep [...] Description 11/06/2024 3:00 PM EDT Office Visit [facility] [address] [place] [address] Susana Valdez [address] [place] [address] Health Maintenance Due Date Last Done Comments [...] 07/07/2020, Additional history exists Influenza Vaccine (#1) 2024 , 01/13/2023, 01/01/2021, Additional history exists Dental Oral Exam 11/05/2024 [...] older (1 - 1-dose 75+ series) 01/06/2043 Zoster Vaccines Completed 03/27/2024, 01/19/2024 HIB Vaccines [...] 05/04/2024 3 :00 PM EDT Dental plaque BITEWINGS - 4 RADIOGRAPHIC IMAGES Routine 05/04/2024 3:00 PM EDT Dental plaque PERIODIC ORAL EVALUATION - ESTABLISHED PATIENT Routine 05/04/2024 3:00 PM EDT BI MAMMOGRAM SCREENING BILATERAL Routine [...] 3D DIGITAL DORIAN SCR MAMMO 1 us Taihra Hairston MD IMG BI PROCEDURES Final Result * HPV mRNA E6/E7 (01/11/2017 1:49 PM EST) HPV mRNA E6/E7 Not Detected NOT DETECTED [facility] Comment: This test was performed using the APTIMA(R) HPV Assay ([employer] Inc.). This assay detects E6/E7 viral messenger RNA (mRNA) from 14 high-risk HPV types (16,18,31,33,35,39,45,51, 52,56,58,59,66,68). For additional information please refer to: http://UTStarcom.Swissmed Mobile/faq/QJZ968m9 (This link is being provided for informational/ educational purposes only.) Test Performed by [facility], [facility], [address] [place] [address] Shakir Zuñiga M.D., Ph.D., Director of Laboratories , [facility] [id number] Please note: Effective 10/27/2015, HPV testing will be performed using [employer]'s APTIMA test which targets mRNA. Detecting mRNA instead of DNA, as in older methods, offers significant improvements in specificity. 01/11/2017 1:49 PM EST us Kayce Fernandes CNM HISTORICAL/NON ORDERABLE LABS Final Result [facility] [address] from Last 3 Months or Most Recently Relevant to Health Maintenance Insurance [place] STAND ADULT [place], [place] DENTAL-[facility] MEDICAID STAND ADULT DENTAL - [employer] DENTAL * Guarantor: Yaneth Becker Account Type Relation to Patient Date of Phone Billing Address Personal/Family Self [place], [place] * Guarantor: Yaneth Becker Account Type Relation to Patient Date of Phone Billing Address Personal/Family Self [place], [place]
--- OUTSIDE RECORDS SUMMARY | 2024-08-27 16:59 | XMS_ITS | Clinical Summary ---
Author Organization [facility] Address [address] [place] [address] Care Team Providers Care Marketing Analytics Manager Name Role Phone Unavailable Primary Care [...] 01/06/2013 Fecal DNA 01/06/2013 Flexible Sigmoidoscopy 01/06/2013 Imm-Pneumococcal 50+ (1 of 1 - PCV) 01/06/2018 Imm-Zoster, Recombinant (1 of 2) 01/06/2018 [id number] ( season) 2023 02/20/2021, 07/07/2020, 05/26/2020, Additional history exists Alcohol and Drug Screen 02/15/2024 Depression Annual Screen 02/15/2024 Imm-Influenza (#1) 2024 01/01/2021, 0 11/06/2017, 11/18/2016, Additional history exists Imm-DTaP/Tdap/Td (2 - Td or Tdap) 11/07/2027 11/06/2017, 01/02/2001, 09/03/1996 Cervical Ablation/Cold-Knife Conization Discontinued Cervical Cryotherapy Discontinued Colposcopy Discontinued Endometrial Biopsy Discontinued Excision/Leep Discontinued HPV Genotyping Discontinued Vaginal Pap Discontinued Vulvoscopy Discontinued Insurance [facility]
== END 2024-08-27 16:11 | disposition home or self-care (01) ==
LOC: HO.MAMMO 16:10
PROVIDERS: PCP Internal Medicine; Visit Provider Internal Medicine
DX: Z12.31 Encounter for screening mammogram for malignant neoplasm of breast (principal)
CPT/HCPCS: 77063; 77067

== ENCOUNTER → 2024-08-27 16:30 | Outpatient (BNV) | payer BC, MEDICAID, SELFPAY | PROVIDERS: PCP Internal Medicine; Visit Provider Internal Medicine | DX: Z12.31 Encounter for screening mammogram for malignant neoplasm of breast (principal) | CPT/HCPCS: 77063; 77067 ==

== ENCOUNTER → 2024-08-28 15:37 | Outpatient (BNV) | payer BC, MEDICAID, SELFPAY | PROVIDERS: PCP Internal Medicine; Visit Provider Internal Medicine | DX: R93.89 Abnormal findings on diagnostic imaging of other specified body structures (principal); Z85.3 Personal history of malignant neoplasm of breast | CPT/HCPCS: 77049 ==

== ENCOUNTER 2024-08-28 15:41 | Outpatient (REF) | payer BC, MEDICAID, SELFPAY ==
--- NOTE | ~2024-08-28 | MR_ITS ---
EXAMINATION: MR BREAST WITHOUT AND WITH CONTRAST, BILATERAL CLINICAL INFORMATION: 6 month follow-up breast MRI recommended for further evaluation of bilateral enhancing areas. High risk screening surveillance strong family history of breast cancer. COMPARISON: Comparison is made with relevant prior imaging. TECHNIQUE: MR imaging of the breast was performed using T1, T2 and fat saturated techniques. Dynamic multiphase imaging was also performed after the administration of intravenous gadolinium contrast agent. Computer generated 3D reconstruction and enhancement kinetic analysis was ulitized by the radiologist in the interpretation of this examination. FINDINGS: Breast composition: There is heterogeneous fibroglandular breast tissue with marked background enhancement. LEFT BREAST: In the central outer breast 6 cm behind the nipple again seen is slightly less conspicuous area measuring 5 x 3 with a little bit less intense enhancement not significantly changed from prior MRI. Otherwise no suspicious enhancing masses or areas of nonmass enhancement. No architectural distortion. No internal mammary or axillary adenopathy. RIGHT BREAST: The previously seen enhancing foci in the upper inner quadrant anterior depth 3 cm from the nipple is no longer seen. This likely represented background enhancement foci. No suspicious enhancing masses or areas of nonmass enhancement. No architectural distortion. No internal mammary or axillary adenopathy. Limited views of the chest and abdomen are unremarkable. MR/MR breast BI wo/w con IMPRESSION: Right: No MRI evidence of malignancy. Left: Enhancing foci in the left breast stable from priors, recommend six-month follow-up MRI for further evaluation of stability. ASSESSMENT: LEFT BREAST: BI-RADS 3-Probably Benign RIGHT BREAST: BI-RADS 1-Negative RECOMMENDATIONS: Yearly screening mammography Recommend 6 month follow-up breast MRI for further evaluation of stability enhancing foci in the left breast. Electronically signed by: Rosana Santiago DO 08/31/2024 08:52 PM EDT
--- OUTSIDE RECORDS SUMMARY | 2024-08-28 16:36 | XMS_ITS | Clinical Summary ---
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 Name Role Phone Unavailable Primary Care Provider [...] 01/06/2018 Imm-Zoster, Recombinant (1 of 2) 01/06/2018 [id number] ( season) 2023 02/20/2021, 07/07/2020, 05/26/2020, Additional history exists Alcohol and Drug Screen 02/15/2024 Depression Annual Screen 02/15/2024 Imm-Influenza (#1) 2024 01/01/2021, 0 11/06/2017, 11/18/2016, Additional history exists Imm-DTaP/Tdap/Td (2 - Td or Tdap) 11/07/2027 11/06/2017, 01/02/2001, 09/03/1996 Cervical Ablation/Cold-Knife Conization Discontinued Cervical Cryotherapy Discontinued Colposcopy Discontinued Endometrial Biopsy Discontinued Excision/Leep Discontinued HPV Genotyping Discontinued Vaginal Pap Discontinued Vulvoscopy Discontinued Insurance [facility]
--- OUTSIDE RECORDS SUMMARY | 2024-08-28 16:36 | XMS_ITS | Clinical Summary ---
Author Organization [employer] Address [address] [place] [address] Care Team Providers Care Drive Man Name Role Phone Unavailable Primary Care Provider [...] morning and at bedtime. 9 Active PEG 8522-MWk-OpMca-Na Cl-NaSulf (PEG-3350/Electro lytes) 236 g reconstituted solution 2 Active rosuvastatin (Crestor) 10 MG tablet Take 1 tablet by mouth at bed time. 9 Active rosuvastatin (Crestor) 20 MG tablet Take 20 mg by mouth in the morning. 2 Active sodium chloride (Jones) 0.65 % nasal spray use 2 sprays in each nostril every 4 hours as needed 3 Active Active Problems Problem Noted Date Diagnosed Date Dental caries 05/04/2024 Defective dental mosque 05/04/2024 Dental plaque 11/03/2023 Dental calculus 11/03/2023 [...] Description 11/06/2024 3:00 PM EDT Office Visit [facility] [address] [place] [address] Susana Valdez [address] [place] [address] Health Maintenance Due Date Last Done Comments [...] was performed using the APTIMA(R) HPV Assay ([employer]One[employer] Inc.). This assay detects E6/E7 viral messenger RNA (mRNA) from 14 high-risk HPV types (16,18,31,33,35,39,45,51, 52,56,58,59,66,68). For additional information please refer to: http://ShopGo.Rosslyn Analytics/faq/YLN366s7 (This link is being provided for informational/ educational purposes only.) Test Performed by [facility], [facility], [address] [place] [address] Shakir Zuñiga M.D., Ph.D., Director of Laboratories , [facility] [id number] Please note: Effective 10/27/2015, HPV testing will be performed using [employer]'s APTIMA test which targets mRNA. Detecting mRNA instead of DNA, as in older methods, offers significant improvements in specificity. 01/11/2017 1:49 PM EST us Kayce Fernandes CNM HISTORICAL/NON ORDERABLE LABS Final Result [facility] [address] from Last 3 Months or Most Recently Relevant to Health Maintenance Insurance [place] STAND ADULT [place], [place] D[facility]AL-[facility] MEDICAID STAND ADULT DENTAL - [employer] DENTAL * Guarantor: Yaneth Becker Account Type Relation to Patient Date of Phone Billing Address Personal/Family Self [place], [place] * Guarantor: Yaneth Becker Account Type Relation to Patient Date of Phone Billing Address Personal/Family Self [place], [place]
== END 2024-08-28 15:42 | disposition home or self-care (01) ==
LOC: HO.MRI 15:41
PROVIDERS: PCP Internal Medicine; Visit Provider Surgery
DX: Z12.39 Encounter for other screening for malignant neoplasm of breast (principal); Z80.3 Family history of malignant neoplasm of breast; Z91.89 Other specified personal risk factors, not elsewhere classified
CPT/HCPCS: 77049; A9585

== ENCOUNTER 2024-09-18 15:23 | Outpatient (AMB) | payer BC, MEDICAID, SELFPAY ==
--- NOTE | 2024-09-18 15:28 | MHC.OFFVIS ---
Vital Signs 09/18/24 15:37 Height 5 ft 4 in Weight 171 lb BMI 29.3 BP 114/58 L Blood Pressure Location Lt brachial Position Sitting Pulse 59 Intake Visit Reasons: breast MRI results Intake Note: Patient is seen in office for 6 month follow up visit, breast exam. Pt c/o: denies any concerns here for results and breast exam MRI:08/28/24 mm:08/27/24 Cooperative Education Director Required: No Information Interpreted: non-clinical & clinical Labor And Delivery Registered Nurse: Labor And Delivery Registered Nurse Present Accompanied by: Self / Same As Patient Allergies pork derived (porcine) (PORK DERIVED (PORCINE)) Allergy (Severe, Verified 09/18/24 15:37) RASH Medication List - Last Reconciled 09/19/24 by Raimundo Padgett MD amlodipine 2.5 mg PO DAILY aspirin (Adult Aspirin Regimen) 81 mg PO DAILY PRN cyclobenzaprine 5 mg PO BEDTIME PRN metoprolol succinate ER 50 mg PO DAILY multivitamin 1 tab PO DAILY naproxen 500 mg PO BID PRN rosuvastatin 20 mg PO BEDTIME sulfamethoxazole-trimethoprim 800-160 mg (Bactrim DS) 1 tab PO BID 7 days HPI Comments Details: 54-year-old female returning for a high risk breast cancer screening. Her family history is significant for breast cancer in her sister at the age of 38 with subsequent recurrence requiring mastectomy, paternal aunt with breast cancer at the age of 47, paternal cousin with breast cancer at the age of 38, and maternal with colon cancer at the age of 58. She underwent previous BRCA testing which was negative. She was previously evaluated by Dr. Kirby and a Tyrer-Cuzick lifetime risk of breast cancer calculated at 20% placing her at a high risk for breast cancer. She is being followed with yearly mammograms alternated every 6 months with breast MRIs. Recent MRI performed on 08/28/2024 revealed an enhancing foci of the left breast stable from priors and a normal right breast. Six-month follow-up MRI was recommended (BI-RADS 3 left, BI-RADS 1 right). Screening mammogram performed on 08/27/2024 revealed no mammographic evidence of malignancy either breast (BI-RADS 2). Her menarche was at 13; she is , 1st at the age of 16, she did breast feed her children. She denies any ongoing breast symptoms. She is not interested in continuing her high-risk screening at our office. [facility] Medical History Hyperparathyroidism Ovarian cyst Migraine headache Anemia Hypercholesterolemia Hypertension Surgical History Hx of colonoscopy Status post cardiac catheterization Tubal ligation status H/O breast biopsy Family History Sister Breast CA, Onset Age: 37 Family/Other Breast CA Mother HTN (hypertension) Hyperlipidemia Father Suicide Maternal Aunt Colon cancer Social History Household Members: Spouse and Children Household Members Other:: 4 Housing: House Do you presently have visiting nurse or other home services: No Alcohol intake: current Alcohol intake frequency: a few times a month Patient Tobacco Use Status: Former Tobacco user Years Smoked: 3 +/- Substance Use Type: Caffiene service: No Current occupational status: employed 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 Sexual orientation: Straight/Heterosexual Gender identity: Female Female Reproductive History Menstrual Age of Menarche: 13 Review of Systems Const All systems reviewed & are unremarkable except as noted in HPI and below Physical Exam Vital Signs: Last Vital Signs Pulse 59 09/18/24 15:37 BP 114/58 L 09/18/24 15:37 BMI result Body Mass Index 29.3 Const General: cooperative, comfortable and well developed Nutritional Appearance: well nourished Orientation/consciousness: patient oriented x3 HEENT Head: Yes normocephalic and Yes atraumatic Ears: hearing grossly normal bilaterally Eyes Sclerae: sclerae normal EOM: EOMs intact bilaterally Neck Neck: Yes normal visual inspection Chest Other: Left breast:? No skin change, no nipple retraction, no nipple discharge, no palpable mass, no enlarged lymph nodes. Fibrocystic changes noted especially in the upper outer quadrant. Right breast:? No skin change, no nipple retraction, no nipple discharge, no palpable mass, no enlarged lymph nodes, mild fibrocystic changes noted but no discrete mass appreciated. Resp Effort & Inspection: normal respiratory effort, no cough, no respiratory distress and no stridor Cardio Jugular venous distension: no JVD GI Inspection: Yes normal to inspection Palpation (GI): Soft to palpation, nontender, no guarding and not rigid Skin General skin exam: dry skin Rashes: no rashes Neuro General: patient oriented x3 and no focal motor deficits Extrem General: Yes full ROM and Yes no clubbing, cyanosis or edema Psych Appearance: grossly normal Assessment & Plan Assessment & Plan (1) At high risk for breast cancer: Code(s): Z91.89 - Other specified personal risk factors, not elsewhere classified Category: Medical (2) Family history of breast cancer: Code(s): Z80.3 - Family history of malignant neoplasm of breast Category: Medical Plan 54-year-old female patient with a strong family history of breast cancer and a calculated Tyrer-Cuzick risk of breast cancer previously calculated at 20%. Examination today revealed bilateral fibrocystic changes but no discrete mass on either side. Her most recent mammogram revealed no suspicious findings in either breast (BI-RADS 2). Breast MRI of 08/28/2024 revealed a low suspicion area in the left breast for which six-month follow-up MRI is recommended (BI-RADS 3 left breast, BI-RADS 1 right breast). The findings were reviewed with the patient and the follow-up MRI ordered. Patient wishes to continue follow-up breast examination is with her marble and granite polisher and is welcome to return in 6 months although she indicated she is not interested in continuing high-risk screening. Coding Level of Care Code Est Pt Level 3 (56395) Complex EM visit Add On G2211 Diagnoses At high risk for breast cancer Z91.89 Family history of breast cancer Z80.3
[2024-09-18 15:37] VITALS: BP 114/58; PULSE 59; BMI 29.3
--- OUTSIDE RECORDS SUMMARY | 2024-09-18 15:51 | XMS_ITS | Clinical Summary ---
Author Organization [facility] Address [address] [place] [address] Care Team Providers Care Oil Burner Servicer And Installer Name Role Phone Unavailable Primary Care Provider [...] 01/06/2018 Imm-Zoster, Recombinant (1 of 2) 01/06/2018 [id number] ( season) 2023 02/20/2021, 07/07/2020, 05/26/2020, Additional history exists Alcohol and Drug Screen 02/15/2024 Depression Annual Screen 02/15/2024 Imm-Influenza (#1) 2024 01/01/2021, 0 11/06/2017, 11/18/2016, Additional history exists Imm-DTaP/Tdap/Td (2 - Td or Tdap) 11/07/2027 11/06/2017, 01/02/2001, 09/03/1996 Cervical Ablation/Cold-Knife Conization Discontinued Cervical Cryotherapy Discontinued Colposcopy Discontinued Endometrial Biopsy Discontinued Excision/Leep Discontinued HPV Genotyping Discontinued Vaginal Pap Discontinued Vulvoscopy Discontinued Insurance [facility]
--- OUTSIDE RECORDS SUMMARY | 2024-09-18 15:51 | XMS_ITS | Clinical Summary ---
Author Organization [employer] Address [address] [place] [address] Care Team Providers Care Tumor Registrar Name Role Phone Unavailable Primary Care Provider [...] morning and at bedtime. 9 Active PEG 5698-MZi-TvVjf-Na Cl-NaSulf (PEG-3350/Electro lytes) 236 g reconstituted solution 2 Active rosuvastatin (Crestor) 10 MG tablet Take 1 tablet by mouth at bed time. 9 Active rosuvastatin (Crestor) 20 MG tablet Take 20 mg by mouth in the morning. 2 Active sodium chloride (Peach) 0.65 % nasal spray use 2 sprays in each nostril every 4 hours as needed 3 Active Active Problems Problem Noted Date Diagnosed Date Dental caries 05/04/2024 Defective dental evangelical 05/04/2024 Dental plaque 11/03/2023 Dental calculus 11/03/2023 [...] Description 11/06/2024 3:00 PM EDT Office Visit [facility]ULT [facility] [address] [place] [address] Susana Valdez [address] [place] [address] Health Maintenance Due Date Last Done Comments [...] was performed using the APTIMA(R) HPV Assay ([employer] This assay detects E6/E7 viral messenger RNA (mRNA) from 14 high-risk HPV types (16,18,31,33,35,39,45,51, 52,56,58,59,66,68). For additional information please refer to: http://Stere[employer]ot[employer]faq/SRE031f9 (This link is being provided for informational/ educational purposes only.) Test Performed by [facility], [facility], [address] [place] [address] Shakir Zuñiga M.D., Ph.D., Director of Laboratories , [facility] [id number] Please note: Effective 10/27/2015, HPV testing will be performed using [employer]'s APTIMA test which targets mRNA. Detecting mRNA instead of DNA, as in older methods, offers significant improvements in specificity. 01/11/2017 1:49 PM EST us Kayce Fernandes CNM HISTORICAL/NON ORDERABLE LABS Final Result [facility] [address] from Last 3 Months or Most Recently Relevant to Health Maintenance Insurance D[place]AL-[place], [place] DENTAL-[facility] MEDICA[employer] STAND ADULT DENTAL - BCBS DENTAL * Guarantor: Yaneth Becker Account Type Relation to Patient Date of Phone Billing Address Personal/Family Self [place], [place] * Guarantor: Yaneth Becker Account Type Relation to Patient Date of Phone Billing Address Personal/Family Self [place], [place]
== END 2024-09-18 17:17 | disposition home or self-care (01) ==
LOC: HO.HGS 15:24
PROVIDERS: PCP Internal Medicine; Visit Provider Surgery
DX: Z91.89 Other specified personal risk factors, not elsewhere classified (principal); Z80.3 Family history of malignant neoplasm of breast
CPT/HCPCS: 99213

== ENCOUNTER → 2025-02-12 15:50 | Outpatient (BNV) | payer BC, MEDICAID, SELFPAY | PROVIDERS: PCP Internal Medicine; Visit Provider Internal Medicine | DX: R92.8 Other abnormal and inconclusive findings on diagnostic imaging of breast (principal); Z80.3 Family history of malignant neoplasm of breast | CPT/HCPCS: 77049 ==

== ENCOUNTER 2025-02-12 15:59 | Outpatient (REF) | payer BC, MEDICAID, SELFPAY ==
--- OUTSIDE RECORDS SUMMARY | 2025-02-12 19:03 | XMS_ITS | Clinical Summary ---
Author Organization [employer] Address [address] [place] [address] Care Team Providers Care Supervisor Frame Sample And Pattern Name Role Phone Unavailable Primary Care Provider [...] morning and at bedtime. 9 Active PEG 2265-LBo-PhBxa-Na Cl-NaSulf (PEG-3350/Electro lytes) 236 g reconstituted solution 2 Active rosuvastatin (Crestor) 10 MG tablet Take 1 tablet by mouth at bed time. 9 Active rosuvastatin (Crestor) 20 MG tablet Take 20 mg by mouth in the morning. 2 Active sodium chloride (Gray) 0.65 % nasal spray use 2 sprays in each nostril every 4 hours as needed 3 Active Active Problems Problem Noted Date Diagnosed Date Missing teeth, acquired 11/06/2024 Dental caries 05/04/2024 Defective dental sikh 05/04/2024 Dental plaque 11/03/2023 Dental calculus 11/03/2023 Normal oral exam 11/03/2023 Migraine 08/03/2011 Anemia 07/14/2011 Depressive disorder 07/14/2011 Hyperlipidemia 07/14/2011 Hypertension 07/14/2011 Encounters Date Type Department Care Team Description 12/11/2024 3:00 PM EDT Office Visit [facility] ADULT D[facility] [address] [place] [address] Jhon Briggs DDS Dental caries (Primary Dx) 12/10/2024 Travel from Last 3 Months Immunizations Immunization Administration [...] Sign Reading Time Taken Comments Blood Pressure 122/76 12/11/2024 2:49 PM EDT Pulse 68 12/11/2024 2:49 PM EDT Temperature - - Respiratory Rate - - Oxygen Saturation - - Inhaled Oxygen Concentration - - Weight - - Height - - Body Mass Index - - Plan of Treatment Upcoming Encounters Date Type Department Care Team (Late st Contact Info) Description 05/07/2025 2:15 PM EDT Office Visit [facility] ADULT [facility] [address] [place] [address] Courtney, Susana [address] [place] [address] Health Maintenance Due Date Last Done Comments [...] HPV/Cotest 01/11/2022 01/11/2017 COVID-19 Vaccine ( season) 2024 01/13/2023, 02/20/2021, 07/07/2020, Additional history exists Influenza Vaccine (#1) 2024 , 01/13/2023, 01/01/2021, Additional history exists Dental X-Ray: Bitewings 05/05/2025 05/05/19 25, 11/03/2023, 02/04/2022 Dental Oral Exam 05/07/2025 11/06/2024, , 11/03/2023, Additional history exists Dental Prophylaxis 05/07/2025 11/06/2024, 0 05/04/2024, 11/03/2023, Additional history exists Dental X-Ray: Full Mouth 09/05/2025 09/04/2020 Tobacco Screening 12/11/2025 12/11/2024 DTaP/Tdap/Td Vaccines (2 - Td or Tdap) [...] Procedure Name Priority Date/Time Associated Diagnosis Comments 5 M RESIN-BASED COMPOSITE - 1 SURF, POSTERIOR Routine 12/11/2024 3:00 PM EDT 7 ML RESIN-BASED COMPOSITE - 2 SURF, ANTERIOR Routine 12/11/2024 3:00 PM EDT PROPHYLAXIS - ADULT Routine 11/06/2024 3 :00 PM EDT Dental plaque PERIODIC ORAL EVALUATION - ESTABLISHED PATIENT Routine 11/06/2024 3:00 PM EDT BITEWINGS - 4 RADIOGRAPHIC IMAGES Routine 05/04/2024 3:00 PM EDT Dental plaque BI MAMMOGRAM SCREENING BILATERAL Routine 04/18/2018 10:08 AM EST [facility] HISTORICAL HPV MRNA E6/E7 Routine 01/11/2017 1:49 [...] HPV mRNA E6/E7 Not Detected NOT DETECTED [facility] Comment: This test was performed using the APTIMA(R) HPV Assay ([employer] This assay detects E6/E7 viral messenger RNA (mRNA) from 14 high-risk HPV types (16,18,31,33,35,39,45,51, 52,56,58,59,66,68). For additional information please refer to: http://education.Crowdly/faq/RKK509f8 (This link is being provided for informational/ educational purposes only.) Test Performed by [facility], [facility], [address] [place] [address] Shakir Zuñiga M.D., Ph.D., Director of Laboratories , [place] [id number] Please note: Effective 10/27/2015, HPV testing will be performed using [employer]'s APTIMA test which targets mRNA. Detecting mRNA instead of DNA, as in older methods, offers significant improvements in specificity. 01/11/2017 1:49 PM EST us Kayce Fernandes CNM HISTORICAL/NON ORDERABLE LABS Final Result [facility] [address] [place] [address], from Last 3 Months or Most Recently Relevant to Health Maintenance Insurance [place], [place]MEDICAID) [place], [place] * Guarantor: Yaneth Becker Account Type Relation to Patient Date of Phone Billing Address Personal/Family Self [place], [place]
--- OUTSIDE RECORDS SUMMARY | 2025-02-12 19:03 | XMS_ITS | Encounter Summary ---
Author Organization [employer] [facility] Address [address] [place] [address] Care Team Providers Care Light Rail Operator Name Role Phone Unavailable Primary Care Provider Unavailabl e Encounter Details Date Type Department Care Team (Latest Contact Info) Description 09/12/2020 Abstract [facility] CONVERSIONS Dental, Provider, DDS Social History Tobacco [...] Description 05/07/2025 2:15 PM EDT Office Visit [facility] ADULT D[facility] [address] [place] [address] Susana Valdez [address] [place] [address] documented as of this encounter Visit Diagnoses Not on filedocumented in this encounter
--- OUTSIDE RECORDS SUMMARY | 2025-02-12 19:04 | XMS_ITS | Encounter Summary ---
Author Organization [employer] [facility] Address [address] [place] [address] Care Team Providers Care Russian Language Professor Name Role Phone Unavailable Primary Care Provider Unavailabl e Encounter Details Date Type Department Care Team (Latest Contact Info) Description 07/17/2021 Abstract [facility] CONVERSIONS Dental, Provider, DDS Social History [...] Description 05/07/2025 2:15 PM EDT Office Visit [facility] ADULT DENT[facility] [address] [place] [address] Susana Valdez [address] [place] [address] documented as of this encounter Visit Diagnoses Not on filedocumented in this encounter
== END 2025-02-12 16:00 ==
LOC: HO.MRI 15:59
PROVIDERS: PCP Internal Medicine; Visit Provider Surgery
DX: R92.8 Other abnormal and inconclusive findings on diagnostic imaging of breast (principal); Z80.3 Family history of malignant neoplasm of breast; Z91.89 Other specified personal risk factors, not elsewhere classified
CPT/HCPCS: 77049; A9585